=== PATIENT | female | born 1950 | race Caucasian/White ===

== ENCOUNTER → 2020-03-19 09:32 | Outpatient (BNVA) | payer MEDICARE, SELFPAY | PROVIDERS: PCP Internal Medicine; Visit Provider Internal Medicine | DX: I49.3 Ventricular premature depolarization (principal); R07.89 Other chest pain; M79.89 Other specified soft tissue disorders | CPT/HCPCS: 99212 ==

== ENCOUNTER → 2020-03-26 08:28 | Outpatient (BNVA) | payer MEDICARE, SELFPAY | PROVIDERS: PCP Internal Medicine; Referring Provider Internal Medicine; Visit Provider Nurse Practitioner Gerontology | DX: E11.42 Type 2 diabetes mellitus with diabetic polyneuropathy (principal); Z79.84 Long term (current) use of oral hypoglycemic drugs; I10 Essential (primary) hypertension; E78.5 Hyperlipidemia, unspecified | CPT/HCPCS: 82947; 99212 ==

== ENCOUNTER 2020-03-28 08:24 | Outpatient (REF) | payer MEDICARE, SELFPAY ==
[2020-03-28 09:41] LABS: MANUAL DIFF FLAG NO
[2020-03-28 09:44] LABS: Basophils Percent Auto 0.3 % (0-2); Eosinophils Absolute Auto 0.1 X10*3/uL (0.0-0.4); Eosinophils Percent Auto 0.8 % (0-4); Hematocrit 33.3 % (37-47); Hemoglobin 10.5 g/dl (12.0-16.0); Imm Gran Abs Auto 0.05 X10*3/uL (0.00-0.03); Imm Gran Pct Auto 0.5 % (0.0-0.4); Lymphocytes Absolute Auto 1.2 X10*3/uL (1.2-4.9); Lymphocytes Percent Auto 11.2 % (20-40); Mean Corpuscular HGB Conc 31.5 g/dl (31.0-35.0); Mean Corpuscular Hemoglobin 28.7 pg (27.0-33.0); Mean Platelet Volume 9.1 fL (9.4-12.3); Monocytes Percent Auto 9.2 % (2-11); Neutrophils Absolute Auto 8.1 X10*3/uL (2.0-8.3); Platelet Count 434 X10*3/uL (160-400); Red Blood Count 3.66 X10*6/uL (4.20-5.50); Red Cell Distribution Width 13.2 % (11.0-16.0); White Blood Count 10.4 X10*3/uL (4.8-10.8)
[2020-03-28 10:45] LABS: Cholesterol 227 mg/dL; HDL Cholesterol 48 mg/dL; LDL Cholesterol Calculated 145 mg/dl; Triglycerides 171 mg/dL
[2020-03-28 10:47] LABS: Anion Gap 14 (12-20); Blood Urea Nitrogen 16 mg/dL (9-16); Calcium 9.4 mg/dL (8.4-10.2); Carbon Dioxide 26 mmol/L (22-29); Chloride 105 mmol/L (96-108); Cholesterol 230 mg/dL; Estimated Glomerular Filt Rate > 60; Glucose Fasting 141 mg/dL (60-99); HDL Cholesterol 47 mg/dL; LDL Cholesterol Calculated 149 mg/dl; Potassium 4.5 mmol/l (3.3-5.1); Sodium 140 mmol/L (135-145); Triglycerides 171 mg/dL
[2020-03-28 14:38] LABS: Creatinine Urine < 5.00 mg/dL
[2020-03-29 10:17] LABS: LDL Cholesterol Direct 176 mg/dL (<100)
== END 2020-03-28 08:25 | disposition home or self-care (01) ==
LOC: HO.LAB 08:24
PROVIDERS: Absent Provider Nurse Practitioner Family; PCP Internal Medicine; Visit Provider Nurse Practitioner Gerontology
DX: E78.5 Hyperlipidemia, unspecified (principal); E11.42 Type 2 diabetes mellitus with diabetic polyneuropathy; Z00.00 Encounter for general adult medical examination without abnormal findings; J44.9 Chronic obstructive pulmonary disease, unspecified; J45.909 Unspecified asthma, uncomplicated; M79.89 Other specified soft tissue disorders
CPT/HCPCS: 36415; 80048; 80061; 82043; 83721; 85025; 99212

== ENCOUNTER → 2020-04-09 08:35 | Outpatient (BNVA) | payer MEDICARE, SELFPAY | PROVIDERS: PCP Internal Medicine; Visit Provider Nurse Practitioner Gerontology | DX: E11.42 Type 2 diabetes mellitus with diabetic polyneuropathy (principal); I10 Essential (primary) hypertension; E78.5 Hyperlipidemia, unspecified | CPT/HCPCS: 82947; Q3014 ==

== ENCOUNTER → 2020-06-04 09:19 | Outpatient (BNVA) | payer MEDICARE, SELFPAY | PROVIDERS: PCP Internal Medicine; Visit Provider Obstetrics & Gynecology ==

== ENCOUNTER → 2020-07-24 09:42 | Outpatient (BNVA) | payer MEDICARE, SELFPAY | PROVIDERS: PCP Internal Medicine; Visit Provider Internal Medicine | DX: J44.9 Chronic obstructive pulmonary disease, unspecified (principal); Z79.51 Long term (current) use of inhaled steroids | CPT/HCPCS: 99212 ==

== ENCOUNTER → 2020-09-05 08:26 | Outpatient (BNVA) | payer MEDICARE, SELFPAY | PROVIDERS: PCP Internal Medicine; Visit Provider Internal Medicine ==

== ENCOUNTER → 2020-09-05 11:30 | Outpatient (REF) | payer MEDICARE, SELFPAY | LOC: HO.CARD 11:30 | PROVIDERS: Visit Provider Internal Medicine | DX: Z13.89 Encounter for screening for other disorder (principal) ==

== ENCOUNTER → 2020-09-17 08:51 | Outpatient (BNVA) | payer MEDICARE, SELFPAY | PROVIDERS: PCP Internal Medicine; Referring Provider Internal Medicine; Visit Provider Internal Medicine | DX: I49.3 Ventricular premature depolarization (principal); M79.89 Other specified soft tissue disorders; R07.89 Other chest pain; I10 Essential (primary) hypertension; J44.9 Chronic obstructive pulmonary disease, unspecified | CPT/HCPCS: 93005; 99212 ==

== ENCOUNTER 2020-10-08 08:24 | Outpatient (REF) | payer MEDICARE, SELFPAY ==
[2020-10-08 11:08] LABS: MANUAL DIFF FLAG NO
[2020-10-08 11:35] LABS: B Type Natriuretic Peptide 46 pg/mL (<100)
[2020-10-08 11:44] LABS: Basophils Percent Auto 0.3 % (0-2); Eosinophils Absolute Auto 0.1 X10*3/uL (0.0-0.4); Hematocrit 35.6 % (37-47); Hemoglobin 11.5 g/dl (12.0-16.0); Imm Gran Abs Auto 0.06 X10*3/uL (0.00-0.03); Imm Gran Pct Auto 0.5 % (0.0-0.4); Lymphocytes Absolute Auto 1.4 X10*3/uL (1.2-4.9); Lymphocytes Percent Auto 12.1 % (20-40); Mean Corpuscular HGB Conc 32.3 g/dl (31.0-35.0); Mean Corpuscular Hemoglobin 28.6 pg (27.0-33.0); Mean Corpuscular Volume 88.6 fL (80-98); Monocytes Absolute Auto 0.9 X10*3/uL (0.1-1.2); Monocytes Percent Auto 7.8 % (2-11); Neutrophils Absolute Auto 8.8 X10*3/uL (2.0-8.3); Neutrophils Percent Auto 78.3 % (45-73); Platelet Count 391 X10*3/uL (160-400); Red Blood Count 4.02 X10*6/uL (4.20-5.50); Red Cell Distribution Width 13.7 % (11.0-16.0); White Blood Count 11.3 X10*3/uL (4.8-10.8)
[2020-10-08 11:49] LABS: Alanine Aminotransferase 9 U/L (0-31); Albumin Level 4.2 g/dL (3.5-5.0); Alkaline Phosphatase 111 U/L (39-117); Anion Gap 15 (12-20); Aspartate Amino Transferase 13 U/L (5-31); Bilirubin Total 0.3 mg/dL (0.0-1.0); Blood Urea Nitrogen 11 mg/dL (9-16); Carbon Dioxide 25 mmol/L (22-29); Chloride 104 mmol/L (96-108); Estimated Glomerular Filt Rate > 60; Glucose Random 163 mg/dL (60-115); Sodium 140 mmol/L (135-145); Total Protein 8.1 g/dL (6.5-8.0)
== END 2020-10-08 08:25 | disposition home or self-care (01) ==
LOC: HO.LAB 08:24
PROVIDERS: Absent Provider Internal Medicine Medical Oncology; PCP Internal Medicine; Referring Provider Internal Medicine; Visit Provider Nurse Practitioner Gerontology
DX: E11.42 Type 2 diabetes mellitus with diabetic polyneuropathy (principal); I10 Essential (primary) hypertension; E78.5 Hyperlipidemia, unspecified; E53.8 Deficiency of other specified B group vitamins; M79.89 Other specified soft tissue disorders
CPT/HCPCS: 36415; 80053; 82947; 83880; 85025; 99212

== ENCOUNTER 2020-10-09 08:31 | Outpatient (REF) | payer MEDICARE, SELFPAY ==
--- NOTE | ~2020-10-09 | MM_ITS ---
EXAMINATION: BONE DENSITOMETRY CLINICAL INDICATION: Other specified personal risk factors. COMPARISON: Previous BD dated 06/17/2017 and baseline BD dated 08/12/2010. TECHNIQUE: Using a [employer] DXA System (software version: 13.1) manufactured by [employer], dual-energy x-ray absorptiometry was performed of the lumbar spine and left hip. The images are of good technical quality. Summary results are attached. FINDINGS: AP SPINE L1-L4: Current: BMD 1.344 g/cm2, Z-score 1.9, T-score 1.4, normal, 8.3% increase from previous, 21.7% increase from baseline (<5% change is not significant). Prior: BMD 1.241 g/cm2. Baseline: BMD 1.104 g/cm2. LEFT FEMUR, NECK: Current: BMD 0.591 g/cm2, Z-score -2.3, T-score -3.2, osteoporosis. Prior: BMD 0.628 g/cm2. Baseline: BMD 0.715 g/cm2. LEFT FEMUR, TOTAL: Current: BMD 0.695 g/cm2, Z-score -1.9, T-score -2.5, osteoporosis, 11.8% decrease from previous, 20.0% decrease from baseline (<5% change is not significant). Prior: BMD 0.788 g/cm2. Baseline: BMD 0.869 g/cm2. IDENTIFIED RISK FACTORS: Osteoporosis, height loss. Early menopause, secondary osteoporosis, anticonvulsant. HISTORY OF FRACTURE: None listed. MEDICATIONS: Calcium supplements or multivitamin, vitamin D, bisphosphonates. MM/XR DEXA axial skeleton IMPRESSION: 1. DIAGNOSIS: Osteoporosis based on the lowest T-score value of -3.2 in the femoral neck applying World Health Organization criteria. 2. 10-YEAR FRACTURE RISK PREDICTION, FRAX: Major osteoporotic fracture (clinical spine, forearm, hip or shoulder) 18.6%. Hip fracture 6.4%. 3. Treatment Recommendations: NOF guidelines recommend consideration for treatment in postmenopausal women and men age 50 and older presenting with the following: -A hip or vertebral (clinical or morphometric) fracture. -T-score less than or equal to -2.5 at the femoral neck or spine after appropriate evaluation to exclude secondary causes. -Low bone mass at the hip or spine and a 10-year fracture probability by FRAX of greater than or equal to 3% for hip fracture or greater than or equal to 20% for major osteoporotic fracture based on the [place] adapted WHO algorithm. 4. Other Recommendations: All treatment decisions require clinical judgment and consideration of individual patient factors, including patient preferences, comorbidities, previous drug use, risk factors not captured in the FRAX model (e.g. frailty, falls, vitamin D deficiency, increased bone turnover, interval significant decline in bone density) and possible under or overestimation of fracture risk by FRAX. Additional medical evaluation for secondary cause of low bone mineral density may be appropriate. FUTURE SCAN RECOMMENDATION: People with diagnosed cases of osteoporosis or at high risk for fracture should have regular bone mineral density tests. For patients eligible for Medicare, routine testing is allowed once every 2 years. The testing frequency can be increased to one year for patients who have rapidly progressing disease, those who are receiving or discontinuing medical therapy to restore bone mass, or have additional risk factors.
--- NOTE | ~2020-10-09 | MM_ITS ---
EXAMINATION: MM SCREENING DIGITAL BREAST TOMOSYNTHESIS, BILATERAL CLINICAL INFORMATION: Screening. Asymptomatic. Remote bilateral reduction mammoplasty 2000. The lifetime risk of breast cancer based on the Tyrer-Cuzick Model is 5%. COMPARISON: Mammography: 01/02/2019, 06/01/2017, 05/27/2016 TECHNIQUE: Digital breast tomosynthesis is performed in both the craniocaudal and mediolateral oblique views along with computer-aided detection (CAD). Synthesized 2D images are generated from the tomosynthesis. Additional exaggerated right CC and right MLO views are provided. FINDINGS: There are scattered areas of fibroglandular density (ACR BI-RADS breast composition Category b). Breast tissue composition borders on predominantly fatty. Background stromal and fibroglandular densities are similar to prior studies. There is no developing density or interval mass or architectural abnormality. Again, there are scattered bilateral isolated and grouped round calcifications, most are dermal, along with vascular calcifications. There is a biopsy clip marker again noted 3 central 3:00 right breast. The axilla and skin contours are unremarkable. No significant changes. MM/MM tomosynthesis screening BI IMPRESSION: No mammographic evidence of malignancy. ASSESSMENT: BI-RADS 2: Benign RECOMMENDATION: Routine annual mammography screening. This patient's information was entered into a reminder system with a target due date for their next mammogram.
== END 2020-10-09 08:32 | disposition home or self-care (01) ==
LOC: HO.MAMMO 08:31
PROVIDERS: Visit Provider Internal Medicine
DX: Z12.31 Encounter for screening mammogram for malignant neoplasm of breast (principal); M81.0 Age-related osteoporosis without current pathological fracture; Z78.0 Asymptomatic menopausal state; Z91.89 Other specified personal risk factors, not elsewhere classified; Z79.899 Other long term (current) drug therapy
CPT/HCPCS: 77063; 77067; 77080

== ENCOUNTER → 2020-11-20 09:14 | Outpatient (BNVA) | payer MEDICARE, SELFPAY | PROVIDERS: PCP Internal Medicine; Referring Provider Internal Medicine; Visit Provider Internal Medicine | DX: I49.3 Ventricular premature depolarization (principal); M79.89 Other specified soft tissue disorders; R07.89 Other chest pain; I10 Essential (primary) hypertension; J44.9 Chronic obstructive pulmonary disease, unspecified | CPT/HCPCS: 99212 ==

== ENCOUNTER 2020-12-04 08:32 | Outpatient (REF) | payer MEDICARE, SELFPAY ==
[2020-12-04 09:42] LABS: Anion Gap 14 (12-20); Blood Urea Nitrogen 15 mg/dL (9-16); Calcium 10.1 mg/dL (8.4-10.2); Carbon Dioxide 24 mmol/L (22-29); Chloride 104 mmol/L (96-108); Estimated Glomerular Filt Rate 53; Glucose Random 179 mg/dL (60-115); Potassium 3.7 mmol/L (3.3-5.1); Sodium 138 mmol/L (135-145)
== END 2020-12-04 08:33 | disposition home or self-care (01) ==
LOC: HO.LAB 08:32
PROVIDERS: Visit Provider Internal Medicine
DX: J44.9 Chronic obstructive pulmonary disease, unspecified (principal); M79.89 Other specified soft tissue disorders; Z79.899 Other long term (current) drug therapy
CPT/HCPCS: 36415; 80048; 99212

== ENCOUNTER → 2021-02-13 08:59 | Outpatient (BNVA) | payer MEDICARE, SELFPAY | PROVIDERS: PCP Internal Medicine; Referring Provider Internal Medicine; Visit Provider Internal Medicine | DX: I49.3 Ventricular premature depolarization (principal); I10 Essential (primary) hypertension; R07.89 Other chest pain; M79.89 Other specified soft tissue disorders | CPT/HCPCS: 99212 ==

== ENCOUNTER → 2021-04-07 09:59 | Outpatient (BNVA) | payer MEDICARE, SELFPAY | PROVIDERS: PCP Internal Medicine; Visit Provider Internal Medicine | DX: J44.9 Chronic obstructive pulmonary disease, unspecified (principal); J45.909 Unspecified asthma, uncomplicated | CPT/HCPCS: 99212 ==

== ENCOUNTER → 2021-04-15 08:24 | Outpatient (BNVA) | payer MEDICARE, SELFPAY | PROVIDERS: PCP Internal Medicine; Visit Provider Registered Nurse Diabetes Educator ==

== ENCOUNTER → 2021-06-13 10:54 | Outpatient (BNVA) | payer MEDICARE, SELFPAY | PROVIDERS: PCP Internal Medicine; Visit Provider Nurse Practitioner Gerontology | DX: E11.42 Type 2 diabetes mellitus with diabetic polyneuropathy (principal); I10 Essential (primary) hypertension; E78.5 Hyperlipidemia, unspecified; Z79.899 Other long term (current) drug therapy | CPT/HCPCS: Q3014 ==

== ENCOUNTER 2021-07-08 10:18 | Inpatient (IN) | payer MEDICARE, SELFPAY ==
--- NOTE | ~2021-07-08 | XR_ITS ---
EXAMINATION: XR CHEST CLINICAL INFORMATION: Fall. Lower extremity edema. COMPARISON: Previous chest x-rays most recent June 2019 TECHNIQUE: 2 views of the chest were obtained. FINDINGS: The cardiac silhouette is enlarged but stable. Hilar and mediastinal contours are unremarkable. The lungs are clear. There is no pleural effusion or pneumothorax. There are degenerative changes of the thoracic spine. XR/XR chest 2V IMPRESSION: Stable enlargement of the cardiac silhouette. No evidence for acute disease in the chest.
--- NOTE | ~2021-07-08 | XR_ITS ---
EXAMINATION: XR ANKLE, LEFT CLINICAL INFORMATION: Fall. Pain. COMPARISON: None TECHNIQUE: AP, lateral, and mortise views of the left ankle. FINDINGS: Bone alignment is normal. No fracture or dislocation is seen. The ankle mortise is normal. There are calcaneal spurs. There is soft tissue calcification in the more proximal Achilles tendon. There is diffuse soft tissue swelling. There is amorphous soft tissue calcification in the medial lower leg. There is soft tissue arterial calcification. XR/XR ankle LT min 3V IMPRESSION: No fracture or dislocation.
--- NOTE | ~2021-07-08 | XR_ITS ---
EXAMINATION: XR HIP, LEFT CLINICAL INFORMATION: Fall. Left thigh pain. COMPARISON: None TECHNIQUE: Two views of the left hip and one view of the pelvis. FINDINGS: No pelvis fracture is seen. No hip fracture is seen. There is mild arthritis at both hip joints. Soft tissues are unremarkable. There are degenerative changes of the visualized lower lumbar spine. There is evidence of atherosclerotic disease. XR/XR hip LT w PEL1V IMPRESSION: No fracture or dislocation.
--- NOTE | ~2021-07-08 | FL_ITS ---
EXAMINATION: XR FLUOROSCOPY WITH IMAGES CLINICAL INFORMATION: Fracture COMPARISON: Previous x-ray 07/08/2021 TECHNIQUE: Fluoroscopy performed by Dr. Conner Mark. Fluoroscopy time: 1.8 minutes DAP: 0.5 mGycm2 Images: 10 FINDINGS: Fluoroscopy guidance was provided for ORIF of left distal femoral shaft fracture. Images demonstrate an intramedullary tim and multiple distal screws in the femur with improved alignment. FL/FL guidance in OR IMPRESSION: Fluoroscopy guidance for ORIF of left femoral fracture.
--- NOTE | ~2021-07-08 | XR_ITS ---
EXAMINATION: XR ELBOW, LEFT CLINICAL INFORMATION: Pain. Fall. COMPARISON: None TECHNIQUE: AP, lateral, and oblique views of the left elbow. FINDINGS: Bone alignment is normal. No fracture or dislocation is seen. There is a small osteophyte at the coronoid process. The joint spaces are otherwise normal. There is no joint effusion. There may be a small amount of air in the soft tissues adjacent to the medial olecranon. XR/XR elbow LT min 3V IMPRESSION: No fracture or dislocation or joint effusion. Question small amount of air in the soft tissues adjacent to the medial olecranon.
--- NOTE | ~2021-07-08 | XR_ITS ---
EXAMINATION: XR KNEE, LEFT CLINICAL INFORMATION: Fall. Pain and swelling. COMPARISON: None TECHNIQUE: Four views of the left knee. FINDINGS: There is a comminuted fracture of the distal shaft and supracondylar femur. There is posterior and medial displacement of the femoral condyles with respect to the more proximal shaft measuring approximately 1.3 cm. There is some impaction. There also may be some element of rotation at the fracture. Bones are osteopenic. There is arthritis at the femoral tibial joints. True lateral view cannot be obtained and difficult to assess for effusion. There is soft tissue swelling adjacent to the fracture. XR/XR knee LT 4V IMPRESSION: Comminuted impacted displaced left distal femoral shaft and supracondylar fracture.
[2021-07-08 10:35] VITALS: BP 150/90; BP 196/82; PULSE 90; RESP 17; TEMP 36.4; O2SAT 98; BMI 37.5
--- NOTE | 2021-07-08 11:02 | PC.NURSE ---
PT ASSISTED ONTO BEDPAN WITH 2 ASSIST. VOIDED LARGE AMOUNT YELLOW URINE.
--- NOTE | 2021-07-08 11:52 | ED.FALL ---
HPI - Fall General Chief Complaint: Extremity Injury, Lower Stated Complaint: [facility] FALL W/L ANKLE/LEG PAIN Time Seen by Provider: 07/08/21 10:53 Source: patient and EMS Mode of arrival: EMS Limitations: no limitations History of Present Illness HPI Narrative: 71-year-old female with a past medical history of diabetes type 2 with diabetic polyneuropathy, hypertension, hyperlipidemia, CHF, COPD, asthma, PVCs, lower extremity edema and osteopenia presenting to the ED via EMS after she had a mechanical fall where she reports she had just walked out of the bank and the sidewalk was uneven right outside of the bank and she tripped on the uneven sidewalk and landed injured her left elbow/left hip/thigh and knee/ankle and since then she has had been having pain and not been able to walk her normal self. She denies head injury loss of consciousness. She reports that she is on aspirin no other blood thinners. She denies any neck pain or injury. She denies any chest pain or shortness of breath. She denies any abdominal pain or back pain. She denies any other injuries complaints or concerns. She denies any symptoms prior to the fall she reports this was mechanical. MD complaint: fall Onset (ago): minute(s) (Prior to arrival) Fall from: standing Fall witnessed: no Place fall occurred: street Loss of consciousness: none Prolonged down time: no Symptoms prior to fall: none Context: tripped/slipped Location of injury - extremities: left: elbow, thigh, knee and ankle Severity: severe Severity scale (1-10): >10 Quality: aching Associated symptoms (after fall): unable to walk Related Data Home Medications Medication Instructions Recorded Confirmed aspirin 81 mg tablet,delayed 81 mg PO DAILY 03/19/20 07/08/21 release ipratropium 0.5 mg-albuterol 3 mg 3 ml INHALATION Q6H 03/28/20 07/08/21 (2.5 mg base)/3 mL nebulization soln losartan 100 mg tablet 50 mg PO DAILY tab 04/07/21 07/08/21 alendronate 70 mg tablet 70 mg PO SA 07/08/21 07/08/21 cyanocobalamin (vitamin B-12) 1 tab PO DAILY 07/08/21 07/08/21 1,000 mcg tablet glimepiride 2 mg tablet 2 mg PO BEDTIME 07/08/21 07/08/21 metoprolol tartrate 100 mg tablet 100 mg PO BEDTIME 07/08/21 07/08/21 metoprolol tartrate 100 mg tablet 200 mg PO DAILY 07/08/21 07/08/21 semaglutide (Ozempic) 0.25 mg SUBCUT PAGE 07/08/21 07/08/21 Previous Rx's Medication Instructions Recorded blood-glucose meter (FreeStyle #1 ea 10/08/20 Lite Meter) folic acid 1 mg tablet 1 mg PO DAILY #90 tab 11/15/20 torsemide 100 mg tablet 100 mg PO DAILY #90 tab 02/03/21 cholecalciferol (vitamin D3) 125 125 mcg PO DAILY #90 cap 02/12/21 mcg (5,000 unit) capsule lancets 28 gauge #100 ea 04/29/21 ipratropium 20 mcg-albuterol 100 1 puff PO QID #12 g 05/11/21 mcg/actuation mist for inhalation (Combivent Respimat) rosuvastatin 40 mg tablet 40 mg PO DAILY #90 tab 05/11/21 fluticasone 250 mcg-salmeterol 50 1 ea PO BID #60 ea 05/26/21 mcg/dose blistr powdr for inhalation (Wixela Inhub) glimepiride 1 mg tablet 1 mg PO QAM 90 Days #90 tab 06/02/21 blood-glucose meter (FreeStyle #1 ea 06/13/21 Lite Meter) Allergies Allergy/AdvReac Type Severity Reaction Status Date / Time cephalexin [From KEFLEX] Allergy Intermediate HIVES Verified 06/13/21 13:41 Penicillins [PENICILLINS] Allergy Intermediate HIVES Verified 06/13/21 13:41 metformin [METFORMIN] Allergy Mild HIVES Verified 06/13/21 13:41 enalaprilat [Vasotec] Allergy Unknown Unknown Verified 06/13/21 13:41 Review of Systems Review of Systems: Constitutional : No Weight loss, No Fever, No Chills, No Night Sweats, No Fatigue, No Malaise ENT/Mouth : No Hearing loss, No Ear Pain, No Nasal Congestion, No Sinus Pain, No Hoarseness, No sore throat, No Rhinorrhea, No Swallowing Difficulty Eyes: No Eye Pain, No Swelling, No Redness, No Foreign Body, No Discharge, No Vision Changes Cardiovascular : No Chest Pain, No SOB, No Dyspnea on Exertion, No Orthopnea, No Edema, No Palpitations Respiratory : No Cough, No Sputum, No Wheezing, No Smoke Exposure, No Dyspnea Gastrointestinal : No Nausea, No Vomiting, No Diarrhea, No Constipation, No abdominal Pain, No Hematochezia, No Melena Genitourinary : no irregular bleeding, No Dysuria, No Urinary Frequency, No Hematuria, No Urinary Incontinence, No Urgency, No Flank Pain, No Urinary Flow Changes, No Hesitancy Musculoskeletal : + joint pain to left hip/knee/thigh/ankle and left elbow after the fall, No Myalgias, No Joint Swelling Skin : No Skin Lesions, No rash Neuro : No Weakness, No Numbness, No Paresthesias, No Loss of Consciousness, No Dizziness, No Headache Psych : No Anxiety/Panic, No Depression, No SI/HI/AH/VH, No Social Issues, Heme/Lymph: No Bruising, No Bleeding,No Lymphadenopathy Endocrine : No Polyuria, No Polydipsia, No Temperature Intolerance Yes all other systems are reviewed and are negative [facility] Past Medical History Attestation statement: The following information was validated with the patient. Medical History Acid reflux Asthma Asthma CHF (congestive heart failure) COPD (chronic obstructive pulmonary disease) COPD (chronic obstructive pulmonary disease) Essential hypertension Hyperlipidemia LDL goal <70 Hypertension Leg swelling Osteopenia PVC (premature ventricular contraction) Type 2 diabetes mellitus with diabetic polyneuropathy Surgical History History of cardiac catheterization History of cholecystectomy History of tooth extraction Hx of bilateral breast reduction surgery Hx of local excision of skin lesion Family History Family History Father CVD (cardiovascular disease) Mother CVD (cardiovascular disease) Gastric cancer Diabetes Sister Lung disease Social History Social History Household Members: None Housing: Apartment Alcohol intake: never Patient Tobacco Use Status: Never used Tobacco Advance Directives: No Advance Directives Information Provided: No Current occupational status: disabled Sexual orientation: Straight/Heterosexual Gender identity: Female Physical Exam Vital Signs: Vital Signs: Last Vital Signs Temp 97.6 F 07/08/21 10:35 Pulse 89 07/08/21 12:53 Resp 17 07/08/21 12:53 BP 189/94 H 07/08/21 12:53 Pulse Ox 100 07/08/21 12:53 BMI result Body Mass Index 37.5 vital signs have been reviewed as normal and appeared to be correct. Blood pressure 196/82. Heart rate normal. Respiration rate normal. Temperature normal. Oxygen saturation normal. Appearance: Alert. Oriented X3. No acute distress. Head: Normal external exam. Normocephalic. Atraumatic. No Severino signs noted. No raccoon eyes noted Eyes: PERRLA. EOMI. Conjunctiva and sclera normal. Eyelids normal. ENT: EAC normal. TM's Normal. No septal hematoma noted. No hemotympanum noted. Pharynx normal. Uvula midline. Moist mucous membranes. No lesions/ulcerations or masses noted on the tongue. Normal voice. No trismus noted. No drooling noted. No muffled voice noted. Neck: Normal inspection. Neck supple. FROM. No adenopathy. Thyroid Normal. No tracheal deviation noted. No crepitus is noted. No meningeal signs. No neck mass noted. Nontender. No signs of trauma noted. CVS: Normal heart rate and rhythm. Heart sound normal. Pulses normal throughout. No murmurs/rales/gallops. Respiratory: No respiratory distress. Painless inspiration. Breath sounds normal. No wheezes/rales/rhonchi noted. Chest nontender. No crepitus is noted. No signs of trauma noted. No accessory muscle usage noted or decreased air movement noted. No signs of trauma. Abdomen: Soft and nontender. Bowel sounds normal in all 4 quadrants. No distention noted. No organomegaly noted. No visible injury noted. Back: No CVA tenderness. Full range of motion noted. Nontender. No signs of trauma. Patient neuro intact bilaterally and distally on all 4 extremities. Patient's reflexes intact bilaterally and distally on all 4 extremities. No rashes/lesion/induration/fluctuance or signs of infection noted. Skin: Skin warm and dry. Normal skin color. Normal skin turgor. No rashes/lesions/lacerations noted. Extremities: To the left upper leg right above the knee joint at the lateral aspect patient has moderate tenderness all patient and swelling questioning obvious deformity possible distal femur fracture. She does has limited range of motion due to the left knee due to pain. She has full range of motion of the left hip no obvious deformities noted to the left hip. No obvious ligamentous or tendon injury noted to the left hip. Unable to rule out tendon or ligament injury to the knee although no obvious laxity noted at this time. Patient has mild tenderness to the lateral aspect of the left ankle. No obvious deformities noted to the left ankle. No obvious ligamentous or tendon injury noted to the left ankle. She is noted to have +2 lower extremity pitting edema. No calf tenderness is noted. Achilles tendon is intact does not appear ruptured Otherwise all other Extremities exhibit normal range of motion and nontender. Neuro: Oriented X 3. No motor deficit. No sensory deficit. Reflexes normal. No focal neuro deficits noted. CN's II-XII intact bilaterally? Vascular: + radial pulses/+ 2 distal pedal pulses/+2 dorsalis pedis b/l. Normal cap refill. No cyanosis noted to upper extremity nails and lower extremity toes nails. Course Course Course Narrative: 11am - 71-year-old female with a past medical history of diabetes type 2 with diabetic polyneuropathy, HTN, HLD, CHF, COPD, asthma, PVCs, lower extremity edema and osteopenia her currently uses a walker daily presenting to the ED via EMS after she had a mechanical fall where she reports she had just walked out of the bank and the sidewalk was uneven right outside of the bank and she tripped on the uneven sidewalk and landed injured her left elbow/left hip/thigh and knee/ankle and since then she has had been having pain and not been able to walk her normal self. She denies head injury loss of consciousness. She reports that she is on aspirin no other blood thinners. Plan: Labs, EKG, x-ray of left hip/left knee and left ankle along with left elbow obtain a type and screen, update the patient's tetanus, I also offered something for pain although patient reports that she does not need anything for pain at this time will then re-evaluate. Reevaluation(s) Reevaluation #1: - x-ray of left femur revealed comminuted impacted displaced left distal femoral fracture and supracondylar fracture. Therefore consulted Orthopedics and they reported that we can place the patient on knee immobilizer and she should be admitted to medicine for medical clearance so they can take her to surgery I discussed this with the patient and she is agreeable. - x-ray of left elbow/hip and ankle negative for any acute processes. - chest x-ray revealed enlarged cardiac silhouette otherwise no other acute processes noted. - labs pending at this time. I discussed this with Dr. Anderson and they will be admitting at this time. Time: 12:36 Reevaluation #2: - labs reviewed and patient with an elevated white blood cell count 90995. - Magnesium at 1.5 - glucose 245. - otherwise all other labs are within normal limits. Patient is being admitted with Dr. Anderson and Orthopedics will consult for surgery. Patient understands and is agreeable to this plan. Time: 13:00 MDM - Fall Medical Records Attestation: I reviewed the patient's medical records. Lab Data Attestation: I reviewed the patient's lab results. Result diagrams: 07/08/21 12:16 07/08/21 12:16 Labs: Lab Results 07/08/21 07/08/21 07/08/21 Range/Units 12:16 12:16 12:16 WBC 17.0 H (4.8-10.8) X10*3/uL RBC 3.85 L (4.20-5.50) X10*6/uL Hgb 10.9 L (12.0-16.0) g/dl Hct 33.6 L (37.0-47.0) % MCV 87.3 (80.0-98.0) fL MCH 28.3 (27.0-33.0) pg MCHC 32.4 (31.0-35.0) g/dl RDW 14.1 (11.0-16.0) % Plt Count 358 (160-400) X10*3/uL MPV 8.4 L (9.4-12.3) fL Immature Gran % (Auto) 0.5 H (0.0-0.4) % Neut % (Auto) 89.6 H (45-73) % Lymph % (Auto) 4.1 L (20-40) % Hidalgo % (Auto) 5.4 (2-11) % Eos % (Auto) 0.2 (0-4) % Baso % (Auto) 0.2 (0-2) % Lymph # (Auto) 0.7 L (1.2-4.9) X10*3/uL Hidalgo # (Auto) 0.9 (0.1-1.2) X10*3/uL Eos # (Auto) 0.0 (0.0-0.4) X10*3/uL Baso # (Auto) 0.0 (0.0-0.2) X10*3/uL Abs Immat Gran (auto) 0.08 H (0.00-0.03) X10*3/uL Absolute Neuts (auto) 15.3 H (2.0-8.3) x10*3/uL Absolute Nucleated RBC 0.000 (0.0-0.012) X10*3/uL Nucleated RBC % (auto) 0.0 (0.0-0.2) /100WBC PT 12.3 (9.9-13.0) SEC INR 1.1 (0.9-1.1) Sodium (135-145) mmol/L Potassium (3.3-5.1) mmol/L Chloride (96-108) mmol/L Carbon Dioxide (22-29) mmol/L Anion Gap (12-20) BUN (9-16) mg/dL Creatinine (0.5-1.4) mg/dL Estim Creat Clear Calc Estimated GFR Random Glucose (60-115) mg/dL Estimat Average Glucose mg/dL Hemoglobin A1c % % Calcium (8.4-10.2) mg/dL Magnesium (1.6-2.6) mg/dL Total Bilirubin (0.0-1.0) mg/dL AST (5-31) U/L ALT (0-31) U/L Alkaline Phosphatase (39-117) U/L B-Natriuretic Peptide 34 (<100) pg/mL Total Protein (6.5-8.0) g/dL Albumin (3.5-5.0) g/dL TSH (0.32-4.0) uIU/mL COVID-19 ([facility]ARROD) (Negative) COVID-19 Clin Com Blood Type Antibody Screen 07/08/21 07/08/21 07/08/21 Range/Units 12:16 12:16 12:16 WBC (4.8-10.8) X10*3/uL RBC (4.20-5.50) X10*6/uL Hgb (12.0-16.0) g/dl Hct (37.0-47.0) % MCV (80.0-98.0) fL MCH (27.0-33.0) pg MCHC (31.0-35.0) g/dl RDW (11.0-16.0) % Plt Count (160-400) X10*3/uL MPV (9.4-12.3) fL Immature Gran % (Auto) (0.0-0.4) % Neut % (Auto) (45-73) % Lymph % (Auto) (20-40) % Hidalgo % (Auto) (2-11) % Eos % (Auto) (0-4) % Baso % (Auto) (0-2) % Lymph # (Auto) (1.2-4.9) X10*3/uL Hidalgo # (Auto) (0.1-1.2) X10*3/uL Eos # (Auto) (0.0-0.4) X10*3/uL Baso # (Auto) (0.0-0.2) X10*3/uL Abs Immat Gran (auto) (0.00-0.03) X10*3/uL Absolute Neuts (auto) (2.0-8.3) x10*3/uL Absolute Nucleated RBC (0.0-0.012) X10*3/uL Nucleated RBC % (auto) (0.0-0.2) /100WBC PT (9.9-13.0) SEC INR (0.9-1.1) Sodium 135 (135-145) mmol/L Potassium 4.1 (3.3-5.1) mmol/L Chloride 102 (96-108) mmol/L Carbon Dioxide 24 (22-29) mmol/L Anion Gap 13 (12-20) BUN 14 (9-16) mg/dL Creatinine 1.03 (0.5-1.4) mg/dL Estim Creat Clear Calc 62.4 Estimated GFR 53 Random Glucose 245 H (60-115) mg/dL Estimat Average Glucose 217 mg/dL Hemoglobin A1c % 9.2 % Calcium 10.0 (8.4-10.2) mg/dL Magnesium 1.5 L (1.6-2.6) mg/dL Total Bilirubin 0.4 (0.0-1.0) mg/dL AST 12 (5-31) U/L ALT 7 (0-31) U/L Alkaline Phosphatase 115 (39-117) U/L B-Natriuretic Peptide (<100) pg/mL Total Protein 8.0 (6.5-8.0) g/dL Albumin 3.9 (3.5-5.0) g/dL TSH 2.12 (0.32-4.0) uIU/mL COVID-19 ([facility]ARROD) (Negative) COVID-19 Clin Com Blood Type Antibody Screen 07/08/21 07/08/21 Range/Units 12:16 12:33 WBC (4.8-10.8) X10*3/uL RBC (4.20-5.50) X10*6/uL Hgb (12.0-16.0) g/dl Hct (37.0-47.0) % MCV (80.0-98.0) fL MCH (27.0-33.0) pg MCHC (31.0-35.0) g/dl RDW (11.0-16.0) % Plt Count (160-400) X10*3/uL MPV (9.4-12.3) fL Immature Gran % (Auto) (0.0-0.4) % Neut % (Auto) (45-73) % Lymph % (Auto) (20-40) % Hidalgo % (Auto) (2-11) % Eos % (Auto) (0-4) % Baso % (Auto) (0-2) % Lymph # (Auto) (1.2-4.9) X10*3/uL Hidalgo # (Auto) (0.1-1.2) X10*3/uL Eos # (Auto) (0.0-0.4) X10*3/uL Baso # (Auto) (0.0-0.2) X10*3/uL Abs Immat Gran (auto) (0.00-0.03) X10*3/uL Absolute Neuts (auto) (2.0-8.3) x10*3/uL Absolute Nucleated RBC (0.0-0.012) X10*3/uL Nucleated RBC % (auto) (0.0-0.2) /100WBC PT (9.9-13.0) SEC INR (0.9-1.1) Sodium (135-145) mmol/L Potassium (3.3-5.1) mmol/L Chloride (96-108) mmol/L Carbon Dioxide (22-29) mmol/L Anion Gap (12-20) BUN (9-16) mg/dL Creatinine (0.5-1.4) mg/dL Estim Creat Clear Calc Estimated GFR Random Glucose (60-115) mg/dL Estimat Average Glucose mg/dL Hemoglobin A1c % % Calcium (8.4-10.2) mg/dL Magnesium (1.6-2.6) mg/dL Total Bilirubin (0.0-1.0) mg/dL AST (5-31) U/L ALT (0-31) U/L Alkaline Phosphatase (39-117) U/L B-Natriuretic Peptide (<100) pg/mL Total Protein (6.5-8.0) g/dL Albumin (3.5-5.0) g/dL TSH (0.32-4.0) uIU/mL COVID-19 ([facility]ARROD) Negative (Negative) COVID-19 Clin Com See Note Blood Type O Positive Antibody Screen NEGATIVE Imaging Data Chest x-ray: Attestation: I personally reviewed and interpreted this imaging study as follows: Radiologist's impression: FINDINGS: The cardiac silhouette is enlarged but stable. Hilar and mediastinal contours are unremarkable. The lungs are clear. There is no pleural effusion or pneumothorax. There are degenerative changes of the thoracic spine. XR/XR chest 2V IMPRESSION: Stable enlargement of the cardiac silhouette. No evidence for acute disease in the chest. Left hip/ankle and elbow x-ray: Attestation: I personally reviewed and interpreted this imaging study as follows: Radiologist's impression: FINDINGS: No pelvis fracture is seen. No hip fracture is seen. There is mild arthritis at both hip joints. Soft tissues are unremarkable. There are degenerative changes of the visualized lower lumbar spine. There is evidence of atherosclerotic disease. XR/XR hip LT w PEL1V IMPRESSION: No fracture or dislocation. FINDINGS: Bone alignment is normal. No fracture or dislocation is seen. The ankle mortise is normal. There are calcaneal spurs. There is soft tissue calcification in the more proximal Achilles tendon. There is diffuse soft tissue swelling. There is amorphous soft tissue calcification in the medial lower leg. There is soft tissue arterial calcification. XR/XR ankle LT min 3V IMPRESSION: No fracture or dislocation. FINDINGS: Bone alignment is normal. No fracture or dislocation is seen. There is a small osteophyte at the coronoid process. The joint spaces are otherwise normal. There is no joint effusion. There may be a small amount of air in the soft tissues adjacent to the medial olecranon.? XR/XR elbow LT min 3V IMPRESSION: No fracture or dislocation or joint effusion. Question small amount of air in the soft tissues adjacent to the medial olecranon. Left knee/femur x-ray: Attestation: I personally reviewed and interpreted this imaging study as follows: Radiologist's impression: FINDINGS: There is a comminuted fracture of the distal shaft and supracondylar femur. There is posterior and medial displacement of the femoral condyles with respect to the more proximal shaft measuring approximately 1.3 cm. There is some impaction. There also may be some element of rotation at the fracture. Bones are osteopenic. There is arthritis at the femoral tibial joints. True lateral view cannot be obtained and difficult to assess for effusion. There is soft tissue swelling adjacent to the fracture. XR/XR knee LT 4V IMPRESSION: Comminuted impacted displaced left distal femoral shaft and supracondylar fracture. ECG Data Attestation: I personally reviewed and interpreted this ECG as follows: ECG interpretation date: 07/08/21 Critical Care Time Critical Care Time Critical Care Time: Yes Total Critical Care Time: 60 Attestation: I personally attest to this time spent taking care of the patient Discharge Plan Discharge Clinical Impression: Fall, Strain of left elbow, Abrasion of elbow, left, Closed left femoral fracture Patient Disposition: Admitted As Inpatient
--- NOTE | 2021-07-08 11:59 | ECG_ITS ---
Test Reason : MEDICAL CLEARANCE/LEG SWELING Blood Pressure : / mmHG Vent. Rate : 087 BPM Atrial Rate : 087 BPM P-R Int : 216 ms QRS Dur : 090 ms QT Int : 390 ms P-R-T Axes : 042 021 031 degrees QTc Int : 469 ms Sinus rhythm with 1st degree A-V block Otherwise normal ECG When compared with ECG of 14-JUN-2019 08:21, Premature ventricular complexes are no longer Present IN interval has increased T wave amplitude has decreased in Inferior leads Nonspecific T wave abnormality now evident in Anterior leads Nonspecific T wave abnormality no longer evident in Lateral leads QT has shortened Referred By: Azalia Olguin Electronically Signed By:Bebeto Hunter
[2021-07-08 12:22] LABS: MANUAL DIFF FLAG NO
[2021-07-08 12:24] LABS: Basophils Percent Auto 0.2 % (0-2); Eosinophils Percent Auto 0.2 % (0-4); Hematocrit 33.6 % (37.0-47.0); Hemoglobin 10.9 g/dl (12.0-16.0); Imm Gran Abs Auto 0.08 X10*3/uL (0.00-0.03); Imm Gran Pct Auto 0.5 % (0.0-0.4); Lymphocytes Absolute Auto 0.7 X10*3/uL (1.2-4.9); Lymphocytes Percent Auto 4.1 % (20-40); Mean Corpuscular HGB Conc 32.4 g/dl (31.0-35.0); Mean Corpuscular Hemoglobin 28.3 pg (27.0-33.0); Mean Corpuscular Volume 87.3 fL (80.0-98.0); Mean Platelet Volume 8.4 fL (9.4-12.3); Monocytes Absolute Auto 0.9 X10*3/uL (0.1-1.2); Monocytes Percent Auto 5.4 % (2-11); Neutrophils Absolute Auto 15.3 x10*3/uL (2.0-8.3); Neutrophils Percent Auto 89.6 % (45-73); Platelet Count 358 X10*3/uL (160-400); Red Blood Count 3.85 X10*6/uL (4.20-5.50); Red Cell Distribution Width 14.1 % (11.0-16.0)
[2021-07-08 12:29] LABS: INTERNATIONAL NORM RATIO 1.1 (0.9-1.1); Prothrombin Time 12.3 SEC (9.9-13.0)
--- NOTE | 2021-07-08 12:39 | P.HPHOSP_ITS ---
History of Present Illness Date of Service: 07/08/21 Chief Complaint: Fall and hip pain 71-year-old female with a past medical history of diabetes type 2 with diabetic polyneuropathy, hypertension, hyperlipidemia, CHF, COPD, asthma, PVCs, lower extremity edema among others who is presenting with with a mechanical fall from tripping on an uneven surface outside of a bank while using her walker. She felt onto her left elbow/left hip/thigh and knee/ankle and and was experiencing pain in the left hip with ambulation. She had no loss of consciousness and no head injury. Xrays ankle, knee and hip and pelvis showa Comminuted impacted displaced left distal femoral shaft and supracondylar fracture. ? Review of Systems Review of Systems: Gen: no fever Resp: no sob, no cough CV: no chest, no READ, no leg edema GI: No n/v, no abd pain Neuro: No confusion MSK: left hip pain Yes all other systems are reviewed and are negative [facility] Medical History Acid reflux Asthma Asthma CHF (congestive heart failure) COPD (chronic obstructive pulmonary disease) COPD (chronic obstructive pulmonary disease) Essential hypertension Hyperlipidemia LDL goal <70 Hypertension Leg swelling Osteopenia PVC (premature ventricular contraction) Type 2 diabetes mellitus with diabetic polyneuropathy Family History Father CVD (cardiovascular disease) Mother CVD (cardiovascular disease) Gastric cancer Diabetes Sister Lung disease Surgical History History of cardiac catheterization History of cholecystectomy History of tooth extraction Hx of bilateral breast reduction surgery Hx of local excision of skin lesion Social History Household Members: None Housing: Apartment Alcohol intake: never Patient Tobacco Use Status: Never used Tobacco Advance Directives: No Advance Directives Information Provided: No Current occupational status: disabled Sexual orientation: Straight/Heterosexual Gender identity: Female Meds Allergies Allergy/AdvReac Type Severity Reaction Status Date / Time cephalexin [From KEFLEX] Allergy Intermediate HIVES Verified 06/13/21 13:41 Penicillins [PENICILLINS] Allergy Intermediate HIVES Verified 06/13/21 13:41 metformin [METFORMIN] Allergy Mild HIVES Verified 06/13/21 13:41 enalaprilat [Vasotec] Allergy Unknown Unknown Verified 06/13/21 13:41 Active Medications: Current Medications Pharmacy Consult (Consult Rx Perform Med Rec) 1 each MISCELLANE ONCE PRN PRN Reason: Consult order Home Medications Medication Instructions Recorded Confirmed Last Taken Type aspirin 81 mg tablet,delayed 81 mg PO DAILY 03/19/20 07/08/21 07/08/21 History release ipratropium 0.5 mg-albuterol 3 mg 3 ml INHALATION Q6H 03/28/20 07/08/21 07/08/21 History (2.5 mg base)/3 mL nebulization soln losartan 100 mg tablet 50 mg PO DAILY tab 04/07/21 07/08/21 07/08/21 History alendronate 70 mg tablet 70 mg PO SA 07/08/21 07/08/21 07/05/21 History cyanocobalamin (vitamin B-12) 1 tab PO DAILY 07/08/21 07/08/21 07/08/21 History 1,000 mcg tablet glimepiride 2 mg tablet 2 mg PO BEDTIME 07/08/21 07/08/21 07/07/21 History metoprolol tartrate 100 mg tablet 100 mg PO BEDTIME 07/08/21 07/08/21 07/07/21 History metoprolol tartrate 100 mg tablet 200 mg PO DAILY 07/08/21 07/08/21 07/08/21 History semaglutide (Ozempic) 0.25 mg SUBCUT PAGE 07/08/21 07/08/21 07/06/21 History Physical Exam Vital Signs and Narrative: Vital Signs: Last Vital Signs Temp 97.6 F 07/08/21 10:35 Pulse 90 07/08/21 10:35 Resp 17 07/08/21 10:35 BP 196/82 H 07/08/21 10:35 Pulse Ox 98 07/08/21 10:35 BMI result Body Mass Index 37.5 Const: Other: Constitutional: Alert, in no distress, overweight. Mental Status: Oriented to person, place and time. Eyes: Pupils are equal, round and reactive to light. Ear, Nose and Throat: Oropharynx clear, mucous membranes moist. Ears and nose without eformities. Trachea midline. Respiratory: Clear to auscultation. No wheezing, rales or rhonchi. Cardiovascular: S1 S2 regular. No murmurs, rubs or gallops. Bilateral 1 +pitting edema Gastrointestinal: Abdomen soft, non-tender, non-distended. Normal bowel sounds.? Neurologic: Cranial nerves II-XII grossly intact. No focal neurological deficits. Moves all extremities spontaneously.? Skin: No rashes or lesions.? Musculoskeletal: pain with movment of left hip Psychiatric: Normal mood and affect? Results Labs CBC and Chem 7: 07/08/21 12:16 07/08/21 12:16 Labs: Laboratory Results - last 24 hr 07/08/21 07/08/21 12:16 12:16 MCV 87.3 MCH 28.3 MCHC 32.4 RDW 14.1 Plt Count 358 MPV 8.4 L Immature Gran % (Auto) 0.5 H Neut % (Auto) 89.6 H Lymph % (Auto) 4.1 L [place] % (Auto) 5.4 Eos % (Auto) 0.2 Baso % (Auto) 0.2 Lymph # (Auto) 0.7 L [place] # (Auto) 0.9 Eos # (Auto) 0.0 Baso # (Auto) 0.0 Abs Immat Gran (auto) 0.08 H Absolute Neuts (auto) 15.3 H Absolute Nucleated RBC 0.000 Nucleated RBC % (auto) 0.0 PT 12.3 INR 1.1 Imaging Radiologist's Impressions: Impressions Ankle X-Ray 07/08/21 11:57 IMPRESSION: No fracture or dislocation. Chest X-Ray 07/08/21 11:57 IMPRESSION: Stable enlargement of the cardiac silhouette. No evidence for acute disease in the chest. Elbow X-Ray 07/08/21 11:57 IMPRESSION: No fracture or dislocation or joint effusion. Question small amount of air in the soft tissues adjacent to the medial olecranon. Hip/Pelvis X-Ray 07/08/21 11:57 IMPRESSION: No fracture or dislocation. Knee X-Ray 07/08/21 11:57 IMPRESSION: Comminuted impacted displaced left distal femoral shaft and supracondylar fracture. Assessment and Plan (1) Fall: Status: Acute (2) Strain of left elbow: Status: Acute (3) Abrasion of elbow, left: Status: Acute (4) Type 2 diabetes mellitus with diabetic polyneuropathy: Qualifiers: Diabetes mellitus technician terminal and repeater insulin use: without technician terminal and repeater use Qualified Code(s): E11.42 - Type 2 diabetes mellitus with diabetic polyneuropathy Status: Acute (5) CHF (congestive heart failure): Status: Acute (6) Hyperlipidemia LDL goal <70: Status: Acute (7) Closed left femoral fracture: Status: Acute Plan 71/F with COPD, diabete, HTN, HLD, chronic leg edema here with mechanical fall resulting in left femoral shaft fracture 1/ Comminuted impacted displaced left distal femoral shaft and supracondylar fracture. -Pain control -Ortho consult for probable repair -Chronic heart failure is stable, no angina, COPD is control, and given urgent nature of surgical repair, no further cardiac testing indicated at this time. 2/Diabetes--On Ozempic and glimepride--Hold. Give insulin while here 3/HTN-BP currently high, probable related to pain. -Continue Metoprololol and Losartan and IV hydralazine as needed for further control 4/COPD--no exacerbation, continue inhalers 5/CHF- weather systolic or diastolic not clear, no echo on record. -Will get Echo -Continue Torsemide 6/Morbid obesity--health benefit or weight loss discussed and aware of her options 7/HLD--Stain 8/Leukocytosis--likely reactive 9/HypOmagnesemia--supplement given /DVT--Heparin and compression device ? Quality Stroke Does the patient have a stroke diagnosis?: No VTE Prior VTE?: No VTE Risk Level:: Medical - moderate - high VTE Device Contraindication: N/A - Device Ordered VTE Drug Contraindication: N/A - Med Ordered
[2021-07-08 12:44] LABS: Alanine Aminotransferase 7 U/L (0-31); Albumin Level 3.9 g/dL (3.5-5.0); Alkaline Phosphatase 115 U/L (39-117); Anion Gap 13 (12-20); Aspartate Amino Transferase 12 U/L (5-31); Bilirubin Total 0.4 mg/dL (0.0-1.0); Blood Urea Nitrogen 14 mg/dL (9-16); Carbon Dioxide 24 mmol/L (22-29); Chloride 102 mmol/L (96-108); Creatinine Clr Calc Pharmacy 62.4; Estimated Glomerular Filt Rate 53; Glucose Random 245 mg/dL (60-115); Magnesium 1.5 mg/dL (1.6-2.6); Potassium 4.1 mmol/L (3.3-5.1); Sodium 135 mmol/L (135-145)
[2021-07-08 12:47] LABS: B Type Natriuretic Peptide 34 pg/mL (<100)
[2021-07-08 12:53] VITALS: BP 189/94; PULSE 89; RESP 17; O2SAT 100
[2021-07-08] MEDS: Diphth,Pertus(ACell),Tet Adult 0.5 ML SYRINGE IM (12:54)
[2021-07-08 12:56] LABS: Estimated Average Glucose 217 mg/dL; Hemoglobin A1c % 9.2 %
[2021-07-08 13:04] LABS: TSH reflex Free T4 2.12 uIU/mL (0.32-4.0)
--- NOTE | 2021-07-08 13:08 | PHA.MEDREC ---
Pharmacy Consult ? Medication Reconciliation Pharmacy has completed the medication reconciliation. Patient reported medications that matched claim history. Glimepiride 1 mg and 2 mg are suppose to be taken together, but she takes one in the morning and one in the afternoon. Yaquelin Tse, PharmD
[2021-07-08 13:10] LABS: COVID-19 Test Negative (Negative)
--- NOTE | 2021-07-08 13:13 | PC.NURSE ---
care assumed for pt at this time. pt came from [facility] [place] with karli huang- admitting md at bedside now.
--- NOTE | 2021-07-08 13:18 | PC.NURSE ---
REPORT GIVEN TO JYOTI CARLISLE, PT MOVED TO MAIN ED.
--- NOTE | 2021-07-08 13:49 | P.HPOP_ITS ---
History of Present Illness History of Present Illness Date of Service: 07/08/21 <Debbie Cantu PA-C - Last Filed: 07/08/21 13:58> 07/09/21 <Conner Mark MD - Last Filed: 07/09/21 13:32> Chief complaint: Femur fracture <Debbie Cantu PA-C - Last Filed: 07/08/21 13:58> Narrative: Miracle Crockett is a 71 year old female who presents the emergency department after sustaining a mechanical fall today at side of the bank. She walks with a walker at baseline and states that there was a cracker something in the sidewalk causing her to trip and fall landing on her left knee and elbow. Patient states that she lives alone. She has a past medical history significant for diabetes type 2 (uncontrolled), diabetic polyneuropathy, hypertension, hyperlipidemia, CHF, COPD, asthma, PVCs, bilateral lower extremity edema. After presenting to the emergency department x-rays were obtained and the patient was found to have a comminuted impacted displaced left distal femur fracture. Orthopedics was then consulted for further evaluation and treatment. <Debbie Cantu PA-C - Last Filed: 07/08/21 13:58> Review of Systems Review of Systems: Yes all other systems are reviewed and are negative <Debbie Cantu PA-C - Last Filed: 07/08/21 13:58> [facility] Past Medical History Medical History: Medical History Acid reflux Asthma Asthma CHF (congestive heart failure) COPD (chronic obstructive pulmonary disease) COPD (chronic obstructive pulmonary disease) Essential hypertension Hyperlipidemia LDL goal <70 Hypertension Leg swelling Osteopenia PVC (premature ventricular contraction) Type 2 diabetes mellitus with diabetic polyneuropathy <Debbie Cantu PA-C - Last Filed: 07/08/21 13:58> Family History Family History: Family History Father CVD (cardiovascular disease) Mother CVD (cardiovascular disease) Gastric cancer Diabetes Sister Lung disease <Debbie Cantu PA-C - Last Filed: 07/08/21 13:58> Surgical History Surgical History: Surgical History History of cardiac catheterization History of cholecystectomy History of tooth extraction Hx of bilateral breast reduction surgery Hx of local excision of skin lesion <Debbie Cantu PA-C - Last Filed: 07/08/21 13:58> Social History Social History: Social History Household Members: None Housing: Apartment Do you presently have visiting nurse or other home services: No Alcohol intake: never Patient Tobacco Use Status: Never used Tobacco Current occupational status: disabled Sexual orientation: Straight/Heterosexual Gender identity: Female <Debbie Cantu PA-C - Last Filed: 07/08/21 13:58> Meds Allergies/Adverse reactions: Allergies Allergy/AdvReac Type Severity Reaction Status Date / Time cephalexin [From KEFLEX] Allergy Intermediate HIVES Verified 07/08/21 21:22 Penicillins [PENICILLINS] Allergy Intermediate HIVES Verified 07/08/21 21:22 acetaminophen Allergy Mild Hives Verified 07/09/21 10:12 [From Excedrin Extra Strength] aspirin Allergy Mild Hives Verified 07/09/21 10:12 [From Excedrin Extra Strength] caffeine Allergy Mild Hives Verified 07/09/21 10:12 [From Excedrin Extra Strength] metformin [METFORMIN] Allergy Mild HIVES Verified 07/08/21 21:22 enalaprilat [Vasotec] Allergy Unknown Unknown Verified 07/08/21 21:22 dulaglutide [From Trulicity] Allergy Hives Verified 07/08/21 21:22 <Debbie Cantu PA-C - Last Filed: 07/08/21 13:58> Active Medications: Current Medications Acetaminophen (Acetaminophen 325 Mg Tablet) 650 mg PO Q6H PRN PRN Reason: Pain, Mild (Pain Scale 1-3) Heparin Sodium (Porcine) (Heparin Sodium,Porcine 5,000 Unit/Ml Vial) 5,000 unit SUBCUT Q12H ELIZABETH Magnesium Sulfate (Magnesium Sulfate/H2o) 2 gm in 50 mls @ 25 mls/hr IV ONCE ON E Stop: 07/08/21 14:59 Insulin Human Lispro (Insulin Lispro 100 Unit/Ml 3 Ml Vial) 0 unit SUBCUT Q6H ELIZABETH; Protocol Melatonin (Melatonin 3 Mg Tablet) 3 mg PO BEDTIME PRN PRN Reason: Insomnia Morphine Sulfate (Morphine Sulfate 4 Mg/Ml Cartridge) 2 mg IVPUSH Q4H PRN; Protocol PRN Reason: Pain, Severe (Pain Scale 7-10) Ondansetron HCl (Ondansetron Hcl 4 Mg/2 Ml Vial) 4 mg IVPUSH Q8H PRN PRN Reason: Nausea and Vomiting Pharmacy Consult (Consult Rx Perform Med Rec) 1 each MISCELLANE ONCE PRN PRN Reason: Consult order Sodium Chloride (0.9 % Sodium Chloride Flush 3 Ml Syringe) 3 ml IVFLUSH QSHIFT ELIZABETH <Debbie Cantu PA-C - Last Filed: 07/08/21 13:58> Home medications: Home Medications Medication Instructions Recorded Confirmed Last Taken Type aspirin 81 mg tablet,delayed 81 mg PO DAILY 03/19/20 07/08/21 07/08/21 History release ipratropium 0.5 mg-albuterol 3 mg 3 ml INHALATION Q6H 03/28/20 07/08/21 07/08/21 History (2.5 mg base)/3 mL nebulization soln losartan 100 mg tablet 50 mg PO DAILY tab 04/07/21 07/08/21 07/08/21 History alendronate 70 mg tablet 70 mg PO SA 07/08/21 07/08/21 07/05/21 History cyanocobalamin (vitamin B-12) 1 tab PO DAILY 07/08/21 07/08/21 07/08/21 History 1,000 mcg tablet glimepiride 2 mg tablet 2 mg PO BEDTIME 07/08/21 07/08/21 07/07/21 History metoprolol tartrate 100 mg tablet 100 mg PO BEDTIME 07/08/21 07/08/21 07/07/21 History metoprolol tartrate 100 mg tablet 200 mg PO DAILY 07/08/21 07/08/21 07/08/21 History semaglutide (Ozempic) 0.25 mg SUBCUT PAGE 07/08/21 07/08/21 07/06/21 History <Debbie Cantu PA-C - Last Filed: 07/08/21 13:58> Physical Exam Vital Signs: Vital Signs: Last Vital Signs Temp 97.6 F 07/08/21 10:35 Pulse 89 07/08/21 12:53 Resp 17 07/08/21 12:53 BP 189/94 H 07/08/21 12:53 Pulse Ox 100 07/08/21 12:53 BMI result Body Mass Index 37.5 <Debbie Heri Pepe DARA - Last Filed: 07/08/21 13:58> Const: General: cooperative, healthy appearing and no acute distress <Debbie Heri Pepe ANDRIAC - Last Filed: 07/08/21 13:58> Resp: Effort & Inspection: normal respiratory effort and able to speak in complete sentences <SHAWNA CamarenaRama - Last Filed: 07/08/21 13:58> Cardio: Rate: regular rate <Debbie Cantu DARA - Last Filed: 07/08/21 13:58> Peripheral pulses: Peripheral pulses 2+ throughout <DebbieSHAWNA DanielsRama - Last Filed: 07/08/21 13:58> GI: Palpation (GI): Soft to palpation <Debbieluigi Cantu DARA - Last Filed: 07/08/21 13:58> Skin: Lesions: no lesions <Debbieluigi Cantu DARA - Last Filed: 07/08/21 13:58> Rashes: no rashes <Debbieluigi Cantu DARA - Last Filed: 07/08/21 13:58> Extrem: Other: Bilateral lower extremity edema. Multiple superficial abrasions in which the patient relates to an allergy to Ozembic and itching. No tenderness to palpation at the fracture site. Pain went movement of the left knee. Swelling of the left distal femur. Patient is able to move all digits without limitations. Patient is able to demonstrate dorsiflexion and plantar flexion without any difficulty. Sensation is diminished at baseline. Pedal and posterior tibial pulses are nonpalpable in which the patient reports is baseline. <SHAWNA CamarenaRama - Last Filed: 07/08/21 13:58> Results Labs Result Diagrams: : 07/08/21 12:16 07/08/21 12:16 <Debbie Cantu PA-C - Last Filed: 07/08/21 13:58> Labs: Abnormal lab results 07/08/21 07/08/21 Range/Units 12:16 12:16 WBC 17.0 H (4.8-10.8) X10*3/uL RBC 3.85 L (4.20-5.50) X10*6/uL Hgb 10.9 L (12.0-16.0) g/dl Hct 33.6 L (37.0-47.0) % MPV 8.4 L (9.4-12.3) fL Immature Gran % (Auto) 0.5 H (0.0-0.4) % Neut % (Auto) 89.6 H (45-73) % Lymph % (Auto) 4.1 L (20-40) % Lymph # (Auto) 0.7 L (1.2-4.9) X10*3/uL Abs Immat Gran (auto) 0.08 H (0.00-0.03) X10*3/uL Absolute Neuts (auto) 15.3 H (2.0-8.3) x10*3/uL Random Glucose 245 H (60-115) mg/dL Magnesium 1.5 L (1.6-2.6) mg/dL H & H 07/08/21 Range/Units 12:16 Hgb 10.9 L (12.0-16.0) g/dl Hct 33.6 L (37.0-47.0) % Coagulation 07/08/21 Range/Units 12:16 INR 1.1 (0.9-1.1) All other labs normal. <Debbie Cantu PA-C - Last Filed: 07/08/21 13:58> Assessment and Plan (1) Closed fracture of left distal femur: Status: Acute <Debbie Cantu PA-C - Last Filed: 07/08/21 13:58> Miracle Crockett is a 71 year old female who presents the emergency department after sustaining a mechanical fall today [place] side [place]. She walks with a walker at baseline and states that there was a cracker something in the sidewalk causing her to trip and fall landing on her left knee and elbow. Patient states that she lives alone. She has a past medical history significant for diabetes type 2 (uncontrolled), diabetic polyneuropathy, hypertension, hyperlipidemia, CHF, COPD, asthma, PVCs, bilateral lower extremity edema. After presenting to the emergency department x-rays were obtained and the patient was found to have a comminuted impacted displaced left distal femur fracture. Orthopedics was then consulted for further evaluation and treatment. I discussed the case with Dr. Mark and explained the extent of the injury to the patient and options available which include surgical intervention. I explained the procedure in detail along with the length of recovery and rehab course. I explained the risk, benefits and alternatives. Risk including, but not limited to infection, blood clots, bleeding, non union or malunion and nerve/tissue damage to surrounding areas. I answered all their questions and with their understanding they have consented to move forward with Operative Fixation of left distal femur. The patient will be T&S, med clearance obtained and NPO after midnight. <Debbie Cantu PA-C - Last Filed: 07/08/21 13:58> Quality Stroke Does the patient have a stroke diagnosis?: No <Debbie Cantu PA-C - Last Filed: 07/08/21 13:58> VTE Prior VTE?: No <Debbie Cantu PA-C - Last Filed: 07/08/21 13:58> VTE Risk Level:: Medical - moderate - high <Debbie Cantu PA-C - Last Filed: 07/08/21 13:58> VTE Device Contraindication: N/A - Device Ordered <Debbie Cantu PA-C - Last Filed: 07/08/21 13:58> VTE Drug Contraindication: N/A - Med Ordered <Debbie Cantu PA-C - Last Filed: 07/08/21 13:58> Procedures Date of Service Date of Service: 07/08/21 <Debbie Cantu PA-C - Last Filed: 07/08/21 13:58>
--- NOTE | 2021-07-08 13:58 | PC.NURSE ---
Knee immobilizer requested per hospitalist orderes. Pt stated she did not want to wear knee immobilizer at this time and stated they can put it on me later, maybe [place]. Pt signed paperwork for knee immobilizer. Knee immobilizer and pt's copy of paperwork left at bedside. Pt's RN aware.
--- NOTE | 2021-07-08 15:00 | CA_ITS ---
Transthoracic Echocardiogram Patient (Last, First, Middle): Miracle Crockett G Gender: Female Date of : 1950 Age: 71 Procedure Date: 07/08/2021 Procedure Type: Transthoracic Echocardiogram Location: ER Height: 167.64 cm Weight: 105.69 kg BSA: 2.13 m2 Heart Rate: bpm BP: 189 / 94 mmHg Senior Systems Engineer: VH/OT Referring MD: Avinash Anderson MD Symptoms: CHF Study Quality: Fair ECG Rhythm: Sinus Conclusions: - Normal left ventricular size and systolic function. There is mildly increased left ventricular wall thickness. The visually estimated ejection fraction is between 55-60%. - Normal right ventricular cavity size and systolic function. - There is mild dilatation of the ascending aorta measuring 3.90 cm. Findings Left Ventricle Normal left ventricular size and systolic function. There is mildly increased left ventricular wall thickness. The visually estimated ejection fraction is between 55-60%. There is no evidence of regional wall motion abnormalities. Abnormal diastolic function is noted. Spectral Doppler is indicative of an impaired relaxation filling pattern. E/E prime ratio is between 8 and 15 consistent with indeterminate filling pressures. Right Ventricle Normal right ventricular cavity size and systolic function. Atria The left atrium is normal in size. Aortic Valve Normal aortic valve structure and function. There is no aortic valve stenosis. There is no aortic valve regurgitation. Mitral Valve Normal mitral valve structure and function. There is no mitral valve regurgitation. There is no mitral valve stenosis. Pulmonic Valve Normal pulmonic valve structure and function. There is no pulmonic valve regurgitation. Tricuspid Valve Normal tricuspid valve structure and function. There is trace tricuspid valve regurgitation. Tricuspid regurgitation envelope is inadequate for calculation of right ventricular systolic pressure. Normal right atrial pressure. Great Vessels There is mild dilatation of the ascending aorta measuring 3.90 cm. The visualized portions of the pulmonary artery and branches are normal. Venous The inferior vena cava is normal in size and collapses greater than 50% with inspiration. Pericardium/Pleural There is no evidence of pericardial effusion. Prior Study Comparison No significant change compared to prior study dated: 11/14/2019. Measurements 2D Linear Measurements IVSd: 1.25 0.6-0.9/0.6-1.0 cm LVIDd: 4.97 3.9-5.3/4.2-5.9 cm LVIDd Index: 2.33 2.4-3.2/2.2-3.1 cm/m2 LVIDs: 3.47 2.0-3.6 cm LVPWd: 1.01 0.7-1.1 cm Ao Root: 3.50 2.1-3.5 cm LA Diam: 3.40 2.7-3.8/3.0-4.0 cm LAIDs Index: 1.60 1.5-2.3 cm/m2 LV Mass: 265.38 67-162/88-224 g LV Mass Index: 124.59 43-95/49-115 g/m2 LVOT Diam: 2.10 3.0+(-)1.3 cm Mitral Valve MV Pk E: 0.60 MV PK A: 0.91 MV Decel Time: 95.00 E/A: 0.70 E'Lateral: 5.87 E'Medial: 6.64 E/E' Med: 9.00 E/E' Lat: 10.20 PHT: 28.00 MVA PHT: 7.86 Decel [place]: 6.26 Aortic Valve AoV Pk Albert: 1.49 AoV Mn Albert: 0.98 AoV VTI: 0.25 AoV Pk Grad: 9.00 Aov Mn Grad: 5.00 HANNAH Cont.VTI: 2.45 LVOT LVOT Pk Albert: 0.84 LVOT Mn Albert: 0.51 LVOT VTI: 0.17 LVOT Pk Grad: 3.00 LVOT Mn Grad: 1.00 LVOT Diam: 2.10 LVOT Area: 3.46 Diastolic Function MV Pk E: 0.60 MV Pk A: 0.91 E/A: 0.70 E'Medial: 6.64 E/E' Med: 9.00 E' Laterial: 5.87 E/E' Lat: 10.20 Right Ventricle TAPSE (mm): 23.00 TVS' Albert: 15.00 Tricuspid Valve TR Pk Albert: 1.82 TR Pk Grad: 13.00 Great Vessels Aorta Ao Root-2D: 3.50 2.0-3.7 cm Ao Asc: 3.90 2.1-3.4 cm Pulmonary Valve PV Pk Albert: 0.99 Peak PV Grad: 4.00 Updated in Other Vendor System with Status of Final Bebeto Hunter MD electronically signed on 07/08/2021 7:38:41 PM with status of Final
--- NOTE | 2021-07-08 16:26 | PC.NURSE ---
assumed care of pt at 1615 - 1300 Magnesium not given by previous RN as well as 1330 insulin. Current POC at [address] Anderson notified of late admin for both administrations and requeted they be given at this time.
[2021-07-08 16:32] LABS: Glucose, Whole Blood 239 mg/dL (60-115)
[2021-07-08] MEDS: Insulin Lispro 100 UNIT/ML 3 ML VIAL SUBCUT ×2 (16:36→21:32)
[2021-07-08] MEDS: 0.9 % Sodium Chloride Flush 3 ML SYRINGE IVFLUSH (16:37)
[2021-07-08] MEDS: Magnesium Sulfate/H2O 2 GM/50 ML PIGGYBACK IV (16:37)
--- NOTE | 2021-07-08 17:08 | PC.NURSE ---
pt over to overflow bed 9. pt not in knee immobilizer and without santana. she reports she uses the bedpan fine and requests not having a santana at this time.
--- NOTE | 2021-07-08 18:40 | PC.NURSE ---
spoke with dr Anderson about the knee immobilizer and santana not being in place. per MD Anderson, hes ok with it as long as pt is using the bedpan well and without pain.
--- NOTE | 2021-07-08 18:42 | PC.NURSE ---
per dr Anderson, ok to give 1800 Heparin with surgery tomorrow but to hold AM dose.
[2021-07-08] MEDS: Heparin Sodium,Porcine 5,000 UNIT/ML VIAL 5000 UNIT SUBCUT (21:01)
[2021-07-08 21:05] VITALS: BP 148/70; PULSE 100; RESP 18
[2021-07-08 21:22] LABS: Glucose, Whole Blood 273 mg/dL (60-115)
[2021-07-08] MEDS: Morphine Sulfate 4 MG/ML CARTRIDGE 2 MG IVPUSH (22:40)
[2021-07-08 23:36] VITALS: BP 100/46; PULSE 91; RESP 17; TEMP 36.7; O2SAT 96
--- NOTE | 2021-07-08 23:50 | PC.NURSE ---
Leg immobilizer too small for pt. Nurse spooling supervisor Ama Ni aware, no bigger sizes available at this time. Oncoming nurse notified.
[2021-07-09] VITALS (15 sets, daily range): BP systolic 100–177; BP diastolic 59–97; PULSE 59–126; RESP 15–24; TEMP 36.2–37.1; O2SAT 90–98
[2021-07-09] MEDS: 0.9 % Sodium Chloride Flush 3 ML SYRINGE IVFLUSH ×4 (00:28→21:42)
[2021-07-09 04:05] LABS: Glucose, Whole Blood 193 mg/dL (60-115)
--- NOTE | 2021-07-09 08:13 | MHC.SHP ---
Pre-Procedural Eval Section A Date of Service: 07/09/21 The patient is an INPATIENT: Yes Changes since office visit: Yes Patient answered all questions; No Cold of Flu in the past 2 weeks, No New Medical Problems and No Changes in Medication The History & Physical has been completed within 30 days and I have reviewed it.: Yes Section B Chief Complaint: Femur fracture Allergies: Allergies Allergy/AdvReac Type Severity Reaction Status Date / Time cephalexin [From KEFLEX] Allergy Intermediate HIVES Verified 07/08/21 21:22 Penicillins [PENICILLINS] Allergy Intermediate HIVES Verified 07/08/21 21:22 metformin [METFORMIN] Allergy Mild HIVES Verified 07/08/21 21:22 enalaprilat [Vasotec] Allergy Unknown Unknown Verified 07/08/21 21:22 dulaglutide [From Trulicity] Allergy Hives Verified 07/08/21 21:22 Plan I have reviewed the history and physical and performed a pertinent physical examination on my patient. No changes have occurred unless specified.
[2021-07-09 08:18] LABS: Glucose, Whole Blood 192 mg/dL (60-115)
[2021-07-09 10:32] LABS: Glucose, Whole Blood 162 mg/dL (60-115)
--- NOTE | 2021-07-09 10:35 | P.CONAN_ITS ---
HPI - Anesthesia Eval Consult details Narrative: 71 F for left distal IM femur nailing . PMFSH Active Problems Active Problems: All Active Problems (Updated 07/08/21 @ 13:56 by Debbie Cantu PA-C) Closed fracture of left distal femur (Acute) Fall (Acute) Strain of left elbow (Acute) Abrasion of elbow, left (Acute) Closed left femoral fracture (Acute) Osteopenia (Acute) CHF (congestive heart failure) (Acute) Type 2 diabetes mellitus with diabetic polyneuropathy (Acute) Essential hypertension (Acute) Hyperlipidemia LDL goal <70 (Acute) Asthma (Acute) COPD (chronic obstructive pulmonary disease) (Acute) Chest tightness (Acute) Leg swelling (Acute) PVC (premature ventricular contraction) (Acute) Annual physical exam (Acute) Rash of both feet (Acute) Endometrial thickening on ultrasound (Acute) Leucocytosis (Acute) Past Medical History Medical History Acid reflux Asthma Asthma CHF (congestive heart failure) COPD (chronic obstructive pulmonary disease) COPD (chronic obstructive pulmonary disease) Essential hypertension Hyperlipidemia LDL goal <70 Hypertension Leg swelling Osteopenia PVC (premature ventricular contraction) Type 2 diabetes mellitus with diabetic polyneuropathy Family History Family History Father CVD (cardiovascular disease) Mother CVD (cardiovascular disease) Gastric cancer Diabetes Sister Lung disease Family history of problems with anesthesia: No Surgical History Surgical History History of cardiac catheterization History of cholecystectomy History of tooth extraction Hx of bilateral breast reduction surgery Hx of local excision of skin lesion History of Problems with Anesthesia: No Social History Social History Household Members: None Housing: Apartment Do you presently have visiting nurse or other home services: No Alcohol intake: never Patient Tobacco Use Status: Never used Tobacco service: No Current occupational status: disabled Sexual orientation: Straight/Heterosexual Gender identity: Female Meds Allergies Allergy/AdvReac Type Severity Reaction Status Date / Time cephalexin [From KEFLEX] Allergy Intermediate HIVES Verified 07/08/21 21:22 Penicillins [PENICILLINS] Allergy Intermediate HIVES Verified 07/08/21 21:22 acetaminophen Allergy Mild Hives Verified 07/09/21 10:12 [From Excedrin Extra Strength] aspirin Allergy Mild Hives Verified 07/09/21 10:12 [From Excedrin Extra Strength] caffeine Allergy Mild Hives Verified 07/09/21 10:12 [From Excedrin Extra Strength] metformin [METFORMIN] Allergy Mild HIVES Verified 07/08/21 21:22 enalaprilat [Vasotec] Allergy Unknown Unknown Verified 07/08/21 21:22 dulaglutide [From Trulicity] Allergy Hives Verified 07/08/21 21:22 Active Medications: Current Medications Acetaminophen (Acetaminophen 325 Mg Tablet) 650 mg PO Q6H PRN PRN Reason: Pain, Mild (Pain Scale 1-3) Heparin Sodium (Porcine) (Heparin Sodium,Porcine 5,000 Unit/Ml Vial) 5,000 unit SUBCUT Q12H [facility] Last Admin: 07/09/21 05:20 Dose: Not Given Documented by: Clindamycin Phosphate (Cleocin) 900 mg in 50 mls @ 50 mls/hr IV PREOP ONE Stop: 07/09/21 11:06 Insulin Human Lispro (Insulin Lispro 100 Unit/Ml 3 Ml Vial) 0 unit SUBCUT Q6H [facility]; Protocol Last Admin: 07/09/21 08:36 Dose: Not Given Documented by: Melatonin (Melatonin 3 Mg Tablet) 3 mg PO BEDTIME PRN PRN Reason: Insomnia Morphine Sulfate (Morphine Sulfate 4 Mg/Ml Cartridge) 2 mg IVPUSH Q4H PRN; Protocol PRN Reason: Pain, Severe (Pain Scale 7-10) Last Admin: 07/08/21 22:40 Dose: 2 mg Documented by: Ondansetron HCl (Ondansetron Hcl 4 Mg/2 Ml Vial) 4 mg IVPUSH Q8H PRN PRN Reason: Nausea and Vomiting Pharmacy Consult (Consult Rx Perform Med Rec) 1 each MISCELLANE ONCE PRN PRN Reason: Consult order Sodium Chloride (0.9 % Sodium Chloride Flush 3 Ml Syringe) 3 ml IVFLUSH QSHI Last Admin: 07/09/21 09:09 Dose: 3 ml Documented by: Home Medications Medication Instructions Recorded Confirmed Last Taken Type aspirin 81 mg tablet,delayed 81 mg PO DAILY 03/19/20 07/08/21 07/08/21 History release ipratropium 0.5 mg-albuterol 3 mg 3 ml INHALATION Q6H 03/28/20 07/08/21 07/08/21 History (2.5 mg base)/3 mL nebulization soln losartan 100 mg tablet 50 mg PO DAILY tab 04/07/21 07/08/21 07/08/21 History alendronate 70 mg tablet 70 mg PO SA 07/08/21 07/08/21 07/05/21 History cyanocobalamin (vitamin B-12) 1 tab PO DAILY 07/08/21 07/08/21 07/08/21 History 1,000 mcg tablet glimepiride 2 mg tablet 2 mg PO BEDTIME 07/08/21 07/08/21 07/07/21 History metoprolol tartrate 100 mg tablet 100 mg PO BEDTIME 07/08/21 07/08/21 07/07/21 History metoprolol tartrate 100 mg tablet 200 mg PO DAILY 07/08/21 07/08/21 07/08/21 History semaglutide (Ozempic) 0.25 mg SUBCUT PAGE 07/08/21 07/08/21 07/06/21 History Exam Exam Date and Time: July 09, 2021 1035 Height,Weight and Vital Signs: Height 5 ft 6 in Weight 105.687 kg Last Vital Signs Temp 98 F 07/09/21 10:07 Pulse 99 07/09/21 10:07 Resp 20 07/09/21 10:07 BP 115/97 H 07/09/21 10:07 Pulse Ox 95 07/09/21 10:07 Pertinent Lab Results Pertinent Lab Results: Laboratory Tests 07/08/21 07/08/21 07/08/21 12:16 12:16 12:16 WBC 17.0 H RBC 3.85 L Hgb 10.9 L Hct 33.6 L MCV 87.3 MCH 28.3 MCHC 32.4 RDW 14.1 Plt Count 358 MPV 8.4 L Immature Gran % (Auto) 0.5 H Neut % (Auto) 89.6 H Lymph % (Auto) 4.1 L [place] % (Auto) 5.4 Eos % (Auto) 0.2 Baso % (Auto) 0.2 Lymph # (Auto) 0.7 L [place] # (Auto) 0.9 Eos # (Auto) 0.0 Baso # (Auto) 0.0 Abs Immat Gran (auto) 0.08 H Absolute Neuts (auto) 15.3 H Absolute Nucleated RBC 0.000 Nucleated RBC % (auto) 0.0 PT 12.3 INR 1.1 Sodium Potassium Chloride Carbon Dioxide Anion Gap BUN Creatinine Estim Creat Clear Calc Estimated GFR POC Glucose Random Glucose Estimat Average Glucose Hemoglobin A1c % Calcium Magnesium Total Bilirubin AST ALT Alkaline Phosphatase B-Natriuretic Peptide 34 Total Protein Albumin TSH COVID-19 (JARROD) COVID-19 [employer] Com Blood Type Antibody Screen 07/08/21 07/08/21 07/08/21 12:16 12:16 12:16 WBC RBC Hgb Hct MCV MCH MCHC RDW Plt Count MPV Immature Gran % (Auto) Neut % (Auto) Lymph % (Auto) [place] % (Auto) Eos % (Auto) Baso % (Auto) Lymph # (Auto) [place] # (Auto) Eos # (Auto) Baso # (Auto) Abs Immat Gran (auto) Absolute Neuts (auto) Absolute Nucleated RBC Nucleated RBC % (auto) PT INR Sodium 135 Potassium 4.1 Chloride 102 Carbon Dioxide 24 Anion Gap 13 BUN 14 Creatinine 1.03 Estim Creat Clear Calc 62.4 Estimated GFR 53 POC Glucose Random Glucose 245 H Estimat Average Glucose 217 Hemoglobin A1c % 9.2 Calcium 10.0 Magnesium 1.5 L Total Bilirubin 0.4 AST 12 ALT 7 Alkaline Phosphatase 115 B-Natriuretic Peptide Total Protein 8.0 Albumin 3.9 TSH 2.12 COVID-19 (JARROD) COVID-19 [facility] Com Blood Type Antibody Screen 07/08/21 07/08/21 07/08/21 12:16 12:33 16:29 WBC RBC Hgb Hct MCV MCH MCHC RDW Plt Count MPV Immature Gran % (Auto) Neut % (Auto) Lymph % (Auto) [place] % (Auto) Eos % (Auto) Baso % (Auto) Lymph # (Auto) [place] # (Auto) Eos # (Auto) Baso # (Auto) Abs Immat Gran (auto) Absolute Neuts (auto) Absolute Nucleated RBC Nucleated RBC % (auto) PT INR Sodium Potassium Chloride Carbon Dioxide Anion Gap BUN Creatinine Estim Creat Clear Calc Estimated GFR POC Glucose 239 H Random Glucose Estimat Average Glucose Hemoglobin A1c % Calcium Magnesium Total Bilirubin AST ALT Alkaline Phosphatase B-Natriuretic Peptide Total Protein Albumin TSH COVID-19 (JARROD) Negative COVID-19 Clin Com See Note Blood Type O Positive Antibody Screen NEGATIVE 07/08/21 07/09/21 07/09/21 21:19 01:09 08:14 WBC RBC Hgb Hct MCV MCH MCHC RDW Plt Count MPV Immature Gran % (Auto) Neut % (Auto) Lymph % (Auto) [place] % (Auto) Eos % (Auto) Baso % (Auto) Lymph # (Auto) [place] # (Auto) Eos # (Auto) Baso # (Auto) Abs Immat Gran (auto) Absolute Neuts (auto) Absolute Nucleated RBC Nucleated RBC % (auto) PT INR Sodium Potassium Chloride Carbon Dioxide Anion Gap BUN Creatinine Estim Creat Clear Calc Estimated GFR POC Glucose 273 H 193 H 192 H Random Glucose Estimat Average Glucose Hemoglobin A1c % Calcium Magnesium Total Bilirubin AST ALT Alkaline Phosphatase B-Natriuretic Peptide Total Protein Albumin TSH COVID-19 (JARROD) COVID-19 [facility] Blood Type Antibody Screen 07/09/21 10:18 WBC RBC Hgb Hct MCV MCH MCHC RDW Plt Count MPV Immature Gran % (Auto) Neut % (Auto) Lymph % (Auto) [place] % (Auto) Eos % (Auto) Baso % (Auto) Lymph # (Auto) [place] # (Auto) Eos # (Auto) Baso # (Auto) Abs Immat Gran (auto) Absolute Neuts (auto) Absolute Nucleated RBC Nucleated RBC % (auto) PT INR Sodium Potassium Chloride Carbon Dioxide Anion Gap BUN Creatinine Estim Creat Clear Calc Estimated GFR POC Glucose 162 H Random Glucose Estimat Average Glucose Hemoglobin A1c % Calcium Magnesium Total Bilirubin AST ALT Alkaline Phosphatase B-Natriuretic Peptide Total Protein Albumin TSH COVID-19 (JARROD) COVID-19 [facility] Com Blood Type Antibody Screen Airway Mallampati Class: II TM Dist: >3cm Neck ROM: Full Loose/Missing/Broken Teeth: Yes Heart: rrr Lungs: distant breath sounds bilaterally Assessment and Plan Assessment Anesthesia Assessment: Anesthesia Plan Discussed Final Anesthetic Review Family History of Problems with Anesthesia: No History of Problems with Anesthesia: No NPO: Yes ASA Class: III Final Preanesthetic Review: Meds/Allgs Chart Reviewed, Consent Obtained/Reviewed and Anes Risks/Benef Reviewed Patient Risk: High Procedure Risk: Intermediate Anesthetic Plan Anesthetic Plan: GA Disposition: Inp. Admit - Standard Bed
--- NOTE | 2021-07-09 10:38 | P.PNIM_ITS ---
Subjective Subjective Date of Service: 07/09/21 Interval History: f/u on femure fracture, for repair today, pain with movment Review of Systems hip pain with movment, no fever, no sob Physical Exam Vital Signs: Vital Signs: Last Vital Signs Temp 98 F 07/09/21 10:07 Pulse 99 07/09/21 10:07 Resp 20 07/09/21 10:07 BP 115/97 H 07/09/21 10:07 Pulse Ox 95 07/09/21 10:07 BMI result Body Mass Index 37.5 Const: Other: General: AO X 3, no acute distress Resp: CTA bilateral CVS: S1,S2,RRR. 1+ pitting edema levar GI: +BS, NT, no distention Skin: No rash Neuro: motor grossly intact Psych: appropriate affect Objective Data Active Medications Acetaminophen (Acetaminophen 325 Mg Tablet) 650 mg PO Q6H PRN PRN Reason: Pain, Mild (Pain Scale 1-3) Heparin Sodium (Porcine) (Heparin Sodium,Porcine 5,000 Unit/Ml Vial) 5,000 unit SUBCUT Q12H [facility] Last Admin: 07/09/21 05:20 Dose: Not Given Documented by: PENELOPE Non-Admin Reason: for OR today Clindamycin Phosphate (Cleocin) 900 mg in 50 mls @ 50 mls/hr IV PREOP ONE Stop: 07/09/21 11:06 Insulin Human Lispro (Insulin Lispro 100 Unit/Ml 3 Ml Vial) 0 unit SUBCUT Q6H [facility]; Protocol Last Admin: 07/09/21 08:36 Dose: Not Given Documented by: COTEMA Non-Admin Reason: NPO Melatonin (Melatonin 3 Mg Tablet) 3 mg PO BEDTIME PRN PRN Reason: Insomnia Morphine Sulfate (Morphine Sulfate 4 Mg/Ml Cartridge) 2 mg IVPUSH Q4H PRN; Protocol PRN Reason: Pain, Severe (Pain Scale 7-10) Last Admin: 07/08/21 22:40 Dose: 2 mg Documented by: JUANITA Ondansetron HCl (Ondansetron Hcl 4 Mg/2 Ml Vial) 4 mg IVPUSH Q8H PRN PRN Reason: Nausea and Vomiting Pharmacy Consult (Consult Rx Perform Med Rec) 1 each MISCELLANE ONCE PRN PRN Reason: Consult order Sodium Chloride (0.9 % Sodium Chloride Flush 3 Ml Syringe) 3 ml IVFLUSH QSHIFT [facility] Last Admin: 07/09/21 09:09 Dose: 3 ml Documented by: SHANITA Labs CBC & Chem 7: 07/08/21 12:16 07/08/21 12:16 Labs: Laboratory Results - last 24 hr 07/08/21 07/08/21 07/08/21 12:16 12:16 12:16 MCV 87.3 MCH 28.3 MCHC 32.4 RDW 14.1 Plt Count 358 MPV 8.4 L Immature Gran % (Auto) 0.5 H Neut % (Auto) 89.6 H Lymph % (Auto) 4.1 L [place] % (Auto) 5.4 Eos % (Auto) 0.2 Baso % (Auto) 0.2 Lymph # (Auto) 0.7 L [place] # (Auto) 0.9 Eos # (Auto) 0.0 Baso # (Auto) 0.0 Abs Immat Gran (auto) 0.08 H Absolute Neuts (auto) 15.3 H Absolute Nucleated RBC 0.000 Nucleated RBC % (auto) 0.0 PT 12.3 INR 1.1 Anion Gap Estim Creat Clear Calc Estimated GFR POC Glucose Random Glucose Estimat Average Glucose Hemoglobin A1c % Calcium Magnesium Total Bilirubin AST ALT Alkaline Phosphatase B-Natriuretic Peptide 34 Total Protein Albumin TSH COVID-19 (JARROD) [employer] Blood Type Antibody Screen 07/08/21 07/08/21 07/08/21 12:16 12:16 12:16 MCV MCH MCHC RDW Plt Count MPV Immature Gran % (Auto) Neut % (Auto) Lymph % (Auto) [place] % (Auto) Eos % (Auto) Baso % (Auto) Lymph # (Auto) [place] # (Auto) Eos # (Auto) Baso # (Auto) Abs Immat Gran (auto) Absolute Neuts (auto) Absolute Nucleated RBC Nucleated RBC % (auto) PT INR Anion Gap 13 Estim Creat Clear Calc 62.4 Estimated GFR 53 POC Glucose Random Glucose 245 H Estimat Average Glucose 217 Hemoglobin A1c % 9.2 Calcium 10.0 Magnesium 1.5 L Total Bilirubin 0.4 AST 12 ALT 7 Alkaline Phosphatase 115 B-Natriuretic Peptide Total Protein 8.0 Albumin 3.9 TSH 2.12 COVID-19 (JARROD) COVIDArkmicro Blood Type Antibody Screen 07/08/21 07/08/21 07/08/21 12:16 12:33 16:29 MCV MCH MCHC RDW Plt Count MPV Immature Gran % (Auto) Neut % (Auto) Lymph % (Auto) [place] % (Auto) Eos % (Auto) Baso % (Auto) Lymph # (Auto) [place] # (Auto) Eos # (Auto) Baso # (Auto) Abs Immat Gran (auto) Absolute Neuts (auto) Absolute Nucleated RBC Nucleated RBC % (auto) PT INR Anion Gap Estim Creat Clear Calc Estimated GFR POC Glucose 239 H Random Glucose Estimat Average Glucose Hemoglobin A1c % Calcium Magnesium Total Bilirubin AST ALT Alkaline Phosphatase B-Natriuretic Peptide Total Protein Albumin TSH COVID-19 (JARROD) Negative COVID-19 [employer] Com See Note Blood Type O Positive Antibody Screen NEGATIVE 07/08/21 07/09/21 07/09/21 21:19 01:09 08:14 MCV MCH MCHC RDW Plt Count MPV Immature Gran % (Auto) Neut % (Auto) Lymph % (Auto) [place] % (Auto) Eos % (Auto) Baso % (Auto) Lymph # (Auto) [place] # (Auto) Eos # (Auto) Baso # (Auto) Abs Immat Gran (auto) Absolute Neuts (auto) Absolute Nucleated RBC Nucleated RBC % (auto) PT INR Anion Gap Estim Creat Clear Calc Estimated GFR POC Glucose 273 H 193 H 192 H Random Glucose Estimat Average Glucose Hemoglobin A1c % Calcium Magnesium Total Bilirubin AST ALT Alkaline Phosphatase B-Natriuretic Peptide Total Protein Albumin TSH COVID-19 (JARROD) COVID-19 [employer] Blood Type Antibody Screen 07/09/21 10:18 MCV MCH MCHC RDW Plt Count MPV Immature Gran % (Auto) Neut % (Auto) Lymph % (Auto) [place] % (Auto) Eos % (Auto) Baso % (Auto) Lymph # (Auto) [place] # (Auto) Eos # (Auto) Baso # (Auto) Abs Immat Gran (auto) Absolute Neuts (auto) Absolute Nucleated RBC Nucleated RBC % (auto) PT INR Anion Gap Estim Creat Clear Calc Estimated GFR POC Glucose 162 H Random Glucose Estimat Average Glucose Hemoglobin A1c % Calcium Magnesium Total Bilirubin AST ALT Alkaline Phosphatase B-Natriuretic Peptide Total Protein Albumin TSH COVID-19 (JARROD) COVID-19 [employer] Blood Type Antibody Screen Assessment and Plan (1) Closed fracture of left distal femur: Status: Acute (2) Fall: Status: Acute Plan 71/F with COPD, diabete, HTN, HLD, chronic leg edema here with mechanical fall resulting in left femoral shaft fracture 1/ Comminuted impacted displaced left distal femoral shaft and supracondylar fracture. -Pain control -Ortho to repair fracture today -Chronic heart failure is stable, no angina, COPD is control, and given urgent nature of surgical repair, no further cardiac testing indicated at this time. 2/Diabetes--On Ozempic and glimepride--Hold. Give insulin while here 3/HTN-BP controlled -Continue Metoprololol and Losartan 4/COPD--no exacerbation, continue inhalers 5/CHF likely chronic diastolic- Echo 07/08: ?Normal left ventricular size and systolic function. There is ? mildly increased left ventricular wall thickness.? The visually? estimated ejection fraction is between 55-60%. ? - Normal right ventricular cavity size and systolic function.? -Continue Torsemide 6/Morbid obesity--health benefit or weight loss discussed and aware of her options 7/HLD--Stain 8/Leukocytosis--likely reactive 9/HypOmagnesemia--supplement given /DVT--Heparin and compression device Quality Stroke Does the patient have a stroke diagnosis?: No VTE Prior VTE?: No VTE Risk Level:: Medical - moderate - high VTE Device Contraindication: N/A - Device Ordered VTE Drug Contraindication: N/A - Med Ordered
[2021-07-09] MEDS: Clindamycin Phosphate/D5W 900 MG/50 ML PIGGYBACK 50 MG IV (11:55)
--- NOTE | 2021-07-09 13:30 | P.BOP_ITS ---
Brief Operative Note Date of Service: 07/09/21 Pre-op diagnosis: left distal femur fracture Post-op diagnosis: same Procedure: IM retrograde tim fixation left feur Implants: [place] [id number] mm with 5 iunterlocking screws Surgeon: Conner Mark MD Anesthesia: GETA and local Was an Compliance Spec used for this Procedure?: Yes Compliance Spec: Debbie Cantu Estimated blood loss (mL): 200 IV fluids (mL): 700 Pathology: none sent Condition: stable Disposition: PACU
--- NOTE | 2021-07-09 13:35 | W.PM.OPN ---
Operative Note Operative Note Date of Service: 07/09/21 Narrative: Pre-op diagnosis: left distal femur fracture Post-op diagnosis: same Procedure: IM retrograde tim fixation left feur Implants: [place] [id number] mm with 5 iunterlocking screws Surgeon: Conner Mark MD Anesthesia: GETA and local Was an Supervisor Type Photography used for this Procedure?: Yes Supervisor Type Photography: Debbie Cantu Estimated blood loss (mL): 200 IV fluids (mL): 700 Pathology: none sent Condition: stable Disposition: PACU Procedure in detail: Patient was brought to the operating room and prepped and draped in standard sterile fashion. Time-out was called to identify proper site procedure proper surgeon and IV antibiotics per weight were administered. She was positioned on the radiolucent flat-top and biplanar fluoroscopy confirmed initial fracture reduction. I then made an incision from the distal pole of the patella to the tubercle. I then split the patellar tendin in line wiht the incision and positioned my guidewire in the notch using Blumensaat's line and biplanar fluoroscopy confimed appropriate start site. I then overreamed with a 15 mm reamer and then placed my ball-tipped guidewire wot the level of the lesser troachnater. I measured a 260 mm nail. I reamed to a 15 and placed my nail without difficulty. Once I was happy with the position of the nail I turned my attention to the distal aspect of the nail. Using the guid I placed 4 screws through the distal fragment. Using perfect viejas technique I placed 1 static distal interlocking screw in standard AO technique in the prioximal static hole proximally.. I then removed all all extraneous instrumentation. Final biplanar radiographs were taken. I was satisfied with the position of the hardware and the fracture reduction. I copiously irrigated and closed with absorbable sutures china and injected 30 mL of into the area of the incisions. Traction was let down patient was placed in sterile dressing awakened from anesthesia brought to recovery room stable condition there were no known complications.
[2021-07-09 13:46] LABS: Glucose, Whole Blood 207 mg/dL (60-115)
[2021-07-09] MEDS: fentaNYL citrate/PF 100 MCG/2 ML VIAL 25 MCG IVPUSH ×2 (14:00→14:05)
--- NOTE | 2021-07-09 14:47 | MHC.CM.PN ---
PATIENT OFF UNIT. CASE MANAGEMENT TO RETURN FOR ASSESSMENT
--- NOTE | 2021-07-09 15:49 | MHC.CM.PN ---
PATIENT LIVES ALONE. SHE HAS A WALKER IN THE HOME. NO MULTIFOCAL BUTTON GR[employer] OR [facility] SERVICES. HCP ON FILE AND VERIFIED. SHE REPORTS BEING COVID-19 VACCINATED AND A BOOSTER (ALL MODERNA) SHE DOES NOT HAVE HER SHOT RECORD WITH HER AND UNABLE TO RECALL THE VACCINE DATES. FIRST 2 WERE THROUGH THE [facility] ON [facility] CL[facility] AND THE BOOSTER WAS AT [facility] ON [address]. PATIENT ASKS FOR A REFERRAL TO [facility] FOR SHORT TERM REHAB. REFERRAL NOW PLACED. IMM 07/09 ZANDER
[2021-07-09 15:53] LABS: Glucose, Whole Blood 242 mg/dL (60-115)
[2021-07-09] MEDS: Heparin Sodium,Porcine 5,000 UNIT/ML VIAL 5000 UNIT SUBCUT (17:48)
[2021-07-09 21:34] LABS: Glucose, Whole Blood 279 mg/dL (60-115)
[2021-07-09] MEDS: Insulin Lispro 100 UNIT/ML 3 ML VIAL SUBCUT (21:41)
[2021-07-10] VITALS (10 sets, daily range): BP systolic 95–126; BP diastolic 51–78; PULSE 74–100; RESP 15–20; TEMP 36.2–37.3; O2SAT 93–98
[2021-07-10] MEDS: Clindamycin Phosphate/D5W 900 MG/50 ML PIGGYBACK 50 MG IV
[2021-07-10] MEDS: Heparin Sodium,Porcine 5,000 UNIT/ML VIAL 5000 UNIT SUBCUT (05:40)
[2021-07-10 07:43] LABS: Glucose, Whole Blood 231 mg/dL (60-115)
[2021-07-10] MEDS: Insulin Lispro 100 UNIT/ML 3 ML VIAL SUBCUT ×3 (08:47→21:03)
[2021-07-10] MEDS: 0.9 % Sodium Chloride Flush 3 ML SYRINGE IVFLUSH ×2 (08:48→17:51)
--- NOTE | 2021-07-10 08:49 | PM.PNORT ---
Subjective Subjective Date of Service: 07/10/21 Interval history: POD 1 s/p left distal femur retrograde nail No overnight events. She is resting in bed with some discomfort but tolerating well. Denies shortness of breath, chest pain or palpitations. Physical Exam Vital Signs: Vital Signs: Last Vital Signs Temp 97.2 F 07/10/21 07:21 Pulse 100 07/10/21 07:21 Resp 20 07/10/21 07:21 BP 114/59 L 07/10/21 07:21 Pulse Ox 93 07/10/21 07:21 BMI result Body Mass Index 37.5 Const: General: cooperative, healthy appearing and no acute distress Resp: Effort & Inspection: normal respiratory effort and able to speak in complete sentences Cardio: Rate: regular rate Peripheral pulses: Peripheral pulses 2+ throughout GI: Palpation (GI): Soft to palpation Skin: General skin exam: no rashes or lesions noted Extrem: Other: Bandage clean dry and intact. No erythema or joint effusion. Calf supple nontender. Neurovascularly intact. Procedures Date of Service Date of Service: 07/10/21 Progress Note: A&P Assessment and plan (1) Closed fracture of left distal femur: Status: Acute Assessment and Plan: Continue pain mgmnt Begin lovenox for dvt ppx begin PT /OT for distal femur-WBAT Dispo planning-Pending PT eval, pain mgmnt Fall Risk Details Current Medications: Current Medications Acetaminophen (Acetaminophen 325 Mg Tablet) 650 mg PO Q6H PRN PRN Reason: Pain, Mild (Pain Scale 1-3) Heparin Sodium (Porcine) (Heparin Sodium,Porcine 5,000 Unit/Ml Vial) 5,000 unit SUBCUT Q12H [facility] Last Admin: 07/10/21 05:40 Dose: 5,000 unit Documented by: Insulin Human Lispro (Insulin Lispro 100 Unit/Ml 3 Ml Vial) 0 unit SUBCUT Q6H [facility]; Protocol Last Admin: 07/10/21 08:47 Dose: 4 unit Documented by: Melatonin (Melatonin 3 Mg Tablet) 3 mg PO BEDTIME PRN PRN Reason: Insomnia Morphine Sulfate (Morphine Sulfate 4 Mg/Ml Cartridge) 2 mg IVPUSH Q4H PRN; Protocol PRN Reason: Pain, Severe (Pain Scale 7-10) Last Admin: 07/08/21 22:40 Dose: 2 mg Documented by: Ondansetron HCl (Ondansetron Hcl 4 Mg/2 Ml Vial) 4 mg IVPUSH Q8H PRN PRN Reason: Nausea and Vomiting Pharmacy Consult (Consult Rx Perform Med Rec) 1 each MISCELLANE ONCE PRN PRN Reason: Consult order Sodium Chloride (0.9 % Sodium Chloride Flush 3 Ml Syringe) 3 ml IVFLUSH QSHIFT [facility] Last Admin: 07/10/21 08:48 Dose: 3 ml Documented by: Time Spent With Patient Time: Total time spent is greater than 50% in coordination of care (as documented) at patient's floor/unit and/or counseling patient: Time with patient: less than 15 minutes Quality Stroke Does the patient have a stroke diagnosis?: No VTE Prior VTE?: No VTE Risk Level:: Medical - moderate - high VTE Device Contraindication: N/A - Device Ordered VTE Drug Contraindication: N/A - Med Ordered
[2021-07-10 09:09] LABS: Hematocrit 24.9 % (37.0-47.0); Hemoglobin 8.1 g/dl (12.0-16.0)
--- NOTE | 2021-07-10 09:32 | HO.PM.IMPN ---
Subjective Subjective Date of Service: 07/10/21 Interval History: f/u on femur fracture, operative repair yester, pain is controlled. H/H significantly lower Review of Systems hip pain with movment, no fever, no sob Physical Exam Vital Signs: Vital Signs: Last Vital Signs Temp 97.2 F 07/10/21 07:21 Pulse 100 07/10/21 07:21 Resp 20 07/10/21 07:21 BP 114/59 L 07/10/21 07:21 Pulse Ox 93 07/10/21 07:21 BMI result Body Mass Index 37.5 Const: Other: General: AO X 3, no acute distress Resp: CTA bilateral CVS: S1,S2,RRR. 1+ pitting edema levar GI: +BS, NT, no distention Skin: No rash, dresing intac Neuro: motor grossly intact Psych: appropriate affect Objective Data Active Medications Acetaminophen (Acetaminophen 325 Mg Tablet) 650 mg PO Q6H PRN PRN Reason: Pain, Mild (Pain Scale 1-3) Enoxaparin Sodium (Enoxaparin Sodium 40 Mg/0.4 Ml Syringe) 40 mg SUBCUT Q24H [facility] Insulin Human Lispro (Insulin Lispro 100 Unit/Ml 3 Ml Vial) 0 unit SUBCUT Q6H [facility]; Protocol Last Admin: 07/10/21 08:47 Dose: 4 unit Documented by: CODIE Melatonin (Melatonin 3 Mg Tablet) 3 mg PO BEDTIME PRN PRN Reason: Insomnia Morphine Sulfate (Morphine Sulfate 4 Mg/Ml Cartridge) 2 mg IVPUSH Q4H PRN; Protocol PRN Reason: Pain, Severe (Pain Scale 7-10) Last Admin: 07/08/21 22:40 Dose: 2 mg Documented by: JUANITA Ondansetron HCl (Ondansetron Hcl 4 Mg/2 Ml Vial) 4 mg IVPUSH Q8H PRN PRN Reason: Nausea and Vomiting Pharmacy Consult (Consult Rx Perform Med Rec) 1 each MISCELLANE ONCE PRN PRN Reason: Consult order Sodium Chloride (0.9 % Sodium Chloride Flush 3 Ml Syringe) [facility] Last Admin: 07/10/21 08:48 Dose: 3 ml Documented by: CODIE Labs CBC & Chem 7: 07/10/21 08:42 07/08/21 12:16 Labs: Laboratory Results - last 24 hr 07/08/21 07/09/21 07/09/21 12:16 10:18 13:43 Hct 33.6 L POC Glucose 162 H 207 H 07/09/21 07/09/21 07/10/21 15:45 21:30 07:35 Hct POC Glucose 242 H 279 H 231 H 07/10/21 08:42 Hct 24.9 L D POC Glucose Assessment and Plan (1) Closed fracture of left distal femur: Status: Acute (2) Type 2 diabetes mellitus with diabetic polyneuropathy: Status: Acute (3) Essential hypertension: Status: Acute (4) Hyperlipidemia LDL goal <70: Status: Acute Plan 71/F with COPD, diabete, HTN, HLD, chronic leg edema here with mechanical fall resulting in left femoral shaft fracture 1/ Comminuted impacted displaced left distal femoral shaft and supracondylar fracture. -operative repair on 07/09 -Pain control 2/Diabetes--On Ozempic and glimepride--Hold. Give insulin while here 3/HTN-BP controlled -Continue Metoprololol and Losartan 4/COPD--no exacerbation, continue inhalers 5/CHF likely chronic diastolic- Echo 07/08: ?Normal left ventricular size and systolic function. There is ? mildly increased left ventricular wall thickness.? The visually? estimated ejection fraction is between 55-60%. ? - Normal right ventricular cavity size and systolic function.? -Continue Torsemide 6/Morbid obesity--health benefit or weight loss discussed and aware of her options 7/HLD--Stain 8/Leukocytosis--likely reactive 9/HypOmagnesemia--supplement given 10/acute blood loss anemia related to fracture--transfuse /DVT--Heparin and compression device Reason for continue hospitalization: post operative mangement for pain, transfusion for blood loss and awaiting rehab placement Quality Stroke Does the patient have a stroke diagnosis?: No VTE Prior VTE?: No VTE Risk Level:: Medical - moderate - high VTE Device Contraindication: N/A - Device Ordered VTE Drug Contraindication: N/A - Med Ordered
--- NOTE | 2021-07-10 11:05 | PC.NURSE ---
Skin wound assessment completed today. Patient has a surgical incision to left leg from and femur fracture repair. Bandage and anastasiya wrap intact. Small skin tear on elbow has healed with scab. Buttocks are good-no openings seen.
[2021-07-10 11:14] LABS: Glucose, Whole Blood 285 mg/dL (60-115)
--- NOTE | 2021-07-10 12:25 | HO.POSTANES ---
Post Anesthesia Evaluation Post Anesthesia Evaluation Vital Signs: Vital Signs Temp Pulse Resp BP Pulse Ox 07/10/21 11:19 97.2 F 74 15 115/67 97 07/10/21 09:43 100 114/59 L 93 07/10/21 07:21 97.2 F 100 20 114/59 L 93 07/10/21 03:59 97.4 F 99 17 95/51 L 97 Anesthesia: General Mental Status: Awake Pain Control: Satisfactory Nausea/Vomiting: None Hydration: Adequate Anesthesia-Related Issues: No Anes. Related Issues
--- NOTE | 2021-07-10 12:48 | MHC.CM.PN ---
[facility] IS UNABLE TO OFFER. PATIENT ACCEPTS [facility] AND FACILITY HAS STARTED THE AUTH PROCESS. PLAN IS DC WEDNESDAY
[2021-07-10] MEDS: Enoxaparin Sodium 40 MG/0.4 ML SYRINGE SUBCUT (12:49)
[2021-07-10 14:21] LABS: Glucose, Whole Blood 328 mg/dL (60-115)
[2021-07-10 16:50] LABS: Glucose, Whole Blood 238 mg/dL (60-115)
[2021-07-10 20:14] LABS: Glucose, Whole Blood 206 mg/dL (60-115)
[2021-07-11] VITALS (7 sets, daily range): BP systolic 108–148; BP diastolic 61–71; PULSE 70–103; RESP 14–18; TEMP 36.2–36.8; O2SAT 92–98
[2021-07-11] MEDS: 0.9 % Sodium Chloride Flush 3 ML SYRINGE IVFLUSH ×2 (01:17→07:58)
[2021-07-11 07:14] LABS: Glucose, Whole Blood 184 mg/dL (60-115)
[2021-07-11] MEDS: Insulin Lispro 100 UNIT/ML 3 ML VIAL SUBCUT ×2 (07:57→11:54)
--- NOTE | 2021-07-11 08:46 | HO.PM.IMPN ---
Subjective Subjective Date of Service: 07/11/21 Interval History: f/u on femur fracture, operative repair yester, pain is controlled. She feels better Review of Systems hip pain with movment, no fever, no sob Physical Exam Vital Signs: Vital Signs: Last Vital Signs Temp 97.2 F 07/11/21 07:30 Pulse 98 07/11/21 07:30 Resp 14 07/11/21 07:30 BP 125/71 07/11/21 07:30 Pulse Ox 98 07/11/21 07:30 BMI result Body Mass Index 37.5 Const: Other: General: AO X 3, no acute distress Resp: CTA bilateral CVS: S1,S2,RRR. 1+ pitting edema levar GI: +BS, NT, no distention Skin: No rash, dresing intac Neuro: motor grossly intact Psych: appropriate affect Objective Data Active Medications Acetaminophen (Acetaminophen 325 Mg Tablet) 650 mg PO Q6H PRN PRN Reason: Pain, Mild (Pain Scale 1-3) Enoxaparin Sodium (Enoxaparin Sodium 40 Mg/0.4 Ml Syringe) 40 mg SUBCUT Q24H [facility] Last Admin: 07/10/21 12:49 Dose: 40 mg Documented by: CLAUDIO Insulin Human Lispro (Insulin Lispro 100 Unit/Ml 3 Ml Vial) [facility]; Protocol Last Admin: 07/11/21 07:57 Dose: 2 unit Documented by: SHANITA Melatonin (Melatonin 3 Mg Tablet) 3 mg PO BEDTIME PRN PRN Reason: Insomnia Morphine Sulfate (Morphine Sulfate 4 Mg/Ml Cartridge) 2 mg IVPUSH Q4H PRN; Protocol PRN Reason: Pain, Severe (Pain Scale 7-10) Last Admin: 07/08/21 22:40 Dose: 2 mg Documented by: JUANITA Ondansetron HCl (Ondansetron Hcl 4 Mg/2 Ml Vial) 4 mg IVPUSH Q8H PRN PRN Reason: Nausea and Vomiting Pharmacy Consult (Consult Rx Perform Med Rec) 1 each MISCELLANE ONCE PRN PRN Reason: Consult order Sodium Chloride (0.9 % Sodium Chloride Flush 3 Ml Syringe) [facility] Last Admin: 07/11/21 07:58 Dose: 3 ml Documented by: SHANITA Labs CBC & Chem 7: 07/10/21 08:42 07/08/21 12:16 Labs: Laboratory Results - last 24 hr 07/08/21 07/10/21 07/10/21 12:16 11:07 14:16 POC Glucose 285 H 328 H Blood Type O Positive Antibody Screen NEGATIVE Crossmatch See Detail 07/10/21 07/10/21 07/11/21 16:08 20:03 07:09 POC Glucose 238 H 206 H 184 H Blood Type Antibody Screen Crossmatch Assessment and Plan (1) Closed fracture of left distal femur: Status: Acute (2) Type 2 diabetes mellitus with diabetic polyneuropathy: Status: Acute (3) Essential hypertension: Status: Acute (4) Hyperlipidemia LDL goal <70: Status: Acute Plan 71/F with COPD, diabete, HTN, HLD, chronic leg edema here with mechanical fall resulting in left femoral shaft fracture 1/ Comminuted impacted displaced left distal femoral shaft and supracondylar fracture. -operative repair on 07/09 -Pain control -Lovenox for DVT proph 2/Diabetes--On Ozempic and glimepride--Hold. Give insulin while here 3/HTN-BP controlled -Continue Metoprololol and Losartan 4/COPD--no exacerbation, continue inhalers 5/CHF likely chronic diastolic- Echo 07/08: ?Normal left ventricular size and systolic function. There is ? mildly increased left ventricular wall thickness.? The visually? estimated ejection fraction is between 55-60%. ? - Normal right ventricular cavity size and systolic function.? -Continue Torsemide 6/Morbid obesity--health benefit or weight loss discussed and aware of her options 7/HLD--Stain 8/Leukocytosis--likely reactive 9/HypOmagnesemia--supplement given 10/acute blood loss anemia related to fracture--transfused 1 RBC on 07/10, recheck to day /DVT-Lovneox Reason for continue hospitalization: post operative mangement for pain, transfusion for blood loss and awaiting rehab placement Quality Stroke Does the patient have a stroke diagnosis?: No VTE Prior VTE?: No VTE Risk Level:: Medical - moderate - high VTE Device Contraindication: N/A - Device Ordered VTE Drug Contraindication: N/A - Med Ordered
--- NOTE | 2021-07-11 08:51 | P.DS_ITS ---
DS: Providers Provider Date of Service: 07/11/21 Date of admission: 07/08/21 12:59 Primary care physician: Glen Guadalupe MD Consults: 07/08/21 12:58 Consult to Orthopedics Routine Consulting Provider: Conner Mark Reason for consultation: femur fracture Has provider been notified: No DS: Diagnosis Discharge Diagnosis (1) Closed fracture of left distal femur: Status: Acute (2) Type 2 diabetes mellitus with diabetic polyneuropathy: Status: Acute (3) Essential hypertension: Status: Acute (4) Hyperlipidemia LDL goal <70: Status: Acute DS: Summary Hospital Course Hospital Course: Chief Complaint: Fall? and hip pain 71-year-old female with a past medical history of diabetes type 2 with diabetic polyneuropathy, hypertension, hyperlipidemia, CHF, COPD, asthma, PVCs, lower extremity edema among others who is presenting with? with a mechanical fall from tripping? on an uneven surface outside of a bank while using her walker.? She felt onto? her left elbow/left hip/thigh and knee/ankle and and was experiencing pain in the left hip with ambulation. She had no loss of consciousness and no head injury.? Xrays ankle, knee and hip and pelvis showa?Comminuted impacted displaced left distal femoral shaft and supracondylar fracture. 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 PT and OT have been working with [facility]. She is to continue all other chronic medication for diabetes, HTN, COPD, chronic diastolic heart failure and instructed to loose weight Time Spent with Patient Time attestation: Total time spent providing and/or coordinating discharge services: Discharge coordination time: Greater than 30 minutes Quality: Stroke Does the patient have a stroke diagnosis?: No Physical Exam Vital Signs: Vital Signs: Last Vital Signs Temp 97.2 F 07/11/21 07:30 Pulse 98 07/11/21 07:30 Resp 14 07/11/21 07:30 BP 125/71 07/11/21 07:30 Pulse Ox 98 07/11/21 07:30 BMI result Body Mass Index 37.5 Const: Other: General: AO X 3, no acute distress Resp: CTA bilateral CVS: S1,S2,RRR GI: +BS, NT, no distention Skin: No rash, dressing in place Neuro: motor grossly intact Psych: appropriate affect DS: Data Data Completed and Pending Labs on day of discharge: Laboratory Results - last 24 hr 07/08/21 07/10/21 07/10/21 12:16 08:42 11:07 Hgb 8.1 L D Hct 24.9 L D POC Glucose 285 H Blood Type O Positive Antibody Screen NEGATIVE Crossmatch See Detail 07/10/21 07/10/21 07/10/21 14:16 16:08 20:03 Hgb Hct POC Glucose 328 H 238 H 206 H Blood Type Antibody Screen Crossmatch 07/11/21 07:09 Hgb Hct POC Glucose 184 H Blood Type Antibody Screen Crossmatch Discharge Plan Discharge Anticipated Discharge Date/Time: 07/11/21 14:23 Patient Disposition: Xfer SNF Discharge Diagnosis: Femur fracture Referrals: [facility] [Other] - 1 Day (DISCHARGE PLAN , TO SHORT TERM REHAB , AT [facility] TO BE TRANSPORTED [facility]IA [facility] ) Debbie Cantu PA-C [Physician Director Of Kids] - 1 Week (07/28/2021 at 3:30pm. ) Glen Guadalupe MD [Primary Care Provider] - 1 Week Discharge Medications: New enoxaparin 40 mg/0.4 mL Syringe 40 mg subcut Q24H 42 Days Qty: 16.8 0RF oxycodone-acetaminophen [Percocet] 5-325 mg tablet 1 tab PO Q4-6H PRN (Reason: pain (scale score 4-6)) 7 Days Qty: 42 0RF Continued torsemide 100 mg tablet 100 mg PO DAILY Qty: 90 1RF cholecalciferol (vitamin D3) 125 mcg (5,000 unit) capsule 125 mcg PO DAILY Qty: 90 1RF (DME) lancets 28 gauge misc See Rx Instructions ea topical .MEDSUPPLY Qty: 100 11RF Rx Instructions: As directed 2x per day. Combivent Respimat 20-100 mcg/actuation mist 1 puff PO QID Qty: 12 1RF rosuvastatin 40 mg tablet 40 mg PO DAILY Qty: 90 1RF fluticasone propion-salmeterol [Wixela Inhub] 250-50 mcg/dose blister with device 1 ea PO BID Qty: 60 1RF glimepiride 1 mg tablet 1 mg PO QAM 90 Days Qty: 90 1RF Rx Instructions: administer with breakfast (take with 2 mg glimepiride) folic acid 1 mg tablet 1 mg PO DAILY Qty: 90 6RF metoprolol tartrate 100 mg tablet 200 mg PO DAILY 0RF cyanocobalamin (vitamin B-12) 1,000 mcg tablet 1 tab PO DAILY 0RF metoprolol tartrate 100 mg tablet 100 mg PO BEDTIME 0RF alendronate 70 mg tablet 70 mg PO SA 0RF glimepiride 2 mg tablet 2 mg PO BEDTIME 0RF Ozempic 0.25 mg or 0.5 mg(2 mg/1.5 mL) pen injector 0.25 mg subcut PAGE 0RF Rx Instructions: 0.25mg for 4 weeks then increase to 0.5mg each week and maintain dose ipratropium-albuterol 0.5 mg-3 mg(2.5 mg base)/3 mL solution for nebulization 3 ml inhalation Q6H 0RF (DME) blood-glucose meter [FreeStyle Lite Meter] Kit See Rx Instructions .ROUTE .MEDSUPPLY Qty: 1 0RF Rx Instructions: to test blood glucose 2 times a day aspirin 81 mg tablet,delayed release (DR/EC) 81 mg PO DAILY 0RF losartan 100 mg tablet 50 mg PO DAILY 0RF (DME) blood-glucose meter [FreeStyle Lite Meter] Kit See Rx Instructions .ROUTE .MEDSUPPLY Qty: 1 0RF Rx Instructions: As directed 3xday Discharge Orders: Discharge Order (Routine); Ordered 07/11/21 Ordered By: Avinash Anderson Diet: advance to usual diet Activity on Discharge: As tolerated Stand Alone Forms: Patient Portal Discharge page Activity Restrictions/Additional Instructions: Gait training, strengthening, ADLs Continue Lovenox for dvt ppx x6 weeks Keep dressing clean, dry and intact-no showering or tub baths Follow up with Orthopedics in 2 weeks Care Plan Goals: Full recovery from femur fracture Health Concerns: Femur fracture Plan of Treatment: Gait training, strengthening, ADLs Continue Lovenox for dvt ppx x6 weeks Keep dressing clean, dry and intact-no showering or tub baths Follow up with Orthopedics in 2 weeks Continue other home medications Assessment: See above Discharge Date/Time: 07/11/21 16:43
[2021-07-11 09:27] LABS: Hemoglobin 8.3 g/dl (12.0-16.0); Mean Corpuscular HGB Conc 31.9 g/dl (31.0-35.0); Mean Corpuscular Hemoglobin 28.4 pg (27.0-33.0); Platelet Count 211 X10*3/uL (160-400); Red Blood Count 2.92 X10*6/uL (4.20-5.50); Red Cell Distribution Width 14.7 % (11.0-16.0); White Blood Count 13.4 X10*3/uL (4.8-10.8)
--- NOTE | 2021-07-11 09:44 | PC.NURSE ---
Patient santana removed at 10am. Patient tolerated well. Patient is due to void by 1600.
[2021-07-11 11:20] LABS: Glucose, Whole Blood 203 mg/dL (60-115)
[2021-07-11] MEDS: Enoxaparin Sodium 40 MG/0.4 ML SYRINGE SUBCUT (11:54)
[2021-07-11] MEDS: Morphine Sulfate 4 MG/ML CARTRIDGE 2 MG IVPUSH (11:57)
--- NOTE | 2021-07-11 11:59 | MHC.CM.PN ---
Addendum entered by Ama Parisi 07/11/21 16:05: RECIVED INSURANCE AUTH AND CONFIRMED TRANSPORT TIME AGAIN WITH [facility] AND BEDSIDE NUTRSE Original Note: NURSE CRANBERRY BOG SUPERVISOR NOTE FOR DISCHARGE TODAY PATIENT GOING TO SHORT TERM REHAB AT [facility] TODAY PENDING INS AUTH TRANSPORTED BY [facility] [employer] IMM UPDATED
--- NOTE | 2021-07-11 12:14 | PM.PNORT ---
Subjective Subjective Date of Service: 07/11/21 Interval history: POD2 s/p left distal femur retrograde tim with Dr. Mark. Patient is resting comfortably in bed. No overnight events. Patient states pain is well managed. No additional complaints. Physical Exam Vital Signs: Vital Signs: Last Vital Signs Temp 98.2 F 07/11/21 11:35 Pulse 70 07/11/21 11:35 Resp 18 07/11/21 11:57 BP 148/68 H 07/11/21 11:35 Pulse Ox 98 07/11/21 11:38 BMI result Body Mass Index 37.5 Const: General: cooperative, healthy appearing and no acute distress Resp: Effort & Inspection: normal respiratory effort and able to speak in complete sentences Cardio: Rate: regular rate Peripheral pulses: Peripheral pulses 2+ throughout GI: Palpation (GI): Soft to palpation Skin: Lesions: no lesions Rashes: no rashes Extrem: Other: Left distal femur incision sites dressings removed. Incision sites are well approximated and healing with no signs of erythema or drainage. Van Meter intact. New dressings applied. NVI. Procedures Date of Service Date of Service: 07/11/21 Progress Note: A&P Assessment and plan (1) Closed fracture of left distal femur: Status: Acute Assessment and Plan: Continue pain mgmnt New dressings applied at bedside Continue Lovenox for dvt ppx Continue PT for left distal femur retrograde tim - WBAT Dispo planning-pain management and case management to obtain placement at rehab -patient is ready for discharge from orthopedic perspective. Fall Risk Details Current Medications: Current Medications Acetaminophen (Acetaminophen 325 Mg Tablet) 650 mg PO Q6H PRN PRN Reason: Pain, Mild (Pain Scale 1-3) Enoxaparin Sodium (Enoxaparin Sodium 40 Mg/0.4 Ml Syringe) 40 mg SUBCUT Q24H [facility] Last Admin: 07/11/21 11:54 Dose: 40 mg Documented by: Insulin Human Lispro (Insulin Lispro 100 Unit/Ml 3 Ml Vial) 0 unit SUBCUT QIDACHS [facility]; Protocol Last Admin: 07/11/21 11:54 Dose: 4 unit Documented by: Melatonin (Melatonin 3 Mg Tablet) 3 mg PO BEDTIME PRN PRN Reason: Insomnia Morphine Sulfate (Morphine Sulfate 4 Mg/Ml Cartridge) 2 mg IVPUSH Q4H PRN; Protocol PRN Reason: Pain, Severe (Pain Scale 7-10) Last Admin: 07/11/21 11:57 Dose: 2 mg Documented by: Ondansetron HCl (Ondansetron Hcl 4 Mg/2 Ml Vial) 4 mg IVPUSH Q8H PRN PRN Reason: Nausea and Vomiting Pharmacy Consult (Consult Rx Perform Med Rec) 1 each MISCELLANE ONCE PRN PRN Reason: Consult order Sodium Chloride (0.9 % Sodium Chloride Flush 3 Ml Syringe) [facility] Last Admin: 07/11/21 07:58 Dose: 3 ml Documented by: Time Spent With Patient Time: Total time spent is greater than 50% in coordination of care (as documented) at patient's floor/unit and/or counseling patient: Time with patient: less than 15 minutes Quality Stroke Does the patient have a stroke diagnosis?: No VTE Prior VTE?: No VTE Risk Level:: Medical - moderate - high VTE Device Contraindication: N/A - Device Ordered VTE Drug Contraindication: N/A - Med Ordered
--- NOTE | 2021-07-11 13:04 | PC.NURSE ---
patient voided twice on bedside commode. Will continue to monitor urine output.
[2021-07-11 13:25] LABS: COVID-19 Test Negative (Negative); IDNOW Serial# 16C4AD1C
== END 2021-07-11 16:43 | disposition skilled nursing facility (03) | DRG 481 ==
LOC: HO.ED 12:52 → HO.EDOVER 13:16 → HO.S3 19:29
PROVIDERS: Orthopaedic Surgery; Physician Assistant; Physician Assistant Medical; Admitting Provider Internal Medicine; Emergency Provider Emergency Medicine; PCP Internal Medicine; Visit Provider Internal Medicine
PROC: 0QSC04Z Reposition Left Lower Femur with Internal Fixation Device, Open Approach (ICD-10-PCS; principal; 2021-07-09 11:40)
DX: S72.452A Displaced supracondylar fracture without intracondylar extension of lower end of left femur, initial encounter for closed fracture (principal); I50.32 Chronic diastolic (congestive) heart failure; W01.0XXA Fall on same level from slipping, tripping and stumbling without subsequent striking against object, initial encounter; Y93.01 Activity, walking, marching and hiking; Y92.480 Sidewalk as the place of occurrence of the external cause; E11.42 Type 2 diabetes mellitus with diabetic polyneuropathy; E78.5 Hyperlipidemia, unspecified; K21.9 Gastro-esophageal reflux disease without esophagitis; I11.0 Hypertensive heart disease with heart failure; J44.9 Chronic obstructive pulmonary disease, unspecified; E66.01 Morbid (severe) obesity due to excess calories; Z68.37 Body mass index [BMI] 37.0-37.9, adult; E83.42 Hypomagnesemia; D72.829 Elevated white blood cell count, unspecified; I44.0 Atrioventricular block, first degree; Z20.822 Contact with and (suspected) exposure to COVID-19; Z88.0 Allergy status to penicillin; Z88.6 Allergy status to analgesic agent; Z79.51 Long term (current) use of inhaled steroids; Z79.82 Long term (current) use of aspirin; Z79.899 Other long term (current) drug therapy
CPT/HCPCS: 36415; 71046; 73080; 73502; 73564; 73610; 80053; 82947; 83036; 83735; 83880; 84443; 85014; 85018; 85025; 85027; 85610; 86850; 86900; 86901; 86923; 87635; 90471; 90715; 93005; 93306; 96365; 96366; 97110; 97162; 97530; 99285; 99291; C1713; C1769; J1100; J1650; J2270; J2405; J3010; J3475; P9016

== ENCOUNTER 2021-07-16 07:47 | Outpatient (REF) | payer MEDICARE, SELFPAY ==
[2021-07-16 07:53] LABS: MANUAL DIFF FLAG NO
[2021-07-16 08:05] LABS: Basophils Percent Auto 0.2 % (0-2); Eosinophils Absolute Auto 0.2 X10*3/uL (0.0-0.4); Eosinophils Percent Auto 1.5 % (0-4); Hematocrit 26.5 % (37.0-47.0); Hemoglobin 8.6 g/dl (12.0-16.0); Imm Gran Abs Auto 0.08 X10*3/uL (0.00-0.03); Imm Gran Pct Auto 0.7 % (0.0-0.4); Lymphocytes Absolute Auto 1.3 X10*3/uL (1.2-4.9); Lymphocytes Percent Auto 11.5 % (20-40); Mean Corpuscular HGB Conc 32.5 g/dl (31.0-35.0); Mean Corpuscular Hemoglobin 28.9 pg (27.0-33.0); Mean Corpuscular Volume 88.9 fL (80.0-98.0); Mean Platelet Volume 9.1 fL (9.4-12.3); Monocytes Absolute Auto 1.3 X10*3/uL (0.1-1.2); Monocytes Percent Auto 10.9 % (2-11); Neutrophils Absolute Auto 8.6 x10*3/uL (2.0-8.3); Neutrophils Percent Auto 75.2 % (45-73); Platelet Count 393 X10*3/uL (160-400); Red Blood Count 2.98 X10*6/uL (4.20-5.50); White Blood Count 11.5 X10*3/uL (4.8-10.8)
[2021-07-16 08:16] LABS: Alanine Aminotransferase 12 U/L (0-31); Albumin Level 3.2 g/dL (3.5-5.0); Alkaline Phosphatase 99 U/L (39-117); Anion Gap 15 (12-20); Aspartate Amino Transferase 13 U/L (5-31); Bilirubin Total 0.7 mg/dL (0.0-1.0); Blood Urea Nitrogen 24 mg/dL (9-16); Calcium 8.7 mg/dL (8.4-10.2); Carbon Dioxide 29 mmol/L (22-29); Chloride 97 mmol/L (96-108); Estimated Glomerular Filt Rate 39; Glucose Random 127 mg/dL (60-115); Potassium 3.3 mmol/L (3.3-5.1); Sodium 138 mmol/L (135-145); Total Protein 6.7 g/dL (6.5-8.0)
[2021-07-16 08:43] LABS: Vitamin B12 1067 pg/mL (200-900)
== END 2021-07-16 07:48 | disposition home or self-care (01) ==
LOC: HO.MMNH1L 07:47
PROVIDERS: Visit Provider Family Medicine
DX: S72.92XD Unspecified fracture of left femur, subsequent encounter for closed fracture with routine healing (principal); E11.40 Type 2 diabetes mellitus with diabetic neuropathy, unspecified
CPT/HCPCS: 36415; 80053; 82607; 85025

== ENCOUNTER 2021-07-18 23:12 | Inpatient (IN) | payer MEDICARE, SELFPAY ==
--- NOTE | ~2021-07-18 | XR_ITS ---
EXAMINATION: XR CHEST CLINICAL INFORMATION: Shortness of breath. COMPARISON: Chest radiograph dated from 07/08/2021. TECHNIQUE: AP view of the chest was obtained. FINDINGS: Stable cardiomegaly. EKG wires overlie the chest. Similar increased interstitial markings. No new focal airspace opacities, pleural effusions or pneumothorax. No acute osseous abnormalities. XR/XR chest 1V IMPRESSION: No acute cardiopulmonary findings.
--- NOTE | ~2021-07-18 | CT_ITS ---
EXAMINATION: CT ANGIOGRAM OF THE CHEST WITH AND WITHOUT CONTRAST (CT PULMONARY ANGIOGRAM FOR PE) CLINICAL INFORMATION: Reason for Exam sob, elevated dimer, s/o ortho surgery COMPARISON: 08/19/2017 TECHNIQUE: Prior to contrast administration, noncontrast localization images were obtained. Subsequently, multidetector volumetric imaging was performed from the thoracic inlet to below the diaphragms following the administration of 65 mL Omnipaque 350 intravenous contrast. No contrast reaction reported Sagittal, coronal, and MIP oblique sagittal reformatted images were obtained on the CT workstation, uploaded to PACS, and reviewed. This CT examination was performed using dose optimization techniques as appropriate, variously including the following: *Automated exposure control *Adjustment of mA and/or kV according to patient size (this includes techniques or standardized protocols for targeted exams where dose is matched to indication/reason for exam; i.e. extremities or head) *Use of iterative reconstruction technique Total exam dose-length product 423 mGy-cm FINDINGS: QUALITY OF STUDY/CONTRAST BOLUS: Satisfactory. PULMONARY ARTERIES: Multiple segmental to subsegmental pulmonary emboli are identified in the right upper, middle, and lower lobes. Less extensive emboli are seen in the left upper lobe. THORACIC AORTA: No aneurysm or dissection. LUNG: Mild curvilinear opacities towards the bilateral lung bases favor atelectasis. Mosaic attenuation is noted, favored to reflect heterogeneous air trapping in the setting of an expiratory scan. PLEURA: No pleural effusion or pneumothorax. MEDIASTINUM: Thyroid gland is grossly unremarkable. There are subcentimeter mediastinal lymph nodes within the range of normal variation. There is cardiomegaly without significant pericardial effusion. Coronary artery calcifications are present. CHEST WALL/AXILLA: No axillary or internal mammary lymphadenopathy. OSSEOUS STRUCTURES: Degenerative changes are noted in the spine. UPPER ABDOMEN: Patient is status post cholecystectomy. There is partial fatty atrophy of the pancreas. No reflux of contrast into the hepatic veins to suggest elevated right heart pressures. CT/CT angio chest PE protocol IMPRESSION: 1. Multiple bilateral segmental to subsegmental pulmonary emboli, right lung greater than left. 2. Cardiomegaly. 3. Coronary artery calcifications. Correlation with cardiac risk factors is recommended. VTE: positive This critical result was discussed with Dr. Angelina Corrales on 07/19/2021 3:00 AM, and it was ascertained that the content and urgency of the report was understood at the time of direct communication.
[2021-07-18 23:21] VITALS: BP 127/49; BP 136/70; PULSE 65; PULSE 66; RESP 16; TEMP 36.9; O2SAT 100; O2SAT 98; BMI 38.4
--- NOTE | 2021-07-18 23:44 | ECG_ITS ---
Test Reason : CHEST PAIN Blood Pressure : / mmHG Vent. Rate : 062 BPM Atrial Rate : 062 BPM P-R Int : 180 ms QRS Dur : 094 ms QT Int : 506 ms P-R-T Axes : 029 015 029 degrees QTc Int : 513 ms Normal sinus rhythm ST & T wave abnormality, consider anterior ischemia Prolonged QT Abnormal ECG When compared with ECG of 08-JUL-2021 12:27, IN interval has decreased T wave inversion now evident in Anterior leads Referred By: Angelina Corrales Electronically Signed By:IRENE CHATMAN MD
--- NOTE | 2021-07-18 23:46 | ED.CHESTPAIN ---
HPI - Chest Pain General Chief Complaint: Chest Pain Stated Complaint: sob with cp Time Seen by Provider: 07/18/21 23:36 Source: patient and EMS Mode of arrival: EMS Limitations: no limitations History of Present Illness HPI narrative: patient comes to the emergency room patient comes to the emergency room complaining of intermittent chest pain and shortness of breath for 2 days. Patient is coming from [facility]. Patient had a left femoral fracture on 07/08/2021, discharged from this facility 7 days ago. Patient denies any fever or chills. At this time, patient states she has no pain, only ongoing chest pressure and mild shortness of breath. patient states that she gets more short of breath when she is asked to participate in physical therapy activities. patient denies calf pain, patient is currently on Lovenox Related Data Home Medications Medication Instructions Recorded Confirmed aspirin 81 mg tablet,delayed 81 mg PO DAILY 03/19/20 07/08/21 release ipratropium 0.5 mg-albuterol 3 mg 3 ml INHALATION Q6H 03/28/20 07/08/21 (2.5 mg base)/3 mL nebulization soln losartan 100 mg tablet 50 mg PO DAILY tab 04/07/21 07/08/21 alendronate 70 mg tablet 70 mg PO SA 07/08/21 07/08/21 cyanocobalamin (vitamin B-12) 1 tab PO DAILY 07/08/21 07/08/21 1,000 mcg tablet glimepiride 2 mg tablet 2 mg PO BEDTIME 07/08/21 07/08/21 metoprolol tartrate 100 mg tablet 100 mg PO BEDTIME 07/08/21 07/08/21 metoprolol tartrate 100 mg tablet 200 mg PO DAILY 07/08/21 07/08/21 semaglutide (Ozempic) 0.25 mg SUBCUT PAGE 07/08/21 07/08/21 Previous Rx's Medication Instructions Recorded blood-glucose meter (FreeStyle #1 ea 10/08/20 Lite Meter) folic acid 1 mg tablet 1 mg PO DAILY #90 tab 11/15/20 torsemide 100 mg tablet 100 mg PO DAILY #90 tab 02/03/21 cholecalciferol (vitamin D3) 125 125 mcg PO DAILY #90 cap 02/12/21 mcg (5,000 unit) capsule lancets 28 gauge #100 ea 04/29/21 ipratropium 20 mcg-albuterol 100 1 puff PO QID #12 g 05/11/21 mcg/actuation mist for inhalation (Combivent Respimat) rosuvastatin 40 mg tablet 40 mg PO DAILY #90 tab 05/11/21 fluticasone 250 mcg-salmeterol 50 1 ea PO BID #60 ea 05/26/21 mcg/dose blistr powdr for inhalation (Wixela Inhub) glimepiride 1 mg tablet 1 mg PO QAM 90 Days #90 tab 06/02/21 blood-glucose meter (FreeStyle #1 ea 06/13/21 Lite Meter) enoxaparin 40 mg/0.4 mL 40 mg (0.4 mL) SUBCUT Q24H 42 Days 07/11/21 subcutaneous syringe #16.8 ml oxycodone-acetaminophen 5 mg-325 1 tab PO Q4-6H PRN 7 Days #42 tab 07/11/21 mg tablet (Percocet) Allergies Allergy/AdvReac Type Severity Reaction Status Date / Time cephalexin [From KEFLEX] Allergy Intermediate HIVES Verified 07/08/21 21:22 Penicillins [PENICILLINS] Allergy Intermediate HIVES Verified 07/08/21 21:22 acetaminophen Allergy Mild Hives Verified 07/09/21 10:12 [From Excedrin Extra Strength] aspirin Allergy Mild Hives Verified 07/09/21 10:12 [From Excedrin Extra Strength] caffeine Allergy Mild Hives Verified 07/09/21 10:12 [From Excedrin Extra Strength] metformin [METFORMIN] Allergy Mild HIVES Verified 07/08/21 21:22 enalaprilat [Vasotec] Allergy Unknown Unknown Verified 07/08/21 21:22 dulaglutide [From Trulicity] Allergy Hives Verified 07/08/21 21:22 Review of Systems Review of Systems: Constitutional : No Weight loss, No Fever, No Chills, No Night Sweats, No Fatigue, No Malaise ENT/Mouth : No Hearing loss, No Ear Pain, No Nasal Congestion, No Sinus Pain, No Hoarseness, No sore throat, No Rhinorrhea, No Swallowing Difficulty Eyes: No Eye Pain, No Swelling, No Redness, No Foreign Body, No Discharge, No Vision Changes Cardiovascular : complaining of intermittent chest pain for 2 days, at this time mild chest pressure, mild shortness of breath, chronic orthopnea Respiratory : No Cough, No Sputum, No Wheezing, No Smoke Exposure, complaining of shortness of breath Gastrointestinal : No Nausea, No Vomiting, No Diarrhea, No Constipation, No abdominal Pain, No Hematochezia, No Melena Genitourinary : no irregular bleeding, No Dysuria, No Urinary Frequency, No Hematuria, No Urinary Incontinence, No Urgency, No Flank Pain, No Urinary Flow Changes, No Hesitancy Musculoskeletal : recuperating from left femoral fracture,No Myalgias, No Joint Swelling Skin : No Skin Lesions, No rash Neuro : No Weakness, No Numbness, No Paresthesias, No Loss of Consciousness, No Dizziness, No Headache Psych : No Anxiety/Panic, No Depression, No SI/HI/AH/VH, No Social Issues, Heme/Lymph: No Bruising, No Bleeding,No Lymphadenopathy Endocrine : No Polyuria, No Polydipsia, No Temperature Intolerance PMFSH Past Medical History Medical History Acid reflux Asthma Asthma CHF (congestive heart failure) COPD (chronic obstructive pulmonary disease) COPD (chronic obstructive pulmonary disease) Essential hypertension Hyperlipidemia LDL goal <70 Hypertension Leg swelling Osteopenia PVC (premature ventricular contraction) Type 2 diabetes mellitus with diabetic polyneuropathy Surgical History History of cardiac catheterization History of cholecystectomy History of tooth extraction Hx of bilateral breast reduction surgery Hx of local excision of skin lesion Family History Family History Father CVD (cardiovascular disease) Mother CVD (cardiovascular disease) Gastric cancer Diabetes Sister Lung disease Social History Social History Household Members: None Housing: Apartment Do you presently have visiting nurse or other home services: No Alcohol intake: never Patient Tobacco Use Status: Never used Tobacco Advance Directives: No Advance Directives Information Provided: Yes service: No Current occupational status: disabled Sexual orientation: Straight/Heterosexual Gender identity: Female Physical Exam Vital Signs: Vital Signs: Last Vital Signs Temp 99.8 F 07/19/21 00:00 Pulse 64 07/19/21 00:00 Resp 20 07/19/21 00:00 BP 104/48 L 07/19/21 00:00 Pulse Ox 97 07/19/21 00:00 BMI result Body Mass Index 38.4 Const: Other: Appearance: Alert. Oriented X3. No acute distress. Eyes: Pupils equal, round and reactive to light. ENT: Pharynx normal. Neck: Normal inspection. Neck supple. No lymph nodes noted. No crepitus CVS: Normal heart rate and rhythm. Pulses normal. Normal S1 and S2 Respiratory: No respiratory distress. Breath sounds normal. No Wheezing. No rales Abdomen: Soft and nontender. No rigidity. No distention. Skin: Skin warm and dry. Normal skin color. Normal skin turgor. Extremities: mild +1 pitting edema bilaterally, left thigh and hip new clean, no signs of infection, no significant localized pain Neuro: Oriented X 3. No motor deficit. No sensory deficit. Moving all extermities. No slurred speech. CN 2 through 12 grossly intact Course Course Course Narrative: patient is stable, oxygen is 100% on room air. All the labs and imaging pending hemoglobin 6.9 , no active bleeding, patient consented to blood transfusion. Occult blood is negative. Patient has been immobilized at the longterm after her femur fracture. Patient is on Lovenox. Patient does have EKG changes, and due to her symptoms, we went ahead and checked a D-dimer which is elevated. CT scan was done which shows bilateral pulmonary embolisms. patient will be treated with heparin. guiac test negative I discussed the pt with Dr Antonio, pt is on lovenox, still got PEs. We decided not to bolus, only start heparin drip MDM - Chest Pain Lab Data Result diagrams: 07/19/21 00:48 07/19/21 00:17 Labs: Lab Results 07/19/21 07/19/21 07/19/21 Range/Units 00:16 00:17 00:17 WBC (4.8-10.8) X10*3/uL RBC (4.20-5.50) X10*6/uL Hgb (12.0-16.0) g/dl Hct (37.0-47.0) % MCV (80.0-98.0) fL MCH (27.0-33.0) pg MCHC (31.0-35.0) g/dl RDW (11.0-16.0) % Plt Count (160-400) X10*3/uL MPV (9.4-12.3) fL Immature Gran % (Auto) (0.0-0.4) % Neut % (Auto) (45-73) % Lymph % (Auto) (20-40) % [place] % (Auto) (2-11) % Eos % (Auto) (0-4) % Baso % (Auto) (0-2) % Lymph # (Auto) (1.2-4.9) X10*3/uL [place] # (Auto) (0.1-1.2) X10*3/uL Eos # (Auto) (0.0-0.4) X10*3/uL Baso # (Auto) (0.0-0.2) X10*3/uL Abs Immat Gran (auto) (0.00-0.03) X10*3/uL Absolute Neuts (auto) (2.0-8.3) x10*3/uL Absolute Nucleated RBC (0.0-0.012) X10*3/uL Nucleated RBC % (auto) (0.0-0.2) /100WBC D-Dimer High Sensitivty 2483 NG/ML Sodium 136 (135-145) mmol/L Potassium 3.4 (3.3-5.1) mmol/L Chloride 96 (96-108) mmol/L Carbon Dioxide 26 (22-29) mmol/L Anion Gap 17 (12-20) BUN 32 H (9-16) mg/dL Creatinine 1.25 (0.5-1.4) mg/dL Estim Creat Clear Calc 50.2 Estimated GFR 42 Random Glucose 163 H (60-115) mg/dL Lactic Acid (0.5-2.0) mmol/L Calcium 9.6 D (8.4-10.2) mg/dL Total Bilirubin 1.0 (0.0-1.0) mg/dL Direct Bilirubin 0.3 (0.0-0.5) mg/dL AST 20 D (5-31) U/L ALT 11 (0-31) U/L Alkaline Phosphatase 117 (39-117) U/L Troponin I High Sens 18.4 H (<3.5-17.0) ng/L B-Natriuretic Peptide (<100) pg/mL Total Protein 8.0 (6.5-8.0) g/dL Albumin 3.6 (3.5-5.0) g/dL Stool Occult Blood (NEGATIVE) COVID-19 (JARROD) (Negative) COVID-19 Clin Com Crossmatch 07/19/21 07/19/21 07/19/21 Range/Units 00:17 00:17 00:19 WBC (4.8-10.8) X10*3/uL RBC (4.20-5.50) X10*6/uL Hgb (12.0-16.0) g/dl Hct (37.0-47.0) % MCV (80.0-98.0) fL MCH (27.0-33.0) pg MCHC (31.0-35.0) g/dl RDW (11.0-16.0) % Plt Count (160-400) X10*3/uL MPV (9.4-12.3) fL Immature Gran % (Auto) (0.0-0.4) % Neut % (Auto) (45-73) % Lymph % (Auto) (20-40) % [place] % (Auto) (2-11) % Eos % (Auto) (0-4) % Baso % (Auto) (0-2) % Lymph # (Auto) (1.2-4.9) X10*3/uL [place] # (Auto) (0.1-1.2) X10*3/uL Eos # (Auto) (0.0-0.4) X10*3/uL Baso # (Auto) (0.0-0.2) X10*3/uL Abs Immat Gran (auto) (0.00-0.03) X10*3/uL Absolute Neuts (auto) (2.0-8.3) x10*3/uL Absolute Nucleated RBC (0.0-0.012) X10*3/uL Nucleated RBC % (auto) (0.0-0.2) /100WBC D-Dimer High Sensitivty NG/ML Sodium (135-145) mmol/L Potassium (3.3-5.1) mmol/L Chloride (96-108) mmol/L Carbon Dioxide (22-29) mmol/L Anion Gap (12-20) BUN (9-16) mg/dL Creatinine (0.5-1.4) mg/dL Estim Creat Clear Calc Estimated GFR Random Glucose (60-115) mg/dL Lactic Acid 1.6 (0.5-2.0) mmol/L Calcium (8.4-10.2) mg/dL Total Bilirubin (0.0-1.0) mg/dL Direct Bilirubin (0.0-0.5) mg/dL AST (5-31) U/L ALT (0-31) U/L Alkaline Phosphatase (39-117) U/L Troponin I High Sens (<3.5-17.0) ng/L B-Natriuretic Peptide 89 (<100) pg/mL Total Protein (6.5-8.0) g/dL Albumin (3.5-5.0) g/dL Stool Occult Blood (NEGATIVE) COVID-19 (JARROD) Negative (Negative) COVID-19 Clin Com See Note Crossmatch 07/19/21 07/19/21 07/19/21 Range/Units 00:48 01:19 02:43 WBC 9.9 (4.8-10.8) X10*3/uL RBC 2.38 L D (4.20-5.50) X10*6/uL Hgb 6.9 L* (12.0-16.0) g/dl Hct 21.6 L (37.0-47.0) % MCV 90.8 (80.0-98.0) fL MCH 29.0 (27.0-33.0) pg MCHC 31.9 (31.0-35.0) g/dl RDW 15.1 (11.0-16.0) % Plt Count 368 (160-400) X10*3/uL MPV 8.8 L (9.4-12.3) fL Immature Gran % (Auto) 1.3 H (0.0-0.4) % Neut % (Auto) 78.6 H (45-73) % Lymph % (Auto) 11.0 L (20-40) % [place] % (Auto) 7.6 (2-11) % Eos % (Auto) 1.3 (0-4) % Baso % (Auto) 0.2 (0-2) % Lymph # (Auto) 1.1 L (1.2-4.9) X10*3/uL [place] # (Auto) 0.8 (0.1-1.2) X10*3/uL Eos # (Auto) 0.1 (0.0-0.4) X10*3/uL Baso # (Auto) 0.0 (0.0-0.2) X10*3/uL Abs Immat Gran (auto) 0.13 H (0.00-0.03) X10*3/uL Absolute Neuts (auto) 7.8 (2.0-8.3) x10*3/uL Absolute Nucleated RBC 0.000 (0.0-0.012) X10*3/uL Nucleated RBC % (auto) 0.0 (0.0-0.2) /100WBC D-Dimer High Sensitivty NG/ML Sodium (135-145) mmol/L Potassium (3.3-5.1) mmol/L Chloride (96-108) mmol/L Carbon Dioxide (22-29) mmol/L Anion Gap (12-20) BUN (9-16) mg/dL Creatinine (0.5-1.4) mg/dL Estim Creat Clear Calc Estimated GFR Random Glucose (60-115) mg/dL Lactic Acid (0.5-2.0) mmol/L Calcium (8.4-10.2) mg/dL Total Bilirubin (0.0-1.0) mg/dL Direct Bilirubin (0.0-0.5) mg/dL AST (5-31) U/L ALT (0-31) U/L Alkaline Phosphatase (39-117) U/L Troponin I High Sens (<3.5-17.0) ng/L B-Natriuretic Peptide (<100) pg/mL Total Protein (6.5-8.0) g/dL Albumin (3.5-5.0) g/dL Stool Occult Blood NEGATIVE (NEGATIVE) COVID-19 (JARROD) (Negative) COVID-19 Clin Com Crossmatch See Detail Imaging Data CTA chest: Radiologist's impression: FINDINGS: QUALITY OF STUDY/CONTRAST BOLUS: Satisfactory. PULMONARY ARTERIES: Multiple segmental to subsegmental pulmonary emboli are identified in the right upper, middle, and lower lobes. Less extensive emboli are seen in the left upper lobe. THORACIC AORTA: No aneurysm or dissection. LUNG: Mild curvilinear opacities towards the bilateral lung bases favor atelectasis. Mosaic attenuation is noted, favored to reflect heterogeneous air trapping in the setting of an expiratory scan. PLEURA: No pleural effusion or pneumothorax. MEDIASTINUM: Thyroid gland is grossly unremarkable. There are subcentimeter mediastinal lymph nodes within the range of normal variation. There is cardiomegaly without significant pericardial effusion. Coronary artery calcifications are present. CHEST WALL/AXILLA: No axillary or internal mammary lymphadenopathy. OSSEOUS STRUCTURES: Degenerative changes are noted in the spine.? UPPER ABDOMEN: Patient is status post cholecystectomy. There is partial fatty atrophy of the pancreas. No reflux of contrast into the hepatic veins to suggest elevated right heart pressures. CT/CT angio chest PE protocol IMPRESSION: 1.? Multiple bilateral segmental to subsegmental pulmonary emboli, right lung greater than left. 2.? Cardiomegaly. 3.? Coronary artery calcifications. Correlation with cardiac risk factors is recommended. ? VTE: positive Critical Care Time Critical Care Time Critical Care Time: Yes Total Critical Care Time: 50 Attestation: I have personally provided critical care time. Time includes review of lab data, radiology results, discussion with consultants, and monitoring for potential decompensation. Intervention performed as documented. Discharge Plan Discharge Clinical Impression: Pulmonary emboli, Anemia Patient Disposition: Home, Self-Care Prescriptions: No Action torsemide 100 mg tablet 100 mg PO DAILY Qty: 90 1RF cholecalciferol (vitamin D3) 125 mcg (5,000 unit) capsule 125 mcg PO DAILY Qty: 90 1RF (DME) lancets 28 gauge misc See Rx Instructions ea topical .MEDSUPPLY Qty: 100 11RF Rx Instructions: As directed 2x per day. Combivent Respimat 20-100 mcg/actuation mist 1 puff PO QID Qty: 12 1RF rosuvastatin 40 mg tablet 40 mg PO DAILY Qty: 90 1RF fluticasone propion-salmeterol [Wixela Inhub] 250-50 mcg/dose blister with device 1 ea PO BID Qty: 60 1RF glimepiride 1 mg tablet 1 mg PO QAM 90 Days Qty: 90 1RF Rx Instructions: administer with breakfast (take with 2 mg glimepiride) folic acid 1 mg tablet 1 mg PO DAILY Qty: 90 6RF metoprolol tartrate 100 mg tablet 200 mg PO DAILY 0RF cyanocobalamin (vitamin B-12) 1,000 mcg tablet 1 tab PO DAILY 0RF metoprolol tartrate 100 mg tablet 100 mg PO BEDTIME 0RF alendronate 70 mg tablet 70 mg PO SA 0RF glimepiride 2 mg tablet 2 mg PO BEDTIME 0RF Ozempic 0.25 mg or 0.5 mg(2 mg/1.5 mL) pen injector 0.25 mg subcut PAGE 0RF Rx Instructions: 0.25mg for 4 weeks then increase to 0.5mg each week and maintain dose enoxaparin 40 mg/0.4 mL Syringe 40 mg subcut Q24H 42 Days Qty: 16.8 0RF oxycodone-acetaminophen [Percocet] 5-325 mg tablet 1 tab PO Q4-6H PRN (Reason: pain (scale score 4-6)) 7 Days Qty: 42 0RF ipratropium-albuterol 0.5 mg-3 mg(2.5 mg base)/3 mL solution for nebulization 3 ml inhalation Q6H 0RF (DME) blood-glucose meter [FreeStyle Lite Meter] Kit See Rx Instructions .ROUTE .MEDSUPPLY Qty: 1 0RF Rx Instructions: to test blood glucose 2 times a day aspirin 81 mg tablet,delayed release (DR/EC) 81 mg PO DAILY 0RF losartan 100 mg tablet 50 mg PO DAILY 0RF (DME) blood-glucose meter [FreeStyle Lite Meter] Kit See Rx Instructions .ROUTE .MEDSUPPLY Qty: 1 0RF Rx Instructions: As directed 3xday
[2021-07-19] VITALS (10 sets, daily range): BP systolic 104–130; BP diastolic 45–61; PULSE 64–74; RESP 13–20; TEMP 36.6–37.7; O2SAT 94–99; BMI 34.1
[2021-07-19 00:43] LABS: Lactic Acid 1.6 mmol/L (0.5-2.0)
[2021-07-19 00:50] LABS: B Type Natriuretic Peptide 89 pg/mL (<100)
[2021-07-19 00:51] LABS: Troponin-I High Sensitivity 18.4 ng/L (<3.5-17.0)
[2021-07-19 00:51] LABS: D Dimer High Sensitivity 2483 NG/ML
[2021-07-19 00:52] LABS: Alanine Aminotransferase 11 U/L (0-31); Albumin Level 3.6 g/dL (3.5-5.0); Alkaline Phosphatase 117 U/L (39-117); Anion Gap 17 (12-20); Aspartate Amino Transferase 20 U/L (5-31); Bilirubin Direct 0.3 mg/dL (0.0-0.5); Blood Urea Nitrogen 32 mg/dL (9-16); Calcium 9.6 mg/dL (8.4-10.2); Carbon Dioxide 26 mmol/L (22-29); Chloride 96 mmol/L (96-108); Creatinine Clr Calc Pharmacy 50.2; Estimated Glomerular Filt Rate 42; Glucose Random 163 mg/dL (60-115); Potassium 3.4 mmol/L (3.3-5.1); Sodium 136 mmol/L (135-145)
[2021-07-19 01:08] LABS: COVID-19 Test Negative (Negative); IDNOW Serial# 16C4AD1C
[2021-07-19 01:08] LABS: MANUAL DIFF FLAG NO
[2021-07-19 01:10] LABS: Basophils Percent Auto 0.2 % (0-2); Eosinophils Absolute Auto 0.1 X10*3/uL (0.0-0.4); Eosinophils Percent Auto 1.3 % (0-4); Hematocrit 21.6 % (37.0-47.0); Imm Gran Abs Auto 0.13 X10*3/uL (0.00-0.03); Imm Gran Pct Auto 1.3 % (0.0-0.4); Lymphocytes Absolute Auto 1.1 X10*3/uL (1.2-4.9); Mean Corpuscular HGB Conc 31.9 g/dl (31.0-35.0); Mean Corpuscular Volume 90.8 fL (80.0-98.0); Mean Platelet Volume 8.8 fL (9.4-12.3); Monocytes Absolute Auto 0.8 X10*3/uL (0.1-1.2); Monocytes Percent Auto 7.6 % (2-11); Neutrophils Absolute Auto 7.8 x10*3/uL (2.0-8.3); Neutrophils Percent Auto 78.6 % (45-73); Platelet Count 368 X10*3/uL (160-400); Red Blood Count 2.38 X10*6/uL (4.20-5.50); Red Cell Distribution Width 15.1 % (11.0-16.0); White Blood Count 9.9 X10*3/uL (4.8-10.8)
[2021-07-19 01:12] LABS: Hemoglobin 6.9 g/dl (12.0-16.0)
[2021-07-19 01:23] LABS: OBS Int Ctl Valid YES; OBS1 NEGATIVE (NEGATIVE)
[2021-07-19] MEDS: iohexoL 350 MG/ML 100 ML INFUS..BTL 65 ML IV (02:23)
[2021-07-19] MEDS: Heparin Sodium,Porcine/1/2NS 25,000 UNIT/250 ML IV.SOLN 13.02 UNIT IVCONT (06:39)
--- NOTE | 2021-07-19 06:40 | PC.NURSE ---
Heparin drip not hung by primary RN. This RN @ bedside for labs. Pt weighing 93 kg with bed scale, verified with 2 RNs. Pharmacy contacted regarding weight. Heparin drip infusing per JUL. PTTHD order placed for 1230.
[2021-07-19 06:46] LABS: INTERNATIONAL NORM RATIO 1.2 (0.9-1.1)
[2021-07-19 06:49] LABS: Partial Thromboplastin Time 36.1 SEC (24.1-38.0)
[2021-07-19 07:01] LABS: Troponin-I High Sensitivity 16.4 ng/L (<3.5-17.0)
--- NOTE | 2021-07-19 07:03 | P.HPHOSP_ITS ---
History of Present Illness Date of Service: 07/19/21 Chief Complaint: chest pain this is a 71-year-old female with past medical history of asthma, CHF, COPD, HTN, HLD, PVC, type 2 diabetes, and recently closed fracture of distal left femur status post surgical intervention on 07/09 sent to [facility] for rehab, pres ents to the hospital with complaints of shortness of breath cm pain intermittently for the past 2 days. Patient reports that she was feeling short of breath on laying flat, she reports that she thought that was secondary to PT and feeling tired, she is also complaining of intermittent left-sided chest pain radiating to her left arm, lasting all night, keeping her up, she denies having any palpitations, no headache, no abdominal pain nausea or vomiting, no diarrhea constipation, no urinary symptoms. She reports no swelling in her legs more than usual. She does have tenderness in the calf region of the right leg. of note on previous admission patient developed anemia post surgical interv ention and was treated with 1 unit of PRBC with stabilization of her H&H. patient was placed on lovenox on discharge post surgery and sent to [facility] patient also denies any melena, no hematochezia, no hemoptysis or hematemesis. on arrival to the ED patient hemodynamically stable with no significant abnormal vitals Labs are found to be significant for hemoglobin of 6.9 which dropped from 8.6 on 07/16, PT of 14, INR of 1.2, troponin of 16.4, BNP of 89, labs otherwise unremarkable CT angiogram showed bilateral segmental to subsegmental pulmonary emboli. Patient started on heparin and will be admitted for further management Review of Systems Review of Systems: Yes all other systems are reviewed and are negative [facility] Medical History Acid reflux Asthma Asthma CHF (congestive heart failure) COPD (chronic obstructive pulmonary disease) COPD (chronic obstructive pulmonary disease) Essential hypertension Hyperlipidemia LDL goal <70 Hypertension Leg swelling Osteopenia PVC (premature ventricular contraction) Type 2 diabetes mellitus with diabetic polyneuropathy Family History Father CVD (cardiovascular disease) Mother CVD (cardiovascular disease) Gastric cancer Diabetes Sister Lung disease Surgical History History of cardiac catheterization History of cholecystectomy History of tooth extraction Hx of bilateral breast reduction surgery Hx of local excision of skin lesion Social History Household Members: None Housing: Apartment Do you presently have visiting nurse or other home services: No Alcohol intake: never Patient Tobacco Use Status: Never used Tobacco Advance Directives: No Advance Directives Information Provided: Yes service: No Current occupational status: disabled Sexual orientation: Straight/Heterosexual Gender identity: Female Meds Allergies Allergy/AdvReac Type Severity Reaction Status Date / Time cephalexin [From KEFLEX] Allergy Intermediate HIVES Verified 07/08/21 21:22 Penicillins [PENICILLINS] Allergy Intermediate HIVES Verified 07/08/21 21:22 acetaminophen Allergy Mild Hives Verified 07/09/21 10:12 [From Excedrin Extra Strength] aspirin Allergy Mild Hives Verified 07/09/21 10:12 [From Excedrin Extra Strength] caffeine Allergy Mild Hives Verified 07/09/21 10:12 [From Excedrin Extra Strength] metformin [METFORMIN] Allergy Mild HIVES Verified 07/08/21 21:22 enalaprilat [Vasotec] Allergy Unknown Unknown Verified 07/08/21 21: dulaglutide [From Trulicity] Allergy Hives Verified 07/08/21 21:22 Active Medications: Current Medications Acetaminophen (Acetaminophen 325 Mg Tablet) 650 mg PO Q6H PRN PRN Reason: Pain, Mild (Pain Scale 1-3) Heparin Sodium (Porcine) (Heparin Sodium,Porcine 5,000 Unit/Ml Vial) 3,700 unit 40 unit/kg (3700 unit) IVPUSH PROTOCOL BOLUS PRN; Protocol PRN Reason: 40 unit/kg - Heparin Protocol Heparin Sodium (Porcine) (Heparin Sodium,Porcine 5,000 Unit/Ml Vial) 7,400 unit 80 unit/kg (7400 unit) IVPUSH PROTOCOL BOLUS PRN; Protocol PRN Reason: 80 unit/kg - Heparin Protocol Heparin Sodium/Sodium Chloride () 25,000 unit in 250 mls @ 0 mls/hr IVCONT .Q0M ELIZABETH; Protocol Last Admin: 07/19/21 06:39 Dose: 14 units/kg/hr, 13.02 mls/hr Documented by: Ondansetron HCl (Ondansetron Hcl 4 Mg/2 Ml Vial) 4 mg IVPUSH Q8H PRN PRN Reason: Nausea and Vomiting Sodium Chloride (0.9 % Sodium Chloride Flush 3 Ml Syringe) 3 ml IVFLUSH [facility] Home Medications Medication Instructions Recorded Confirmed Last Taken Type aspirin 81 mg tablet,delayed 81 mg PO DAILY 03/19/20 07/08/21 07/08/21 History release ipratropium 0.5 mg-albuterol 3 mg 3 ml INHALATION Q6H 03/28/20 07/08/21 07/08/21 History (2.5 mg base)/3 mL nebulization soln losartan 100 mg tablet 50 mg PO DAILY tab 04/07/21 07/08/21 07/08/21 History alendronate 70 mg tablet 70 mg PO SA 07/08/21 07/08/21 07/05/21 History cyanocobalamin (vitamin B-12) 1 tab PO DAILY 07/08/21 07/08/21 07/08/21 History 1,000 mcg tablet glimepiride 2 mg tablet 2 mg PO BEDTIME 07/08/21 07/08/21 07/07/21 History metoprolol tartrate 100 mg tablet 100 mg PO BEDTIME 07/08/21 07/08/21 07/07/21 History metoprolol tartrate 100 mg tablet 200 mg PO DAILY 07/08/21 07/08/21 07/08/21 History fluticasone 250 mcg-salmeterol 50 1 puff PO BID 07/19/21 07/19/21 Unknown History mcg/dose blistr powdr for inhalation (Wixela Inhub) semaglutide (Ozempic) mg SUBCUT 07/19/21 Unknown History Physical Exam Vital Signs and Narrative: Vital Signs: Last Vital Signs Temp 98.1 F 07/19/21 06:31 Pulse 69 07/19/21 06:31 Resp 16 07/19/21 06:31 BP 130/61 07/19/21 06:31 Pulse Ox 97 07/19/21 00:00 BMI result Body Mass Index 34.1 Const: General: cooperative and no acute distress Orientation/conscious ness: patient oriented x3 Eyes: General: appearance normal, both eyes and all related structures Pupils: Equal, round and reactive pupils present Resp: Effort & Inspection: normal respiratory effort Auscultation: clear to auscultation bilaterally Cardio: Rate: regular rate Rhythm: regular rhythm GI: Palpation (GI): Soft to palpation Auscultation: normal bowel sounds Skin: General skin exam: no rashes or lesions noted Neuro: General: patient oriented x3 Cranial nerves: Yes Equal, round and reactive pupils present Cognition (Neuro): normal cognition Extrem: Other: has dressing on left leg, appears clean has tenderness on the right calf General: Yes normal to inspection and Yes no pedal edema Results Labs CBC and Chem 7: 07/19/21 00:48 07/19/21 00:17 Labs: Laboratory Results - last 24 hr 07/19/21 07/19/21 07/19/21 00:17 00:17 00:17 MCV MCH MCHC RDW Plt Count MPV Immature Gran % (Auto) Neut % (Auto) Lymph % (Auto) [place] % (Auto) Eos % (Auto) Baso % (Auto) Lymph # (Auto) [place] # (Auto) Eos # (Auto) Baso # (Auto) Abs Immat Gran (auto) Absolute Neuts (auto) Absolute Nucleated RBC Nucleated RBC % (auto) PT INR APTT D-Dimer High Sensitivty 2483 Anion Gap 17 Estim Creat Clear Calc 50.2 Estimated GFR 42 Random Glucose 163 H Lactic Acid 1.6 Calcium 9.6 D Total Bilirubin 1.0 Direct Bilirubin 0.3 AST 20 D ALT 11 Alkaline Phosphatase 117 B-Natriuretic Peptide Total Protein 8.0 Albumin 3.6 Stool Occult Blood COVID-19 (JARROD) COVID-19 Clin Com Blood Type Antibody Screen Crossmatch 07/19/21 07/19/21 07/19/21 00:17 00:19 00:48 MCV 90.8 MCH 29.0 MCHC 31.9 RDW 15.1 Plt Count 368 MPV 8.8 L Immature Gran % (Auto) 1.3 H Neut % (Auto) 78.6 H Lymph % (Auto) 11.0 L [place] % (Auto) 7.6 Eos % (Auto) 1.3 Baso % (Auto) 0.2 Lymph # (Auto) 1.1 L [place] # (Auto) 0.8 Eos # (Auto) 0.1 Baso # (Auto) 0.0 Abs Immat Gran (auto) 0.13 H Absolute Neuts (auto) 7.8 Absolute Nucleated RBC 0.000 Nucleated RBC % (auto) 0.0 PT INR APTT D-Dimer High Sensitivty Anion Gap Estim Creat Clear Calc Estimated GFR Random Glucose Lactic Acid Calcium Total Bilirubin Direct Bilirubin AST ALT Alkaline Phosphatase B-Natriuretic Peptide 89 Total Protein Albumin Stool Occult Blood COVID-19 (JARROD) Negative COVID-19 Clin Com See Note Blood Type Antibody Screen Crossmatch 07/19/21 07/19/21 07/19/21 01:19 02:43 06:36 MCV MCH MCHC RDW Plt Count MPV Immature Gran % (Auto) Neut % (Auto) Lymph % (Auto) [place] % (Auto) Eos % (Auto) Baso % (Auto) Lymph # (Auto) [place] # (Auto) Eos # (Auto) Baso # (Auto) Abs Immat Gran (auto) Absolute Neuts (auto) Absolute Nucleated RBC Nucleated RBC % (auto) PT 14.0 H INR 1.2 H APTT 36.1 D-Dimer High Sensitivty Anion Gap Estim Creat Clear Calc Estimated GFR Random Glucose Lactic Acid Calcium Total Bilirubin Direct Bilirubin AST ALT Alkaline Phosphatase B-Natriuretic Peptide Total Protein Albumin Stool Occult Blood NEGATIVE COVID-19 (JARROD) COVID-19 Clin Com Blood Type O Positive Antibody Screen NEGATIVE Crossmatch See Detail Imaging Radiologist's Impressions: Impressions Chest X-Ray 07/19/21 00:42 IMPRESSION: No acute cardiopulmonary findings. Chest CTA 07/19/21 02:15 IMPRESSION: 1. Multiple bilateral segmental to subsegmental pulmonary emboli, right lung greater than left. 2. Cardiomegaly. 3. Coronary artery calcifications. Correlation with cardiac risk factors is recommended. VTE: positive This critical result was discussed with Dr. Angelina Corrales on 07/19/2021 3:00 AM, and it was ascertained that the content and urgency of the report was understood at the time of direct communication. Assessment and Plan (1) Pulmonary emboli: Status: Acute (2) Normocytic anemia: Status: Acute (3) Closed fracture of left distal femur: Status: Acute Plan 71-year-old female with a recent distal femur fracture status post surgical intervention discharge on 07/11, on Lovenox, presents to the hospital with complaints of shortness of breath and chest pain found to have P # pulmonary emboli - in the setting of recent surgical intervention - patient failed preventative Lovenox - hemodynamically stable, no tachycardia or tachypnea, normal BNP, troponin negative - will be placed on heparin ggt - will transition to p.o. once ready to discharge # normocytic anemia - it was thought to be secondary to surgical intervention and broken femur - stool occult negative - hemodynamically stable - receiving 1 unit of PRBC - follow CBC # close fracture of left distal femur - status post retrograde tim Dr. Mark - will consult # diabetes - hold oral antihyperglycemics - will start with low-dose sliding scale insulin - diabetic diet # hypertension - stable - continue home medications DVT prophylaxis: Heparin GGT Quality Stroke Does the patient have a stroke diagnosis?: No VTE Prior VTE?: No VTE Risk Level:: Medical - moderate - high VTE Device Contraindication: Treatment Not Indicated VTE Drug Contraindication: N/A - Med Ordered
[2021-07-19 07:18] LABS: Hematocrit 30.8 % (37.0-47.0); Mean Corpuscular HGB Conc 32.5 g/dl (31.0-35.0); Mean Corpuscular Hemoglobin 28.9 pg (27.0-33.0); Mean Platelet Volume 8.3 fL (9.4-12.3); Platelet Count 468 X10*3/uL (160-400); Red Blood Count 3.46 X10*6/uL (4.20-5.50); Red Cell Distribution Width 14.8 % (11.0-16.0); White Blood Count 12.8 X10*3/uL (4.8-10.8)
[2021-07-19 07:57] LABS: Glucose, Whole Blood 147 mg/dL (60-115)
[2021-07-19] MEDS: 0.9 % Sodium Chloride Flush 3 ML SYRINGE IVFLUSH ×2 (08:01→17:33)
--- NOTE | 2021-07-19 08:46 | PHA.MEDREC ---
Pharmacy Consult ? Medication Reconciliation Pharmacy has completed the medication reconciliation. Patient comes from [facility], I was able to get a facility list and compared it to the external pharmacy fill history.
[2021-07-19 12:32] LABS: PTT Heparin Drip 65.2 SEC (53-77.9)
--- NOTE | 2021-07-19 12:38 | PC.NURSE ---
aPTT 65.2, no bolus and kept at same rate.
[2021-07-19 13:01] LABS: Glucose, Whole Blood 104 mg/dL (60-115)
[2021-07-19 17:30] LABS: Glucose, Whole Blood 123 mg/dL (60-115)
[2021-07-19 18:28] LABS: PTT Heparin Drip 50.2 SEC (53-77.9)
[2021-07-19] MEDS: Heparin Sodium,Porcine 5,000 UNIT/ML VIAL 3700 UNIT IVPUSH (18:43)
[2021-07-19 19:21] LABS: Glucose, Whole Blood 134 mg/dL (60-115)
[2021-07-19 20:54] LABS: Glucose, Whole Blood 179 mg/dL (60-115)
[2021-07-19] MEDS: Metoprolol Tartrate 100 MG TABLET PO (21:31)
[2021-07-19] MEDS: Insulin Lispro 100 UNIT/ML 3 ML VIAL SUBCUT (21:31)
[2021-07-20] VITALS (9 sets, daily range): BP systolic 101–118; BP diastolic 48–75; PULSE 59–82; RESP 14–20; TEMP 36.3–36.8; O2SAT 95–99
[2021-07-20] MEDS: Heparin Sodium,Porcine/1/2NS 25,000 UNIT/250 ML IV.SOLN 14.88 UNIT IVCONT (01:02)
[2021-07-20 01:51] LABS: PTT Heparin Drip 113.4 SEC (53-77.9)
[2021-07-20 04:10] LABS: PTT Heparin Drip 64.6 SEC (53-77.9)
[2021-07-20 06:14] LABS: MANUAL DIFF FLAG NO
[2021-07-20 06:16] LABS: Basophils Percent Auto 0.4 % (0-2); Eosinophils Absolute Auto 0.2 X10*3/uL (0.0-0.4); Eosinophils Percent Auto 1.8 % (0-4); Hematocrit 31.3 % (37.0-47.0); Imm Gran Abs Auto 0.06 X10*3/uL (0.00-0.03); Imm Gran Pct Auto 0.5 % (0.0-0.4); Lymphocytes Absolute Auto 1.1 X10*3/uL (1.2-4.9); Lymphocytes Percent Auto 9.8 % (20-40); Mean Corpuscular HGB Conc 31.9 g/dl (31.0-35.0); Mean Corpuscular Hemoglobin 28.8 pg (27.0-33.0); Mean Corpuscular Volume 90.2 fL (80.0-98.0); Mean Platelet Volume 8.5 fL (9.4-12.3); Monocytes Absolute Auto 0.9 X10*3/uL (0.1-1.2); Monocytes Percent Auto 8.1 % (2-11); Neutrophils Absolute Auto 8.7 x10*3/uL (2.0-8.3); Neutrophils Percent Auto 79.4 % (45-73); Platelet Count 453 X10*3/uL (160-400); Red Blood Count 3.47 X10*6/uL (4.20-5.50); Red Cell Distribution Width 14.9 % (11.0-16.0)
[2021-07-20 06:23] LABS: INTERNATIONAL NORM RATIO 1.2 (0.9-1.1); Prothrombin Time 13.8 SEC (9.9-13.0)
[2021-07-20 06:31] LABS: Anion Gap 13 (12-20); Blood Urea Nitrogen 26 mg/dL (9-16); Carbon Dioxide 26 mmol/L (22-29); Chloride 100 mmol/L (96-108); Creatinine Clr Calc Pharmacy 57.8; Estimated Glomerular Filt Rate 54; Glucose Random 153 mg/dL (60-115); Potassium 3.1 mmol/L (3.3-5.1); Sodium 136 mmol/L (135-145)
[2021-07-20 07:15] LABS: Glucose, Whole Blood 129 mg/dL (60-115)
[2021-07-20] MEDS: Folic Acid 1 MG TABLET PO (08:14)
[2021-07-20] MEDS: Apixaban 5 MG TABLET 10 MG PO ×2 (08:14→21:09)
[2021-07-20] MEDS: Torsemide 20 MG TABLET 100 MG PO (08:14)
[2021-07-20] MEDS: 0.9 % Sodium Chloride Flush 3 ML SYRINGE IVFLUSH ×3 (08:18→21:10)
--- NOTE | 2021-07-20 09:34 | HO.PM.IMPN ---
Subjective Subjective Date of Service: 07/20/21 Interval History: the patient was seen and evaluated this morning Laying in bed, feels comfortable with significantly decreased chest pain Denies any fever, chills or shortness of breath no reported bleeding overnight No reported other overnight events. Systemic review: No fever, chills or weakness No chest pain, palpitation No shortness of breath or coughing No abdominal pain, nausea or vomiting No urinary symptoms No any rash or wounds Physical Exam Vital Signs: Vital Signs: Last Vital Signs Temp 97.8 F 07/19/21 19:12 Pulse 62 07/20/21 07:06 Resp 17 07/20/21 07:06 BP 102/54 L 07/20/21 07:06 Pulse Ox 97 07/20/21 07:06 BMI result Body Mass Index 34.1 Const: Other: Appearance: Alert. Oriented X3. No acute distress. Eyes: Pupils equal, round and reactive to light. ENT: Pharynx normal. Neck: Normal inspection. Neck supple. CVS: Normal heart rate and rhythm. Pulses normal. Normal S1 and S2 Respiratory: No respiratory distress. Breath sounds normal. No Wheezing. No rales Abdomen: Soft and nontender. No rigidity. No distention. Skin: Skin warm and dry. Normal skin color. Normal skin turgor. Extremities: trace pitting edema bilaterally, left thigh and hip new clean, no signs of infection, no significant localized pain Neuro: Oriented X 3. No motor deficit. No sensory deficit. Moving all extermities. No slurred speech. CN 2 through 12 grossly intact Objective Data Active Medications Acetaminophen (Acetaminophen 325 Mg Tablet) 650 mg PO Q6H PRN PRN Reason: Pain, Mild (Pain Scale 1-3) Albuterol/Ipratropium (Albuterol/Iprat 2.5/0.5mg 3 Ml Ampul.Neb) 3 ml INHALE RQ6H WHILE AWAKE [facility] Last Admin: 07/20/21 07:08 Dose: Not Given Documented by: CARIN Non-Admin Reason: See Note Apixaban (Apixaban 5 Mg Tablet) 10 mg PO BID [facility] Stop: 07/26/21 21:01 Last Admin: 07/20/21 08:14 Dose: 10 mg Documented by: MADISON Dextrose (Dextrose 50 % 25 Gm/50 Ml Vial) 25 gm IVPUSH Q15M PRN; Protocol PRN Reason: per Hypoglycemia Standing Ord. Folic Acid (Folic Acid 1 Mg Tablet) 1 mg PO DAILY [facility] Last Admin: 07/20/21 08:14 Dose: 1 mg Documented by: MADISON Glucose (Glucose Gel 15 Gm Gel..Gram.) 15 gm PO Q15M PRN; Protocol PRN Reason: per Hypoglycemia Standing Ord. Insulin Human Lispro (Insulin Lispro 100 Unit/Ml 3 Ml Vial) 0 unit SUBCUT QIDACHS [facility]; Protocol Last Admin: 07/20/21 07:13 Dose: Not Given Documented by: Metoprolol Tartrate (Metoprolol Tartrate 100 Mg Tablet) 100 mg PO BEDTIME [facility]; Protocol Last Admin: 07/19/21 21:31 Dose: 100 mg Documented by: MOHAMUD Ondansetron HCl (Ondansetron Hcl 4 Mg/2 Ml Vial) 4 mg IVPUSH Q8H PRN PRN Reason: Nausea and Vomiting Pharmacy Consult (Consult Rx Perform Med Rec) 1 each MISCELLANE ONCE PRN PRN Reason: Consult order Sodium Chloride (0.9 % Sodium Chloride Flush 3 Ml Syringe) 3 ml IVFLUSH QSHIFT [facility] Last Admin: 07/20/21 08:18 Dose: 3 ml Documented by: MADISON Torsemide (Torsemide 20 Mg Tablet) 100 mg PO DAILY [facility]; Protocol Last Admin: 07/20/21 08:14 Dose: 100 mg Documented by: MADISON Labs CBC & Chem 7: 07/20/21 06:05 07/20/21 06:05 Labs: Laboratory Results - last 24 hr 07/19/21 07/19/21 07/19/21 12:16 12:57 17:27 MCV MCH MCHC RDW Plt Count MPV Immature Gran % (Auto) Neut % (Auto) Lymph % (Auto) [place] % (Auto) Eos % (Auto) Baso % (Auto) Lymph # (Auto) [place] # (Auto) Eos # (Auto) Baso # (Auto) Abs Immat Gran (auto) Absolute Neuts (auto) Absolute Nucleated RBC Nucleated RBC % (auto) PT INR aPTT Heparin Protocol 65.2 Anion Gap Estim Creat Clear Calc Estimated GFR POC Glucose 104 123 H Random Glucose Calcium 07/19/21 07/19/21 07/19/21 18:11 19:16 20:51 MCV MCH MCHC RDW Plt Count MPV Immature Gran % (Auto) Neut % (Auto) Lymph % (Auto) [place] % (Auto) Eos % (Auto) Baso % (Auto) Lymph # (Auto) [place] # (Auto) Eos # (Auto) Baso # (Auto) Abs Immat Gran (auto) Absolute Neuts (auto) Absolute Nucleated RBC Nucleated RBC % (auto) PT INR aPTT Heparin Protocol 50.2 L D Anion Gap Estim Creat Clear Calc Estimated GFR POC Glucose 134 H 179 H Random Glucose Calcium 07/20/21 07/20/21 07/20/21 01:05 03:54 06:05 MCV 90.2 MCH 28.8 MCHC 31.9 RDW 14.9 Plt Count 453 H MPV 8.5 L Immature Gran % (Auto) 0.5 H Neut % (Auto) 79.4 H Lymph % (Auto) 9.8 L [place] % (Auto) 8.1 Eos % (Auto) 1.8 Baso % (Auto) 0.4 Lymph # (Auto) 1.1 L [place] # (Auto) 0.9 Eos # (Auto) 0.2 Baso # (Auto) 0.0 Abs Immat Gran (auto) 0.06 H Absolute Neuts (auto) 8.7 H Absolute Nucleated RBC 0.000 Nucleated RBC % (auto) 0.0 PT INR aPTT Heparin Protocol 113.4 H* D 64.6 D Anion Gap Estim Creat Clear Calc Estimated GFR POC Glucose Random Glucose Calcium 07/20/21 07/20/21 07/20/21 06:05 06:05 07:10 MCV MCH MCHC RDW Plt Count MPV Immature Gran % (Auto) Neut % (Auto) Lymph % (Auto) [place] % (Auto) Eos % (Auto) Baso % (Auto) Lymph # (Auto) [place] # (Auto) Eos # (Auto) Baso # (Auto) Abs Immat Gran (auto) Absolute Neuts (auto) Absolute Nucleated RBC Nucleated RBC % (auto) PT 13.8 H INR 1.2 H aPTT Heparin Protocol Anion Gap 13 Estim Creat Clear Calc 57.8 Estimated GFR 54 POC Glucose 129 H Random Glucose 153 H Calcium 9.0 D Microbiology Microbiology Results: Microbiology 07/19/21 01:00 Blood Culture - Preliminary Blood - Venous No growth after 24 hours. 07/19/21 00:18 Blood Culture - Preliminary Blood - Venous No growth after 24 hours. Assessment and Plan (1) Pulmonary emboli: Status: Acute (2) Acute on chronic anemia: Status: Acute Plan 71-year-old female with a recent distal femur fracture status post surgical intervention discharge on 07/11, on Lovenox, presents to the hospital with complaints of shortness of breath and chest pain found to have P # pulmonary emboli in the setting of recent surgical intervention failed preventative Lovenox no reported bleeding discontinue heparin ggt Transition to Eliquis 10 mg b.i.d. # normocytic anemia no clear source of bleeding, could be secondary to surgical intervention and broken femur stool occult negative hemoglobin stable at 10 after 1 unit of PRBC # close fracture of left distal femur status post retrograde tim Dr. Mark Pending physical therapy evaluation # diabetes hold oral antihyperglycemics low-dose sliding scale insulin diabetic diet # hypertension continue home medications DVT prophylaxis Eliquis Need for hospital stay, the patient will need to be monitored for hemoglobin dropped after starting Eliquis and will need physical therapy for placement to SNF which will be done tomorrow. Quality Stroke Does the patient have a stroke diagnosis?: No VTE Prior VTE?: No VTE Risk Level:: Medical - moderate - high VTE Device Contraindication: Treatment Not Indicated VTE Drug Contraindication: N/A - Med Ordered
[2021-07-20] MEDS: polyethylene glycoL 3350 17 GM POWD.PACK PO (09:45)
[2021-07-20] MEDS: Potassium Chloride Packet 20 MEQ PACKET 40 MEQ PO (09:45)
[2021-07-20 10:29] LABS: PTT Heparin Drip 61.9 SEC (53-77.9)
--- NOTE | 2021-07-20 10:58 | MHC.CM.PN ---
PT REPORTS SHE LIVES ALONE AND IS INDEPENDENT AT BASELINE PT USUALLY HAS NO SERVICES AND USES A WALKER TO AMBULATE PT HAS A HCP ON FILE AND HER PCP IS MAULIK LYNCH PT DISCHARGED TO [facility] ON 07/11/21 AND REPORTS A PLAN TO RETURN AT [place] WHICH IS EXPECTED TO BE TOMORROW IMM DELIVERED, COPY SENT TO MEDICAL RECORDS CURRENT DC PLAN IS RETURN TO [facility] TO COMPLETE STR PENDING PT ADDISON MCKEON VS CHAIR VAN TRANSPORT
[2021-07-20 12:01] LABS: Glucose, Whole Blood 129 mg/dL (60-115)
[2021-07-20 15:51] LABS: Glucose, Whole Blood 266 mg/dL (60-115)
[2021-07-20] MEDS: Insulin Lispro 100 UNIT/ML 3 ML VIAL SUBCUT ×2 (15:55→21:09)
--- NOTE | 2021-07-20 17:30 | PC.NURSE ---
patient resting comfortably at this time, denies any needs. alert and oriented. remains on urogynaecologist, normal sinus on monitor. patient purwick in place and draining
--- NOTE | 2021-07-20 19:58 | PC.NURSE ---
patient skin cleansed and linens changed at this time. patient in no obvious distress. patient denies any needs
--- NOTE | 2021-07-20 20:03 | PC.NURSE ---
report given to Amelie CARLISLE on [facility]
[2021-07-20 21:07] LABS: Glucose, Whole Blood 157 mg/dL (60-115)
[2021-07-20] MEDS: Metoprolol Tartrate 100 MG TABLET PO (21:09)
[2021-07-20] MEDS: Acetaminophen 325 MG TABLET 650 MG PO (23:16)
[2021-07-21 03:12] VITALS: BP 100/57; PULSE 65; RESP 18; TEMP 36.4; O2SAT 97
[2021-07-21 07:13] LABS: Glucose, Whole Blood 160 mg/dL (60-115)
--- NOTE | 2021-07-21 07:29 | P.CDIC_ITS ---
CDI Concurrent Query Documentation Clarification: PHYSICIAN'S DOCUMENTATION REQUEST Date of Query: 07/21/21 0729 Patient Name: Miracle Crockett Admit Date: 07/19/21 Dear Doctor, A review of the medical record indicates additional documentation may be needed. Please review below and update the documentation accordingly. Clinical Indicators: A diagnosis of [ ] was included in the signed [path report, CT, MRI, Echo, etc.]. Additional clinical indicators in the record include: Risk Factors/Clinical Indicators/Treatments CT chest 07/18 - multiple bilateral segmental to subsegmental pulmonary emboli right lung greater than left. Heparin Please indicate in your progress notes if you are in agreement that the above diagnosis is valid for this patient: Specifics to diagnosis documented. * Pulmonary embolism * Multiple bilateral segmental/subsegmental pulmonary embolism * Unable to determine Use of terms such as suspected, likely, concern for, or probable (associated with a specific diagnosis that is being evaluated, monitored, or treated as if it exists) are acceptable and can be coded in the inpatient setting, when documented at the time of discharge. Thank you, Wendy Rai [facility], CDIS Extension: [phone] Please use your independent medical judgment in providing your response. THIS QUERY IS PART OF THE PERMANENT MEDICAL RECORD Provider Response: Other Other Diagnosis: * Multiple bilateral segmental/subsegmental pulmonary embolism
[2021-07-21] MEDS: Albuterol/Iprat 2.5/0.5MG 3 ML AMPUL.NEB INHALE (07:35)
[2021-07-21 07:38] VITALS: PULSE 88; RESP 18; O2SAT 94
[2021-07-21 08:00] VITALS: BP 104/55; PULSE 71; RESP 19; TEMP 36.1; O2SAT 97
[2021-07-21] MEDS: Folic Acid 1 MG TABLET PO (08:22)
[2021-07-21] MEDS: Insulin Lispro 100 UNIT/ML 3 ML VIAL SUBCUT ×2 (08:22→12:43)
[2021-07-21] MEDS: Torsemide 20 MG TABLET 100 MG PO (08:22)
[2021-07-21] MEDS: Apixaban 5 MG TABLET 10 MG PO (08:22)
[2021-07-21] MEDS: 0.9 % Sodium Chloride Flush 3 ML SYRINGE IVFLUSH (08:23)
[2021-07-21] MEDS: Potassium Chloride Packet 20 MEQ PACKET 40 MEQ PO (10:12)
--- NOTE | 2021-07-21 10:20 | PM.DS ---
DS: Providers Provider Date of Service: 07/21/21 Date of admission: 07/19/21 06:16 Primary care physician: Unknown Physician DS: Diagnosis Discharge Diagnosis (1) Pulmonary emboli: Status: Acute (2) Acute on chronic anemia: Status: Acute (3) Closed fracture of left distal femur: Status: Acute (4) Hypertension: Status: Acute DS: Summary Hospital Course Hospital Course: Admission note HPI ?this is a 71-year-old female with past medical history of asthma, CHF, COPD, HTN, HLD, PVC, type 2 diabetes, and recently closed fracture of distal left femur status post surgical intervention on 07/09 sent [facility] for rehab, presents to the hospital with? complaints of shortness of breath cm pain intermittently for the past 2 days.? Patient reports that she was feeling short of breath on laying flat, she reports that she thought that was secondary to PT and feeling tired, she is also complaining of intermittent left-sided chest pain radiating to her left arm, lasting all night, keeping her up, she denies having any palpitations, no headache, no abdominal pain nausea or vomiting, no diarrhea constipation, no urinary symptoms.? She reports no swelling in her legs more than usual.? She does have tenderness in the calf region of the right leg. ? of note on previous admission patient developed anemia post surgical intervention and was treated with 1 unit of PRBC with stabilization of her H&H.? patient was placed on lovenox on discharge post surgery and sent to [facility] ?patient also denies any melena, no hematochezia, no hemoptysis or hematemesis. ?on arrival to the ED patient hemodynamically stable with no significant abnormal vitals ? Labs are found to be significant for hemoglobin of 6.9 which dropped from 8.6 on 07/16, PT of 14, INR of 1.2,? troponin of 16.4, BNP of 89, labs otherwise unremarkable CT angiogram showed? bilateral? segmental to subsegmental pulmonary emboli. ? Patient started on heparin and will be admitted for further management Hospital course #? pulmonary emboli, CTA showed bilateral segmental and subsegmental in the right than the left. in setting of recent surgical intervention and fails Lovenox therapy. Started on IV heparin as her blood level was monitored and noted to be stable around 10 after 24 hours of heparin. She was changed to p.o. Eliquis 10 mg twice daily with no reported bleeding. To continue treatment with Eliquis for total of 6 months. #? Acute on chronic anemia noticed to have a drop in hemoglobin to 6.9 From baseline of 8.6 at time of presentation. Received a unit of blood transfusion and her blood level remained stable around 10 with?no clear source of bleeding. stool occult negative. To recheck CBC in 1 week. To start omeprazole daily. #? close fracture of left distal femur status post? retrograde tim Dr. Mark. To be discharged to SNF to finish her physical therapy. # Hypertension Noted to have low blood pressure at time of presentation. Could be secondary to pulmonary embolism. Losartan and metoprolol to 100 mg were held but metoprolol 100 mg at bedtime and torsemide were resumed. BP in 100s/50-60s. Continue Eliquis 10 mg twice daily for 5 more days then start Eliquis 5 mg b.i.d. Hold metoprolol to 100 mg daily and losartan 100 mg daily as blood pressure running so it and to re-evaluate the need of them by SNF MD after monitoring her blood pressure for the next 5-7 days. Time Spent with Patient Time attestation: Total time spent providing and/or coordinating discharge services: Discharge coordination time: Greater than 30 minutes Quality: Stroke Does the patient have a stroke diagnosis?: No Physical Exam Vital Signs: Vital Signs: Last Vital Signs Temp 97.0 F 07/21/21 08:00 Pulse 71 07/21/21 08:00 Resp 19 07/21/21 08:00 BP 104/55 L 07/21/21 08:00 Pulse Ox 97 07/21/21 08:00 BMI result Body Mass Index 34.1 Const: Other: Constitutional : Alert, oriented, not in distress Neck : Normal inspection, Supple Cardiovascular : RRR, S1 S2, no lower extremity edema Respiratory : Good bilateral air entry, no crackles, wheezes or rhonchi Gastrointestinal: soft, lax, Normal bowel sounds, Non tender Skin : Warm, Dry Neurological : Alert & oriented x3, No focal deficit DS: Data Data Completed and Pending Completed studies during hospitalization [Text1]: Procedures Reposition Left Lower Femur with Internal Fixation Device, Open Approach (07/08/21) Transfusion of Nonautologous Red Blood Cells into Peripheral Vein, Percutaneous Approach (07/08/21) Labs on day of discharge: Laboratory Results - last 24 hr 07/20/21 07/20/21 07/20/21 09:50 11:56 15:48 aPTT Heparin Protocol 61.9 POC Glucose 129 H 266 H 07/20/21 07/21/21 21:03 07:06 aPTT Heparin Protocol POC Glucose 157 H 160 H Preliminary micro results at discharge 07/19/21 01:00 Blood Culture - Preliminary Blood - Venous No growth after 48 hours. 07/19/21 00:18 Blood Culture - Preliminary Blood - Venous No growth after 48 hours. Discharge Plan Discharge Patient Disposition: Xfer SNF Discharge Diagnosis: Acute on chronic anemia Pulmonary embolism Referrals: [facility] & [facility] [Outside] - 1 Week Physician,Unknown J [Physician] - 1 Week Discharge Medications: New Eliquis 5 mg Tablet 10 mg PO BID 5 Days Qty: 20 0RF omeprazole 20 mg capsule,delayed release(DR/EC) 20 mg PO DAILY Qty: 30 0RF apixaban 5 mg tablet 5 mg PO BID Qty: 60 0RF Rx Instructions: to start after finishing 10 mg b.i.d. does. Continued torsemide 100 mg tablet 100 mg PO DAILY Qty: 90 1RF cholecalciferol (vitamin D3) 125 mcg (5,000 unit) capsule 125 mcg PO DAILY Qty: 90 1RF (DME) lancets 28 gauge misc See Rx Instructions ea topical .MEDSUPPLY Qty: 100 11RF Rx Instructions: As directed 2x per day. Combivent Respimat 20-100 mcg/actuation mist 1 puff PO QID Qty: 12 1RF glimepiride 1 mg tablet 1 mg PO QAM 90 Days Qty: 90 1RF Rx Instructions: administer with breakfast (take with 2 mg glimepiride) folic acid 1 mg tablet 1 mg PO DAILY Qty: 90 6RF cyanocobalamin (vitamin B-12) 1,000 mcg tablet 1 tab PO DAILY 0RF metoprolol tartrate 100 mg tablet 100 mg PO BEDTIME 0RF alendronate 70 mg tablet 70 mg PO SA 0RF glimepiride 2 mg tablet 2 mg PO BEDTIME 0RF enoxaparin 40 mg/0.4 mL Syringe 40 mg subcut Q24H 42 Days Qty: 16.8 0RF fluticasone propion-salmeterol [Wixela Inhub] 250-50 mcg/dose blister with device 1 puff PO BID 0RF Ozempic 0.25 mg or 0.5 mg(2 mg/1.5 mL) pen injector 0.5 mg subcut SA 0RF oxycodone-acetaminophen [Percocet] 5-325 mg Tablet 1 tab PO Q4H PRN (Reason: Pain) 0RF insulin lispro 100 unit/mL Solution 1 sliding scale dose SUBCUT USEASDIRECTD 0RF Rx Instructions: 200-250: 2 UNITS 251-300: 4 UNITS 301-350: 6 UNITS 351-400: 8 UNITS >400 CALL rosuvastatin 40 mg tablet 40 mg PO BEDTIME 0RF (DME) blood-glucose meter [FreeStyle Lite Meter] Kit See Rx Instructions .ROUTE .MEDSUPPLY Qty: 1 0RF Rx Instructions: to test blood glucose 2 times a day aspirin 81 mg tablet,delayed release (DR/EC) 81 mg PO DAILY 0RF (DME) blood-glucose meter [FreeStyle Lite Meter] Kit See Rx Instructions .ROUTE .MEDSUPPLY Qty: 1 0RF Rx Instructions: As directed 3xday Held metoprolol tartrate 100 mg tablet 200 mg PO DAILY 0RF Hold Instructions: Monitor blood pressure for the next 3 days before restarting it by SNF . losartan 100 mg tablet 50 mg PO DAILY 0RF Hold Instructions: Monitor blood pressure for the next 3 days before restarting it by SNF . Discharge Orders: Discharge Order (Routine); Ordered 07/21/21 Ordered By: Ingrid Bishop Diet: advance to usual diet Activity on Discharge: As tolerated Stand Alone Forms: Patient Portal Discharge page Other Ambulatory Orders: Complete Blood Count no Diff (Routine) Timeframe: 1 Week Facility: [facility] - Location: Laboratory Ordered By: Ingrid Bishop Care Plan Goals: Read below Health Concerns: Read below Plan of Treatment: Read below Assessment: You were admitted to the hospital for evaluation no difficulty breathing and chest tightness. Images were consistent with lung clots treated with IV blood thinners then changed to oral blood thinner call Stefan. You were noticed as well to have a drop in your blood level. No source of bleeding identified. You received a unit of blood with fair response. Your blood level remained stable after starting the blood thinners with no reported bleeding. Continue Eliquis 10 mg twice daily for the next 5 days then start Eliquis 5 mg daily twice a day Hold metoprolol to 100 mg daily, losartan 100 mg daily for the next few days as your blood pressure on the lower end. Monitor your blood pressure at the facility and restart the medications as needed. Discharge Date/Time: 07/21/21 14:50
[2021-07-21 10:51] LABS: COVID-19 Test Negative (Negative)
[2021-07-21 11:11] LABS: Glucose, Whole Blood 230 mg/dL (60-115)
[2021-07-21 11:34] VITALS: BP 105/55; PULSE 75; RESP 18; TEMP 36.6; O2SAT 97
--- NOTE | 2021-07-21 12:36 | MHC.CM.PN ---
Patient has been medically cleared for dc to SNF/STR today. Patient will return to [facility] today at 2PM, via [facility]. Patient and Sister/Evelin at [phone] are aware of and in agreement with the dc plan. IMM addressed with Patient and original given to Patient and a copy placed on the chart.
--- NOTE | 2021-07-21 12:39 | MHC.CM.PN ---
Last IMM addressed yesterday.
== END 2021-07-21 14:50 | disposition skilled nursing facility (03) | DRG 176 ==
LOC: HO.ED 07-19 03:14 → HO.EDOVER 07-19 06:19 → HO.IMC 07-20 18:40
PROVIDERS: Admitting Provider Internal Medicine; Emergency Provider Emergency Medicine; PCP Internal Medicine; Visit Provider Student in an Organized Health Care Education/Training Program
DX: I26.94 Multiple subsegmental thrombotic pulmonary emboli without acute cor pulmonale (principal); E78.5 Hyperlipidemia, unspecified; E11.9 Type 2 diabetes mellitus without complications; I50.9 Heart failure, unspecified; D64.9 Anemia, unspecified; I11.0 Hypertensive heart disease with heart failure; Z20.822 Contact with and (suspected) exposure to COVID-19; Z88.0 Allergy status to penicillin; Z79.4 Long term (current) use of insulin; Z79.01 Long term (current) use of anticoagulants; Z79.82 Long term (current) use of aspirin; Z79.899 Other long term (current) drug therapy
CPT/HCPCS: 36415; 36430; 71045; 71275; 80048; 80076; 82272; 82947; 83605; 83880; 84484; 85025; 85027; 85379; 85610; 85730; 86850; 86900; 86901; 86923; 87040; 87635; 93005; 94640; 96365; 96366; 96375; 97162; 99285; 99291; P9016; Q9967

== ENCOUNTER 2021-07-21 00:33 | Outpatient (REF) | payer MEDICARE, SELFPAY | END 2021-07-21 00:34 | disposition home or self-care (01) | LOC: HO.MMNH1L 00:33 | PROVIDERS: Visit Provider Family Medicine | DX: Z13.89 Encounter for screening for other disorder (principal) ==

== ENCOUNTER 2021-07-22 06:10 | Outpatient (REF) | payer MEDICARE, SELFPAY ==
[2021-07-22 06:15] LABS: MANUAL DIFF FLAG NO
[2021-07-22 06:28] LABS: Basophils Percent Auto 0.4 % (0-2); Eosinophils Absolute Auto 0.2 X10*3/uL (0.0-0.4); Eosinophils Percent Auto 1.9 % (0-4); Hematocrit 30.3 % (37.0-47.0); Hemoglobin 9.7 g/dl (12.0-16.0); Imm Gran Abs Auto 0.08 X10*3/uL (0.00-0.03); Imm Gran Pct Auto 0.8 % (0.0-0.4); Lymphocytes Absolute Auto 1.5 X10*3/uL (1.2-4.9); Lymphocytes Percent Auto 14.3 % (20-40); Mean Corpuscular Volume 90.4 fL (80.0-98.0); Mean Platelet Volume 8.8 fL (9.4-12.3); Monocytes Absolute Auto 1.1 X10*3/uL (0.1-1.2); Monocytes Percent Auto 9.9 % (2-11); Neutrophils Absolute Auto 7.7 x10*3/uL (2.0-8.3); Neutrophils Percent Auto 72.7 % (45-73); Platelet Count 495 X10*3/uL (160-400); Red Blood Count 3.35 X10*6/uL (4.20-5.50); Red Cell Distribution Width 15.2 % (11.0-16.0); White Blood Count 10.6 X10*3/uL (4.8-10.8)
[2021-07-22 06:54] LABS: Alanine Aminotransferase 8 U/L (0-31); Albumin Level 3.4 g/dL (3.5-5.0); Alkaline Phosphatase 116 U/L (39-117); Anion Gap 15 (12-20); Aspartate Amino Transferase 10 U/L (5-31); Bilirubin Total 0.7 mg/dL (0.0-1.0); Blood Urea Nitrogen 29 mg/dL (9-16); Calcium 9.5 mg/dL (8.4-10.2); Carbon Dioxide 28 mmol/L (22-29); Chloride 97 mmol/L (96-108); Estimated Glomerular Filt Rate 41; Glucose Random 145 mg/dL (60-115); Potassium 3.5 mmol/L (3.3-5.1); Sodium 136 mmol/L (135-145); Total Protein 7.3 g/dL (6.5-8.0)
== END 2021-07-22 06:11 | disposition home or self-care (01) ==
LOC: HO.MMNH1L 06:10
PROVIDERS: Visit Provider Family Medicine
DX: S72.92XD Unspecified fracture of left femur, subsequent encounter for closed fracture with routine healing (principal); E11.40 Type 2 diabetes mellitus with diabetic neuropathy, unspecified; I50.30 Unspecified diastolic (congestive) heart failure
CPT/HCPCS: 36415; 80053; 85025

== ENCOUNTER 2021-07-28 00:17 | Outpatient (REF) | payer MEDICARE, SELFPAY ==
[2021-07-28 07:26] LABS: Hematocrit 31.7 % (37.0-47.0); Hemoglobin 9.8 g/dl (12.0-16.0); Mean Corpuscular HGB Conc 30.9 g/dl (31.0-35.0); Mean Corpuscular Hemoglobin 28.9 pg (27.0-33.0); Mean Corpuscular Volume 93.5 fL (80.0-98.0); Mean Platelet Volume 8.8 fL (9.4-12.3); Platelet Count 527 X10*3/uL (160-400); Red Blood Count 3.39 X10*6/uL (4.20-5.50); Red Cell Distribution Width 15.8 % (11.0-16.0); White Blood Count 10.7 X10*3/uL (4.8-10.8)
[2021-07-28 07:44] LABS: Anion Gap 16 (12-20); Blood Urea Nitrogen 27 mg/dL (9-16); Calcium 9.4 mg/dL (8.4-10.2); Carbon Dioxide 29 mmol/L (22-29); Chloride 96 mmol/L (96-108); Estimated Glomerular Filt Rate 34; Glucose Random 125 mg/dL (60-115); Potassium 3.3 mmol/L (3.3-5.1); Sodium 138 mmol/L (135-145)
== END 2021-07-28 00:18 | disposition home or self-care (01) ==
LOC: HO.MMNH1L 00:17
PROVIDERS: Visit Provider Family Medicine
DX: E11.40 Type 2 diabetes mellitus with diabetic neuropathy, unspecified (principal); S72.92XD Unspecified fracture of left femur, subsequent encounter for closed fracture with routine healing
CPT/HCPCS: 36415; 80048; 85027

== ENCOUNTER 2021-07-28 07:50 | Outpatient (REF) | payer MEDICARE, SELFPAY | END 2021-07-28 07:51 | disposition home or self-care (01) | LOC: HO.HOSX 07:50 | PROVIDERS: Visit Provider Physician Assistant | DX: Z13.89 Encounter for screening for other disorder (principal) ==

== ENCOUNTER → 2021-08-01 10:32 | Outpatient (BNVA) | payer MEDICARE, SELFPAY | PROVIDERS: PCP Internal Medicine; Visit Provider Physician Assistant | DX: S72.92XD Unspecified fracture of left femur, subsequent encounter for closed fracture with routine healing (principal) | CPT/HCPCS: 99212 ==

== ENCOUNTER 2021-08-04 00:27 | Outpatient (REF) | payer MEDICARE, SELFPAY ==
[2021-08-04 07:04] LABS: Hematocrit 29.9 % (37.0-47.0); Hemoglobin 9.4 g/dl (12.0-16.0); Mean Corpuscular HGB Conc 31.4 g/dl (31.0-35.0); Mean Corpuscular Hemoglobin 29.2 pg (27.0-33.0); Mean Corpuscular Volume 92.9 fL (80.0-98.0); Mean Platelet Volume 9.3 fL (9.4-12.3); Platelet Count 380 X10*3/uL (160-400); Red Blood Count 3.22 X10*6/uL (4.20-5.50); Red Cell Distribution Width 15.6 % (11.0-16.0); White Blood Count 13.4 X10*3/uL (4.8-10.8)
[2021-08-04 07:33] LABS: Blood Urea Nitrogen 30 mg/dL (9-16); Calcium 9.5 mg/dL (8.4-10.2); Estimated Glomerular Filt Rate 38; Glucose Random 66 mg/dL (60-115)
[2021-08-04 07:58] LABS: Anion Gap 17 (12-20); Carbon Dioxide 26 mmol/L (22-29); Chloride 98 mmol/L (96-108); Potassium 2.7 mmol/L (3.3-5.1); Sodium 138 mmol/L (135-145)
== END 2021-08-04 00:28 | disposition home or self-care (01) ==
LOC: HO.MMNH1L 00:27
PROVIDERS: Visit Provider Family Medicine
DX: S72.92XD Unspecified fracture of left femur, subsequent encounter for closed fracture with routine healing (principal); E11.40 Type 2 diabetes mellitus with diabetic neuropathy, unspecified
CPT/HCPCS: 36415; 80048; 85027

== ENCOUNTER 2021-09-01 07:28 | Outpatient (REF) | payer MEDICARE, SELFPAY | END 2021-09-01 07:29 | disposition home or self-care (01) | LOC: HO.HOSX 07:28 | PROVIDERS: Visit Provider Physician Assistant | DX: Z13.89 Encounter for screening for other disorder (principal) ==

== ENCOUNTER → 2022-05-25 09:13 | Outpatient (BNVA) | payer MEDICARE, SELFPAY | PROVIDERS: PCP Internal Medicine; Visit Provider Internal Medicine | DX: I49.3 Ventricular premature depolarization (principal); I10 Essential (primary) hypertension; M79.89 Other specified soft tissue disorders | CPT/HCPCS: 93005; 99212 ==

== ENCOUNTER 2022-07-08 11:11 | Emergency (ER) | payer MEDICARE, SELFPAY ==
[2022-07-08 11:19] VITALS: BP 180/100; PULSE 104; O2SAT 99
[2022-07-08 12:44] VITALS: BP 171/97; PULSE 98; RESP 18; TEMP 36.8; O2SAT 98; BMI 29.1
--- NOTE | 2022-07-08 12:45 | ED_ITS ---
HPI - General Adult General Chief complaint: Urogenital-Female Stated complaint: Vaginal bleeding per EMS Time Seen by Provider: 07/08/22 23:43 Related Data Home Medications Medication Instructions Recorded Confirmed aspirin 81 mg tablet,delayed 81 mg PO DAILY 03/19/20 05/25/22 release Previous Rx's Medication Instructions Recorded lancets 28 gauge #100 ea 04/29/21 blood-glucose meter (FreeStyle #1 ea 06/13/21 Lite Meter kit) alcohol swabs (Alcohol Pads) 1 pad topical BID #100 ea 08/18/21 blood sugar diagnostic (FreeStyle #100 ea 09/17/21 Lite Strips) folic acid 1 mg tablet 1 mg PO DAILY #90 tabs 12/29/21 alendronate 70 mg tablet 70 mg PO QWEEK #14 tabs 04/06/22 cholecalciferol (vitamin D3) 125 125 mcg PO DAILY #90 caps 04/06/22 mcg (5,000 unit) capsule fluticasone 250 mcg-salmeterol 50 1 inh PO BID #60 ea 04/06/22 mcg/dose blistr powdr for inhalation (Wixela Inhub) metoprolol tartrate 100 mg tablet 100 mg PO BEDTIME #90 tabs 04/06/22 cyanocobalamin (vitamin B-12) 1 tab PO DAILY #90 tabs 04/14/22 1,000 mcg tablet levofloxacin 500 mg tablet 500 mg PO DAILY 5 days #5 tabs 07/08/22 ipratropium 20 mcg-albuterol 100 1 puff PO QID #12 grams 07/10/22 mcg/actuation mist for inhalation (Combivent Respimat) losartan 50 mg tablet 50 mg PO DAILY #30 tabs 07/12/22 semaglutide 0.25 mg or 0.5 mg (2 0.5 mg (0.4 mL) subcut QWEEK #1.5 07/23/22 mg/1.5 mL) subcutaneous pen mL injector ([employer]) Allergies Allergy/AdvReac Type Severity Reaction Status Date / Time cephalexin [From KEFLEX] Allergy Intermediate HIVES Verified 07/08/22 12:44 Penicillins [PENICILLINS] Allergy Intermediate HIVES Verified 07/08/22 12:44 acetaminophen Allergy Mild Hives Verified 07/08/22 12:44 [From Excedrin Extra Strength] aspirin Allergy Mild Hives Verified 07/08/22 12:44 [From Excedrin Extra Strength] caffeine Allergy Mild Hives Verified 07/08/22 12:44 [From Excedrin Extra Strength] metformin [METFORMIN] Allergy Mild HIVES Verified 07/08/22 12:44 enalaprilat [Vasotec] Allergy Unknown Unknown Verified 07/08/22 12:44 dulaglutide [From Trulicity] Allergy Hives Verified 07/08/22 12:44 [facility] Past Medical History Medical History Acid reflux Anemia Asthma Asthma CHF (congestive heart failure) Closed fracture of left distal femur COPD (chronic obstructive pulmonary disease) COPD (chronic obstructive pulmonary disease) Essential hypertension Femur fracture, left Hyperlipidemia LDL goal <70 Hypertension Leg swelling Normocytic anemia Osteopenia PVC (premature ventricular contraction) Type 2 diabetes mellitus with diabetic polyneuropathy Surgical History History of cardiac catheterization History of cholecystectomy History of surgery on lower extremity History of tooth extraction Hx of bilateral breast reduction surgery Hx of local excision of skin lesion Family History Family History Father CVD (cardiovascular disease) Mother CVD (cardiovascular disease) Gastric cancer Diabetes Sister Lung disease Social History Social History Household Members: None Housing: Apartment Do you presently have visiting nurse or other home services: No Alcohol intake: never Patient Tobacco Use Status: Never used Tobacco Smoked in Last 30 Days: No e-Cigarette/Vaping Use: Never Used Second Hand Smoke Exposure: No Use of substances other than those prescribed or required for medical reasons: No Advance Directives: No service: No Current occupational status: disabled Sexual orientation: Straight/Heterosexual Gender identity: Female Cognitive needs: Yes (walker) Hearing needs: No Vision needs: Yes (glasses) Physical Exam ED Vital Signs: BMI result Body Mass Index 29.1 Course Course Course Narrative: LUPIS- 72-year-old female presents for evaluation of blood in her urine and burning with urination that started earlier this morning. She reports her symptoms started about 1 hour after receiving and Ozempic shot. Patient reports that her primary doctor wants her to have blood work done that she was supposed to have done tomorrow regardless. Specifically she mentions a hemoglobin A1c was supposed to be drawn. These labs will be added on as the patient reports difficulty in getting to lab draws. We will get a UA to evaluate for chief complaint Medications Administered Discontinued Medications Generic Name Dose Route Start Last Admin Trade Name Maricarmen PRN Reason Stop Dose Admin Levofloxacin 500 mg 07/08/22 23:45 07/09/22 00:21 Levofloxacin 500 Mg Tablet PO 07/08/22 23:46 500 mg ONCE ONE Administration Medical Decision Making Lab Data 07/08/22 13:27 07/08/22 14:25 Labs: Lab Results 07/08/22 07/08/22 07/08/22 Range/Units 13:27 13:27 14:25 WBC 15.2 H (4.8-10.8) X10*3/uL RBC 4.25 D (4.20-5.50) X10*6/uL Hgb 12.3 D (12.0-16.0) g/dl Hct 36.8 L D (37.0-47.0) % MCV 86.6 (80.0-98.0) fL MCH 28.9 (27.0-33.0) pg MCHC 33.4 (31.0-35.0) g/dl RDW 13.8 (11.0-16.0) % Plt Count 396 (160-400) X10*3/uL MPV 8.4 L (9.4-12.3) fL Immature Gran % (Auto) 0.4 (0.0-0.4) % Neut % (Auto) 87.2 H (45-73) % Lymph % (Auto) 6.6 L (20-40) % [place] % (Auto) 5.3 (2-11) % Eos % (Auto) 0.2 (0-4) % Baso % (Auto) 0.3 (0-2) % Lymph # (Auto) 1.0 L (1.2-4.9) X10*3/uL [place] # (Auto) 0.8 (0.1-1.2) X10*3/uL Eos # (Auto) 0.0 (0.0-0.4) X10*3/uL Baso # (Auto) 0.1 (0.0-0.2) X10*3/uL Abs Immat Gran (auto) 0.06 H (0.00-0.03) X10*3/uL Absolute Neuts (auto) 13.3 H (2.0-8.3) x10*3/uL Absolute Nucleated RBC 0.000 (0.0-0.012) X10*3/uL Nucleated RBC % (auto) 0.0 (0.0-0.2) /100WBC Sodium 140 (135-145) mmol/L Potassium 4.1 D (3.3-5.1) mmol/L Chloride 107 (96-108) mmol/L Carbon Dioxide 21 L (22-29) mmol/L Anion Gap 16 (12-20) BUN 13 (9-16) mg/dL Creatinine 1.01 (0.5-1.4) mg/dL Estim Creat Clear Calc 53.1 Estimated GFR 54 Random Glucose 104 (60-115) mg/dL Calcium 10.7 H D (8.4-10.2) mg/dL Total Bilirubin 0.6 (0.0-1.0) mg/dL AST 12 (5-31) U/L ALT 7 (0-31) U/L Alkaline Phosphatase 98 (39-117) U/L Total Protein 8.7 H (6.5-8.0) g/dL Albumin 4.3 (3.5-5.0) g/dL Urine Color RED Urine Appearance Hazy Urine pH 8.0 (5.0-9.0) Ur Specific Anthony 1.010 (1.005-1.025) Urine Protein See Note (Neg-Trace) mg/dL Urine Glucose (UA) Negative (Negative) mg/dL Urine Ketones Negative (Negative) mg/dL Urine Blood Large (3+) H (Negative) Urine Nitrite See Note (Negative) Ur Leukocyte Esterase Moderate (2+) H (Negative) Urine RBC >20 H (0-2) /HPF Urine WBC 6-10 H (0-5) /HPF Ur Squamous Epith Cells 0-2 (0-2) /HPF Urine Bacteria Trace (None Seen) Hyaline Casts 0-2 (0-2) /LPF Discharge Plan Discharge Clinical Impression: Acute hemorrhagic cystitis Patient Disposition: Home, Self-Care Instructions: Urinary Tract Infection in Women (ED) Additional Instructions: Drink plenty of fluids Antibiotic as prescribed Follow-up with urologist in 1 week if bleeding continues Prescriptions: New levofloxacin 500 mg tablet 500 mg PO DAILY 5 Days Qty: 5 0RF No Action (DME) lancets 28 gauge misc See Rx Instructions topical .MEDSUPPLY Qty: 100 11RF Rx Instructions: As directed 2x per day. alcohol swabs [Alcohol Pads] Pads, Medicated 1 pad topical BID Qty: 100 0RF (DME) FreeStyle Lite Strips Strip See Rx Instructions .ROUTE .MEDSUPPLY Qty: 100 11RF Rx Instructions: As directed three times a day fluticasone propion-salmeterol [Wixela Inhub] 250-50 mcg/dose blister with device 1 inh PO BID Qty: 60 1RF cholecalciferol (vitamin D3) 125 mcg (5,000 unit) capsule 125 mcg PO DAILY Qty: 90 1RF metoprolol tartrate 100 mg tablet 100 mg PO BEDTIME Qty: 90 1RF alendronate 70 mg tablet 70 mg PO QWEEK Qty: 14 1RF Combivent Respimat 20-100 mcg/actuation mist 1 puff PO QID Qty: 12 1RF losartan 50 mg tablet 50 mg PO DAILY Qty: 30 0RF Ozempic 0.25 mg or 0.5 mg(2 mg/1.5 mL) pen injector 0.5 mg subcut QWEEK Qty: 1.5 0RF folic acid 1 mg tablet 1 mg PO DAILY Qty: 90 6RF cyanocobalamin (vitamin B-12) 1,000 mcg tablet 1 tab PO DAILY Qty: 90 4RF aspirin 81 mg tablet,delayed release (DR/EC) 81 mg PO DAILY (DME) blood-glucose meter [FreeStyle Lite Meter] Kit See Rx Instructions .ROUTE .MEDSUPPLY Qty: 1 0RF Rx Instructions: As directed 3xday Interventions: ED Discharge Assessment Last Done: 07/09/22 00:28 Discharge Date/Time: 07/09/22 00:28
[2022-07-08 13:32] LABS: MANUAL DIFF FLAG NO
[2022-07-08 13:36] LABS: Basophils Absolute Auto 0.1 X10*3/uL (0.0-0.2); Basophils Percent Auto 0.3 % (0-2); Eosinophils Percent Auto 0.2 % (0-4); Hematocrit 36.8 % (37.0-47.0); Hemoglobin 12.3 g/dl (12.0-16.0); Imm Gran Abs Auto 0.06 X10*3/uL (0.00-0.03); Imm Gran Pct Auto 0.4 % (0.0-0.4); Lymphocytes Percent Auto 6.6 % (20-40); Mean Corpuscular HGB Conc 33.4 g/dl (31.0-35.0); Mean Corpuscular Hemoglobin 28.9 pg (27.0-33.0); Mean Corpuscular Volume 86.6 fL (80.0-98.0); Mean Platelet Volume 8.4 fL (9.4-12.3); Monocytes Absolute Auto 0.8 X10*3/uL (0.1-1.2); Monocytes Percent Auto 5.3 % (2-11); Neutrophils Absolute Auto 13.3 x10*3/uL (2.0-8.3); Neutrophils Percent Auto 87.2 % (45-73); Platelet Count 396 X10*3/uL (160-400); Red Blood Count 4.25 X10*6/uL (4.20-5.50); Red Cell Distribution Width 13.8 % (11.0-16.0); White Blood Count 15.2 X10*3/uL (4.8-10.8)
[2022-07-08 13:41] LABS: Appearance Urine Hazy; Color Urine RED; Glucose Urine UA Negative (Negative); Leukocyte Esterase Urine Moderate (2+) (Negative); UMIC TRIGGER UACC YES; Urine Blood Large (3+) (Negative); Urine Ketones Negative (Negative)
[2022-07-08 13:46] LABS: RBC Urine >20 /HPF (0-2); UACC Culture Trigger YES
[2022-07-08 13:47] LABS: Bacteria Urine Trace (None Seen); Hyaline Casts Urine 0-2 /LPF (0-2); Squamous Epithelial Cell Urine 0-2 /HPF (0-2)
[2022-07-08 14:19] VITALS: BP 123/93; PULSE 84; RESP 18; TEMP 36.3; O2SAT 100
[2022-07-08 14:48] LABS: Alanine Aminotransferase 7 U/L (0-31); Albumin Level 4.3 g/dL (3.5-5.0); Alkaline Phosphatase 98 U/L (39-117); Anion Gap 16 (12-20); Aspartate Amino Transferase 12 U/L (5-31); Bilirubin Total 0.6 mg/dL (0.0-1.0); Blood Urea Nitrogen 13 mg/dL (9-16); Calcium 10.7 mg/dL (8.4-10.2); Carbon Dioxide 21 mmol/L (22-29); Chloride 107 mmol/L (96-108); Creatinine Clr Calc Pharmacy 53.1; Estimated Glomerular Filt Rate 54; Glucose Random 104 mg/dL (60-115); Potassium 4.1 mmol/L (3.3-5.1); Sodium 140 mmol/L (135-145); Total Protein 8.7 g/dL (6.5-8.0)
--- NOTE | 2022-07-09 00:03 | ED.FEMALEGU ---
HPI - Female Genitourinary General Chief complaint: Urogenital-Female Stated complaint: Vaginal bleeding per EMS Time Seen by Provider: 07/08/22 23:43 Source: patient Mode of arrival: ambulatory Limitations: no limitations History of Present Illness HPI Narrative: Patient with History of diabetes hypertension noticed dysuria with frequency with blood-tinged urine since morning no blood clots no vaginal bleed no flank pain no abdominal pain, no fever no nausea no vomiting patient never had similar complaints in the past patient not on any anticoagulation does take baby aspirin daily. Prior to my evaluation labs were done showed WBC count of 15.2, UA showing LES positive with leukocytes positive and RBCs Related Data Home Medications Medication Instructions Recorded Confirmed aspirin 81 mg tablet,delayed 81 mg PO DAILY 03/19/20 05/25/22 release Previous Rx's Medication Instructions Recorded lancets 28 gauge #100 ea 04/29/21 blood-glucose meter (FreeStyle #1 ea 06/13/21 Lite Meter kit) alcohol swabs (Alcohol Pads) 1 pad topical BID #100 ea 08/18/21 blood sugar diagnostic (FreeStyle #100 ea 09/17/21 Lite Strips) folic acid 1 mg tablet 1 mg PO DAILY #90 tabs 12/29/21 ipratropium 20 mcg-albuterol 100 1 puff PO QID #12 grams 12/30/21 mcg/actuation mist for inhalation (Combivent Respimat) alendronate 70 mg tablet 70 mg PO QWEEK #14 tabs 04/06/22 cholecalciferol (vitamin D3) 125 125 mcg PO DAILY #90 caps 04/06/22 mcg (5,000 unit) capsule fluticasone 250 mcg-salmeterol 50 1 inh PO BID #60 ea 04/06/22 mcg/dose blistr powdr for inhalation (Wixela Inhub) metoprolol tartrate 100 mg tablet 100 mg PO BEDTIME #90 tabs 04/06/22 cyanocobalamin (vitamin B-12) 1 tab PO DAILY #90 tabs 04/14/22 1,000 mcg tablet losartan 50 mg tablet 50 mg PO DAILY #30 tabs 05/23/22 semaglutide 0.25 mg or 0.5 mg (2 0.5 mg (0.4 mL) subcut QWEEK #1.5 06/05/22 mg/1.5 mL) subcutaneous pen mL injector ([employer]) levofloxacin 500 mg tablet 500 mg PO DAILY 5 days #5 tabs 07/08/22 Allergies Allergy/AdvReac Type Severity Reaction Status Date / Time cephalexin [From KEFLEX] Allergy Intermediate HIVES Verified 07/08/22 12:44 Penicillins [PENICILLINS] Allergy Intermediate HIVES Verified 07/08/22 12:44 acetaminophen Allergy Mild Hives Verified 07/08/22 12:44 [From Excedrin Extra Strength] aspirin Allergy Mild Hives Verified 07/08/22 12:44 [From Excedrin Extra Strength] caffeine Allergy Mild Hives Verified 07/08/22 12:44 [From Excedrin Extra Strength] metformin [METFORMIN] Allergy Mild HIVES Verified 07/08/22 12:44 enalaprilat [Vasotec] Allergy Unknown Unknown Verified 07/08/22 12:44 dulaglutide [From Trulicity] Allergy Hives Verified 07/08/22 12:44 Review of Systems Review of Systems: Yes all other systems are reviewed and are negative PMFSH Past Medical History Medical History Acid reflux Anemia Asthma Asthma CHF (congestive heart failure) Closed fracture of left distal femur COPD (chronic obstructive pulmonary disease) COPD (chronic obstructive pulmonary disease) Essential hypertension Femur fracture, left Hyperlipidemia LDL goal <70 Hypertension Leg swelling Normocytic anemia Osteopenia PVC (premature ventricular contraction) Type 2 diabetes mellitus with diabetic polyneuropathy Surgical History History of cardiac catheterization History of cholecystectomy History of surgery on lower extremity History of tooth extraction Hx of bilateral breast reduction surgery Hx of local excision of skin lesion Family History Family History Father CVD (cardiovascular disease) Mother CVD (cardiovascular disease) Gastric cancer Diabetes Sister Lung disease Social History Social History Household Members: None Housing: Apartment Do you presently have visiting nurse or other home services: No Alcohol intake: never Patient Tobacco Use Status: Never used Tobacco e-Cigarette/Vaping Use: Never Used Second Hand Smoke Exposure: No Advance Directives: No service: No Current occupational status: disabled Sexual orientation: Straight/Heterosexual Gender identity: Female Cognitive needs: Yes (walker) Hearing needs: No Vision needs: Yes (glasses) Physical Exam Vital Signs: Vital Signs: Last Vital Signs Temp 97.3 F 07/08/22 14:19 Pulse 84 07/08/22 14:19 Resp 18 07/08/22 14:19 BP 123/93 H 07/08/22 14:19 Pulse Ox 100 07/08/22 14:19 O2 Del Method 07/08/22 14:19 BMI result Body Mass Index 29.1 Appearance: Alert. Oriented X3. No acute distress. Eyes: No pallor or icterus ENT: Pharynx normal. Oral Mucosa moist Neck: Normal inspection. Neck supple. CVS: Normal heart rate and rhythm. Pulses normal. Respiratory: No respiratory distress. Equal air entry bilateral, no wheezing/rales/rhonchi Abdomen: Soft and nontender. Bowel sounds are present, no mass palpable, no CVA tenderness Skin: Skin warm and dry. Normal skin color. Normal skin turgor. Extremities: No lower extremity edema. No calf tenderness Neuro: Oriented X 3. No motor deficit. Medical Decision Making Medical Decision Making [facility] Narrative: Patient with hematuria with leuko esterase positive and WBCs likely hemorrhagic cystitis will give a trial of Levaquin advised to follow with urologist bleeding continues for cystoscopy Differential Diagnosis Kidney stone/hemorrhagic cystitis/bladder tumor Lab Data [facility] Lab Attestation statement: I reviewed the patient's lab results. 07/08/22 13:27 07/08/22 14:25 Labs: Lab Results 07/08/22 07/08/22 07/08/22 Range/Units 13:27 13:27 14:25 WBC 15.2 H (4.8-10.8) X10*3/uL RBC 4.25 D (4.20-5.50) X10*6/uL Hgb 12.3 D (12.0-16.0) g/dl Hct 36.8 L D (37.0-47.0) % MCV 86.6 (80.0-98.0) fL MCH 28.9 (27.0-33.0) pg MCHC 33.4 (31.0-35.0) g/dl RDW 13.8 (11.0-16.0) % Plt Count 396 (160-400) X10*3/uL MPV 8.4 L (9.4-12.3) fL Immature Gran % (Auto) 0.4 (0.0-0.4) % Neut % (Auto) 87.2 H (45-73) % Lymph % (Auto) 6.6 L (20-40) % [place] % (Auto) 5.3 (2-11) % Eos % (Auto) 0.2 (0-4) % Baso % (Auto) 0.3 (0-2) % Lymph # (Auto) 1.0 L (1.2-4.9) X10*3/uL [place] # (Auto) 0.8 (0.1-1.2) X10*3/uL Eos # (Auto) 0.0 (0.0-0.4) X10*3/uL Baso # (Auto) 0.1 (0.0-0.2) X10*3/uL Abs Immat Gran (auto) 0.06 H (0.00-0.03) X10*3/uL Absolute Neuts (auto) 13.3 H (2.0-8.3) x10*3/uL Absolute Nucleated RBC 0.000 (0.0-0.012) X10*3/uL Nucleated RBC % (auto) 0.0 (0.0-0.2) /100WBC Sodium 140 (135-145) mmol/L Potassium 4.1 D (3.3-5.1) mmol/L Chloride 107 (96-108) mmol/L Carbon Dioxide 21 L (22-29) mmol/L Anion Gap 16 (12-20) BUN 13 (9-16) mg/dL Creatinine 1.01 (0.5-1.4) mg/dL Estim Creat Clear Calc 53.1 Estimated GFR 54 Random Glucose 104 (60-115) mg/dL Calcium 10.7 H D (8.4-10.2) mg/dL Total Bilirubin 0.6 (0.0-1.0) mg/dL AST 12 (5-31) U/L ALT 7 (0-31) U/L Alkaline Phosphatase 98 (39-117) U/L Total Protein 8.7 H (6.5-8.0) g/dL Albumin 4.3 (3.5-5.0) g/dL Urine Color RED Urine Appearance Hazy Urine pH 8.0 (5.0-9.0) Ur Specific [place] 1.010 (1.005-1.025) Urine Protein See Note (Neg-Trace) mg/dL Urine Glucose (UA) Negative (Negative) mg/dL Urine Ketones Negative (Negative) mg/dL Urine Blood Large (3+) H (Negative) Urine Nitrite See Note (Negative) Ur Leukocyte Esterase Moderate (2+) H (Negative) Urine RBC >20 H (0-2) /HPF Urine WBC 6-10 H (0-5) /HPF Ur Squamous Epith Cells 0-2 (0-2) /HPF Urine Bacteria Trace (None Seen) Hyaline Casts 0-2 (0-2) /LPF Discharge Plan Discharge Clinical Impression: Acute hemorrhagic cystitis Patient Disposition: Home, Self-Care Instructions: Urinary Tract Infection in Women (ED) Additional Instructions: Drink plenty of fluids Antibiotic as prescribed Follow-up with urologist in 1 week if bleeding continues Prescriptions: New levofloxacin 500 mg tablet 500 mg PO DAILY 5 Days Qty: 5 0RF No Action (DME) lancets 28 gauge misc See Rx Instructions topical .MEDSUPPLY Qty: 100 11RF Rx Instructions: As directed 2x per day. alcohol swabs [Alcohol Pads] Pads, Medicated 1 pad topical BID Qty: 100 0RF (DME) FreeStyle Lite Strips Strip See Rx Instructions .ROUTE .MEDSUPPLY Qty: 100 11RF Rx Instructions: As directed three times a day Combivent Respimat 20-100 mcg/actuation mist 1 puff PO QID Qty: 12 1RF fluticasone propion-salmeterol [[employer] Inhub] 250-50 mcg/dose blister with device 1 inh PO BID Qty: 60 1RF cholecalciferol (vitamin D3) 125 mcg (5,000 unit) capsule 125 mcg PO DAILY Qty: 90 1RF metoprolol tartrate 100 mg tablet 100 mg PO BEDTIME Qty: 90 1RF alendronate 70 mg tablet 70 mg PO QWEEK Qty: 14 1RF losartan 50 mg tablet 50 mg PO DAILY Qty: 30 0RF Ozempic 0.25 mg or 0.5 mg(2 mg/1.5 mL) pen injector 0.5 mg subcut QWEEK Qty: 1.5 0RF folic acid 1 mg tablet 1 mg PO DAILY Qty: 90 6RF cyanocobalamin (vitamin B-12) 1,000 mcg tablet 1 tab PO DAILY Qty: 90 4RF aspirin 81 mg tablet,delayed release (DR/EC) 81 mg PO DAILY (DME) blood-glucose meter [FreeStyle Lite Meter] Kit See Rx Instructions .ROUTE .MEDSUPPLY Qty: 1 0RF Rx Instructions: As directed 3xday
--- NOTE | 2022-07-09 00:08 | PC.NURSE ---
pt c/o vaginal bleeding that began about 2-3 days ago, denies dysuria, denies dizziness, denies n/v/d no apparent distress, pt is a&o at baseline pt uses wheelchair/walker
[2022-07-09 00:19] VITALS: BP 132/90; PULSE 87; RESP 17; TEMP 36.4; O2SAT 98
[2022-07-09] MEDS: levoFLOXacin 500 MG TABLET PO (00:21)
--- NOTE | 2022-07-09 00:29 | PC.NURSE ---
pt a&o, no apparent distress, pt's brother picked her up for discharge, pt ambulates safely/independently w/ wheelchair/walker (baseline)
--- NOTE | 2022-07-09 00:38 | PC.NURSE ---
discharge instructions given/explained, no apparent distress, ambulates safely/independently with wheelchair/walker (baseline), pt's brother came to pick her up, pt medicated on discharge, pt denies any pain
== END 2022-07-09 00:28 | disposition home or self-care (01) ==
PROVIDERS: Physician Assistant; Emergency Provider Internal Medicine; PCP Internal Medicine
DX: N30.01 Acute cystitis with hematuria (principal); E11.42 Type 2 diabetes mellitus with diabetic polyneuropathy; I11.0 Hypertensive heart disease with heart failure; I50.9 Heart failure, unspecified; E78.5 Hyperlipidemia, unspecified; Z79.82 Long term (current) use of aspirin; Z79.899 Other long term (current) drug therapy
CPT/HCPCS: 36415; 80053; 81001; 85025; 87086; 99283; 99284

== ENCOUNTER 2023-01-14 09:37 | Outpatient (REF) | payer MEDICARE, SELFPAY ==
--- NOTE | ~2023-01-14 | MM_ITS ---
EXAMINATION: MM SCREENING DIGITAL BREAST TOMOSYNTHESIS, BILATERAL CLINICAL INFORMATION: Screening. Asymptomatic. The patient has a history of bilateral breast reduction. COMPARISON: Mammography: This study is compared with prior exams dating back to 2017. TECHNIQUE: Digital breast tomosynthesis is performed in both the craniocaudal and mediolateral oblique views along with computer-aided detection (CAD). Synthesized 2D images are generated from the tomosynthesis. FINDINGS: There are scattered areas of fibroglandular density (ACR BI-RADS breast composition Category b). There are post reduction changes in each breast. There are no significant masses, abnormal calcifications, or other abnormalities. MM/MM tomosynthesis screening BI IMPRESSION: No mammographic evidence of malignancy. ASSESSMENT: BI-RADS BI-RADS 2 - Benign Findings RECOMMENDATION: Routine annual mammography screening. 1 year F/U This examination should not preclude the clinical evaluation of a suspicious palpable abnormality. This patient's information was entered into a reminder system with a target due date for their next mammogram.
== END 2023-01-14 09:38 | disposition home or self-care (01) ==
LOC: HO.MAMMO 09:37
PROVIDERS: Visit Provider Internal Medicine
DX: Z12.31 Encounter for screening mammogram for malignant neoplasm of breast (principal)
CPT/HCPCS: 77063; 77067

== ENCOUNTER → 2023-01-14 10:00 | Outpatient (BNV) | payer MEDICARE, SELFPAY | PROVIDERS: Visit Provider Radiology Diagnostic Radiology | DX: Z12.31 Encounter for screening mammogram for malignant neoplasm of breast (principal) | CPT/HCPCS: 77063; 77067 ==

== ENCOUNTER 2023-02-02 02:53 | Emergency (ER) | payer MEDICARE, SELFPAY ==
[2023-02-02 03:22] VITALS: BP 165/79; PULSE 85; RESP 18; TEMP 36.7; O2SAT 100; BMI 30.7
--- NOTE | 2023-02-02 03:24 | ED.SKABFB ---
HPI - Skin/Abscess/Foreign Bdy General Chief complaint: Eye Problems Stated complaint: R Eye swelling Time Seen by Provider: 02/02/23 03:16 Source: patient and old records reviewed Mode of arrival: EMS Limitations: no limitations History of Present Illness HPI narrative: 72 yo female with hx of DM, asthma, COPD, does not wear contact lens here with c/o R eye swelling/redness and drainage, no known trauma no vision loss no fevers, this has not happened before MD complaint: rash Onset (ago): hour(s) (before bed) Tetanus up to date: yes Location: face Severity: moderate Quality: aching Pain Consistency: constant Relieving factors: none Exacerbating factors: palpation Context: none Associated symptoms: other (yellow drainage from eyes) Treatments prior to arrival: none Related Data Home Medications Medication Instructions Recorded Confirmed aspirin 81 mg tablet,delayed 81 mg PO DAILY 03/19/20 05/25/22 release Previous Rx's Medication Instructions Recorded blood-glucose meter (FreeStyle #1 ea 06/13/21 Lite Meter kit) alcohol swabs (Alcohol Pads) 1 pad topical BID #100 ea 08/18/21 folic acid 1 mg tablet 1 mg PO DAILY #90 tabs 12/29/21 cyanocobalamin (vitamin B-12) 1 tab PO DAILY #90 tabs 04/14/22 1,000 mcg tablet levofloxacin 500 mg tablet 500 mg PO DAILY 5 days #5 tabs 07/08/22 alendronate 70 mg tablet 70 mg PO QWEEK #14 tabs 09/02/22 blood sugar diagnostic (FreeStyle #100 ea 10/03/22 Lite Strips) cholecalciferol (vitamin D3) 125 125 mcg PO DAILY #90 caps 10/03/22 mcg (5,000 unit) capsule metoprolol tartrate 100 mg tablet 100 mg PO BEDTIME #90 tabs 10/03/22 lancets 28 gauge (FreeStyle #100 ea 10/15/22 Lancets) losartan 50 mg tablet 50 mg PO DAILY #30 tabs 11/13/22 fluticasone 250 mcg-salmeterol 50 1 inh PO BID #60 ea 01/04/23 mcg/dose blistr powdr for inhalation ([employer] Inhub) ipratropium 20 mcg-albuterol 100 1 puff PO QID #12 grams 01/04/23 mcg/actuation mist for inhalation (Combivent Respimat) semaglutide 0.25 mg or 0.5 mg (2 0.5 mg (0.4 mL) subcut QWEEK #1.5 01/29/23 mg/1.5 mL) subcutaneous pen mL injector erythromycin 5 mg/gram (0.5 %) eye 0.5 inch ophthalmic (eye) BID 7 02/02/23 ointment days #3.5 grams levofloxacin 500 mg tablet 500 mg PO DAILY #6 tabs 02/02/23 Allergies Allergy/AdvReac Type Severity Reaction Status Date / Time cephalexin [From KEFLEX] Allergy Intermediate HIVES Verified 07/08/22 12:44 Penicillins [PENICILLINS] Allergy Intermediate HIVES Verified 07/08/22 12:44 acetaminophen Allergy Mild Hives Verified 07/08/22 12:44 [From Excedrin Extra Strength] aspirin Allergy Mild Hives Verified 07/08/22 12:44 [From Excedrin Extra Strength] caffeine Allergy Mild Hives Verified 07/08/22 12:44 [From Excedrin Extra Strength] metformin [METFORMIN] Allergy Mild HIVES Verified 07/08/22 12:44 enalaprilat [Vasotec] Allergy Unknown Unknown Verified 07/08/22 12:44 dulaglutide [From Trulicity] Allergy Hives Verified 07/08/22 12:44 Review of Systems Review of Systems: Constitutional : No Fever, No Chills ENT/Mouth : No sore throat, No Rhinorrhea Eyes: pos Eye Pain, No Swelling, pos Redness, pos drainage Cardiovascular : No Chest Pain, No SOB Respiratory : No Cough, No Sputum Gastrointestinal : No Nausea, No Vomiting, No Diarrhea, No abdominal Pain Genitourinary : No Dysuria, No Hematuria Musculoskeletal : No joint pain, No Myalgias, No Joint Swelling Skin : No Skin Lesions, positive skin rash Neuro : No Weakness, No Numbness, No Headache Psych : No Anxiety, No Depression Heme/Lymph: No Bruising, No Bleeding,No Lymphadenopathy Endocrine : No Polyuria, No Polydipsia All other systems reviewed and are negative [facility] Past Medical History Attestation statement: The following information was validated with the patient. Source: old records reviewed Medical History Acid reflux Anemia Asthma Asthma CHF (congestive heart failure) Closed fracture of left distal femur COPD (chronic obstructive pulmonary disease) COPD (chronic obstructive pulmonary disease) Essential hypertension Femur fracture, left Hyperlipidemia LDL goal <70 Hypertension Leg swelling Normocytic anemia Osteopenia PVC (premature ventricular contraction) Type 2 diabetes mellitus with diabetic polyneuropathy Surgical History History of surgery on lower extremity History of cardiac catheterization Hx of local excision of skin lesion History of tooth extraction Hx of bilateral breast reduction surgery History of cholecystectomy Family History Family History Father CVD (cardiovascular disease) Mother CVD (cardiovascular disease) Gastric cancer Diabetes Sister Lung disease Social History Social History Household Members: None Housing: Apartment Do you presently have visiting nurse or other home services: No Alcohol intake: never Patient Tobacco Use Status: Never used Tobacco e-Cigarette/Vaping Use: Never Used Second Hand Smoke Exposure: No service: No Current occupational status: disabled Sexual orientation: Straight/Heterosexual Gender identity: Female Cognitive needs: Yes (walker) Hearing needs: No Vision needs: Yes (glasses) Physical Exam Vital Signs: Vital Signs: Last Vital Signs Temp 98.0 F 02/02/23 03:25 Pulse 85 02/02/23 03:25 Resp 18 02/02/23 03:22 BP 165/79 H 02/02/23 03:25 Pulse Ox 100 02/02/23 03:25 O2 Del Method Room Air 02/02/23 03:25 BMI result Body Mass Index 30.7 Appearance: Alert. Oriented X3. No acute distress. Eyes: Pupils equal, round and reactive to light. ENT: Pharynx normal. R eye conjunctival injection with erythema and purulent drainage, mild surrounding periorbital edema no proptosis no pain with EOM but notes it feels mildly sore - R eye without glasses 20/50 and L eye 20/40 Neck: Normal inspection. Neck supple. CVS: Normal heart rate and rhythm. Pulses normal. Respiratory: No respiratory distress. Breath sounds normal. Abdomen: Soft and nontender. Skin: Skin warm and dry. Normal skin color. Normal skin turgor. Extremities: 1+ bilateral lower extremity edema. No calf ttp Neuro: Oriented X 3. No motor deficit. No sensory deficit. Medical Decision Making Medical Decision Making [facility]DM Narrative: 72 yo female with hx of DM, asthma, COPD, does not wear contact lens here with R eye conjunctivitis no vision loss and preseptal cellulitis without clinical signs of deeper space infection or orbital cellulitis given allergies will start on ointment and levofloxacin with precautions to return. no signs of vesicular rash or shingles no vision loss. Differential Diagnosis Differential Diagnoses: The differential diagnosis associated with the presentation includes preseptal cellulitis, orbital cellulitis Admission/Observation Consideration of admission/observation: Escalation of care including admission/observation considered not toxic, no systemic symptoms stable for DC External Record Review External record reviewed: Inpatient record Tests considered The following testing was considered but not selected: CT but given lack of pain doubt orbital cellulitis Prescription Management I considered prescription management with: Antibiotic and Other Discharge Plan Discharge Clinical Impression: Preseptal cellulitis of right eye, Conjunctivitis Patient Disposition: Home, Self-Care Instructions: Periorbital Cellulitis in Adults (ED), Conjunctivitis (ED) Additional Instructions: no lens wear. return for worsening pain, facial swelling, loss of vision, severe headaches, eye bulging or any other concerns. antibiotic is every 24 hours. you were given a first dose in the ED. no contact lens wear. wound check in 2 days with your doctor. Take a probiotic while you are on antibiotics and for at least one week after the antibiotics are finished - this can help protect your GI system from diarrhea and other issues. You can get probiotics by drinking kefir, eating yogurt or culturelle or another pill form of probiotic. Do not take it at the same time as you take the antibiotic.?More than 6 to 8 loose stools a day is not normal seek care if this happens monitor for any tendon pain or injuries while on levofloxacin Prescriptions: New levofloxacin 500 mg tablet 500 mg PO DAILY Qty: 6 0RF erythromycin 5 mg/gram (0.5 %) ointment 0.5 inch ophthalmic (eye) BID 7 Days Qty: 3.5 0RF No Action alcohol swabs [Alcohol Pads] Pads, Medicated 1 pad topical BID Qty: 100 0RF alendronate 70 mg tablet 70 mg PO QWEEK Qty: 14 1RF (DME) FreeStyle Lite Strips Strip See Rx Instructions .ROUTE .MEDSUPPLY Qty: 100 11RF Rx Instructions: As directed three times a day cholecalciferol (vitamin D3) 125 mcg (5,000 unit) capsule 125 mcg PO DAILY Qty: 90 1RF metoprolol tartrate 100 mg tablet 100 mg PO BEDTIME Qty: 90 1RF (DME) lancets [FreeStyle Lancets] 28 gauge misc See Rx Instructions .ROUTE .COMPLEX Qty: 100 11RF Dose Instruction: USE TO TEST TWICE A DAY DIRECTED Rx Instructions: USE TO TEST TWICE A DAY DIRECTED losartan 50 mg tablet 50 mg PO DAILY Qty: 30 3RF Combivent Respimat 20-100 mcg/actuation mist 1 puff PO QID Qty: 12 0RF fluticasone propion-salmeterol [[employer]] 250-50 mcg/dose blister with device 1 inh PO BID Qty: 60 0RF semaglutide 0.25 mg or 0.5 mg(2 mg/1.5 mL) pen injector 0.5 mg subcut QWEEK Qty: 1.5 0RF folic acid 1 mg tablet 1 mg PO DAILY Qty: 90 6RF cyanocobalamin (vitamin B-12) 1,000 mcg tablet 1 tab PO DAILY Qty: 90 4RF levofloxacin 500 mg tablet 500 mg PO DAILY 5 Days Qty: 5 0RF aspirin 81 mg tablet,delayed release (DR/EC) 81 mg PO DAILY (DME) blood-glucose meter [FreeStyle Lite Meter] Kit See Rx Instructions .ROUTE .MEDSUPPLY Qty: 1 0RF Rx Instructions: As directed 3xday
[2023-02-02 03:25] VITALS: BP 165/79; PULSE 85; TEMP 36.7; O2SAT 100
[2023-02-02] MEDS: Erythromycin Base 0.5% Oph Oin 1 GM TUBE 1 CM EYE-RIGHT (04:19)
[2023-02-02] MEDS: levoFLOXacin 500 MG TABLET PO (04:19)
--- NOTE | 2023-02-02 04:27 | MHC.EDTECH ---
Call out to [facility] at [phone] to book transport for pt back home, estimated eta given was 0500
== END 2023-02-02 05:19 | disposition home or self-care (01) ==
PROVIDERS: Emergency Provider Emergency Medicine; PCP Internal Medicine
DX: L03.213 Periorbital cellulitis (principal); H10.9 Unspecified conjunctivitis
CPT/HCPCS: 99283; 99284

== ENCOUNTER 2023-07-12 09:49 | Outpatient (AMB) | payer MEDICARE, SELFPAY ==
--- NOTE | 2023-07-12 10:52 | A.OFFVIS_ITS ---
Intake Intake Visit Reasons: DM-unable to lvm Allergies cephalexin [From KEFLEX] Allergy (Intermediate, Verified 07/08/22 12:44) HIVES Penicillins [PENICILLINS] Allergy (Intermediate, Verified 07/08/22 12:44) HIVES acetaminophen [From Excedrin Extra Strength] Allergy (Mild, Verified 07/08/22 12:44) Hives aspirin [From Excedrin Extra Strength] Allergy (Mild, Verified 07/08/22 12:44) Hives caffeine [From Excedrin Extra Strength] Allergy (Mild, Verified 07/08/22 12:44) Hives metformin [METFORMIN] Allergy (Mild, Verified 07/08/22 12:44) HIVES enalaprilat [Vasotec] Allergy (Unknown, Verified 07/08/22 12:44) Unknown dulaglutide [From Trulicity] Allergy (Verified 07/08/22 12:44) Hives HPI Comprehensive Diabetes Asmnt Most Recent Diabetes Results: Hemoglobin A1c 7.2 % 06/29/18 Microalb/Creat Ratio TNP 03/28/20 Cholesterol 230 mg/dL 03/28/20 HDL Cholesterol 47 mg/dL 03/28/20 Triglycerides 171 mg/dL 03/28/20 Creatinine 1.01 mg/dL (0.5-1.4) 07/08/22 Blood Urea Nitrogen 13 mg/dL (9-16) 07/08/22 Sodium 140 mmol/L (135-145) 07/08/22 Potassium 4.1 mmol/L (3.3-5.1) 07/08/22 Chloride 107 mmol/L (96-108) 07/08/22 Carbon Dioxide 21 mmol/L (22-29) L 07/08/22 Calcium 10.7 mg/dL (8.4-10.2) H 07/08/22 AST 12 U/L (5-31) 07/08/22 ALT 7 U/L (0-31) 07/08/22 Total Protein 8.7 g/dL (6.5-8.0) H 07/08/22 Albumin 4.3 g/dL (3.5-5.0) 07/08/22 [facility] Medical History Acid reflux Anemia Asthma Asthma CHF (congestive heart failure) Closed fracture of left distal femur COPD (chronic obstructive pulmonary disease) COPD (chronic obstructive pulmonary disease) Essential hypertension Femur fracture, left Hyperlipidemia LDL goal <70 Hypertension Leg swelling Normocytic anemia Osteopenia PVC (premature ventricular contraction) Type 2 diabetes mellitus with diabetic polyneuropathy Surgical History History of surgery on lower extremity History of cardiac catheterization Hx of local excision of skin lesion History of tooth extraction Hx of bilateral breast reduction surgery History of cholecystectomy Family History Father CVD (cardiovascular disease) Mother CVD (cardiovascular disease) Gastric cancer Diabetes Sister Lung disease Social History Household Members: None Housing: Apartment Do you presently have visiting nurse or other home services: No Alcohol intake: never Comment: burning Patient Tobacco Use Status: Never used Tobacco e-Cigarette/Vaping Use: Never Used Second Hand Smoke Exposure: No service: No Current occupational status: disabled Sexual orientation: Straight/Heterosexual Gender identity: Female Cognitive needs: Yes (walker) Hearing needs: No Vision needs: Yes (glasses) Assessment & Plan Assessment & Plan (1) Type 2 diabetes mellitus with diabetic polyneuropathy: Code(s): E11.42 - Type 2 diabetes mellitus with diabetic polyneuropathy Qualifiers: Diabetes mellitus [facility] insulin use: without [facility] use Qualified Code(s): E11.42 - Type 2 diabetes mellitus with diabetic polyneuropathy Plan: Learning objectives: The patient was provided with verbal and written education on the following topics as outlined below. The patient met all learning objectives and was able to verbalize understanding and provide teach back of education topics discussed . The patient was provided with the opportunity to ask questions and all questions were answered. Patient Assessment Assess patient education level/literacy/barriers Patient questions/concerns, patient reports she does not like her PCP she is looking for an alternative, she is well overdue for A1c. Set up date and time in patient's glucose meter, Pt is on Ozempic 0.5 mg weekly. Patient has not seen Dr. Sanchez yet, has upcoming appointment with Dr. Sanchez in September 2023. Rec ommended patient come in 2 weeks prior to that visits we can put on sample glucose sensor. Reviewed patient's meter, appears patient might be having some episodes of hypoglycemia. Reviewed with patient how to treat hypoglycemia with rule of 15s Requested from Dr. Sanchez to place A1c order Brief overview of Diabetes Management Monitoring blood sugar Following a meal plan Regular exercise Maintaining a healthy weight Taking medication as needed Members of the care team (PCP, RN, MA, RD, CDE, gas cutter) Blood glucose monitoring When/how often to test Target blood sugar ranges Patient's glucose appear to be within target patient testing once a day fasting Introduction to Nutrition Importance of healthy diet in managing DM Diet is personalized to individual preference Review patient?s regular diet/food preferences Who prepares meals/does food shopping/ Dining out?/ Barriers? How diet effects glucose Eating 3 balanced meals a day with small, healthy snacks between meals Review food groups Carbohydrates: What is a carbohydrate/Which food/food groups are considered carbohydrates Effect of carbohydrates on blood glucose Portion sizes Reading food labels Basic carb counting (if applicable per nursing assessment) Plate method Meal planning Recommendations: Follow plate method, consistent carbs and read nutritional labels. Smart Goal: Patient will treat any episode of hypoglycemia with rule of 15s Educational Materials: The patient was provided with the following written educational materials: Planning Healthy Meals Handout Patient Response to instructions: Comprehension of Instructions: Fair Readiness to make changes: Contemplation How confident they feel about making changes: Poor Patient Instructions: Include regular daily activity. ADA recommends 30 minutes of exercise 5 days a week. Weight loss talk to PCP or [employer] before starting new plan. Test blood sugar as directed; Fasting and 2hpp largest meal. Watch trends in results. Utilize results and to assess how food, physical activity and medications affect blood sugar results. Bring glucometer or CGM to next visit. Be knowledgeable about diabetes medication, its action, side effects, efficacy, toxicity, prescribed dosage, appropriate timing and frequency of administration, effect of missed and delayed doses and instructions for storage, travel and safety. Problem solving techniques to monitor hypo/hyperglycemia episodes and treatments. Reduce risk reduction behaviors, smoking cessation, regular eye, foot and dental examinations. Coding Level of Care Code Est Pt Level 1 (34034) Diagnoses Type 2 diabetes mellitus with diabetic polyneuropathy, without long-term current use of insulin E11.42 Diabetes mellitus long term acute care registered nurse insulin use: without long term acute care registered nurse use
== END 2023-07-12 10:56 | disposition home or self-care (01) ==
PROVIDERS: PCP Internal Medicine; Visit Provider Registered Nurse Diabetes Educator
DX: E11.42 Type 2 diabetes mellitus with diabetic polyneuropathy (principal)

== ENCOUNTER → 2023-07-12 09:49 | Outpatient (BNVA) | payer MEDICARE, SELFPAY | PROVIDERS: PCP Internal Medicine; Visit Provider Registered Nurse Diabetes Educator | DX: E11.42 Type 2 diabetes mellitus with diabetic polyneuropathy (principal) | CPT/HCPCS: 99211 ==

== ENCOUNTER 2023-07-12 11:16 | Outpatient (REF) | payer MEDICARE, SELFPAY ==
[2023-07-12 14:04] LABS: Estimated Average Glucose 111 mg/dL; Hemoglobin A1c % 5.5 % (<6.0)
== END 2023-07-12 11:17 | disposition home or self-care (01) ==
LOC: HO.10HDL 11:16
PROVIDERS: Visit Provider Internal Medicine Endocrinology, Diabetes & Metabolism
DX: E11.42 Type 2 diabetes mellitus with diabetic polyneuropathy (principal)
CPT/HCPCS: 36415; 83036

== ENCOUNTER 2023-07-14 06:37 | Outpatient (REF) | payer MEDICARE, SELFPAY ==
--- NOTE | ~2023-07-14 | XR_ITS ---
EXAMINATION: XR FEMUR, LEFT CLINICAL INFORMATION: Pain in leg, unspecified COMPARISON: Left knee 07/08/2021, left hip 07/08/2021 TECHNIQUE: AP and lateral views of the left femur were obtained. FINDINGS: The bones are intact. No acute fracture. There is an intramedullary tim extending from the proximal shaft of the femur to the level of the femoral condyles with 4 interlocking screws in the region of the distal tim. The most inferior screw extends into the soft tissues. There is healing of previously noted left femoral shaft and supracondylar fracture. There is marked narrowing of the medial joint compartment with [id number] appearance and marked narrowing of the patellofemoral joint compartment. There is minimal narrowing of the joint space in the left hip. XR/XR femur LT 2V IMPRESSION: Intramedullary tim extending from the proximal shaft of the femur to the level of the femoral condyles with 4 interlocking screws in the region of the distal tim. The most inferior screw extends into the soft tissues. Marked osteoarthritis of the left knee. Mild osteoarthritis of the left hip.
== END 2023-07-14 06:38 | disposition home or self-care (01) ==
LOC: HO.HOSX 06:37
PROVIDERS: Visit Provider Physician Assistant
DX: S72.445 Nondisplaced fracture of lower epiphysis (separation) of left femur (principal); M17.12 Unilateral primary osteoarthritis, left knee; X58.XXXD Exposure to other specified factors, subsequent encounter; Z98.890 Other specified postprocedural states; Z79.899 Other long term (current) drug therapy
CPT/HCPCS: 73552; 99212

== ENCOUNTER 2023-07-14 11:54 | Outpatient (AMB) | payer MEDICARE, SELFPAY ==
[2023-07-14 12:15] VITALS: BMI 30.7
--- NOTE | 2023-07-14 12:15 | MHC.OFFVIS ---
Intake Vital Signs 07/14/23 12:15 Height 5 ft 6 in Weight 190 lb BMI 30.7 Intake Visit Reasons: O/V s/p lt distal femur retrograde nail 07/2021 Intake Note: Miracle mora 73 year old female presents today for a follow s/p left distal femur retrograde nail on 07/09/21. Patient reports that she has been having discomfort for a while. She recently was cleaning when she felt a pop/crack on her left leg for a couple of weeks ago. States unable to bear full weight on her left leg. States feels like a rubber band that wont stretch out. She describes her pain as a burning sensation in the lateral aspect of leg and not able to fully bend at her knee. Finds some relief with a heating pad. Allergies cephalexin [From KEFLEX] Allergy (Intermediate, Verified 07/14/23 12:27) HIVES Penicillins [PENICILLINS] Allergy (Intermediate, Verified 07/14/23 12:27) HIVES acetaminophen [From Excedrin Extra Strength] Allergy (Mild, Verified 07/14/23 12:27) Hives aspirin [From Excedrin Extra Strength] Allergy (Mild, Verified 07/14/23 12:27) Hives caffeine [From Excedrin Extra Strength] Allergy (Mild, Verified 07/14/23 12:27) Hives metformin [METFORMIN] Allergy (Mild, Verified 07/14/23 12:27) HIVES enalaprilat [Vasotec] Allergy (Unknown, Verified 07/14/23 12:27) Unknown dulaglutide [From Trulicity] Allergy (Verified 07/14/23 12:27) Hives Medication List - Last Reconciled 07/17/23 by Cesar Flores PA-C alcohol swabs (Alcohol Pads) 1 pad topical BID alendronate 70 mg PO QWEEK aspirin 81 mg PO DAILY blood sugar diagnostic (FreeStyle Lite Strips) As directed three times a day blood-glucose meter (FreeStyle Lite Meter kit) As directed 3xday cholecalciferol (vitamin D3) 125 mcg PO DAILY cyanocobalamin (vitamin B-12) 1 tab PO DAILY erythromycin 0.5 inches ophthalmic (eye) BID 7 days fluticasone propion-salmeterol 250-50 mcg/dose (Wixela Inhub) 1 inh PO BID folic acid 1 mg PO DAILY ipratropium-albuterol 20-100 mcg/actuation (Combivent Respimat) 1 puff PO QID lancets (FreeStyle Lancets) USE TO TEST TWICE A DAY DIRECTED levofloxacin 500 mg PO DAILY 5 days levofloxacin 500 mg PO DAILY losartan 50 mg PO DAILY metoprolol tartrate 100 mg PO BEDTIME semaglutide 0.5 mg (0.374 mL) subcut QWEEK HPI O/V s/p lt distal femur retrograde nail 07/2021 HPI Details 73-year-old female who returns to the office today for a follow-up of left distal femur retrograde nail, 07/09/21. She reports she was recently cleaning when she felt a crack on her left leg, about 2 weeks ago. She currently states she has discomfort as well as a burning pain at the lateral aspect of her leg which makes her unable to fully weight bear on her left leg. She experiences as her knee will give out. She also c/o increased burning sensation and numbness at night. She describes her leg as a rubber band that would stretch out. She has been working on home physical therapy as instructed. She finds mild relief with heating pad. [facility] Medical History Acid reflux Anemia Asthma Asthma CHF (congestive heart failure) Closed fracture of left distal femur COPD (chronic obstructive pulmonary disease) COPD (chronic obstructive pulmonary disease) Essential hypertension Femur fracture, left Hyperlipidemia LDL goal <70 Hypertension Leg swelling Normocytic anemia Osteopenia PVC (premature ventricular contraction) Type 2 diabetes mellitus with diabetic polyneuropathy Surgical History History of surgery on lower extremity History of cardiac catheterization Hx of local excision of skin lesion History of tooth extraction Hx of bilateral breast reduction surgery History of cholecystectomy Family History Father CVD (cardiovascular disease) Mother CVD (cardiovascular disease) Gastric cancer Diabetes Sister Lung disease Social History Household Members: None Housing: Apartment Do you presently have visiting nurse or other home services: No Alcohol intake: never Comment: burning Patient Tobacco Use Status: Never used Tobacco e-Cigarette/Vaping Use: Never Used Second Hand Smoke Exposure: No service: No Current occupational status: disabled Sexual orientation: Straight/Heterosexual Gender identity: Female Cognitive needs: Yes (walker) Hearing needs: No Vision needs: Yes (glasses) Review of Systems Const All systems reviewed & are unremarkable except as noted in HPI and below Physical Exam Vital Signs: BMI result Body Mass Index 30.7 Const General: cooperative and no acute distress Orientation/consciousness: patient oriented x3 Resp Effort & Inspection: normal respiratory effort and able to speak in complete sentences Cardio Peripheral pulses: Peripheral pulses 2+ throughout Neuro General: patient oriented x3 Extrem Other: Left knee: Incision well healed. There is no sign of infection, no redness, swelling or significant tenderness to palpation. She has full ROM of her knee. She can plantar and dorsi flex her foot with weakness however this is consistent on the contralateral side. NVI. Results Reviewed Results Reviewed: Xrays were obtained in the office today and personally reviewed by me of the left femur show intact IMN without signs of loosening, no acute fracture. She does have significant OA in the left knee. Assessment & Plan Assessment & Plan (1) Closed left femoral fracture: Code(s): S72.92XA - Unspecified fracture of left femur, initial encounter for closed fracture Qualifiers: Encounter type: subsequent encounter Femur location: distal epiphysis Fracture alignment: nondisplaced Fracture healing: with routine healing Qualified Code(s): S72.445D - Nondisplaced fracture of lower epiphysis (separation) of left femur, subsequent encounter for closed fracture with routine healing (2) Osteoarthritis of left knee: Code(s): M17.12 - Unilateral primary osteoarthritis, left knee Qualifiers: Osteoarthritis type: primary Qualified Code(s): M17.12 - Unilateral primary osteoarthritis, left knee Plan I reassured the patient that the hardware is intact and there are no new fractures. She has severe OA so we briefly discussed the benefits of a steroid injection which she would like to hold off at this time. She is a diabetic which has been managed by our endocrinology providers. I also encouraged physical therapy on her low back and knee and recommend an appointment with Dr. Sánchez, our peer support specialist to further evaluate the lower back pain and neurological symptoms. She is content with this plan. Orders: Orders XR femur LT 2V 07/14/23 M79.606 - Pain in leg, unspecified PT Evaluation and Treatment 07/14/23 M17.12 - Unilateral primary osteoarthritis, left knee, M54.50 - Low back pain, unspecified, S72.92XA - Unspecified fracture of left femur, initial encounter for closed fracture Patient Instructions: Scribed for Cesar Flores PA-C, by Alvin Boone medical lab scientist, on 07/14/2023 at 12:30 PM EST. I, Cesar Flores PA-C, have personally reviewed and agree with the information entered by the scribe. Coding Level of Care Code Est Pt Level 3 (72861) Diagnoses Closed nondisplaced fracture of distal epiphysis of left femur with routine healing, subsequent encounter S72.445D Encounter type: subsequent encounter Femur location: distal epiphysis Fracture alignment: nondisplaced Fracture healing: with routine healing Primary osteoarthritis of left knee M17.12 Osteoarthritis type: primary
== END 2023-07-14 13:04 | disposition home or self-care (01) ==
PROVIDERS: PCP Internal Medicine; Visit Provider Physician Assistant
DX: S72.445 Nondisplaced fracture of lower epiphysis (separation) of left femur (principal); M17.12 Unilateral primary osteoarthritis, left knee
CPT/HCPCS: 99213

== ENCOUNTER 2023-08-12 09:41 | Outpatient (REF) | payer OTHER, SELFPAY | END 2023-08-12 09:42 | disposition home or self-care (01) | LOC: HO.HOSX 09:41 | PROVIDERS: Visit Provider Physical Medicine & Rehabilitation | DX: Z13.89 Encounter for screening for other disorder (principal) ==

== ENCOUNTER 2023-08-23 09:39 | Outpatient (AMB) | payer MEDICARE, SELFPAY ==
--- NOTE | 2023-08-23 10:21 | MHC.PC.OV ---
Vital Signs 08/23/23 10:23 08/23/23 10:36 Height 5 ft 0.43 in Weight 173 lb 4 oz BMI 33.4 BP 170/72 H 160/60 H Blood Pressure Location Lt brachial Rt brachial Position Sitting Sitting Pulse 60 Pulse Source Pulse Oximeter Pulse Oximetry (%) 97 Oxygen Delivery Method Room Air Intake Visit Reasons: Transfer of care from Dr. Guadalupe. Ledger Poster Required: No Accompanied by: Self / Same As Patient Allergies cephalexin [From KEFLEX] Allergy (Intermediate, Verified 08/23/23 10:48) HIVES Penicillins [PENICILLINS] Allergy (Intermediate, Verified 08/23/23 10:48) HIVES acetaminophen [From Excedrin Extra Strength] Allergy (Mild, Verified 08/23/23 10:48) Hives aspirin [From Excedrin Extra Strength] Allergy (Mild, Verified 08/23/23 10:48) Hives caffeine [From Excedrin Extra Strength] Allergy (Mild, Verified 08/23/23 10:48) Hives metformin [METFORMIN] Allergy (Mild, Verified 08/23/23 10:48) HIVES enalaprilat [Vasotec] Allergy (Unknown, Verified 08/23/23 10:48) Unknown dulaglutide [From Trulicity] Allergy (Verified 08/23/23 10:48) Hives Medication List - Last Reconciled 08/23/23 by Luis Waite PA-C alcohol swabs (Alcohol Pads) 1 pad topical BID alendronate 70 mg PO QWEEK aspirin 81 mg PO DAILY blood sugar diagnostic (FreeStyle Lite Strips) As directed three times a day blood-glucose meter (FreeStyle Lite Meter kit) As directed 3xday cholecalciferol (vitamin D3) 125 mcg PO DAILY cyanocobalamin (vitamin B-12) 1 tab PO DAILY fluticasone propion-salmeterol 250-50 mcg/dose (Wixela Inhub) 1 inh PO BID folic acid 1 mg PO DAILY ipratropium-albuterol 20-100 mcg/actuation (Combivent Respimat) 1 puff PO QID lancets (FreeStyle Lancets) USE TO TEST TWICE A DAY DIRECTED losartan 50 mg PO DAILY metoprolol tartrate 100 mg PO BEDTIME semaglutide (Ozempic) 0.5 mg (0.736 mL) subcut QWEEK Tobacco use date assessed: 08/23/23 Fall risk assessment: No Falls in past year Last assessed Fall Risk: 08/23/23 Dental Screening Dental Screen Date: 08/23/23 Did you have a dental visit in the last 12 months?: No Did you have a dental problem in the last 6 months where you did not have access to dental care?: No Was dental information given to patient?: No (No teeth) HPI Transfer of care from Dr. Guadalupe. HPI Details Patient is a 73-year-old female here today for transfer care visit. Patient has a past medical history significant for type 2 diabetes hypertension, asthma/COPD, obesity, leukocytosis, history of left hip fracture with hardware placement.. .. Left hip fracture: Suffered a fall in 2021 which resulted in need for surgical placement of hardware left hip. She did spend an extensive amount of time in rehab. Apparently did blood clots in her legs status post hip repair. .. Hypertension: Blood pressures have been elevated as of late. Reports 160s to 170 systolic. She denies any dizziness, headaches or vision issues. She does report having an occasional chest discomfort. She was on losartan 50 mg though apparently has been taken off of this medication during a hospital stay or rehab stay. PLAN: Will plan to restart losartan 50 mg and monitor blood pressure at home. Does have home VNA coming to give her her Ozempic injection. .. COPD: Continues on maintenance inhaler with decent affect, .. Type 2 diabetes: Continues to manage her type 2 diabetes with Ozempic. Does report having hypoglycemic events at night. She is considering getting a continuous glucose monitor. She has lost a significant amount of weight over the last few years and may not need diabetic medication. Most recent A1c of 5.5 She will discuss this with her program support assistant [facility] Medical History Acid reflux Anemia Asthma Asthma CHF (congestive heart failure) Closed fracture of left distal femur COPD (chronic obstructive pulmonary disease) COPD (chronic obstructive pulmonary disease) Essential hypertension Femur fracture, left Hyperlipidemia LDL goal <70 Hypertension Leg swelling Normocytic anemia Osteopenia PVC (premature ventricular contraction) Type 2 diabetes mellitus with diabetic polyneuropathy Surgical History History of surgery on lower extremity History of cardiac catheterization Hx of local excision of skin lesion History of tooth extraction Hx of bilateral breast reduction surgery History of cholecystectomy Family History Father CVD (cardiovascular disease) Mother CVD (cardiovascular disease) Gastric cancer Diabetes Sister Lung disease Social History Household Members: None Housing: Apartment Do you presently have visiting nurse or other home services: No Alcohol intake: never Comment: burning Patient Tobacco Use Status: Never used Tobacco e-Cigarette/Vaping Use: Never Used Second Hand Smoke Exposure: No service: No Current occupational status: disabled Sexual orientation: Straight/Heterosexual Gender identity: Female Cognitive needs: Yes (walker) Hearing needs: No Vision needs: Yes (glasses) Questionnaire PHQ-9 Over the last 2 weeks, how often have you been bothered by any of the following problems? 1. Little interest or pleasure in doing things: not at all 2. Feeling down, depressed, or hopeless: not at all 3. Trouble falling or staying asleep, or sleeping too much: not at all 4. Feeling tired or having little energy: not at all 5. Poor appetite or overeating: not at all 6. Feeling bad about yourself - or that you are a failure or have let yourself or your family down: not at all 7. Trouble concentrating on things, such as reading the newspaper or watching television: not at all 8. Moving or speaking so slowly that other people could have noticed. Or the opposite - being so fidgety or restless that you have been moving around a lot more than usual: not at all 9. Thoughts that you would be better off or of hurting yourself in some way: not at all Total score: 0 Depression Screening Interpretation: Negative Depression Screening Done: Yes 87406 - PHQ-9 Billing: Yes Source: Developed by Drs. Chu Vaughn, Trista Vital, Reyes Johnson and colleagues, with an educational paolo from [employer]. Thrive Questionnaire Date Thrive assessed: 08/23/23 I am a: Patient What is your living situation today?: I have a place to live, but I am worried about losing it in the future Within the past 12 months, did the food you bought not last and you didn't have the money to get more?: Never true Within the past 12 months, did you worry whether your food would run out before you got money to buy more?: Never true Do you have trouble paying for medicines?: No Do you have trouble getting transportation to medical appointments?: No Do you have trouble paying your heating and electricity bill?: No Do you have trouble taking care of your child, family member or friend?: No Do you have trouble with day-to-day activities such as bathing, preparing meals, shopping, managing finances, etc.?: No Are you currently unemployed and looking for a job?: No Are you interested in more education?: No Please select the resources that you would like help with: None Currently or been in a relationship where the following occur: no concerns reported THRIVE Score: 1 AUDIT C Alcohol Use Questionnaire (AUDIT-C) 1. How often do you have a drink containing alcohol?: Never 3. How often do you have six or more drinks on one occasion?: Never Total Score: 0 GUSTABO-7 AMB Questionnaire GUSTABO-7 Date GUSTABO - 7 assessed: 08/23/23 Feeling nervous, anxious, or on edge: 0 = Not at all Not being able to stop or control worryin = Not at all Worrying too much about different things: 0 = Not at all Trouble relaxin = Not at all Being so restless that it is hard to sit still: 0 = Not at all Becoming easily annoyed or irritable: 0 = Not at all Feeling afraid as if something awful might happen: 0 = Not at all Total GUSTABO-7 score (0-4 normal; 5-9 mild; 10-14 moderate; 15-21 severe): 0 Source: Developed by Drs. Chu Vaughn, Trista Vital, Reyes Johnson and colleagues, with an educational paolo from [employer]. GUSTABO-7 Assessment Billing GUSTABO-7 Assessment Tool: GUSTABO-7 Assessment 66109 Review of Systems Const Denies headache(s) Eyes Denies loss of vision ENT Denies vertigo, Denies dizziness, Denies headache(s) and Denies sore throat Card Denies chest pain, Denies leg edema and Denies lightheadedness Resp Denies cough, Denies hemoptysis and Denies wheezing GI Denies abdominal pain, Denies melena, Denies constipation, Denies diarrhea and Denies vomiting Denies urinary frequency, Denies dysuria and Denies urinary urgency Musc Denies arthralgias, Denies joint swelling, Denies numbness and Denies tingling Neuro Denies Abnormal speech present, Denies behavioral changes, Denies vertigo, Denies dizziness, Denies headache(s), Denies loss of vision, Denies memory loss, Denies numbness and Denies tingling Psych Denies anxiety, Denies behavioral changes, Denies depression, Denies memory loss and Denies panic attacks Chung/Lymph Denies easy bleeding and Denies easy bruising Aller/Immun Denies wheezing Physical exam (Primary Care) Vital Signs: Last Vital Signs Pulse 60 08/23/23 10:23 BP 160/60 H 08/23/23 10:36 Pulse Ox 97 08/23/23 10:23 Oxygen Delivery Method Room Air 08/23/23 10:23 BMI result Body Mass Index 33.4 BMI Assessment/Plan discussion: High BMI High, discussed plan: lifestyle, dietary and physical activity Tobacco/Smoking Status: Tobacco use Status Tobacco use date assessed 08/23/23 08/23/23 10:33 Patient Tobacco Use Status Never used Tobacco 08/23/23 10:21 e-Cigarette/Vaping Use Never Used 08/23/23 10:21 PHQ-9: PHQ-9 Score PHQ-9: Total score 0 08/23/23 10:43 Depression Screening Interpretation: Negative Thrive Assessment: Date of Thrive Assessment Date Thrive assessed 08/23/23 08/23/23 10:33 Currently or been in a relationship where the following occur: no concerns reported Const General: healthy appearing, no acute distress, alert and awake Nutritional Appearance: well nourished Orientation/consciousness: oriented to person, oriented to place and oriented to time HENMT Ears: TM's normal bilaterally General nose exam: Normal nasal mucous membranes and turbinates present Eyes Conjunctivae: conjunctivae normal Sclerae: sclerae normal Pupils: Equal, round and reactive pupils present Neck Neck: Yes no lymphadenopathy and Yes no JVD Thyroid: Thyroid normal Carotids: no bruits Resp Effort & Inspection: normal respiratory effort and not tachypneic Auscultation: no crackles, no rales, no rhonchi and no wheezes Cardio Rate: regular rate Rhythm: regular rhythm Heart sounds: no murmurs and normal S1 and S2 GI Palpation (GI): Soft to palpation, nontender, no hepatomegaly and no splenomegaly Auscultation: normal bowel sounds Back/Spine/Pelvis Other: AMBULATES WITH A WALKER FOR ASSISTANCE. Skin General skin exam: no rashes or lesions noted and dry skin Neuro General: oriented to person, oriented to place and oriented to time Cranial nerves: Yes Equal, round and reactive pupils present Speech: No Abnormal speech present Gait exam (Neuro): Normal gait present Motor exam (neuro): no tremor noted Extrem Right upper extremity: full ROM Left upper extremity: full ROM Right lower extremity: full ROM; no edema Left lower extremity: full ROM; no edema Psych Mental Status: mental status grossly normal Speech and movement: Normal speech and movement present Affect: normal affect Attitude: cooperative Thought process: Normal thought process present Assessment and Plan Assessment & Plan (1) Type 2 diabetes mellitus with diabetic polyneuropathy: Code(s): E11.42 - Type 2 diabetes mellitus with diabetic polyneuropathy Qualifiers: Diabetes mellitus detention insulin use: without corporate quality manager use Qualified Code(s): E11.42 - Type 2 diabetes mellitus with diabetic polyneuropathy Plan: Patient's type 2 diabetes seems to be controlled. Does concern me she reports hypoglycemic events at night. Has lost a significant amount of weight since her recent hospitalizations and rehab stays. Wondering if she still needs GLP 1. Will ask her program support assistant at upcoming appointment. (2) Hypertension: Code(s): I10 - Essential (primary) hypertension Qualifiers: Hypertension type: primary hypertension Qualified Code(s): I10 - Essential (primary) hypertension Plan: Patient's blood pressure elevated today in office. Will restart losartan 50 mg for better blood pressure control. Does have visiting nurses checking her blood pressure at home. Goal blood pressures to be below 140/90 (3) COPD (chronic obstructive pulmonary disease): Comment: She is being treated for asthma/COPD, moderately severe. It remains well controlled with her current medical regimen including: Wixela 250-50 1 inhalation b.i.d.. Ipratropium/albuterol by updraft Q 6 hours while awake. Combivent Respimat 1 inhalation Q 4-6 hours p.r.n. as rescue inhaler. Code(s): J44.9 - Chronic obstructive pulmonary disease, unspecified Qualifiers: COPD type: unspecified COPD Qualified Code(s): J44.9 - Chronic obstructive pulmonary disease, unspecified Plan: Patient reports her breathing is fairly stable at rest. She does get some short of breath on exertion. (4) Hypoglycemia: Code(s): E16.2 - Hypoglycemia, unspecified Plan: As above will discuss a continues glucose monitor and perhaps discontinuing Ozempic. (5) Rash of both feet: Code(s): R21 - Rash and other nonspecific skin eruption Plan: Will supply patient with steroid cream. Advised to moisturize well after bathing. Orders: Orders Microalbumin, Random (w Creat) Today E11.42 - Type 2 diabetes mellitus with diabetic polyneuropathy Complete Blood Count no Diff Today E11.42 - Type 2 diabetes mellitus with diabetic polyneuropathy Comprehensive [place]. Panel Fast Today E11.42 - Type 2 diabetes mellitus with diabetic polyneuropathy Medications: New triamcinolone acetonide 0.1% 1 appl topical DAILY 30 days 80 grams 3RF R21 - Rash and other nonspecific skin eruption compr.stocking,knee,long,large As directed 2 ea 0RF M79.89 - Other specified soft tissue disorders Refilled losartan 50 mg PO DAILY 30 tabs 3RF I10 - Essential (primary) hypertension Patient Instructions: Goals: Control blood pressure, refrain from hypoglycemic events Barriers: Prescribed new medication for blood pressure control, transportation to medical appointments Coding Level of Care Code Est Pt Level 4 (84424) Diagnoses Type 2 diabetes mellitus with diabetic polyneuropathy, without long-term current use of insulin E11.42 Diabetes mellitus corporate quality manager insulin use: without detention use Primary hypertension I10 Hypertension type: primary hypertension Chronic obstructive pulmonary disease, unspecified COPD type J44.9 COPD type: unspecified COPD Hypoglycemia E16.2 Rash of both feet R21 Additional Codes GUSTABO-7 Assessment Billing - GUSTABO-7 Assessment Tool: GUSTABO-7 Assessment 23214 ([id number])
[2023-08-23 10:23] VITALS: BP 170/72; PULSE 60; O2SAT 97; BMI 33.4
[2023-08-23 10:36] VITALS: BP 160/60
== END 2023-08-23 11:13 | disposition home or self-care (01) ==
PROVIDERS: PCP Physician Assistant; Visit Provider Physician Assistant
DX: E11.42 Type 2 diabetes mellitus with diabetic polyneuropathy (principal); J44.9 Chronic obstructive pulmonary disease, unspecified; I10 Essential (primary) hypertension; R21 Rash and other nonspecific skin eruption
CPT/HCPCS: 99214

== ENCOUNTER 2023-08-25 11:19 | Outpatient (REF) | payer OTHER, SELFPAY ==
[2023-08-25 13:36] LABS: Hemoglobin 11.9 g/dl (12.0-16.0); Mean Corpuscular HGB Conc 33.1 g/dl (31.0-35.0); Mean Corpuscular Hemoglobin 29.2 pg (27.0-33.0); Mean Corpuscular Volume 88.5 fL (80.0-98.0); Mean Platelet Volume 9.1 fL (9.4-12.3); Platelet Count 402 X10*3/uL (160-400); Red Blood Count 4.07 X10*6/uL (4.20-5.50); Red Cell Distribution Width 13.9 % (11.0-16.0); White Blood Count 9.2 X10*3/uL (4.8-10.8)
[2023-08-25 14:11] LABS: Alanine Aminotransferase 7 U/L (0-31); Albumin Level 4.1 g/dL (3.5-5.0); Alkaline Phosphatase 78 U/L (39-117); Anion Gap 13 (12-20); Aspartate Amino Transferase 13 U/L (5-31); Bilirubin Total 0.5 mg/dL (0.0-1.0); Blood Urea Nitrogen 17 mg/dL (9-16); Calcium 10.6 mg/dL (8.4-10.2); Carbon Dioxide 23 mmol/L (22-29); Chloride 108 mmol/L (96-108); Estimated Glomerular Filt Rate 57; Glucose Fasting 96 mg/dL (60-99); Potassium 3.8 mmol/L (3.3-5.1); Sodium 140 mmol/L (135-145); Total Protein 8.3 g/dL (6.5-8.0)
[2023-08-25 14:30] LABS: Microalbum/Creatinine Ratio Ur 130.4 ug/mg cr (<30)
== END 2023-08-25 11:20 | disposition home or self-care (01) ==
LOC: HO.10HDL 11:19
PROVIDERS: Visit Provider Physician Assistant
DX: E11.42 Type 2 diabetes mellitus with diabetic polyneuropathy (principal)
CPT/HCPCS: 36415; 80053; 82043; 82570; 85027; 99211

== ENCOUNTER 2023-08-25 12:29 | Outpatient (AMB) | payer OTHER, SELFPAY ==
--- NOTE | 2023-08-25 12:59 | A.OFFVIS_ITS ---
Intake Intake Visit Reasons: Sensor sample Lead Supply Worker Required: No Accompanied by: Self / Same As Patient Allergies cephalexin [From KEFLEX] Allergy (Intermediate, Verified 08/23/23 10:48) HIVES Penicillins [PENICILLINS] Allergy (Intermediate, Verified 08/23/23 10:48) HIVES acetaminophen [From Excedrin Extra Strength] Allergy (Mild, Verified 08/23/23 10:48) Hives aspirin [From Excedrin Extra Strength] Allergy (Mild, Verified 08/23/23 10:48) Hives caffeine [From Excedrin Extra Strength] Allergy (Mild, Verified 08/23/23 10:48) Hives metformin [METFORMIN] Allergy (Mild, Verified 08/23/23 10:48) HIVES enalaprilat [Vasotec] Allergy (Unknown, Verified 08/23/23 10:48) Unknown dulaglutide [From Trulicity] Allergy (Verified 08/23/23 10:48) Hives HPI Comprehensive Diabetes Asmnt Most Recent Diabetes Results: No Data to Display [facility] Medical History Acid reflux Anemia Asthma Asthma CHF (congestive heart failure) Closed fracture of left distal femur COPD (chronic obstructive pulmonary disease) COPD (chronic obstructive pulmonary disease) Essential hypertension Femur fracture, left Hyperlipidemia LDL goal <70 Hypertension Leg swelling Normocytic anemia Osteopenia PVC (premature ventricular contraction) Type 2 diabetes mellitus with diabetic polyneuropathy Surgical History History of surgery on lower extremity History of cardiac catheterization Hx of local excision of skin lesion History of tooth extraction Hx of bilateral breast reduction surgery History of cholecystectomy Family History Father CVD (cardiovascular disease) Mother CVD (cardiovascular disease) Gastric cancer Diabetes Sister Lung disease Social History Household Members: None Housing: Apartment Do you presently have visiting nurse or other home services: No Alcohol intake: never Comment: burning Patient Tobacco Use Status: Never used Tobacco e-Cigarette/Vaping Use: Never Used Second Hand Smoke Exposure: No service: No Current occupational status: disabled Sexual orientation: Straight/Heterosexual Gender identity: Female Cognitive needs: Yes (walker) Hearing needs: No Vision needs: Yes (glasses) Assessment & Plan Assessment & Plan (1) Type 2 diabetes mellitus with diabetic polyneuropathy: Code(s): E11.42 - Type 2 diabetes mellitus with diabetic polyneuropathy Qualifiers: Diabetes mellitus fdc insulin use: without exterminator helper termite use Qualified Code(s): E11.42 - Type 2 diabetes mellitus with diabetic polyneuropathy Plan: Patient at visit to set up an insert Dexcom G7 sample Patient's A1c from July 2023 5.5%, concern about patient having hypoglycemic events, patient reports fasting blood sugar this morning 75 mg/dL Instructed patient sensors water proof you can shower, or swim do not submerge sensor in water for over 30 minutes Is sensor falls off cannot put back in you need to replace sensor, customer service number given to patient for sensor replacement Sensor placed on the back of right arm Patient left visit with sensor in warmup Patient has appointment with Dr. Sanchez on 09/08/2023, if patient is experiencing hypoglycemic events we will order CGM for safety reasons after that visit Reviewed how to interpret trend arrows Reminded patient that to check finger sticks if symptoms do not match sensor reading. Discussed lag time between finger stick and sensor data.? Instructed patient she should always keep blood glucometer for backup testing if needed Reviewed delay of CGM from fingersticks Reminded pt that if symptoms do not match sensor still needs to check fingersticks. Patient Instructions: Patient instruction: CGM provides information on blood glucose control throughout the day, including hyperglycemia and hypoglycemia. ? Continue to monitor blood glucose as instructed. Follow nutrition guidelines provided. Report any discomfort promptly to health care provider. ?Stay well-hydrated. You can bathe ,shower, swim and exercise while wearing the glucose sensor. Do not submerge glucose sensor in water for more than 30 minutes. Coding Level of Care Code Est Pt Level 1 (84038) Diagnoses Type 2 diabetes mellitus with diabetic polyneuropathy, without long-term current use of insulin E11.42 Diabetes mellitus exterminator helper termite insulin use: without exterminator helper termite use
== END 2023-08-25 13:41 | disposition home or self-care (01) ==
PROVIDERS: PCP Physician Assistant; Visit Provider Registered Nurse Diabetes Educator
DX: E11.42 Type 2 diabetes mellitus with diabetic polyneuropathy (principal)

== ENCOUNTER 2023-09-08 08:57 | Outpatient (AMB) | payer MEDICARE, SELFPAY ==
--- NOTE | 2023-09-08 09:00 | A.OFFVIS_ITS ---
Vital Signs 09/08/23 09:04 Height 5 ft 0.43 in Weight 173 lb BMI 33.3 BP 144/86 H Blood Pressure Location Rt brachial Position Sitting Pulse 92 Pulse Source Pulse Oximeter Intake Visit Reasons: DM Intake Note: Patient presents today to follow up on D2MT. Last Diabetic Eye exam: January 2023, [facility] Last Podiatry Visit: Does not see a Smoke Inspector Random Glucose: 116 mg/dl HgA1c: 5.5% 07/12/23 Redrying Machine Operator Required: No Accompanied by: Self / Same As Patient Allergies cephalexin [From KEFLEX] Allergy (Intermediate, Verified 09/08/23 09:06) HIVES Penicillins [PENICILLINS] Allergy (Intermediate, Verified 09/08/23 09:06) HIVES acetaminophen [From Excedrin Extra Strength] Allergy (Mild, Verified 09/08/23 09:06) Hives aspirin [From Excedrin Extra Strength] Allergy (Mild, Verified 09/08/23 09:06) Hives caffeine [From Excedrin Extra Strength] Allergy (Mild, Verified 09/08/23 09:06) Hives metformin [METFORMIN] Allergy (Mild, Verified 09/08/23 09:06) HIVES enalaprilat [Vasotec] Allergy (Unknown, Verified 09/08/23 09:06) Unknown dulaglutide [From Trulicity] Allergy (Verified 09/08/23 09:06) Hives Medication List - Last Reconciled 09/08/23 by Chu Sanchez MD alcohol swabs (Alcohol Pads) 1 pad topical BID alendronate 70 mg PO QWEEK blood pressure test kit-large As directed blood sugar diagnostic (FreeStyle Lite Strips) As directed three times a day blood-glucose meter (FreeStyle Lite Meter kit) As directed 3xday cholecalciferol (vitamin D3) 125 mcg PO DAILY compr.stocking,knee,long,large As directed cyanocobalamin (vitamin B-12) 1 tab PO DAILY fluticasone propion-salmeterol 250-50 mcg/dose (Wixela Inhub) 1 inh PO BID folic acid 1 mg PO DAILY ipratropium-albuterol 20-100 mcg/actuation (Combivent Respimat) 1 puff PO QID lancets (FreeStyle Lancets) USE TO TEST TWICE A DAY DIRECTED losartan 50 mg PO DAILY metoprolol tartrate 100 mg PO BEDTIME semaglutide (Ozempic) 0.5 mg (0.736 mL) subcut QWEEK triamcinolone acetonide 0.1% 1 appl topical DAILY 30 days HPI Comments Details: Patient is a 73 yo female with DM type 2 diagnosed around 2005 who presents for continued management of diabetes. The patient last saw Olga Lidia Ann NP on 06/13/2021 Past medical history: HTN, HLD, ashma, venous insufficiency. Micro and macrovascular complications: PVD Diabetes medications:Ozempic 0.5 mg Qwkly , glimepiride 2 mg pill in plus a 1 mg pill pm not taking .. Intolerant of Jardiance and Trulicity. Prior allergic reaction to metformin, glipizide was ineffective and patient reports she believes she may have had hives with this, but is unsure. Continuous glucose monitoring from 08/23/2023 to09/05/2023 CGM is active 71%. Average blood glucose of 124. . Glucose variability 20%. Patient had 99% of blood glucose in target range of 70-180. Blood glucose high from 181-250, <1%. Blood glucose very high over 250, She has no hypoglycemia. Blood glucose fasting am - checks daily most recent 78, 141, 181. Patient tests at night 100, 105 Symptoms reported: denies numbness, tingling, burning at night Hypoglycemia: denies, denies Hyperglycemia: nocturia (1x/night) , denies polydypsia, denies daytime urinary frequency Diet: 5am breakfast - muffin 11am candybar if feels needed 1pm lunch - ham sandwich, Dinner - september skip. Activity - walks to stores throughout the day. Eye exam: last exam 6 mos ago Laboratory Tests 10/22/20 03/25/21 10:15 09:30 Creatinine 1.09 Estimated GFR 50 Hgb A1c (Clinic) 8.6 H 09/17/20 11:55 Creatinine 0.91 Estimated GFR > 60 PFSH Medical History Acid reflux Anemia Asthma Asthma CHF (congestive heart failure) Closed fracture of left distal femur COPD (chronic obstructive pulmonary disease) COPD (chronic obstructive pulmonary disease) Essential hypertension Femur fracture, left Hyperlipidemia LDL goal <70 Hypertension Leg swelling Normocytic anemia Osteopenia PVC (premature ventricular contraction) Type 2 diabetes mellitus with diabetic polyneuropathy Surgical History History of surgery on lower extremity History of cardiac catheterization Hx of local excision of skin lesion History of tooth extraction Hx of bilateral breast reduction surgery History of cholecystectomy Family History Father CVD (cardiovascular disease) Mother CVD (cardiovascular disease) Gastric cancer Diabetes Sister Lung disease Social History Household Members: None Housing: Apartment Do you presently have visiting nurse or other home services: No Alcohol intake: never Comment: burning Patient Tobacco Use Status: Never used Tobacco e-Cigarette/Vaping Use: Never Used Second Hand Smoke Exposure: No service: No Current occupational status: disabled Sexual orientation: Straight/Heterosexual Gender identity: Female Cognitive needs: Yes (walker) Hearing needs: No Vision needs: Yes (glasses) Physical Exam Vital Signs: BMI result Body Mass Index 33.3 Absence of Cushingoid features. Absence of acromegalic features. Neck exam reveals nl size thyroid about 15 gms. No thyroid nodules palpable. No carotid bruits present. Lungs CTA. Heart S1 S2, Reg R/R. No M/R/ G. Skin exam reveals absence of vitiligo or acanthosis nigricans. Abdominal exam reveals Soft NT/ND with NA BS. No organomegaly present. Neck Other: . Extrem Other: Visual exam of foot performed. 3 + edema around ankles No ulcerations or open lesions. No onchomycosis, no callouses.Pulses 2 + distally Sensation intact to monofilament exam. Vibratory sensation sensed is decreased with 128 Hz tuning fork Assessment & Plan Assessment & Plan (1) Type 2 diabetes mellitus with diabetic polyneuropathy: Code(s): E11.42 - Type 2 diabetes mellitus with diabetic polyneuropathy Category: Medical Qualifiers: Diabetes mellitus exterminator helper insulin use: without correction use Qualified Code(s): E11.42 - Type 2 diabetes mellitus with diabetic polyneuropathy Plan: This is a 73-year-old white female with a history of type 2 diabetes being treated with Ozempic with excellent improved glycemic control and known microvascular and macrophages complications namely neuropathy and PVD. Plan is to continue the current management. Patient returned to the care of her primary care provider returned back to endocrinology show HbA1c deteriorate Coding Level of Care Code Est Pt Level 4 (80950) Diagnoses Type 2 diabetes mellitus with diabetic polyneuropathy, without long-term current use of insulin E11.42 Diabetes mellitus correction insulin use: without exterminator helper use
[2023-09-08 09:04] VITALS: BP 144/86; PULSE 92; BMI 33.3
[2023-09-08 09:16] LABS: Glucose, Whole Blood 116 mg/dL (60-115)
== END 2023-09-08 09:27 | disposition home or self-care (01) ==
PROVIDERS: PCP Physician Assistant; Visit Provider Internal Medicine Endocrinology, Diabetes & Metabolism
DX: E11.42 Type 2 diabetes mellitus with diabetic polyneuropathy (principal)
CPT/HCPCS: 99214

== ENCOUNTER → 2023-09-08 08:57 | Outpatient (BNVA) | payer MEDICARE, SELFPAY | PROVIDERS: PCP Physician Assistant; Visit Provider Internal Medicine Endocrinology, Diabetes & Metabolism | DX: E11.42 Type 2 diabetes mellitus with diabetic polyneuropathy (principal) | CPT/HCPCS: 82947; 99212 ==

== ENCOUNTER 2023-09-30 11:07 | Outpatient (AMB) | payer OTHER, SELFPAY ==
[2023-09-30 11:19] VITALS: BMI 33.3
--- NOTE | 2023-09-30 11:19 | MHC.OFFVIS ---
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 Pt was also referred for lymphedema pumps, but states her insurance did not cover at the time. Accompanied by: Self / Same As Patient Allergies cephalexin [From KEFLEX] Allergy (Intermediate, Verified 09/30/23 11:23) HIVES Penicillins [PENICILLINS] Allergy (Intermediate, Verified 09/30/23 11:23) HIVES acetaminophen [From Excedrin Extra Strength] Allergy (Mild, Verified 09/30/23 11:23) Hives aspirin [From Excedrin Extra Strength] Allergy (Mild, Verified 09/30/23 11:23) Hives caffeine [From Excedrin Extra Strength] Allergy (Mild, Verified 09/30/23 11:23) Hives metformin [METFORMIN] Allergy (Mild, Verified 09/30/23 11:23) HIVES enalaprilat [Vasotec] Allergy (Unknown, Verified 09/30/23 11:23) Unknown dulaglutide [From Trulicity] Allergy (Verified 09/30/23 11:23) Hives HPI 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 She would actually seen us back in 2019 at that time she was worked up for venous insufficiency which had been actually negative and she was being worked up for lymphatic pumps. At that time her insurance denied it. Since that time her swelling has continued to worsen. She actually had left knee surgery and had broken her left leg and now that is her worst leg. She reports that it continues to be a source of discomfort for her. She now presents to us for follow-up evaluation [facility] Medical History Femur fracture, left Normocytic anemia Anemia Closed fracture of left distal femur Asthma COPD (chronic obstructive pulmonary disease) CHF (congestive heart failure) COPD (chronic obstructive pulmonary disease) Acid reflux Osteopenia Essential hypertension Leg swelling PVC (premature ventricular contraction) Hypertension Asthma Hyperlipidemia LDL goal <70 Type 2 diabetes mellitus with diabetic polyneuropathy Surgical History History of surgery on lower extremity History of cardiac catheterization Hx of local excision of skin lesion History of tooth extraction Hx of bilateral breast reduction surgery History of cholecystectomy Family History Father CVD (cardiovascular disease) Mother CVD (cardiovascular disease) Gastric cancer Diabetes Sister Lung disease Social History Household Members: None Housing: Apartment Do you presently have visiting nurse or other home services: No Alcohol intake: never Comment: burning Patient Tobacco Use Status: Never used Tobacco e-Cigarette/Vaping Use: Never Used Second Hand Smoke Exposure: No service: No Current occupational status: disabled Sexual orientation: Straight/Heterosexual Gender identity: Female Cognitive needs: Yes (walker) Hearing needs: No Vision needs: Yes (glasses) Review of Systems Const Reports as per HPI ENT Reports no additional complaints Card Denies chest pain, Denies chest pain at rest and Denies chest pain with activity Resp Denies chest congestion and Denies cough GI Reports no additional complaints Musc Details: pain over varicosities, aching of lower extremities, swelling, cramping, heaviness and tiredness, itching Denies abnormal gait Skin/Breast Reports pruritus and Denies wounds Neuro Reports no additional complaints and Denies abnormal gait Psych Denies no additional complaints Physical Exam Vital Signs: BMI result Body Mass Index 33.3 Const General: cooperative, healthy appearing and comfortable Orientation/consciousness: oriented to person, oriented to place and oriented to time Neck Carotids: no bruits Chest Chest palpation & inspection: normal inspection of the chest and normal palpation of entire chest wall Resp Effort & Inspection: normal respiratory effort and able to speak in complete sentences Cardio Rate: regular rate Heart sounds: S1 normal heart sound present and S2 normal heart sound present Peripheral pulses: Peripheral pulses 2+ throughout GI Inspection: Yes normal to inspection Skin Other: +2 edema, General skin exam: dry skin Neuro General: oriented to person, oriented to place and oriented to time Extrem Right lower extremity: full ROM, normal capillary refill and edema Left lower extremity: full ROM, normal capillary refill and edema Psych Mental Status: mental status grossly normal Assessment & Plan Assessment & Plan (1) Varicose veins of left lower extremity with inflammation: Code(s): I83.12 - Varicose veins of left lower extremity with inflammation Category: Medical Plan: In short patient has lower extremity swelling. It has been 5 years since her previous workup so we will repeat her venous insufficiency testing. We did discuss routine conservative measures including compression elevation and exercise. She will follow up with us after venous insufficiency testing. (2) Lymphedema: Code(s): I89.0 - Lymphedema, not elsewhere classified Category: Medical Plan: We will work her up for venous insufficiency. Should that prove to be negative she may require lymphedema treatment. This was discussed with her. Thank you for allowing us to assist in her care. If there are any questions or concerns please do not hesitate to contact us. Orders: Orders US venous duplex LE BI 1 Week I83.12 - Varicose veins of left lower extremity with inflammation Coding Level of Care Code Est Pt Level 3 (94849) Diagnoses Varicose veins of left lower extremity with inflammation I83.12 Lymphedema I89.0
== END 2023-09-30 11:37 | disposition home or self-care (01) ==
PROVIDERS: PCP Physician Assistant; Visit Provider Surgery Vascular Surgery
DX: I83.12 Varicose veins of left lower extremity with inflammation (principal); I89.0 Lymphedema, not elsewhere classified
CPT/HCPCS: 99213

== ENCOUNTER → 2023-09-30 11:07 | Outpatient (BNVA) | payer OTHER, SELFPAY | PROVIDERS: PCP Physician Assistant; Visit Provider Surgery Vascular Surgery | DX: I83.12 Varicose veins of left lower extremity with inflammation (principal); I89.0 Lymphedema, not elsewhere classified | CPT/HCPCS: 99212 ==

== ENCOUNTER 2023-11-29 10:43 | Outpatient (AMB) | payer OTHER, SELFPAY ==
[2023-11-29 10:54] VITALS: BP 134/68; PULSE 84; O2SAT 100; BMI 33.2
--- NOTE | 2023-11-29 10:54 | MHC.PC.OV ---
Vital Signs 11/29/23 10:54 Height 5 ft 0.4 in Weight 172 lb 2 oz BMI 33.2 BP 134/68 Blood Pressure Location Rt brachial Position Sitting Pulse 84 Pulse Source Pulse Oximeter Pulse Oximetry (%) 100 Oxygen Delivery Method Room Air Intake Visit Reasons: f/u DMII- weight check. Health And Safety Manager Required: No Accompanied by: Self / Same As Patient Allergies cephalexin [From KEFLEX] Allergy (Intermediate, Verified 11/29/23 11:09) HIVES Penicillins [PENICILLINS] Allergy (Intermediate, Verified 11/29/23 11:09) HIVES acetaminophen [From Excedrin Extra Strength] Allergy (Mild, Verified 11/29/23 11:09) Hives aspirin [From Excedrin Extra Strength] Allergy (Mild, Verified 11/29/23 11:09) Hives caffeine [From Excedrin Extra Strength] Allergy (Mild, Verified 11/29/23 11:09) Hives metformin [METFORMIN] Allergy (Mild, Verified 11/29/23 11:09) HIVES enalaprilat [Vasotec] Allergy (Unknown, Verified 11/29/23 11:09) Unknown dulaglutide [From Trulicity] Allergy (Verified 11/29/23 11:09) Hives Medication List - Last Reconciled 11/29/23 by Luis Waite PA-C alcohol swabs (Alcohol Pads) 1 pad topical BID alendronate 70 mg PO QWEEK blood pressure test kit-large As directed blood sugar diagnostic (FreeStyle Lite Strips) As directed three times a day blood-glucose meter (FreeStyle Lite Meter kit) As directed 3xday cholecalciferol (vitamin D3) 125 mcg PO DAILY compr.stocking,knee,long,large As directed cyanocobalamin (vitamin B-12) 1 tab PO DAILY fluticasone propion-salmeterol 250-50 mcg/dose (Wixela Inhub) 1 inh PO BID folic acid 1 mg PO DAILY ipratropium-albuterol 20-100 mcg/actuation (Combivent Respimat) 1 puff PO QID lancets (FreeStyle Lancets) USE TO TEST TWICE A DAY DIRECTED losartan 50 mg PO DAILY metoprolol tartrate 100 mg PO BEDTIME semaglutide (Ozempic) 0.5 mg (0.736 mL) subcut QWEEK triamcinolone acetonide 0.1% 1 appl topical DAILY 30 days Tobacco use date assessed: 08/23/23 Fall risk assessment: No Falls in past year Last assessed Fall Risk: 11/29/23 Dental Screening Dental Screen Date: 08/23/23 HPI f/u DMII- weight check. HPI Details Patient is a 73-year-old female here today for a follow-up visit. Patient has a past medical history significant for type 2 diabetes hypertension, asthma/COPD, obesity, leukocytosis, history of left hip fracture with hardware placement.. .. .. Hypertension: Blood pressures acceptable today in office. She was restarted on losartan and blood pressures have been better. She denies any dizziness, headaches or vision issues. She does report having an occasional chest discomfort. .. Lymphedema: Has a history morbid obesity. She does have slight lymphedema in her lower extremities. She has followed up with vascular surgeon and is due for ultrasounds of her lower extremities. .. COPD: Continues on maintenance inhaler with decent affect, .. Type 2 diabetes: Continues to manage her type 2 diabetes with Ozempic. She denies having any further hypoglycemic events.. She has lost a significant amount of weight over the last few years and may not need diabetic medication. Today's A1c at 5.7 from 5.5. She is now seeing a museum educator. [facility] Medical History Femur fracture, left Normocytic anemia Anemia Closed fracture of left distal femur Asthma COPD (chronic obstructive pulmonary disease) CHF (congestive heart failure) COPD (chronic obstructive pulmonary disease) Acid reflux Osteopenia Essential hypertension Leg swelling PVC (premature ventricular contraction) Hypertension Asthma Hyperlipidemia LDL goal <70 Type 2 diabetes mellitus with diabetic polyneuropathy Surgical History History of surgery on lower extremity History of cardiac catheterization Hx of local excision of skin lesion History of tooth extraction Hx of bilateral breast reduction surgery History of cholecystectomy Family History Father CVD (cardiovascular disease) Mother CVD (cardiovascular disease) Gastric cancer Diabetes Sister Lung disease Social History Household Members: None Housing: Apartment Do you presently have visiting nurse or other home services: No Alcohol intake: never Comment: burning Patient Tobacco Use Status: Never used Tobacco e-Cigarette/Vaping Use: Never Used Second Hand Smoke Exposure: No service: No Current occupational status: disabled Sexual orientation: Straight/Heterosexual Gender identity: Female Cognitive needs: Yes (walker) Hearing needs: No Vision needs: Yes (glasses) Questionnaire Thrive Questionnaire Date Thrive assessed: 08/23/23 GUSTABO-7 AMB Questionnaire GUSTABO-7 Date GUSTABO - 7 assessed: 08/23/23 Source: Developed by Drs. Chu Vaughn, Trista Vital, Reyes Johnson and colleagues, with an educational paolo from [employer]. Review of Systems Const Denies headache(s) Eyes Denies loss of vision ENT Denies vertigo, Denies dizziness, Denies headache(s) and Denies sore throat Card Denies chest pain, Denies leg edema and Denies lightheadedness Resp Denies cough, Denies hemoptysis and Denies wheezing GI Denies abdominal pain, Denies melena, Denies constipation, Denies diarrhea and Denies vomiting Denies urinary frequency, Denies dysuria and Denies urinary urgency Musc Denies arthralgias, Denies joint swelling, Denies numbness and Denies tingling Neuro Denies Abnormal speech present, Denies behavioral changes, Denies vertigo, Denies dizziness, Denies headache(s), Denies loss of vision, Denies memory loss, Denies numbness and Denies tingling Psych Denies anxiety, Denies behavioral changes, Denies depression, Denies memory loss and Denies panic attacks Chung/Lymph Denies easy bleeding and Denies easy bruising Aller/Immun Denies wheezing Physical exam (Primary Care) Vital Signs: Last Vital Signs Pulse 84 11/29/23 10:54 BP 134/68 11/29/23 10:54 Pulse Ox 100 11/29/23 10:54 Oxygen Delivery Method Room Air 11/29/23 10:54 BMI result Body Mass Index 33.2 Tobacco/Smoking Status: Tobacco use Status Tobacco use date assessed 08/23/23 11/29/23 10:55 Patient Tobacco Use Status Never used Tobacco 11/29/23 10:55 e-Cigarette/Vaping Use Never Used 11/29/23 10:55 Thrive Assessment: Date of Thrive Assessment Date Thrive assessed 08/23/23 11/29/23 10:55 Const General: healthy appearing, no acute distress, alert and awake Nutritional Appearance: well nourished Orientation/consciousness: oriented to person, oriented to place and oriented to time HENMT Ears: TM's normal bilaterally General nose exam: Normal nasal mucous membranes and turbinates present Eyes Conjunctivae: conjunctivae normal Sclerae: sclerae normal Pupils: Equal, round and reactive pupils present Neck Neck: Yes no lymphadenopathy and Yes no JVD Thyroid: Thyroid normal Carotids: no bruits Resp Effort & Inspection: normal respiratory effort and not tachypneic Auscultation: no crackles, no rales, no rhonchi and no wheezes Cardio Rate: regular rate Rhythm: regular rhythm Heart sounds: no murmurs and normal S1 and S2 GI Palpation (GI): Soft to palpation, nontender, no hepatomegaly and no splenomegaly Auscultation: normal bowel sounds Skin General skin exam: no rashes or lesions noted and dry skin Neuro General: oriented to person, oriented to place and oriented to time Cranial nerves: Yes Equal, round and reactive pupils present Speech: No Abnormal speech present Gait exam (Neuro): Normal gait present Motor exam (neuro): no tremor noted Extrem Right upper extremity: full ROM Left upper extremity: full ROM Right lower extremity: full ROM; no edema Left lower extremity: full ROM; no edema Psych Mental Status: mental status grossly normal Speech and movement: Normal speech and movement present Affect: normal affect Attitude: cooperative Thought process: Normal thought process present Results AMB Hemoglobin A1c AMB Hemoglobin A1c 5.7 % Last Edit by JOSY Saul on 11/29/23 11:26 Results Reviewed Results Reviewed: Laboratory Last Values Hgb A1c (Clinic) 5.7 % (4.0-6.0) 11/29/23 11:25 Assessment and Plan Assessment & Plan (1) Type 2 diabetes mellitus with diabetic polyneuropathy: Code(s): E11.42 - Type 2 diabetes mellitus with diabetic polyneuropathy Qualifiers: Diabetes mellitus long-term insulin use: without joint terminal attack controller use Qualified Code(s): E11.42 - Type 2 diabetes mellitus with diabetic polyneuropathy Plan: Patient's type 2 diabetes seems to be controlled today's A1c of 5.7. She continues to follow-up with the museum educator. Will continue her current dose antihyperglycemic medication. Goal A1c is to remain below 7.0 without any hypoglycemia. (2) Hypertension: Code(s): I10 - Essential (primary) hypertension Qualifiers: Hypertension type: primary hypertension Qualified Code(s): I10 - Essential (primary) hypertension Plan: Blood pressure acceptable today in office. Will continue her current dose of losartan with goal blood pressures to remain below 140/90. Goal blood pressures to be below 140/90 (3) COPD (chronic obstructive pulmonary disease): Comment: She is being treated for asthma/COPD, moderately severe. It remains well controlled with her current medical regimen including: Wixela 250-50 1 inhalation b.i.d.. Ipratropium/albuterol by updraft Q 6 hours while awake. Combivent Respimat 1 inhalation Q 4-6 hours p.r.n. as rescue inhaler. Code(s): J44.9 - Chronic obstructive pulmonary disease, unspecified Qualifiers: COPD type: unspecified COPD Qualified Code(s): J44.9 - Chronic obstructive pulmonary disease, unspecified Plan: Patient reports her breathing is fairly stable at rest. She does get some short of breath on exertion. (4) Post-menopausal: Code(s): Z78.0 - Asymptomatic menopausal state Plan: Does have a history of osteoporosis with a T-score of - 3.2 in 2020 has been on Fosamax since. Will re-evaluate her bone density (5) Lymphedema: Code(s): I89.0 - Lymphedema, not elsewhere classified Plan: May benefit from occupational therapy to do lymphedema massage Orders: Orders XR DEXA axial skeleton Today Z78.0 - Asymptomatic menopausal state Vitamin B12 and Folate Today D72.829 - Elevated white blood cell count, unspecified, E53.8 - Deficiency of other specified B group vitamins AMB Hemoglobin A1c Today E11.42 - Type 2 diabetes mellitus with diabetic polyneuropathy Complete Blood Count no Diff Today J44.9 - Chronic obstructive pulmonary disease, unspecified Comprehensive Met. Panel Today I10 - Essential (primary) hypertension OT Evaluation and Treatment Today I89.0 - Lymphedema, not elsewhere classified Patient Instructions: Goal: Blood pressure to be below 140/90, A1c to be below 7.0 Barriers: Adherence to physical activity and healthy eating habits Coding Level of Care Code Est Pt Level 4 (89904) Diagnoses Type 2 diabetes mellitus with diabetic polyneuropathy, without long-term current use of insulin E11.42 Diabetes mellitus long-term insulin use: without joint terminal attack controller use Primary hypertension I10 Hypertension type: primary hypertension Chronic obstructive pulmonary disease, unspecified COPD type J44.9 COPD type: unspecified COPD Post-menopausal Z78.0 Lymphedema I89.0
== END 2023-11-29 11:36 | disposition home or self-care (01) ==
PROVIDERS: PCP Physician Assistant; Visit Provider Physician Assistant
DX: E11.42 Type 2 diabetes mellitus with diabetic polyneuropathy (principal); I10 Essential (primary) hypertension; J44.9 Chronic obstructive pulmonary disease, unspecified; Z78.0 Asymptomatic menopausal state; I89.0 Lymphedema, not elsewhere classified
CPT/HCPCS: 83036; 99214

== ENCOUNTER 2023-11-29 12:23 | Outpatient (AMB) | payer OTHER, SELFPAY ==
--- NOTE | 2023-11-29 12:39 | A.OFFVIS_ITS ---
Intake Intake Visit Reasons: DM1/CONFIRMED Poultry Tender Required: No Accompanied by: Self / Same As Patient Allergies cephalexin [From KEFLEX] Allergy (Intermediate, Verified 11/29/23 11:09) HIVES Penicillins [PENICILLINS] Allergy (Intermediate, Verified 11/29/23 11:09) HIVES acetaminophen [From Excedrin Extra Strength] Allergy (Mild, Verified 11/29/23 11:09) Hives aspirin [From Excedrin Extra Strength] Allergy (Mild, Verified 11/29/23 11:09) Hives caffeine [From Excedrin Extra Strength] Allergy (Mild, Verified 11/29/23 11:09) Hives metformin [METFORMIN] Allergy (Mild, Verified 11/29/23 11:09) HIVES enalaprilat [Vasotec] Allergy (Unknown, Verified 11/29/23 11:09) Unknown dulaglutide [From Trulicity] Allergy (Verified 11/29/23 11:09) Hives HPI Comprehensive Diabetes Asmnt Most Recent Diabetes Results: Microalb/Creat Ratio 130.4 ug/mg cr (<30) H 08/25/23 Creatinine 0.96 mg/dL (0.5-1.4) 08/25/23 Blood Urea Nitrogen 17 mg/dL (9-16) H 08/25/23 Sodium 140 mmol/L (135-145) 08/25/23 Potassium 3.8 mmol/L (3.3-5.1) 08/25/23 Chloride 108 mmol/L (96-108) 08/25/23 Carbon Dioxide 23 mmol/L (22-29) 08/25/23 Calcium 10.6 mg/dL (8.4-10.2) H 08/25/23 AST 13 U/L (5-31) 08/25/23 ALT 7 U/L (0-31) 08/25/23 Total Protein 8.3 g/dL (6.5-8.0) H 08/25/23 Albumin 4.1 g/dL (3.5-5.0) 08/25/23 [facility] Medical History Femur fracture, left Normocytic anemia Anemia Closed fracture of left distal femur Asthma COPD (chronic obstructive pulmonary disease) CHF (congestive heart failure) COPD (chronic obstructive pulmonary disease) Acid reflux Osteopenia Essential hypertension Leg swelling PVC (premature ventricular contraction) Hypertension Asthma Hyperlipidemia LDL goal <70 Type 2 diabetes mellitus with diabetic polyneuropathy Surgical History History of surgery on lower extremity History of cardiac catheterization Hx of local excision of skin lesion History of tooth extraction Hx of bilateral breast reduction surgery History of cholecystectomy Family History Father CVD (cardiovascular disease) Mother CVD (cardiovascular disease) Gastric cancer Diabetes Sister Lung disease Social History Household Members: None Housing: Apartment Do you presently have visiting nurse or other home services: No Alcohol intake: never Comment: burning Patient Tobacco Use Status: Never used Tobacco e-Cigarette/Vaping Use: Never Used Second Hand Smoke Exposure: No service: No Current occupational status: disabled Sexual orientation: Straight/Heterosexual Gender identity: Female Cognitive needs: Yes (walker) Hearing needs: No Vision needs: Yes (glasses) Assessment & Plan Assessment & Plan (1) Type 2 diabetes mellitus with diabetic polyneuropathy: Code(s): E11.42 - Type 2 diabetes mellitus with diabetic polyneuropathy Qualifiers: Diabetes mellitus terminal makeup operator insulin use: without fpc use Qualifie d Code(s): E11.42 - Type 2 diabetes mellitus with diabetic polyneuropathy Plan: Learning objectives: The patient was provided with verbal and written education on the following topics as outlined below. The patient met all learning objectives and was able to verbalize understanding and provide teach back of education topics discussed . The patient was provided with the opportunity to ask questions and all questions were answered. Patient Assessment Patient questions/concerns, did not see lipid panel in patient's recent labs, recommended to patient she discuss with provider in next visit if she is due. Patient's A1c on 11/29/2023 5.7%, patient seems to have excellent glycemic co ntrol. Reports she uses glucometer to test glucose, but did not bring to today's visit Medications (If applicable) * Name of medication * Dosing/administration instructions * Mechanism of action * Potential side effects * Potential adverse reaction and appropriate treatment * Review onset, peak, duration Assess for concerns re: insurance coverage, cost, barriers to compliance Insulin/Injectables (If applicable) * Storage/care of insulin * Injection sites * Site rotation * Onset, peak, duration * Drawing up insulin * Injecting insulin/other injectables * Sharps disposal Continuous blood glucose monitoring (if applicable) Hypoglycemia and Hyperglycemia * Signs and symptoms * Causes * Treatment * Preventing hypoglycemia * When to seek medical attention Medical alert bracelet Lifestyle * Work * Travel * Stress management * Problem solving Know your goals * A1C * Blood sugar targets * Blood pressure * Cholesterol/LDL Urine microalbumin New Goal:?Make appt with DM PCP Educational Materials: The patient was provided with the following written educational materials: ADCES 7 Healthy Behaviors Reducing Risks handout Patient Response to instructions: Comprehension of Instructions: fair Readiness to make changes: action How confident they feel about making changes: fair Portions of this note were created using voice recognition software, please excuse any words or phrases that may have been misinterpreted. Patient Instructions: Include regular daily activity. ADA recommends 30 minutes of exercise 5 days a week. Weight loss talk to PCP or Sheet Heater Helper before starting new plan. Test blood sugar as directed; Fasting and 2hpp largest meal. Watch trends in results. Utilize results and to assess how food, physical activity and medications affect blood sugar results. Bring glucometer or CGM to next visit. Be knowledgeable about diabetes medication, its action, side effects, efficacy, toxicity, prescribed dosage, appropriate timing and frequency of administration, effect of missed and delayed doses and instructions for storage, travel and safety. Problem solving techniques to monitor hypo/hyperglycemia episodes and treatments. Reduce risk reduction behaviors, smoking cessation, regular eye, foot and dental examinations. Coding Level of Care Code Est Pt Level 1 (14846) Diagnoses Type 2 diabetes mellitus with diabetic polyneuropathy, without long-term current use of insulin E11.42 Diabetes mellitus fpc insulin use: without terminal makeup operator use Results AMB Hemoglobin A1c AMB Hemoglobin A1c 5.7 % Last Edit by JOSY Saul on 11/29/23 11:26
== END 2023-11-29 12:57 | disposition home or self-care (01) ==
PROVIDERS: PCP Physician Assistant; Visit Provider Registered Nurse Diabetes Educator
DX: E11.42 Type 2 diabetes mellitus with diabetic polyneuropathy (principal)

== ENCOUNTER → 2023-11-29 12:23 | Outpatient (BNVA) | payer OTHER, SELFPAY | PROVIDERS: PCP Physician Assistant; Visit Provider Registered Nurse Diabetes Educator | DX: E11.42 Type 2 diabetes mellitus with diabetic polyneuropathy (principal); Z71.89 Other specified counseling | CPT/HCPCS: 99211 ==

== ENCOUNTER 2023-12-20 11:36 | Outpatient (REF) | payer OTHER, SELFPAY ==
--- NOTE | ~2023-12-20 | US_ITS ---
EXAMINATION: US LOWER EXTREMITY VENOUS (REFLUX EXAM), BILATERAL CLINICAL INFORMATION: Varicose veins of the left lower extremity COMPARISON: Lower extremity reflux exam 04/13/2019 TECHNIQUE: Color flow triplex imaging and compression Doppler was performed to evaluate both the deep and the superficial systems bilaterally. To evaluate the superficial system, the examination was performed in the upright position. Color-flow Doppler ultrasound and compression ultrasound were utilized. In addition, maneuvers were utilized to demonstrate reflux. FINDINGS: 1. DEEP VENOUS ULTRASOUND OF THE RIGHT LOWER EXTREMITY: Common Femoral Vein: Compressible, normal respiratory variation and augmented flow. Femoral Vein: Compressible, normal color flow and augmentation. Popliteal Vein: Compressible, normal augmentation. Deep Reflux: There is no evidence of reflux in the deep system in either the common femoral vein or the popliteal vein. There is no evidence of a Godoy's cyst. 2. SUPERFICIAL ULTRASOUND WITH DOPPLER OF RIGHT LOWER EXTREMITY: GREAT SAPHENOUS VEIN: Saphenofemoral Junction: 0.86 cm; Reflux: 0 ms Proximal Thigh: 0.78 cm; Reflux: 0 ms Mid Thigh: 0.46 cm; Reflux: 0 ms Above Knee: 0.47 cm; Reflux: 0 ms At Knee: 0.46 cm; Reflux: 0 ms Below Knee: 0.48 cm; Reflux: 0 ms Mid Calf: 0.38 cm; Reflux: 1832 ms Ankle: 0.28 cm; Reflux: 0 ms DUPLICATED MEDIAL GREAT SAPHENOUS VEIN: Diameter: 0.39 Reflux: 0 ms DUPLICATED LATERAL GREAT SAPHENOUS VEIN: Diameter: 0.37 cm Reflux: 0 ms SMALL SAPHENOUS VEIN: Proximal: 0.22 cm; Reflux: 0 ms Distal: 0.27 cm; Reflux: 0 ms VEIN OF GIACOMINI: None Imaged. PERFORATORS: Location: Proximal calf Size: 0.22 cm Reflux: 0 ms Location: Proximal calf Size: 0.2 cm Reflux: 0 ms VARICOSITIES: Location: Proximal calf Size: 0.33 cm Reflux: 0 ms 3. DEEP VENOUS ULTRASOUND OF THE LEFT LOWER EXTREMITY: Common Femoral Vein: Compressible, normal respiratory variation and augmented flow. Femoral Vein: Compressible, normal color flow and augmentation. Popliteal Vein: Compressible, normal augmentation. Deep Reflux: There is no evidence of reflux in the deep system in either the common femoral vein or the popliteal vein. There is no evidence of a Godoy's cyst. 4. SUPERFICIAL ULTRASOUND WITH DOPPLER OF LEFT LOWER EXTREMITY: GREAT SAPHENOUS VEIN: Saphenofemoral Junction: 1.1 cm; Reflux: 0 ms Proximal Thigh: 0.95 cm; Reflux: 0 ms Mid Thigh: 0.55 cm; Reflux: 0 ms Above Knee: 0.46 cm; Reflux: 0 ms At Knee: 0.45 cm; Reflux: 0 ms Below Knee: 0.56 cm; Reflux: 0 ms Mid Calf: 0.32 cm; Reflux: 0 ms Ankle: 0.25 cm; Reflux: 0 ms DUPLICATED MEDIAL GREAT SAPHENOUS VEIN: Diameter: None Imaged Reflux: NA DUPLICATED LATERAL GREAT SAPHENOUS VEIN: Diameter: None Imaged Reflux: NA SMALL SAPHENOUS VEIN: Proximal: 0.23 cm; Reflux: 0 ms Distal: 0.24 cm; Reflux: 0 ms VEIN OF GIACOMINI: None Imaged. PERFORATORS: Location: Distal thigh Size: 0.22 cm Reflux: 0 ms VARICOSITIES: Location: Proximal thigh Size: 0.31 cm Reflux: 0 ms Location: Mid thigh Size: 0.31 cm Reflux: 0 ms Location: Proximal calf Size: 0.31 cm Reflux: 0 ms US/US venous duplex LE BI IMPRESSION: 1. Right: Moderate reflux in the great saphenous vein in the mid calf. 2. Left: No significant venous reflux.
== END 2023-12-20 11:37 | disposition home or self-care (01) ==
LOC: HO.US 11:36
PROVIDERS: PCP Physician Assistant; Visit Provider Surgery Vascular Surgery
DX: I83.12 Varicose veins of left lower extremity with inflammation (principal)
CPT/HCPCS: 93970

== ENCOUNTER 2024-01-20 09:44 | Outpatient (REF) | payer OTHER, SELFPAY ==
--- NOTE | ~2024-01-20 | MM_ITS ---
EXAMINATION: BONE DENSITOMETRY CLINICAL INDICATION: Menopause. COMPARISON: Previous BD dated 10/09/2020 and baseline BD dated 08/12/2010. TECHNIQUE: Using a VR1 DXA System (software version: 13.1) manufactured by [employer], dual-energy x-ray absorptiometry was performed of the lumbar spine and right hip. The images are of good technical quality. Summary results are attached. FINDINGS: RIGHT FEMUR, NECK: Current: BMD 0.674 g/cm2, Z-score -1.1, T-score -2.6, osteoporosis. Baseline 08/12/2010: BMD 0.721 g/cm2. RIGHT FEMUR, TOTAL: Current: BMD 0.738 g/cm2, Z-score -0.8, T-score -2.1, osteopenia, 18.7% decrease from baseline (<5% change is not significant). Baseline 08/12/2010: BMD 0.908 g/cm2. AP SPINE L1-L2 (excluding L3 and L4): The data of L1-L4 has been changed to exclude the L3 and L4 vertebral bodies, because degenerative sclerosis at these levels may cause overestimation of lumbar spine density. Current: BMD 1.227 g/cm2, Z-score 1.8, T-score 0.5, normal, 6.5% decrease from previous, 25.5% increase from baseline (<5% change is not significant). Prior: BMD 1.312 g/cm2. Baseline: BMD 0.978 g/cm2. IDENTIFIED RISK FACTORS: Early menopause, height loss, history of fracture (adult), secondary osteoporosis. HISTORY OF FRACTURE: Femur. MEDICATIONS: Vitamin D, bisphosphonates. MM/XR DEXA axial skeleton IMPRESSION: 1. DIAGNOSIS: Severe osteoporosis based on the lowest T-score value of -2.6 in the femoral neck and history of fracture of femur applying World Health Organization criteria. 2. 10-YEAR FRACTURE RISK PREDICTION, FRAX: According to the guidelines, FRAX calculation should only be performed on patients in the osteopenia bone density category. Therefore, FRAX was not performed on this patient. 3. Treatment Recommendations: NOF guidelines recommend consideration for treatment in postmenopausal women and men age 50 and older presenting with the following: -A hip or vertebral (clinical or morphometric) fracture. -T-score less than or equal to -2.5 at the femoral neck or spine after appropriate evaluation to exclude secondary causes. -Low bone mass at the hip or spine and a 10-year fracture probability by FRAX of greater than or equal to 3% for hip fracture or greater than or equal to 20% for major osteoporotic fracture based on the [place] adapted WHO algorithm. 4. Other Recommendations: All treatment decisions require clinical judgment and consideration of individual patient factors, including patient preferences, comorbidities, previous drug use, risk factors not captured in the FRAX model (e.g. frailty, falls, vitamin D deficiency, increased bone turnover, interval significant decline in bone density) and possible under or overestimation of fracture risk by FRAX. Additional medical evaluation for secondary cause of low bone mineral density may be appropriate. FUTURE SCAN RECOMMENDATION: People with diagnosed cases of osteoporosis or at high risk for fracture should have regular bone mineral density tests. For patients eligible for Medicare, routine testing is allowed once every 2 years. The testing frequency can be increased to one year for patients who have rapidly progressing disease, those who are receiving or discontinuing medical therapy to restore bone mass, or have additional risk factors. Electronically signed by: Prosper Briceno MD 01/25/2024 11:15 AM EDT
--- NOTE | ~2024-01-20 | MM_ITS ---
EXAMINATION: MM SCREENING DIGITAL BREAST TOMOSYNTHESIS, BILATERAL CLINICAL INFORMATION: Screening. Asymptomatic. COMPARISON: Mammography: Comparison is made with available priors TECHNIQUE: Digital breast mammography with tomosynthesis is performed in both the craniocaudal and mediolateral oblique views along with computer-aided detection (CAD). FINDINGS: There are scattered areas of fibroglandular density (ACR BI-RADS breast composition Category b). Bilateral reduction mammoplasty. There are no significant masses, abnormal calcifications, or other abnormalities. MM/MM tomosynthesis screening BI IMPRESSION: No mammographic evidence of malignancy. ASSESSMENT: BI-RADS BI-RADS 2 - Benign Findings RECOMMENDATION: Routine annual mammography screening. 1 year F/U This examination should not preclude the clinical evaluation of a suspicious palpable abnormality. This patient's information was entered into a reminder system with a target due date for their next mammogram. Electronically signed by: Andreina Marquis DO 02/02/2024 07:47 PM EDT
== END 2024-01-20 09:45 | disposition home or self-care (01) ==
LOC: HO.MAMMO 09:44
PROVIDERS: PCP Physician Assistant; Visit Provider Physician Assistant
DX: Z12.31 Encounter for screening mammogram for malignant neoplasm of breast (principal); Z13.820 Encounter for screening for osteoporosis; Z78.0 Asymptomatic menopausal state; I89.0 Lymphedema, not elsewhere classified; I83.12 Varicose veins of left lower extremity with inflammation
CPT/HCPCS: 77063; 77067; 77080; 99212

== ENCOUNTER → 2024-01-20 09:45 | Outpatient (BNV) | payer OTHER, SELFPAY | PROVIDERS: PCP Physician Assistant; Visit Provider Internal Medicine | DX: Z12.31 Encounter for screening mammogram for malignant neoplasm of breast (principal) | CPT/HCPCS: 77063; 77067 ==

== ENCOUNTER 2024-01-20 10:43 | Outpatient (AMB) | payer OTHER, SELFPAY ==
--- NOTE | 2024-01-20 10:46 | A.OFFVIS_ITS ---
Vital Signs 01/20/24 10:47 Height 5 ft 0.4 in Weight 172 lb BMI 33.1 Intake Visit Reasons: Follow Up 12/19 US Intake Note: Follow up US 12/20/23 for LE swelling, Left LE is worse than the right due to injury. Accompanied by: Self / Same As Patient Allergies cephalexin [From KEFLEX] Allergy (Intermediate, Verified 01/20/24 10:53) HIVES Penicillins [PENICILLINS] Allergy (Intermediate, Verified 01/20/24 10:53) HIVES acetaminophen [From Excedrin Extra Strength] Allergy (Mild, Verified 01/20/24 10:53) Hives aspirin [From Excedrin Extra Strength] Allergy (Mild, Verified 01/20/24 10:53) Hives caffeine [From Excedrin Extra Strength] Allergy (Mild, Verified 01/20/24 10:53) Hives metformin [METFORMIN] Allergy (Mild, Verified 01/20/24 10:53) HIVES enalaprilat [Vasotec] Allergy (Unknown, Verified 01/20/24 10:53) Unknown dulaglutide [From Trulicity] Allergy (Verified 01/20/24 10:53) Hives HPI HPI Follow Up 12/19 US: Details: Very pleasant 73-year-old female presents for follow-up regarding swollen lower extremities. She reports it is left more so than right. This became more prominent after 07/09/2021 she had IM retrograde tim fixation of a left femur fracture. She now presents for follow-up evaluation of her lower extremities with venous insufficiency testing. [facility] Medical History Femur fracture, left Normocytic anemia Anemia Closed fracture of left distal femur Asthma COPD (chronic obstructive pulmonary disease) CHF (congestive heart failure) COPD (chronic obstructive pulmonary disease) Acid reflux Osteopenia Essential hypertension Leg swelling PVC (premature ventricular contraction) Hypertension Asthma Hyperlipidemia LDL goal <70 Type 2 diabetes mellitus with diabetic polyneuropathy Surgical History History of surgery on lower extremity History of cardiac catheterization Hx of local excision of skin lesion History of tooth extraction Hx of bilateral breast reduction surgery History of cholecystectomy Family History Father CVD (cardiovascular disease) Mother CVD (cardiovascular disease) Gastric cancer Diabetes Sister Lung disease Social History Household Members: None Housing: Apartment Do you presently have visiting nurse or other home services: No Alcohol intake: never Comment: burning Patient Tobacco Use Status: Never used Tobacco e-Cigarette/Vaping Use: Never Used Second Hand Smoke Exposure: No service: No Current occupational status: disabled Sexual orientation: Straight/Heterosexual Gender identity: Female Cognitive needs: Yes (walker) Hearing needs: No Vision needs: Yes (glasses) Review of Systems Const Reports as per HPI ENT Reports no additional complaints Card Denies chest pain, Denies chest pain at rest and Denies chest pain with activity Resp Denies chest congestion and Denies cough GI Reports no additional complaints Musc Details: pain over varicosities, aching of lower extremities, swelling, cramping, heaviness and tiredness, itching Denies abnormal gait Skin/Breast Reports pruritus and Denies wounds Neuro Reports no additional complaints and Denies abnormal gait Psych Denies no additional complaints Physical Exam Vital Signs: BMI result Body Mass Index 33.1 Const General: cooperative, healthy appearing and comfortable Orientation/consciousness: oriented to person, oriented to place and oriented to time Neck Carotids: no bruits Chest Chest palpation & inspection: normal inspection of the chest and normal palpation of entire chest wall Resp Effort & Inspection: normal respiratory effort and able to speak in complete sentences Cardio Rate: regular rate Heart sounds: S1 normal heart sound present and S2 normal heart sound present Peripheral pulses: Peripheral pulses 2+ throughout GI Inspection: Yes normal to inspection Skin Other: +2 edema, bilateral lower extremities left greater than right CEAP Classification C4 - skin color changes Ep - Etiology Primary As - superficial veins P - reflux Right in cm: Thigh 56.5 Knee 45.5 Calf 40 Ankle 31.25 Left in cm: Thigh 55 Knee 46.25 Calf 42.25 Ankle 32.5 General skin exam: dry skin Neuro General: oriented to person, oriented to place and oriented to time Extrem Right lower extremity: full ROM, normal capillary refill and edema Left lower extremity: full ROM, normal capillary refill and edema Psych Mental Status: mental status grossly normal Results Reviewed Results Reviewed: Brief summary of venous insufficiency testing is as follows: right great saphenous vein: Focally positive only in calf right small saphenous vein: negative right accessory vein: none present left great saphenous vein: negative left small saphenous vein: negative left accessory vein: none present Please note there is no evidence of any venous aneurysms or significant tortuosity Assessment & Plan Assessment & Plan (1) Lymphedema: Code(s): I89.0 - Lymphedema, not elsewhere classified Category: Medical Plan: In short the patient has late on sent lymphedema. The patient has been on conservative treatment for at least 3 months with minimal relief. Patient has tried 30 mm of mercury compression garments, elevation, exercise healthy diet and doing manual says self MLD to the best of their ability for over 4 weeks but with no significant relief. She has been compliant with the program but has provided minimal relief. In addition on physical we are noticing hyperpigmentation, lymphorrhea, and hyperplasia. It appears that she has stage 2 lymphedema. Patient has completed multiple forms of conservative therapy yet significant symptoms remain. Patient requires the use of a pneumatic compression device which we will assist in trying to have the patient obtain them. A pneumatic compression device will help reduce swelling and other lymphedema comorbidities. Thank you for allowing us to assist in this patient's care. (2) Varicose veins of left lower extremity with inflammation: Code(s): I83.12 - Varicose veins of left lower extremity with inflammation Category: Medical Plan: Patient is negative for any significant venous insufficiency. There may be an element of lymphedema in particular after her fracture of the left leg. We will plan for lymphedema pumps as above. Coding Level of Care Code Est Pt Level 4 (93103) Diagnoses Lymphedema I89.0 Varicose veins of left lower extremity with inflammation I83.12
[2024-01-20 10:47] VITALS: BMI 33.1
== END 2024-01-20 11:10 | disposition home or self-care (01) ==
PROVIDERS: PCP Physician Assistant; Visit Provider Surgery Vascular Surgery
DX: I89.0 Lymphedema, not elsewhere classified (principal); I83.12 Varicose veins of left lower extremity with inflammation
CPT/HCPCS: 99214

== ENCOUNTER 2024-03-01 10:20 | Outpatient (REF) | payer OTHER, SELFPAY ==
[2024-03-01 11:17] LABS: Hematocrit 35.9 % (37.0-47.0); Hemoglobin 12.3 g/dl (12.0-16.0); Mean Corpuscular HGB Conc 34.3 g/dl (31.0-35.0); Mean Corpuscular Hemoglobin 30.1 pg (27.0-33.0); Mean Platelet Volume 8.3 fL (9.4-12.3); Platelet Count 312 X10*3/uL (160-400); Red Blood Count 4.08 X10*6/uL (4.20-5.50); Red Cell Distribution Width 13.4 % (11.0-16.0)
[2024-03-01 12:22] LABS: Alanine Aminotransferase 10 U/L (0-31); Albumin Level 4.2 g/dL (3.5-5.0); Alkaline Phosphatase 77 U/L (39-117); Anion Gap 12 (12-20); Aspartate Amino Transferase 22 U/L (5-31); Bilirubin Total 0.3 mg/dL (0.0-1.0); Blood Urea Nitrogen 17 mg/dL (9-16); Calcium 10.9 mg/dL (8.4-10.2); Carbon Dioxide 25 mmol/L (22-29); Chloride 109 mmol/L (96-108); Cholesterol 188 mg/dL (<200); Estimated Glomerular Filt Rate 52; Glucose Random 93 mg/dL (60-115); HDL Cholesterol 46 mg/dL (>40); LDL Cholesterol Calculated 105 mg/dL (<100); Potassium 4.3 mmol/L (3.3-5.1); Sodium 142 mmol/L (135-145); Total Protein 8.1 g/dL (6.5-8.0); Triglycerides 186 mg/dL (<150)
[2024-03-01 12:51] LABS: Folate 7.9 ng/mL (> or = 4.0); Vitamin B12 696 pg/mL (200-900)
== END 2024-03-01 10:21 | disposition home or self-care (01) ==
LOC: HO.LAB 10:20
PROVIDERS: PCP Physician Assistant; Visit Provider Physician Assistant
DX: I89.0 Lymphedema, not elsewhere classified (principal); J44.9 Chronic obstructive pulmonary disease, unspecified; I10 Essential (primary) hypertension; E11.42 Type 2 diabetes mellitus with diabetic polyneuropathy; E53.8 Deficiency of other specified B group vitamins; D72.829 Elevated white blood cell count, unspecified
CPT/HCPCS: 36415; 80053; 80061; 82607; 82746; 85027; 99212

== ENCOUNTER 2024-03-01 12:38 | Outpatient (AMB) | payer OTHER, SELFPAY ==
--- NOTE | 2024-03-01 12:47 | A.OFFVIS_ITS ---
Vital Signs 03/01/24 12:48 Height 5 ft 0.4 in Weight 172 lb BMI 33.1 Intake Visit Reasons: Lymphedema Clinic Intake Note: Lymphedema clinic for LE swelling, Left LE swelling worse than the Right LE. Pt states Legs are very itchy and has hyperpigmentation. States she elevates daily. Accompanied by: Self / Same As Patient Allergies cephalexin [From KEFLEX] Allergy (Intermediate, Verified 03/01/24 12:51) HIVES Penicillins [PENICILLINS] Allergy (Intermediate, Verified 03/01/24 12:51) HIVES acetaminophen [From Excedrin Extra Strength] Allergy (Mild, Verified 03/01/24 12:51) Hives aspirin [From Excedrin Extra Strength] Allergy (Mild, Verified 03/01/24 12:51) Hives caffeine [From Excedrin Extra Strength] Allergy (Mild, Verified 03/01/24 12:51) Hives metformin [METFORMIN] Allergy (Mild, Verified 03/01/24 12:51) HIVES enalaprilat [Vasotec] Allergy (Unknown, Verified 03/01/24 12:51) Unknown dulaglutide [From Trulicity] Allergy (Verified 03/01/24 12:51) Hives HPI HPI Lymphedema Clinic: Details: Miracle is a pleasant 73-year-old female patient presenting today for the lymphedema clinic. She states she started with an injury approximately 2 years ago in her left lower leg with a fracture and since then has had increased swelling, dry skin, and pain. She states she does have swelling in the right lower extremity but it is worse in the left. She states she was fitted for lymphedema pumps before; however, her insurance changed and she was unable to get the pumps. She has done all the conservative treatments for the last 3+ months with minimal relief. She states she has lost over 60 lb over the last 2 years. [facility] Medical History Femur fracture, left Normocytic anemia Anemia Closed fracture of left distal femur Asthma COPD (chronic obstructive pulmonary disease) CHF (congestive heart failure) COPD (chronic obstructive pulmonary disease) Acid reflux Osteopenia Essential hypertension Leg swelling PVC (premature ventricular contraction) Hypertension Asthma Hyperlipidemia LDL goal <70 Type 2 diabetes mellitus with diabetic polyneuropathy Surgical History History of surgery on lower extremity History of cardiac catheterization Hx of local excision of skin lesion History of tooth extraction Hx of bilateral breast reduction surgery History of cholecystectomy Family History Father CVD (cardiovascular disease) Mother CVD (cardiovascular disease) Gastric cancer Diabetes Sister Lung disease Social History Household Members: None Housing: Apartment Do you presently have visiting nurse or other home services: No Alcohol intake: never Comment: burning Patient Tobacco Use Status: Never used Tobacco e-Cigarette/Vaping Use: Never Used Second Hand Smoke Exposure: No service: No Current occupational status: disabled Sexual orientation: Straight/Heterosexual Gender identity: Female Cognitive needs: Yes (walker) Hearing needs: No Vision needs: Yes (glasses) Review of Systems Const Reports as per HPI and Denies weakness ENT Reports Normal hearing present and Denies dizziness Card Reports as per HPI, Denies chest pain, Denies chest pain at rest, Denies chest pain with activity, Denies dyspnea and Denies dyspnea on exertion Resp Reports as per HPI, Denies cough, Denies dyspnea and Denies dyspnea on exertion GI Reports as per HPI, Denies abdominal pain, Denies nausea and Denies vomiting Musc Denies numbness Skin/Breast Reports as per HPI, Denies erythema and Denies wounds Neuro Reports Normal hearing present, Denies dizziness, Denies numbness, Denies Sensory deficit (Neuro) and Denies weakness Psych Reports no additional complaints Endo Reports no additional complaints Physical Exam Vital Signs: BMI result Body Mass Index 33.1 Const General: healthy appearing and no acute distress Orientation/consciousness: patient oriented x3 HEENT Head: Yes normal to inspection Ears: hearing grossly normal bilaterally Mouth: Normal oral and palatal mucosa present Resp Effort & Inspection: normal respiratory effort and able to speak in complete sentences Auscultation: clear to auscultation bilaterally Cardio Jugular venous distension: no JVD Rate: regular rate Rhythm: regular rhythm Heart sounds: S1 normal heart sound present and S2 normal heart sound present Bruits: no abdominal aortic bruits, no carotid bruits, no femoral bruits and no renal bruits Peripheral pulses: Peripheral pulses 2+ throughout GI Inspection: Yes normal to inspection Palpation (GI): No Abdominal aortic bruit present Skin General skin exam: no rashes or lesions noted Wounds: no wounds Hair: normal Neuro General: patient oriented x3 Cranial nerves: Yes Normal hearing present Cognition (Neuro): normal cognition Gait exam (Neuro): Normal gait present Motor exam (neuro): 5/5 motor strength present throughout Sensory Exam: No Sensory deficit (Neuro) Extrem Other: Left more than right 2+ pitting edema. There is also hyperpigmentation, lymphor chiquis, and dry flaky skin noted. Right in cm: Thigh 49.75 Knee 46.75 Calf 41.25 Ankle 30.75 Left in cm: Thigh 53.75 Knee 48 Calf 43 Ankle 31.25 Hip/waist General: Yes normal to inspection, Yes full ROM, Yes capillary refill normal and Yes normal gait Assessment & Plan Assessment & Plan (1) Acquired lymphedema of lower extremity: Code(s): I89.0 - Lymphedema, not elsewhere classified Category: Medical Plan: Miracle is presenting today to be fitted for lymphedema pumps. She has had more than 3 months, starting on 09/30/23, of conservative treatments with elevation, compression stockings daily use with 20-30mmHg, and physical activity with minimal relief. She continues to have persistent symptoms despite conservative treatments. She is presenting with hyperpigmentation, lymphorrhea, hyperkeratosis, and 2+ pitting edema. She states the left leg is worse than right and extension into her abdominal area. She also complains of pain. and itchiness. It appears that she has stage II lymphedema. Claudio from [employer] will be fitting her for a pneumatic compression device, which will get mailed to her house. The patient has lymphedema that extends to her upper thigh and abdominal region. The basic pneumatic compression device is not adequate for the patient; it has been trialed but is not clinically appropriate due to the extensive lymphedema noted. The advanced compression device will be the best in this case. Thank you allowing us to care for the patient. Coding Level of Care Code Established Pt Est Pt Level 4 (85098) Patient Type Established Diagnoses Acquired lymphedema of lower extremity I89.0 Time Spent (min) 45 Comment physical exam, pneumatic compression device fitting, measurements
[2024-03-01 12:48] VITALS: BMI 33.1
== END 2024-03-01 13:37 | disposition home or self-care (01) ==
PROVIDERS: PCP Physician Assistant; Visit Provider Physician Assistant Surgical
DX: I89.0 Lymphedema, not elsewhere classified (principal)
CPT/HCPCS: 99214

== ENCOUNTER 2024-04-03 10:11 | Outpatient (AMB) | payer OTHER, SELFPAY ==
[2024-04-03 11:19] VITALS: BP 148/82; PULSE 84; O2SAT 100; BMI 34.5
--- NOTE | 2024-04-03 11:19 | A.OFFPC_ITS ---
Vital Signs 04/03/24 11:19 04/03/24 11:38 Height 5 ft 0.4 in Weight 179 lb BMI 34.5 BP 148/82 H 130/85 Blood Pressure Location Rt brachial Position Sitting Pulse 84 Pulse Source Pulse Oximeter Pulse Oximetry (%) 100 Oxygen Delivery Method Room Air Intake Visit Reasons: f/u DMII Doctor Of Podiatry Required: No Accompanied by: Self / Same As Patient Allergies cephalexin [From KEFLEX] Allergy (Intermediate, Verified 04/03/24 11:29) HIVES Penicillins [PENICILLINS] Allergy (Intermediate, Verified 04/03/24 11:29) HIVES acetaminophen [From Excedrin Extra Strength] Allergy (Mild, Verified 04/03/24 11:29) Hives aspirin [From Excedrin Extra Strength] Allergy (Mild, Verified 04/03/24 11:29) Hives caffeine [From Excedrin Extra Strength] Allergy (Mild, Verified 04/03/24 11:29) Hives metformin [METFORMIN] Allergy (Mild, Verified 04/03/24 11:29) HIVES enalaprilat [Vasotec] Allergy (Unknown, Verified 04/03/24 11:29) Unknown dulaglutide [From Trulicity] Allergy (Verified 04/03/24 11:29) Hives Medication List - Last Reconciled 04/03/24 by Luis Waite PA-C alcohol swabs (Alcohol Pads) 1 pad topical BID alendronate 70 mg PO QWEEK blood pressure test kit-large As directed blood sugar diagnostic (FreeStyle Lite Strips) As directed three times a day blood-glucose meter (FreeStyle Lite Meter kit) As directed 3xday cholecalciferol (vitamin D3) 125 mcg PO DAILY compr.stocking,knee,long,large As directed cyanocobalamin (vitamin B-12) 1 tab PO DAILY fluticasone propion-salmeterol 250-50 mcg/dose (Wixela Inhub) 1 inh PO BID folic acid 1 mg PO DAILY ipratropium-albuterol 20-100 mcg/actuation (Combivent Respimat) 1 puff PO QID lancets (FreeStyle Lancets) USE TO TEST TWICE A DAY DIRECTED losartan 50 mg PO DAILY metoprolol tartrate 100 mg PO BEDTIME semaglutide (Ozempic) 0.5 mg (0.736 mL) subcut QWEEK 4 weeks simvastatin 10 mg PO DAILY 90 days triamcinolone acetonide 0.1% 1 appl topical DAILY 30 days Tobacco use date assessed: 08/23/23 Fall risk assessment: No Falls in past year Last assessed Fall Risk: 04/03/24 Dental Screening Dental Screen Date: 08/23/23 HPI f/u DMII HPI Details Patient is a 74-year-old female here today for a follow-up visit. Patient has a past medical history significant for type 2 diabetes hypertension, asthma/COPD, obesity, leukocytosis, history of left hip fracture with hardware placement.. .. .. Hypertension: Blood pressures slightly elevated today in office. She was restarted on losartan and blood pressures have been better. She denies any dizziness, headaches or vision issues. She does report having an occasional chest discomfort. .. Lymphedema: Has a history morbid obesity. She does have slight lymphedema in her lower extremities. She now has home therapy unit to do lymphedema compression treatment. She has followed up with vascular surgeon and is due for ultrasounds of her lower extremities. . Hyperlipidemia: Most recent lipid panel showing improved total cholesterol and LDL. She has been started on simvastatin 10 mg for better control of her cholesterol. .. COPD: Continues on maintenance inhaler with decent affect, .. Type 2 diabetes: Continues to manage her type 2 diabetes with Ozempic. She denies having any further hypoglycemic events.. She has lost a significant amount of weight over the last few years and may not need diabetic medication. Today's A1c of 5.6. Laboratory Tests 07/12/23 08/25/23 09/08/23 11:20 11:23 09:12 RBC 4.07 L Hgb 11.9 L Glucose (Clinic) 116 H Random Glucose Hemoglobin A1c % 5.5 Triglycerides LDL Cholesterol, C alc Vitamin B12 Urine Microalbumin 95.0 03/01/24 10:49 RBC 4.08 L Hgb 12.3 Glucose (Clinic) Random Glucose 93 Hemoglobin A1c % Triglycerides 186 H LDL Cholesterol, C alc 105 H Vitamin B12 696 Urine Microalbumin Laboratory Tests 11/29/23 04/03/24 11:25 11:27 Hgb A1c (Clinic) 5.7 5.6 [facility] Medical History Femur fracture, left Normocytic anemia Anemia Closed fracture of left distal femur Asthma COPD (chronic obstructive pulmonary disease) CHF (congestive heart failure) COPD (chronic obstructive pulmonary disease) Acid reflux Osteopenia Essential hypertension Leg swelling PVC (premature ventricular contraction) Hypertension Asthma Hyperlipidemia LDL goal <70 Type 2 diabetes mellitus with diabetic polyneuropathy Surgical History History of surgery on lower extremity History of cardiac catheterization Hx of local excision of skin lesion History of tooth extraction Hx of bilateral breast reduction surgery History of cholecystectomy Family History Father CVD (cardiovascular disease) Mother CVD (cardiovascular disease) Gastric cancer Diabetes Sister Lung disease Social History Household Members: None Housing: Apartment Do you presently have visiting nurse or other home services: No Alcohol intake: never Comment: burning Patient Tobacco Use Status: Never used Tobacco e-Cigarette/Vaping Use: Never Used Second Hand Smoke Exposure: No service: No Current occupational status: disabled Sexual orientation: Straight/Heterosexual Gender identity: Female Cognitive needs: Yes (walker) Hearing needs: No Vision needs: Yes (glasses) Questionnaire Thrive Questionnaire Date Thrive assessed: 08/23/23 AUDIT C Alcohol Use Questionnaire (AUDIT-C) 3. How often do you have six or more drinks on one occasion?: Never Total Score: 0 GUSTABO-7 AMB Questionnaire GUSTABO-7 Date GUSTABO - 7 assessed: 08/23/23 Source: Developed by Drs. Chu Vaughn, Trista Vital, Reyes Johnson and colleagues, with an educational paolo from [employer]. Review of Systems Const Denies headache(s) Eyes Denies loss of vision ENT Denies vertigo, Denies dizziness, Denies headache(s) and Denies sore throat Card Denies chest pain, Denies leg edema and Denies lightheadedness Resp Denies cough, Denies hemoptysis and Denies wheezing GI Denies abdominal pain, Denies melena, Denies constipation, Denies diarrhea and Denies vomiting Denies urinary frequency, Denies dysuria and Denies urinary urgency Musc Denies arthralgias, Denies joint swelling, Denies numbness and Denies tingling Neuro Denies Abnormal speech present, Denies behavioral changes, Denies vertigo, Denies dizziness, Denies headache(s), Denies loss of vision, Denies memory loss, Denies numbness and Denies tingling Psych Denies anxiety, Denies behavioral changes, Denies depression, Denies memory loss and Denies panic attacks Chung/Lymph Denies easy bleeding and Denies easy bruising Aller/Immun Denies wheezing Physical exam (Primary Care) Vital Signs: Last Vital Signs Pulse 84 04/03/24 11:19 BP 130/85 04/03/24 11:38 Pulse Ox 100 04/03/24 11:19 Oxygen Delivery Method Room Air 04/03/24 11:19 BMI result Body Mass Index 34.5 Tobacco/Smoking Status: Tobacco use Status Tobacco use date assessed 08/23/23 04/03/24 11:19 Patient Tobacco Use Status Never used Tobacco 04/03/24 11:19 e-Cigarette/Vaping Use Never Used 04/03/24 11:19 Thrive Assessment: Date of Thrive Assessment Date Thrive assessed 08/23/23 04/03/24 11:19 Const General: healthy appearing, no acute distress, alert and awake Nutritional Appearance: well nourished Orientation/consciousness: oriented to person, oriented to place and oriented to time HENMT Ears: TM's normal bilaterally General nose exam: Normal nasal mucous membranes and turbinates present Eyes Conjunctivae: conjunctivae normal Sclerae: sclerae normal Pupils: Equal, round and reactive pupils present Neck Neck: Yes no lymphadenopathy and Yes no JVD Thyroid: Thyroid normal Carotids: no bruits Resp Effort & Inspection: normal respiratory effort and not tachypneic Auscultation: no crackles, no rales, no rhonchi and no wheezes Cardio Rate: regular rate Rhythm: regular rhythm Heart sounds: no murmurs and normal S1 and S2 GI Palpation (GI): Soft to palpation, nontender, no hepatomegaly and no splenomegaly Auscultation: normal bowel sounds Skin General skin exam: no rashes or lesions noted and dry skin Neuro General: oriented to person, oriented to place and oriented to time Cranial nerves: Yes Equal, round and reactive pupils present Speech: No Abnormal speech present Gait exam (Neuro): Normal gait present Motor exam (neuro): no tremor noted Extrem Other: BILATERAL LOWER EXTREMITY EDEMA NOTED Right upper extremity: full ROM Left upper extremity: full ROM Right lower extremity: full ROM and edema Left lower extremity: full ROM and edema Psych Mental Status: mental status grossly normal Speech and movement: Normal speech and movement present Affect: normal affect Attitude: cooperative Thought process: Normal thought process present Office Procedures Flu Questionnaire Does the patient have a severe egg allergy?: No Results AMB Hemoglobin A1c AMB Hemoglobin A1c 5.6 % Last Edit by JOSY Saul on 04/03/24 11:30 Immunizations Fluarix Triv [id number] (PF) 45 mcg (15 mcg x 3)/0.5 mL IM syringe Performing Provider: Luis Waite PA-C Performing Location: [facility] Documented (not given) by: JOSY Saul on 04/03/24 11:19 Reason Not Given: Received Previously Results Reviewed Results Reviewed: Laboratory Last Values Hgb A1c (Clinic) 5.6 % (4.0-6.0) 04/03/24 11:27 Coding Level of Care Code Est Pt Level 4 (29659) Diagnoses Type 2 diabetes mellitus with diabetic polyneuropathy, without long-term current use of insulin E11.42 Diabetes mellitus custodial insulin use: without tank terminal gauger use Primary hypertension I10 Hypertension type: primary hypertension Lymphedema I89.0 Chronic obstructive pulmonary disease, unspecified COPD type J44.9 COPD type: unspecified COPD Actinic keratosis L57.0 Mixed hyperlipidemia E78.2 Hyperlipidemia type: mixed hyperlipidemia Peripheral vascular disease I73.9 Assessment & Plan Assessment & Plan (1) Type 2 diabetes mellitus with diabetic polyneuropathy: Code(s): E11.42 - Type 2 diabetes mellitus with diabetic polyneuropathy Category: Medical Qualifiers: Diabetes mellitus custodial insulin use: without custodial use Qualified Code(s): E11.42 - Type 2 diabetes mellitus with diabetic polyneuropathy Plan: Patient's type 2 diabetes is well controlled with A1c of 5.6. She will continue her current dose of Ozempic with goal A1c to remain below 7.0 (2) Hypertension: Code(s): I10 - Essential (primary) hypertension Category: Medical Qualifiers: Hypertension type: primary hypertension Qualified Code(s): I10 - Essential (primary) hypertension Plan: Patient's blood pressure elevated today in office. Will increase her dose of losartan to 100 mg daily. She does have a nurse that comes once weekly injection blood pressure and does report 140 systolic quite regularly. (3) Lymphedema: Code(s): I89.0 - Lymphedema, not elsewhere classified Category: Medical Plan: Patient is followed by the lymphedema clinic and will be starting lymphedema treatments at home. (4) COPD (chronic obstructive pulmonary disease): Comment: She is being treated for asthma/COPD, moderately severe. It remains well controlled with her current medical regimen including: Wixela 250-50 1 inhalation b.i.d.. Ipratropium/albuterol by updraft Q 6 hours while awake. Combivent Respimat 1 inhalation Q 4-6 hours p.r.n. as rescue inhaler. Code(s): J44.9 - Chronic obstructive pulmonary disease, unspecified Category: Medical Qualifiers: COPD type: unspecified COPD Qualified Code(s): J44.9 - Chronic obstructive pulmonary disease, unspecified Plan: Patient reports her COPD has been fairly well controlled with current maintenance inhaler. She denies any COPD exacerbations recently. (5) Actinic keratosis: Code(s): L57.0 - Actinic keratosis Category: Medical Plan: Seems to have a actinic keratosis type lesion over right flank area. She has had similar on her back in the past that were removed. She will like to hold off on any removal at this time. (6) Hyperlipidemia: Code(s): E78.5 - Hyperlipidemia, unspecified Category: Medical Qualifiers: Hyperlipidemia type: mixed hyperlipidemia Qualified Code(s): E78.2 - Mixed hyperlipidemia Plan: Patient's most recent lipid panel showing improved total cholesterol and LDL. She has been started on simvastatin 10 mg will continue working on dietary modifications. Goal LDL to be below 100 (7) Peripheral vascular disease: Code(s): I73.9 - Peripheral vascular disease, unspecified Category: Medical Plan: Patient does have bilateral lower extremity lymphedema to which she is getting treatment for. She continues to follow vascular surgeon here in [place]. Orders: Orders Influenza [id number] Immunization Today E11.42 - Type 2 diabetes mellitus with diabetic polyneuropathy, Z23 - Encounter for immunization Microalbumin, Random (w Creat) Today I10 - Essential (primary) hypertension Lipid Panel Today E11.42 - Type 2 diabetes mellitus with diabetic polyneuropathy AMB Hemoglobin A1c Today E11.42 - Type 2 diabetes mellitus with diabetic polyneuropathy Complete Blood Count no Diff Today E11.42 - Type 2 diabetes mellitus with diabetic polyneuropathy Comprehensive Solen. Panel Fast Today E11.42 - Type 2 diabetes mellitus with diabetic polyneuropathy Medications: New losartan 100 mg PO DAILY 90 tabs 1RF 90 days I10 - Essential (primary) hypertension Refilled simvastatin 10 mg PO DAILY 90 tabs 1RF 90 days E11.42 - Type 2 diabetes mellitus with diabetic polyneuropathy semaglutide (Ozempic) 0.5 mg (0.736 mL) subcut QWEEK 3 mL 3RF 4 weeks E11.42 - Type 2 diabetes mellitus with diabetic polyneuropathy Discontinued losartan Discontinued Reason: Doctor's Order 50 mg PO DAILY 30 tabs 3RF I10 - Essential (primary) hypertension
[2024-04-03 11:38] VITALS: BP 130/85
== END 2024-04-03 11:47 | disposition home or self-care (01) ==
PROVIDERS: PCP Physician Assistant; Visit Provider Physician Assistant
DX: E11.42 Type 2 diabetes mellitus with diabetic polyneuropathy (principal); J44.9 Chronic obstructive pulmonary disease, unspecified; I73.9 Peripheral vascular disease, unspecified; I10 Essential (primary) hypertension; I89.0 Lymphedema, not elsewhere classified; L57.0 Actinic keratosis; E78.2 Mixed hyperlipidemia

== ENCOUNTER → 2024-04-03 10:11 | Outpatient (BNVA) | payer OTHER, SELFPAY | PROVIDERS: PCP Physician Assistant; Visit Provider Physician Assistant | DX: E11.42 Type 2 diabetes mellitus with diabetic polyneuropathy (principal); I10 Essential (primary) hypertension; I89.0 Lymphedema, not elsewhere classified; J44.9 Chronic obstructive pulmonary disease, unspecified; L57.0 Actinic keratosis; E78.2 Mixed hyperlipidemia; I73.9 Peripheral vascular disease, unspecified | CPT/HCPCS: 83036; 99212 ==

== ENCOUNTER 2024-06-21 10:36 | Outpatient (AMB) | payer OTHER, SELFPAY ==
[2024-06-21 11:22] VITALS: BP 130/84; PULSE 88; O2SAT 99; BMI 34.2
--- NOTE | 2024-06-21 11:22 | MHC.PC.OV ---
Vital Signs 06/21/24 11:22 Height 5 ft 0.4 in Weight 177 lb 6 oz BMI 34.2 BP 130/84 Blood Pressure Location Lt brachial Position Sitting Pulse 88 Pulse Source Pulse Oximeter Pulse Oximetry (%) 99 Oxygen Delivery Method Room Air Intake Visit Reasons: Cataract lt 07/03 & rt 07/17 Customer Care Agent Required: No Accompanied by: Self / Same As Patient Allergies cephalexin [From KEFLEX] Allergy (Intermediate, Verified 06/21/24 11:37) HIVES Penicillins [PENICILLINS] Allergy (Intermediate, Verified 06/21/24 11:37) HIVES acetaminophen [From Excedrin Extra Strength] Allergy (Mild, Verified 06/21/24 11:37) Hives aspirin [From Excedrin Extra Strength] Allergy (Mild, Verified 06/21/24 11:37) Hives caffeine [From Excedrin Extra Strength] Allergy (Mild, Verified 06/21/24 11:37) Hives metformin [METFORMIN] Allergy (Mild, Verified 06/21/24 11:37) HIVES enalaprilat [Vasotec] Allergy (Unknown, Verified 06/21/24 11:37) Unknown dulaglutide [From Trulicity] Allergy (Verified 06/21/24 11:37) Hives Medication List - Last Reconciled 06/21/24 by Luis Waite PA-C alcohol swabs (Alcohol Pads) 1 pad topical BID alendronate 70 mg PO QWEEK blood pressure test kit-large As directed blood sugar diagnostic (FreeStyle Lite Strips) As directed three times a day blood-glucose meter (FreeStyle Lite Meter kit) As directed 3xday cholecalciferol (vitamin D3) 125 mcg PO DAILY compr.stocking,knee,long,large As directed cyanocobalamin (vitamin B-12) 1 tab PO DAILY fluticasone propion-salmeterol 250-50 mcg/dose (Wixela Inhub) 1 inh PO BID folic acid 1 mg PO DAILY ipratropium-albuterol 20-100 mcg/actuation (Combivent Respimat) 1 puff PO QID lancets (FreeStyle Lancets) USE TO TEST TWICE A DAY DIRECTED losartan 100 mg PO DAILY 90 days metoprolol tartrate 100 mg PO BEDTIME semaglutide (Ozempic) 0.5 mg (0.736 mL) subcut QWEEK 4 weeks simvastatin 10 mg PO DAILY 90 days triamcinolone acetonide 0.1% 1 appl topical DAILY 30 days Tobacco use date assessed: 06/21/24 Fall risk assessment: No Falls in past year Last assessed Fall Risk: 06/21/24 Dental Screening Dental Screen Date: 06/21/24 Did you have a dental visit in the last 12 months?: No Did you have a dental problem in the last 6 months where you did not have access to dental care?: No Was dental information given to patient?: No HPI Cataract lt 07/03 & rt 07/17 HPI Details Patient is a 74-year-old female here today for a preop visit. Patient is due for cataract removal surgery. . Patient has a past medical history significant for type 2 diabetes hypertension, asthma/COPD, obesity, leukocytosis, history of left hip fracture with hardware placement.. Patient does not have a history of OK, Congestive heart failure for CVA. Patient is not on any anticoagulation or antiplatelet therapy at this time. PATIENT HAS MAJOR TRANSPORTATION ISSUES THUS WILL NOT ABLE TO GET LAB OR EKG PRIOR TO VISIT. SHE PROMISES TO DO SO PRIOR TO HER CATARACT PROCEDURE. .. .. CHRONIC MEDICAL CONDITIONS--> Hypertension: Patient's blood pressure acceptable today in office. She continues on losartan and metoprolol with good effect. r. She denies any dizziness, headaches or vision issues. She does report having an occasional chest discomfort. .. Lymphedema: Has a history morbid obesity. She does have slight lymphedema in her lower extremities. She now has home therapy unit to do lymphedema compression treatment. She has followed up with vascular surgeon and is due for ultrasounds of her lower extremities. . Hyperlipidemia: Most recent lipid panel showing improved total cholesterol and LDL. She has been started on simvastatin 10 mg for better control of her cholesterol. .. COPD: Continues on maintenance inhaler with decent affect, .. Type 2 diabetes: Continues to manage her type 2 diabetes with Ozempic. She denies having any further hypoglycemic events.. She has lost a significant amount of weight over the last few years and may not need diabetic medication. Most recent A1c acceptable.. [facility] Medical History Femur fracture, left Normocytic anemia Anemia Closed fracture of left distal femur Asthma COPD (chronic obstructive pulmonary disease) CHF (congestive heart failure) COPD (chronic obstructive pulmonary disease) Acid reflux Osteopenia Essential hypertension Leg swelling PVC (premature ventricular contraction) Hypertension Asthma Hyperlipidemia LDL goal <70 Type 2 diabetes mellitus with diabetic polyneuropathy Surgical History History of surgery on lower extremity History of cardiac catheterization Hx of local excision of skin lesion History of tooth extraction Hx of bilateral breast reduction surgery History of cholecystectomy Family History Father CVD (cardiovascular disease) Mother CVD (cardiovascular disease) Gastric cancer Diabetes Sister Lung disease Social History Household Members: None Housing: Apartment Do you presently have visiting nurse or other home services: No Alcohol intake: never Comment: burning Patient Tobacco Use Status: Never used Tobacco e-Cigarette/Vaping Use: Never Used Second Hand Smoke Exposure: No service: No Current occupational status: disabled Sexual orientation: Straight/Heterosexual Gender identity: Female Cognitive needs: Yes (walker) Hearing needs: No Vision needs: Yes (glasses) Questionnaire PHQ-9 Over the last 2 weeks, how often have you been bothered by any of the following problems? 1. Little interest or pleasure in doing things: not at all 2. Feeling down, depressed, or hopeless: not at all 3. Trouble falling or staying asleep, or sleeping too much: not at all 4. Feeling tired or having little energy: not at all 5. Poor appetite or overeating: not at all 6. Feeling bad about yourself - or that you are a failure or have let yourself or your family down: not at all 7. Trouble concentrating on things, such as reading the newspaper or watching television: not at all 8. Moving or speaking so slowly that other people could have noticed. Or the opposite - being so fidgety or restless that you have been moving around a lot more than usual: not at all 9. Thoughts that you would be better off or of hurting yourself in some way: not at all Total score: 0 Depression Screening Interpretation: Negative Depression Screening Done: Yes 69267 - PHQ-9 Billing: Yes Source: Developed by Drs. Chu Vaughn, Trista Vital, Reyes Johnson and colleagues, with an educational paolo from [employer]. Thrive Questionnaire Date Thrive assessed: 06/21/24 I am a: Patient What is your living situation today?: I have a steady place to live Within the past 12 months, did the food you bought not last and you didn't have the money to get more?: Never true Within the past 12 months, did you worry whether your food would run out before you got money to buy more?: Never true Do you have trouble paying for medicines?: No Do you have trouble getting transportation to medical appointments?: No Do you have trouble paying your heating and electricity bill?: No Do you have trouble taking care of your child, family member or friend?: No Do you have trouble with day-to-day activities such as bathing, preparing meals, shopping, managing finances, etc.?: No Are you currently unemployed and looking for a job?: No Are you interested in more education?: No Please select the resources that you would like help with: None Currently or been in a relationship where the following occur: No concerns reported THRIVE Score: 0 AUDIT C Alcohol Use Questionnaire (AUDIT-C) 1. How often do you have a drink containing alcohol?: Never 3. How often do you have six or more drinks on one occasion?: Never Total Score: 0 GUSTABO-7 AMB Questionnaire GUSTABO-7 Date GUSTABO - 7 assessed: 06/21/24 Feeling nervous, anxious, or on edge: 0 = Not at all Not being able to stop or control worryin = Not at all Worrying too much about different things: 0 = Not at all Trouble relaxin = Not at all Being so restless that it is hard to sit still: 0 = Not at all Becoming easily annoyed or irritable: 0 = Not at all Feeling afraid as if something awful might happen: 0 = Not at all Total GUSTABO-7 score (0-4 normal; 5-9 mild; 10-14 moderate; 15-21 severe): 0 Source: Developed by Drs. Chu Vaughn, Trista Vital, Reyes Johnson and colleagues, with an educational paolo from [employer]. Review of Systems Const Denies headache(s) Eyes Denies loss of vision ENT Denies vertigo, Denies dizziness, Denies headache(s) and Denies sore throat Card Denies chest pain, Denies leg edema and Denies lightheadedness Resp Denies cough, Denies hemoptysis and Denies wheezing GI Denies abdominal pain, Denies melena, Denies constipation, Denies diarrhea and Denies vomiting Denies urinary frequency, Denies dysuria and Denies urinary urgency Musc Denies arthralgias, Denies joint swelling, Denies numbness and Denies tingling Neuro Denies Abnormal speech present, Denies behavioral changes, Denies vertigo, Denies dizziness, Denies headache(s), Denies loss of vision, Denies memory loss, Denies numbness and Denies tingling Psych Denies anxiety, Denies behavioral changes, Denies depression, Denies memory loss and Denies panic attacks Chung/Lymph Denies easy bleeding and Denies easy bruising Aller/Immun Denies wheezing Physical exam (Primary Care) Vital Signs: Last Vital Signs Pulse 88 06/21/24 11:22 BP 130/84 06/21/24 11:22 Pulse Ox 99 06/21/24 11:22 Oxygen Delivery Method Room Air 06/21/24 11:22 BMI result Body Mass Index 34.2 Tobacco/Smoking Status: Tobacco use Status Tobacco use date assessed 06/21/24 06/21/24 11:29 Patient Tobacco Use Status Never used Tobacco 06/21/24 11:29 e-Cigarette/Vaping Use Never Used 06/21/24 11:29 PHQ-9: PHQ-9 Score PHQ-9: Total score 0 06/21/24 11:39 Depression Screening Interpretation: Negative Thrive Assessment: Date of Thrive Assessment Date Thrive assessed 06/21/24 06/21/24 11:29 Currently or been in a relationship where the following occur: No concerns reported Const General: healthy appearing, no acute distress, alert and awake Nutritional Appearance: well nourished Orientation/consciousness: oriented to person, oriented to place and oriented to time HENMT Ears: TM's normal bilaterally General nose exam: Normal nasal mucous membranes and turbinates present Eyes Conjunctivae: conjunctivae normal Sclerae: sclerae normal Pupils: Equal, round and reactive pupils present Neck Neck: Yes no lymphadenopathy and Yes no JVD Thyroid: Thyroid normal Carotids: no bruits Resp Effort & Inspection: normal respiratory effort and not tachypneic Auscultation: no crackles, no rales, no rhonchi and no wheezes Cardio Rate: regular rate Rhythm: regular rhythm Heart sounds: no murmurs and normal S1 and S2 GI Palpation (GI): Soft to palpation, nontender, no hepatomegaly and no splenomegaly Auscultation: normal bowel sounds Skin General skin exam: no rashes or lesions noted and dry skin Neuro General: oriented to person, oriented to place and oriented to time Cranial nerves: Yes Equal, round and reactive pupils present Speech: No Abnormal speech present Gait exam (Neuro): Normal gait present Motor exam (neuro): no tremor noted Extrem Right upper extremity: full ROM Left upper extremity: full ROM Right lower extremity: full ROM; no edema Left lower extremity: full ROM; no edema Psych Mental Status: mental status grossly normal Speech and movement: Normal speech and movement present Affect: normal affect Attitude: cooperative Thought process: Normal thought process present Coding Level of Care Code Est Pt Level 4 (14015) Diagnoses Pre-op evaluation Z01.818 Age-related cataract of both eyes, unspecified age-related cataract type H25.9 Age-related cataract type: unspecified Cataract type: age-related Laterality: bilateral Type 2 diabetes mellitus with diabetic polyneuropathy, without long-term current use of insulin E11.42 Diabetes mellitus termite control servicer insulin use: without longterm use Primary hypertension I10 Hypertension type: primary hypertension Additional Codes PHQ-9 - 28239 - PHQ-9 Billing: Yes ([id number]) Assessment & Plan Assessment & Plan (1) Pre-op evaluation: Code(s): Z01.818 - Encounter for other preprocedural examination Category: Medical Plan: Patient's most recent labs and vitals are stable. HAS MAJOR TRANSPORTATION ISSUES THUS WAS NOT UNABLE TO GET ANY FASTING LABS AND EKG. Advised to hold Ozempic 1 week before surgery Patient is medically clear for needed bilateral cataract surgeries. (2) Cataract: Code(s): H26.9 - Unspecified cataract Category: Medical Qualifiers: Age-related cataract type: unspecified Cataract type: age-related Laterality: bilateral Qualified Code(s): H25.9 - Unspecified age-related cataract Plan: As above (3) Type 2 diabetes mellitus with diabetic polyneuropathy: Code(s): E11.42 - Type 2 diabetes mellitus with diabetic polyneuropathy Category: Medical Qualifiers: Diabetes mellitus longterm insulin use: without longterm use Qualified Code(s): E11.42 - Type 2 diabetes mellitus with diabetic polyneuropathy Plan: Patient type 2 diabetes well controlled with current dose Ozempic. Goal A1c is to remain below 7.0 (4) Hypertension: Code(s): I10 - Essential (primary) hypertension Category: Medical Qualifiers: Hypertension type: primary hypertension Qualified Code(s): I10 - Essential (primary) hypertension Plan: Patient's blood pressure acceptable today in office. Will continue current dose of losartan with goal blood pressure to remain below 140/90 Patient Instructions: Goal: A1c to remain below 7.0 Barriers: Adherence to physical activity and healthy eating habits, transportation
--- OUTSIDE RECORDS SUMMARY | 2024-06-21 12:23 | XMS_ITS ---
Author Organization [facility] Address Unknown Allergies, Adverse Reactions, Alerts Substance Reaction Status Noted Date Resolved Date Vasotec active 07/11/2021 Shell Fish active 07/15/2021 Penicillins active 07/11/2021 metFORMIN active 07/11/2021 Dulaglutide active 07/11/2021 Cephalexin active 07/11/2021 Aspirin active 07/11/2021 Problems Problem Status Start Date End Date UNSPECIFIED FRACTURE OF LEFT FEMUR, SUBSEQUENT ENCOUNTER FOR CLOSED FRACTURE WITH ROUTINE HEALING (Primary) (S72.92XD - ICD-10-CM) ACTIVE 07/11/2021 HISTORY OF FALLING (Z91.81 - ICD-10-CM) ACTIVE 0 07/11/2021 TYPE 2 DIABETES MELLITUS WIT H DIABETIC NEUROPATHY, UNSPECIFIED (E11.40 - ICD-10-CM) ACTIVE 07/11/2021 UNSPECIFIED DIASTOLIC (CONGE STIVE) HEART FAILURE (I50.30 - ICD-10-CM) ACTIVE 07/11/2021 CHRONIC OBSTRUCTIVE PULMONAR Y DISEASE, UNSPECIFIED (J44.9 - ICD-10-CM) ACTIVE 07/11/2021 UNSPECIFIED ASTHMA, UNCOMPLICATED (J45.909 - ICD-10-CM ) ACTIVE 07/11/2021 LOCALIZED SWELLING, MASS AND LUMP, LOWER LIMB, BILATERAL (R22.43 - ICD-10-CM) ACTIVE 07/11/2021 ESSENTIAL (PRIMARY) HYPERTENSION (I10 - ICD-10-CM) ACT FANY 07/11/2021 HYPERLIPIDEMIA, UNSPECIFIED (E78.5 - ICD-10-CM) ACTIVE 07/11/2021 DISORDER OF BONE DENSITY AND STRUCTURE, UNSPECIFIED (M85.9 - ICD-10-CM) ACTIVE 07/11/2021 Encounters Encounter Performer Performer Role Encounter Diagnoses Location Date Leave - Discharged / Transferred to another hospital - [facility] - Acute care hospital [facility] 2 05:24 pm EST - 2 10:45 pm EST Discharge - Discharged to home or self care - Home - Private home/apt. with no home health services [facility] 2 09:17 pm EDT - 2 04:27 pm EDT Reason For Referral Shortness of Breath (bronchitis, pneumonia) Immunizations Vaccine Date Influenza TB 2 Step Mantoux Skin Test 07/12/2021 0 1:00 pm EST PCV13 (Pneumococcal Conjugate)Vaccine SARS-COV-2 (COVID-19) 09/18/2020 12:00 a m EDT SARS-COV-2 (COVID-19) 08/21/2020 12:00 a m EDT Social History
== END 2024-06-21 11:54 | disposition home or self-care (01) ==
PROVIDERS: PCP Physician Assistant; Visit Provider Physician Assistant
DX: Z01.818 Encounter for other preprocedural examination (principal); H25.9 Unspecified age-related cataract; E11.42 Type 2 diabetes mellitus with diabetic polyneuropathy; I10 Essential (primary) hypertension

== ENCOUNTER → 2024-06-21 10:36 | Outpatient (BNVA) | payer OTHER, SELFPAY | PROVIDERS: PCP Physician Assistant; Visit Provider Physician Assistant | DX: Z01.818 Encounter for other preprocedural examination (principal); H25.9 Unspecified age-related cataract; E11.42 Type 2 diabetes mellitus with diabetic polyneuropathy; I10 Essential (primary) hypertension | CPT/HCPCS: 96127; 99212 ==

== ENCOUNTER 2024-07-03 07:21 | Day surgery (SDC) | payer OTHER, SELFPAY ==
[2024-06-28 11:53] VITALS: BMI 34.2
--- NOTE | 2024-07-03 08:32 | HO.ANESPROP2 ---
HPI - Anesthesia Eval Consult details Narrative: for cataract extraction PMFSH Active Problems Active Problems: All Active Problems Cataract (Acute) Pre-op evaluation (Acute) Hyperlipidemia (Acute) Actinic keratosis (Acute) Acquired lymphedema of lower extremity (Acute) Post-menopausal (Acute) Lymphedema (Acute) Varicose veins of left lower extremity with inflammation (Acute) Peripheral vascular disease (Acute) Hypoglycemia (Acute) Fatigue (Acute) Hypertension (Acute) Closed left femoral fracture (Acute) Chest tightness (Acute) Leucocytosis (Acute) Endometrial thickening on ultrasound (Acute) Rash of both feet (Acute) Annual physical exam (Acute) Type 2 diabetes mellitus with diabetic polyneuropathy (Acute) Osteopenia (Acute) Asthma (Acute) COPD (chronic obstructive pulmonary disease) (Acute) Leg swelling (Acute) PVC (premature ventricular contraction) (Acute) Past Medical History Medical History Cataract Femur fracture, left Normocytic anemia Anemia Closed fracture of left distal femur Asthma COPD (chronic obstructive pulmonary disease) CHF (congestive heart failure) COPD (chronic obstructive pulmonary disease) Acid reflux Osteopenia Essential hypertension Leg swelling PVC (premature ventricular contraction) Hypertension Asthma Hyperlipidemia LDL goal <70 Type 2 diabetes mellitus with diabetic polyneuropathy Family History Family History Father CVD (cardiovascular disease) Mother CVD (cardiovascular disease) Gastric cancer Diabetes Sister Lung disease Family history of problems with anesthesia: No Surgical History Surgical History History of surgery on lower extremity History of cardiac catheterization Hx of local excision of skin lesion History of tooth extraction Hx of bilateral breast reduction surgery History of cholecystectomy History of Problems with Anesthesia: No Social History Social History Household Members: None Housing: Apartment Do you presently have visiting nurse or other home services: No Alcohol intake: never Comment: burning Patient Tobacco Use Status: Never used Tobacco e-Cigarette/Vaping Use: Never Used Second Hand Smoke Exposure: No Advance Directives: No Advance Directives Information Provided: Yes service: No Current occupational status: disabled Sexual orientation: Straight/Heterosexual Gender identity: Female Cognitive needs: Yes (walker) Hearing needs: No Vision needs: Yes (glasses) Meds Allergies Allergy/AdvReac Type Severity Reaction Status Date / Time cephalexin [From KEFLEX] Allergy Intermediate HIVES Verified 06/21/24 11:37 Penicillins [PENICILLINS] Allergy Intermediate HIVES Verified 06/21/24 11:37 acetaminophen Allergy Mild Hives Verified 06/21/24 11:37 [From Excedrin Extra Strength] aspirin Allergy Mild Hives Verified 06/21/24 11:37 [From Excedrin Extra Strength] caffeine Allergy Mild Hives Verified 06/21/24 11:37 [From Excedrin Extra Strength] metformin [METFORMIN] Allergy Mild HIVES Verified 06/21/24 11:37 enalaprilat [Vasotec] Allergy Unknown Unknown Verified 06/21/24 11:37 dulaglutide [From Trulicity] Allergy Hives Verified 06/21/24 11:37 Exam Height,Weight and Vital Signs: Height 5 ft 0.4 in Weight 80.456 kg Airway Mallampati Class: II TM Dist: <=3cm Neck ROM: Limited Heart: rrr Lungs: cta Assessment and Plan Assessment Anesthesia Assessment: Anesthesia Plan Discussed and Chart Reviewed Final Anesthetic Review Family History of Problems with Anesthesia: No History of Problems with Anesthesia: No NPO: Yes ASA Class: III Final Preanesthetic Review: No Changes in Pt Med Stat, Meds/Allgs Chart Reviewed, Consent Obtained/Reviewed and Anes Risks/Benef Reviewed Patient Risk: Intermediate Procedure Risk: Low Anesthetic Plan Anesthetic Plan: MAC: Disposition: Standard PACU
[2024-07-03] MEDS: Tetracaine HCl/PF 0.5% Oph Sol 4 ML DROPS 1 DROP EYE-LEFT (08:48)
[2024-07-03] MEDS: Cyclopentolate 1 % Ophth Sol 2 ML DRPBTL 1 DROP EYE-LEFT ×3 (08:54→09:15)
[2024-07-03] MEDS: Tropicamide 1 % Ophth Sol 3 ML BTL 1 DROP EYE-LEFT ×3 (08:56→09:15)
[2024-07-03] MEDS: Ketorolac Tromethamine 0.5% Op 5 ML DROPS 1 DROP EYE-LEFT ×3 (08:57→09:18)
[2024-07-03] MEDS: Phenylephrine HCL 2.5% Oph SoL 2 ML BOTTLE 1 DROP EYE-LEFT ×3 (08:58→09:19)
[2024-07-03 08:59] VITALS: BP 144/76; PULSE 83; RESP 18; TEMP 37.2; O2SAT 100; BMI 34.1
[2024-07-03] MEDS: Lactated Ringers 500 ML 100 ML IVCONT (09:19)
--- NOTE | 2024-07-03 09:24 | MHC.SHP ---
Pre-Procedural Eval Section A - 24 Hr Update-Section A only Date of Service: 07/03/24 The patient is an INPATIENT: No Changes since office visit: No Cold of Flu in the past 2 weeks, No New Medical Problems, No Changes in Medication and No Patient answered all questions The patient has been examined within 24 hours of the surgical procedure. The History & Physical has been completed within 30 days and I have reviewed it.: Yes Section B - Complete if H&P > 30 days Chief Complaint: Age-related nuclear cataract, left eye Allergies: Allergies Allergy/AdvReac Type Severity Reaction Status Date / Time cephalexin [From KEFLEX] Allergy Intermediate HIVES Verified 07/03/24 08:44 Penicillins [PENICILLINS] Allergy Intermediate HIVES Verified 07/03/24 08:44 acetaminophen Allergy Mild Hives Verified 07/03/24 08:44 [From Excedrin Extra Strength] aspirin Allergy Mild Hives Verified 07/03/24 08:44 [From Excedrin Extra Strength] caffeine Allergy Mild Hives Verified 07/03/24 08:44 [From Excedrin Extra Strength] metformin [METFORMIN] Allergy Mild HIVES Verified 07/03/24 08:44 enalaprilat [Vasotec] Allergy Unknown Unknown Verified 07/03/24 08:44 dulaglutide [From Trulicity] Allergy Hives Verified 07/03/24 08:44 Plan Diagnosis/Plan: Unchanged I have reviewed the history and physical and performed a pertinent physical examination on my patient. No changes have occurred unless specified. Time Spent With Patient Time: Total time managing care of this patient today ____ minutes.
--- NOTE | 2024-07-03 09:25 | HO.PNOPHT ---
Ophthalmology Procedure Procedure Date of Service: 07/03/24 Ophthalmology Viscoelastic: Healon Duet Dual Pack Pro Ophthalmology Lenses: IOL Acrysof MP - [id number] (21) Procedure Notes: PREOPERATIVE DIAGNOSIS: Decreased visual acuity left eye secondary to cataract POSTOPERATIVE DIAGNOSIS: Same PROCEDURE: Left cataract extraction with intraocular lens insertion SURGEON: Jonathan Sweeney M.D. ANESTHESIA: Topical/MAC ESTIMATED BLOOD LOSS: None COMPLICATIONS: None After obtaining informed consent, the patient was brought to the operation room suite and placed in the supine position. After adequate sedation per anesthesia, topical drops of Tetracaine were given to the left eye. The eye was then prepped and draped in the usual sterile fashion. The operating room microscope was then positioned over the operative eye and a lid speculum placed. A paracentesis was created. Viscoelastic was then instilled into the anterior chamber. A three plane incision was then created temporally, utilizing a 2.85 mm keratome. Capsulotomy forceps were then utilized to create a circular tear capsulotomy. Hydrodissection and hydrodelineation were carried out until adequate mobilization of the nucleus occurred. Phacoemulsification was then utilized to remove the dense central nucleus followed by removal of the cortical material utilizing the automated aspiration irrigation unit. Viscoat elastic was instilled into the posterior capsular bag followed by placement of a posterior chamber intraocular lens without difficulty. The residual Viscoat elastic was then removed utilizing the automated IA machine. The wound was check and found to be watertight. The patient tolerated the procedure well and the lid speculum was removed. Intracameral injection of Vigamox 0.1 mL followed by a subtenon injection of Kenalog-40 0.2 mL were administered. Iris capture in the corneal wound required instillation of MiocholThe patient will be seen in the a.m.
[2024-07-03 09:46] LABS: Glucose, Whole Blood 86 mg/dL (60-115)
[2024-07-03 10:04] VITALS: BP 158/72; PULSE 89; RESP 16; TEMP 37.2; O2SAT 100
--- NOTE | 2024-07-03 15:13 | PC.NURSE ---
Case management and director worked on helping patient to get a ride home sooner than her scheduled 4:00pm ride with the [facility], and were unable to. Patient waited in discharge and had lunch in discharge. will be moved to pacu when discharge closes - nurse will be made aware that patient's discharge time needs to be put in the computer.
--- NOTE | 2024-07-03 15:21 | PC.NURSE ---
report given to dimas bermudez rn and aware to write time out for patient in computer when discharged.
== END 2024-07-03 15:45 | disposition home or self-care (01) ==
PROVIDERS: PCP Physician Assistant; Visit Provider Ophthalmology
PROC: (CPT 66985; principal; 2024-07-03 10:00)
DX: H25.12 Age-related nuclear cataract, left eye (principal); H52.4 Presbyopia; H18.413 Arcus senilis, bilateral; H11.153 Pinguecula, bilateral; I10 Essential (primary) hypertension; E78.00 Pure hypercholesterolemia, unspecified; E11.9 Type 2 diabetes mellitus without complications; Z79.84 Long term (current) use of oral hypoglycemic drugs; Z79.85 Long-term (current) use of injectable non-insulin antidiabetic drugs; Z79.51 Long term (current) use of inhaled steroids; Z79.899 Other long term (current) drug therapy; Z88.0 Allergy status to penicillin; Z88.6 Allergy status to analgesic agent; Z88.8 Allergy status to other drugs, medicaments and biological substances
CPT/HCPCS: 66984; 82947; J2250; J3301; V2630

== ENCOUNTER 2024-07-11 09:02 | Outpatient (REF) | payer OTHER, SELFPAY ==
[2024-07-11 09:53] LABS: Hematocrit 33.4 % (37.0-47.0); Mean Corpuscular HGB Conc 32.9 g/dl (31.0-35.0); Mean Corpuscular Volume 88.1 fL (80.0-98.0); Mean Platelet Volume 8.5 fL (9.4-12.3); Platelet Count 353 X10*3/uL (160-400); Red Blood Count 3.79 X10*6/uL (4.20-5.50); Red Cell Distribution Width 14.2 % (11.0-16.0); White Blood Count 9.3 X10*3/uL (4.8-10.8)
[2024-07-11 10:31] LABS: Alanine Aminotransferase < 6 U/L (0-31); Alkaline Phosphatase 71 U/L (39-117); Anion Gap 12 (12-20); Aspartate Amino Transferase 18 U/L (5-31); Bilirubin Total 0.5 mg/dL (0.0-1.0); Blood Urea Nitrogen 14 mg/dL (9-16); Calcium 9.7 mg/dL (8.4-10.2); Carbon Dioxide 22 mmol/L (22-29); Chloride 110 mmol/L (96-108); Cholesterol 184 mg/dL (<200); Estimated Glomerular Filt Rate 58; Glucose Fasting 99 mg/dL (60-99); HDL Cholesterol 50 mg/dL (>40); LDL Cholesterol Calculated 99 mg/dL (<100); Potassium 3.3 mmol/L (3.3-5.1); Sodium 141 mmol/L (135-145); Total Protein 8.3 g/dL (6.5-8.0); Triglycerides 175 mg/dL (<150)
[2024-07-11 10:32] LABS: Creatinine Urine 134.28 mg/dL; Microalbum/Creatinine Ratio Ur 180.9 ug/mg cr (<30)
== END 2024-07-11 09:03 | disposition home or self-care (01) ==
LOC: HO.LAB 09:02
PROVIDERS: PCP Physician Assistant; Visit Provider Physician Assistant
DX: E11.42 Type 2 diabetes mellitus with diabetic polyneuropathy (principal); I10 Essential (primary) hypertension
CPT/HCPCS: 36415; 80053; 80061; 82043; 82570; 85027

== ENCOUNTER 2024-07-17 07:09 | Day surgery (SDC) | payer OTHER, SELFPAY ==
[2024-06-28 12:02] VITALS: BMI 34.2
--- NOTE | 2024-07-14 10:01 | HO.ANESPROP2 ---
Documented by User: Christa Coats NP 07/14/24 10:02 HPI - Anesthesia Eval Consult details Narrative: 74yo F for Right Cataract Extraction IOL Insertion Left eye 07/03/24: Midaz 2 Anesthesia Pre-Procedure Meds Is the patient on any of the following meds?: GLP1/DPP4 PMFSH Active Problems Active Problems: All Active Problems Cataract (Acute) Pre-op evaluation (Acute) Hyperlipidemia (Acute) Actinic keratosis (Acute) Acquired lymphedema of lower extremity (Acute) Post-menopausal (Acute) Lymphedema (Acute) Varicose veins of left lower extremity with inflammation (Acute) Peripheral vascular disease (Acute) Hypoglycemia (Acute) Fatigue (Acute) Hypertension (Acute) Closed left femoral fracture (Acute) Chest tightness (Acute) Leucocytosis (Acute) Endometrial thickening on ultrasound (Acute) Rash of both feet (Acute) Annual physical exam (Acute) Type 2 diabetes mellitus with diabetic polyneuropathy (Acute) Osteopenia (Acute) Asthma (Acute) COPD (chronic obstructive pulmonary disease) (Acute) Leg swelling (Acute) PVC (premature ventricular contraction) (Acute) Past Medical History Medical History Cataract Femur fracture, left Normocytic anemia Anemia Closed fracture of left distal femur Asthma COPD (chronic obstructive pulmonary disease) CHF (congestive heart failure) COPD (chronic obstructive pulmonary disease) Acid reflux Osteopenia Essential hypertension Leg swelling PVC (premature ventricular contraction) Hypertension Asthma Hyperlipidemia LDL goal <70 Type 2 diabetes mellitus with diabetic polyneuropathy Family History Family History Father CVD (cardiovascular disease) Mother CVD (cardiovascular disease) Gastric cancer Diabetes Sister Lung disease Family history of problems with anesthesia: No Surgical History Surgical History Hx of left cataract extraction (07/03/24) History of surgery on lower extremity History of cardiac catheterization Hx of local excision of skin lesion History of tooth extraction Hx of bilateral breast reduction surgery History of cholecystectomy History of Problems with Anesthesia: No Social History Social History Household Members: None Housing: Apartment Do you presently have visiting nurse or other home services: No Alcohol intake: never Comment: burning Patient Tobacco Use Status: Never used Tobacco e-Cigarette/Vaping Use: Never Used Second Hand Smoke Exposure: No Use of substances other than those prescribed or required for medical reasons: No Are you DNR?: No Advance Directives: No Advance Directives Information Provided: Yes Recently lost weight without trying: No service: No Current occupational status: disabled Sexual orientation: Straight/Heterosexual Gender identity: Female Cognitive needs: Yes (walker) Hearing needs: No Vision needs: Yes (glasses) Meds Allergies Allergy/AdvReac Type Severity Reaction Status Date / Time cephalexin [From KEFLEX] Allergy Intermediate HIVES Verified 07/03/24 08:44 Penicillins [PENICILLINS] Allergy Intermediate HIVES Verified 07/03/24 08:44 acetaminophen Allergy Mild Hives Verified 07/03/24 08:44 [From Excedrin Extra Strength] aspirin Allergy Mild Hives Verified 07/03/24 08:44 [From Excedrin Extra Strength] caffeine Allergy Mild Hives Verified 07/03/24 08:44 [From Excedrin Extra Strength] metformin [METFORMIN] Allergy Mild HIVES Verified 07/03/24 08:44 enalaprilat [Vasotec] Allergy Unknown Unknown Verified 07/03/24 08:44 dulaglutide [From Trulicity] Allergy Hives Verified 07/03/24 08:44 Exam Height,Weight and Vital Signs: Height 5 ft 0.4 in Weight 80.456 kg Assessment and Plan Assessment Anesthesia Assessment: Chart Reviewed Final Anesthetic Review Family History of Problems with Anesthesia: No History of Problems with Anesthesia: No Documented by User: Michelle Bethea MD 07/17/24 09:40 HPI - Anesthesia Eval Anesthesia Pre-Procedure Meds Is the patient on any of the following meds?: GLP1/DPP4 (Last dose of semaglutide 06/26/24) PMFSH Past Medical History Medical History Cataract Femur fracture, left Normocytic anemia Anemia Closed fracture of left distal femur Asthma COPD (chronic obstructive pulmonary disease) CHF (congestive heart failure) COPD (chronic obstructive pulmonary disease) Acid reflux Osteopenia Essential hypertension Leg swelling PVC (premature ventricular contraction) Hypertension Asthma Hyperlipidemia LDL goal <70 Type 2 diabetes mellitus with diabetic polyneuropathy Family History Family History Father CVD (cardiovascular disease) Mother CVD (cardiovascular disease) Gastric cancer Diabetes Sister Lung disease Family history of problems with anesthesia: No Surgical History Surgical History Hx of left cataract extraction (07/03/24) History of surgery on lower extremity History of cardiac catheterization Hx of local excision of skin lesion History of tooth extraction Hx of bilateral breast reduction surgery History of cholecystectomy History of Problems with Anesthesia: No Social History Social History Household Members: None Housing: Apartment Do you presently have visiting nurse or other home services: No Alcohol intake: never Comment: burning Patient Tobacco Use Status: Never used Tobacco e-Cigarette/Vaping Use: Never Used Second Hand Smoke Exposure: No Use of substances other than those prescribed or required for medical reasons: No Are you DNR?: No Advance Directives: No Advance Directives Information Provided: Yes Recently lost weight without trying: No service: No Current occupational status: disabled Sexual orientation: Straight/Heterosexual Gender identity: Female Cognitive needs: Yes (walker) Hearing needs: No Vision needs: Yes (glasses) Meds Allergies Allergy/AdvReac Type Severity Reaction Status Date / Time cephalexin [From KEFLEX] Allergy Intermediate HIVES Verified 07/03/24 08:44 Penicillins [PENICILLINS] Allergy Intermediate HIVES Verified 07/03/24 08:44 acetaminophen Allergy Mild Hives Verified 07/03/24 08:44 [From Excedrin Extra Strength] aspirin Allergy Mild Hives Verified 07/03/24 08:44 [From Excedrin Extra Strength] caffeine Allergy Mild Hives Verified 07/03/24 08:44 [From Excedrin Extra Strength] metformin [METFORMIN] Allergy Mild HIVES Verified 07/03/24 08:44 enalaprilat [Vasotec] Allergy Unknown Unknown Verified 07/03/24 08:44 dulaglutide [From Trulicity] Allergy Hives Verified 07/03/24 08:44 Exam Height,Weight and Vital Signs: Height 5 ft 0.4 in Weight 80.456 kg Vital Signs Temp Pulse Resp BP Pulse Ox O2 Del Method 07/17/24 08:54 99.2 F 79 16 169/80 H 97 Room Air Pertinent Lab Results Pertinent Lab Results: Lab Results 07/17/24 Range/Units 09:06 POC Glucose 93 (60-115) mg/dL Airway Mallampati Class: II TM Dist: >3cm Neck ROM: Full Loose/Missing/Broken Teeth: Yes (Edentulous) Heart: RRR Lungs: CTAB Assessment and Plan Assessment Anesthesia Assessment: Anesthesia Plan Discussed and Chart Reviewed Final Anesthetic Review Family History of Problems with Anesthesia: No History of Problems with Anesthesia: No NPO: Yes ASA Class: III Final Preanesthetic Review: No Changes in Pt Med Stat, Meds/Allgs Chart Reviewed, Consent Obtained/Reviewed and Anes Risks/Benef Reviewed Patient Risk: Intermediate Procedure Risk: Low Assessment/Block/Sedation in SS: Assess/Block/Sedation-SS Anesthetic Plan Anesthetic Plan: MAC: Disposition: Standard PACU
[2024-07-17 08:54] VITALS: BP 169/80; PULSE 79; RESP 16; TEMP 37.3; O2SAT 97
[2024-07-17] MEDS: Tetracaine HCl/PF 0.5% Oph Sol 4 ML DROPS 1 DROP EYE-RIGHT (08:57)
[2024-07-17] MEDS: Cyclopentolate 1 % Ophth Sol 2 ML DRPBTL 1 DROP EYE-RIGHT ×3 (08:58→09:02)
[2024-07-17] MEDS: Tropicamide 1 % Ophth Sol 3 ML BTL 1 DROP EYE-RIGHT ×3 (08:58→09:03)
[2024-07-17] MEDS: Ketorolac Tromethamine 0.5% Op 5 ML DROPS 1 DROP EYE-RIGHT ×3 (08:59→09:04)
[2024-07-17] MEDS: Phenylephrine HCL 2.5% Oph SoL 2 ML BOTTLE 1 DROP EYE-RIGHT ×3 (09:00→09:04)
[2024-07-17] MEDS: Lactated Ringers 500 ML 50 ML IV (09:08)
[2024-07-17 09:10] LABS: Glucose, Whole Blood 93 mg/dL (60-115)
--- NOTE | 2024-07-17 09:24 | MHC.SHP ---
Pre-Procedural Eval Section A - 24 Hr Update-Section A only Date of Service: 07/17/24 The patient is an INPATIENT: No Changes since office visit: No Cold of Flu in the past 2 weeks, No New Medical Problems, No Changes in Medication and No Patient answered all questions The patient has been examined within 24 hours of the surgical procedure. The History & Physical has been completed within 30 days and I have reviewed it.: Yes Section B - Complete if H&P > 30 days Chief Complaint: Age-related nuclear cataract, right eye Allergies: Allergies Allergy/AdvReac Type Severity Reaction Status Date / Time cephalexin [From KEFLEX] Allergy Intermediate HIVES Verified 07/03/24 08:44 Penicillins [PENICILLINS] Allergy Intermediate HIVES Verified 07/03/24 08:44 acetaminophen Allergy Mild Hives Verified 07/03/24 08:44 [From Excedrin Extra Strength] aspirin Allergy Mild Hives Verified 07/03/24 08:44 [From Excedrin Extra Strength] caffeine Allergy Mild Hives Verified 07/03/24 08:44 [From Excedrin Extra Strength] metformin [METFORMIN] Allergy Mild HIVES Verified 07/03/24 08:44 enalaprilat [Vasotec] Allergy Unknown Unknown Verified 07/03/24 08:44 dulaglutide [From Trulicity] Allergy Hives Verified 07/03/24 08:44 Plan Diagnosis/Plan: Unchanged I have reviewed the history and physical and performed a pertinent physical examination on my patient. No changes have occurred unless specified. Time Spent With Patient Time: Total time managing care of this patient today ____ minutes.
--- NOTE | 2024-07-17 09:25 | P.PCNO_ITS ---
Ophthalmology Procedure Procedure Date of Service: 07/17/24 Ophthalmology Viscoelastic: Healon Duet Dual Pack Pro Ophthalmology Lenses: IOL Acrysof MP - [id number] (21.5) Procedure Notes: PREOPERATIVE DIAGNOSIS: Decreased visual acuity right eye secondary to cataract POSTOPERATIVE DIAGNOSIS: Same PROCEDURE: Right cataract extraction with intraocular lens insertion SURGEON: Jonathan Sweeney M.D. ANESTHESIA: Topical/MAC ESTIMATED BLOOD LOSS: None COMPLICATIONS: None After obtaining informed consent, the patient was brought to the operating room suite and placed in the supine position. After adequate sedation per anesthesia, topical drops of Tetracaine were given to the right eye. The eye was then prepped and draped in the usual sterile fashion. The operating room microscope was then positioned over the operative eye and a lid speculum placed. A paracentesis was created. Viscoelastic was then instilled into the anterior chamber. A three plane incision was then created temporally, utilizing a 2.85 mm keratome. Capsulotomy forceps were then utilized to create a circular tear capsulotomy. Hydrodissection and hydrodelineation were carried out until adequate mobilization of the nucleus occurred. Phacoemulsification was then utilized to remove the dense central nu cleus followed by removal of the cortical material utilizing the automated aspiration irrigation unit. Viscoelastic was instilled into the posterior capsular bag followed by placement of a posterior chamber intraocular lens without difficulty. The residual Viscoelastic was then removed utilizing the automated IA machine. The wound was checked and found to be watertight. The patient tolerated the procedure well and the lid speculum was removed. Intracameral injection of Vigamox 0.1 mL followed by a subtenon injection of Kenalog-40 0.2 mL were administered. The patient will be seen in the a.m.
[2024-07-17 09:53] VITALS: BP 132/88; PULSE 79; RESP 16; TEMP 36.9; O2SAT 99
== END 2024-07-17 09:54 | disposition home or self-care (01) ==
PROVIDERS: PCP Physician Assistant; Visit Provider Ophthalmology
PROC: (CPT 66985; principal; 2024-07-17 10:00)
DX: H25.11 Age-related nuclear cataract, right eye (principal); H52.4 Presbyopia; H18.413 Arcus senilis, bilateral; H11.153 Pinguecula, bilateral; I10 Essential (primary) hypertension; E78.00 Pure hypercholesterolemia, unspecified; E11.9 Type 2 diabetes mellitus without complications; J44.9 Chronic obstructive pulmonary disease, unspecified; Z79.51 Long term (current) use of inhaled steroids; Z79.84 Long term (current) use of oral hypoglycemic drugs; Z79.85 Long-term (current) use of injectable non-insulin antidiabetic drugs; Z79.899 Other long term (current) drug therapy; Z87.81 Personal history of (healed) traumatic fracture; Z88.0 Allergy status to penicillin; Z88.6 Allergy status to analgesic agent; Z88.8 Allergy status to other drugs, medicaments and biological substances; Z98.890 Other specified postprocedural states
CPT/HCPCS: 66984; 82947; J2250; J3010; J3301; V2630

== ENCOUNTER 2024-08-17 09:14 | Outpatient (REF) | payer OTHER, SELFPAY ==
--- OUTSIDE RECORDS SUMMARY | 2024-08-17 10:00 | XMS_ITS ---
Author Organization [facility] Care Team Providers Care Neuro Urologist Name Role Phone Mario Alberto Feliz Unavailable Unavailable Olena Montez Unavailable Unavailable Parish Sarah Unavailable Unavailable Allergies and adverse reactions Code CodeSystem Substance Reaction Severity StartDate Concern Status Vasotec Unknown 07/11/2021 active Shell Fish Unknown 07/15/[address] Penicillins Unknown 07/11/2021 activ e 6809 RXNORM metFORMIN Mild 07/11/2021 active 4714182 RXNORM Dulaglutide Unknown 07/11/2021 active 2231 RXNORM Cephalexin Unknown 07/11/2021 active 1191 RXNORM Aspirin Mild 07/11/2021 active Care Team Name Role Address Phone Organization Yvonne Feliz PCP [address] [address], [place], [address], [place] (Office): : [facility] 07/11/2021 - 08/04/2021 Olena Montez Attending Physician [address] [address], [place], [address], [place] (Office): : [facility] 07/11/2021 - 08/04/2021 Sarah Lugo Attending Physician [address] [facility] [address], [place], [address], [place] (Office): [facility] 07/11/2021 - 08/04/2021 Immunizations Immunization Status Vaccine Details Vaccine Code CodeSystem Chavez e Notes TB 2 Step Mantoux Skin Test completed tuberculin skin test; unspecified formulation lotNumber: [id number] expiry: 10/09/2022 Mfg: SANOFI PASTEUR INc Given 0.1 ml Left Forearm intradermally Step 1 of Multi-step with next step required 98 CVX created date: 07/12/2021 consent date: 07/15/2021 administere d date: 07/12/2021 SARS-COV-2 (COVID-19) completed SARS-COV-2 (COVID-19) vaccine, mRNA, spike protein, LNP, preservative free, 100 mcg/0.5mL dose or 50 mcg/0.25mL dose Step 1 of Multi-step with next step required 207 CVX created date: 07/18/2021 administere d date: 09/18/2020 SARS-COV-2 (COVID-19) completed SARS-COV-2 (COVID-19) vaccine, mRNA, spike protein, LNP, preservative free, 100 mcg/0.5mL dose or 50 mcg/0.25mL dose Step 1 of Multi-step with next step required 207 CVX created date: 07/18/2021 administere d date: 08/21/2020 Mental Status Section Date Assessment Total Score Description 08/04/2021 BIMS 13 cognitively int act CAM 0 No delirium ind icated PHQ-9 00 07/18/2021 BIMS 13 cognitively int act CAM 0 No delirium ind icated PHQ-9 02 minimal depress ion Problems Problem # Description Date of onset Resolved Date Code CodeSystem Concern Status 1 CHRONIC OBSTRUCTIVE PULMONARY DISEASE, UNSPECIFIED 07/12/[address] active 2 DISORDER OF BONE DENSITY AND STRUCTURE, UNSPECIFIED 07/12/[address] active 3 ESSENTIAL (PRIMARY) HYPERTENSION 07/12/[address] active 4 HISTORY OF FALLING 07/12/[address] active 5 HYPERLIPIDEMIA, UNSPECIFIED 07/12/[address] active 6 LOCALIZED SWELLING, MASS AND LUMP, LOWER LIMB, BILATERAL 07/12/[address] active 7 TYPE 2 DIABETES MELLITUS WITH DIABETIC NEUROPATHY, UNSPECIFIED 07/12/[address] active 8 UNSPECIFIED ASTHMA, UNCOMPLICATED 07/12/[address] active 9 UNSPECIFIED DIASTOLIC (CONGESTIVE) HEART FAILURE 07/12/[address] active 10 UNSPECIFIED FRACTURE OF LEFT FEMUR, SUBSEQUENT ENCOUNTER FOR CLOSED FRACTURE WITH ROUTINE HEALING 07/12/[address] active Reason for Referral No Reasons for Referral Entered Social History Social History Observation Description Start Date End Date Code Code System Current Smoking Status Tobacco smoking consumption unknown 455712156 SNOMED CT Sex Assigned At Female 1950 70834-0 [facility] Vital Signs Code Code System Vitals Name Values and Units Timing Information 9279-1 [facility] Respiratory Rate Value=17.0 Units=/m in 08/04/2021 8310-5 [facility] Body Temperature Value=98.6 Units=?? F 08/04/2021 53840-1 [facility] O2 % BldC Oximetry Value=99.0 Units= % 08/04/2021 8462-4 [facility] Blood Pressure-Diastolic Value=52 Un its=mmHg 08/04/2021 8480-6 [facility] Blood Pressure-Systolic Jrnvo=862 Un its=mmHg 08/04/2021 8867-4 [facility] Heart rate Value=78.0 Units=/min 76922-1 [facility] Pain Level Value=0.0 08/04/2021 2339-0 [facility] Blood Sugar Tmibv=718.0 Units=mg/dL 08/04/2021 70851-2 LOINC Weight Rexlm=799.2 Units=Lbs 8302-2 [facility] Height Value=65.0 Units=Inches 07/12/2021
[2024-08-17 10:26] LABS: Hematocrit 33.8 % (37.0-47.0); Hemoglobin 11.1 g/dl (12.0-16.0); Mean Corpuscular HGB Conc 32.8 g/dl (31.0-35.0); Mean Corpuscular Hemoglobin 28.8 pg (27.0-33.0); Mean Corpuscular Volume 87.6 fL (80.0-98.0); Mean Platelet Volume 8.4 fL (9.4-12.3); Platelet Count 360 X10*3/uL (160-400); Red Blood Count 3.86 X10*6/uL (4.20-5.50); White Blood Count 8.9 X10*3/uL (4.8-10.8)
[2024-08-17 10:38] LABS: Appearance Urine Clear; Color Urine Yellow; Glucose Urine UA Negative (Negative); Leukocyte Esterase Urine Trace (Negative); Nitrite Urine Negative (Negative); PH 5.5 (5.0-9.0); UMIC TRIGGER UACC YES; Urine Blood Negative (Negative); Urine Ketones Negative (Negative); Urine Protein Negative (Neg-Trace)
[2024-08-17 10:46] LABS: Bacteria Urine 1+ (None Seen); Hyaline Casts Urine 0-2 /LPF (0-2); RBC Urine 0-2 /HPF (0-2); Squamous Epithelial Cell Urine 0-2 /HPF (0-2); WBC Urine 0-5 /HPF (0-5)
[2024-08-17 11:15] LABS: Anion Gap 14 (12-20); Blood Urea Nitrogen 19 mg/dL (9-16); Calcium 10.5 mg/dL (8.4-10.2); Carbon Dioxide 20 mmol/L (22-29); Chloride 107 mmol/L (96-108); Estimated Glomerular Filt Rate 52; Glucose Random 93 mg/dL (60-115); Potassium 3.9 mmol/L (3.3-5.1); Sodium 137 mmol/L (135-145)
[2024-08-18 07:24] LABS: NT-proBNP 151 pg/mL (<125)
== END 2024-08-17 09:15 | disposition home or self-care (01) ==
LOC: HO.LAB 09:14
PROVIDERS: PCP Physician Assistant; Visit Provider Physician Assistant
DX: I50.9 Heart failure, unspecified (principal)
CPT/HCPCS: 36415; 80048; 81001; 83880; 85027

== ENCOUNTER 2024-08-18 14:51 | Emergency (ER) | payer OTHER, SELFPAY ==
--- NOTE | ~2024-08-18 | XR_ITS ---
CLINICAL HISTORY: trauma,pain,laceration 4 view left knee Comparison: None Findings: Prior open reduction internal fixation of the distal left femur. Chronic fracture of the distal left femur. Lucency in the proximal femoral diaphysis may be healed fracture however acute on chronic fracture can not be excluded. Severe tricompartmental osteoarthritis. Small joint effusion. IMPRESSION: 1. Lucency in the proximal femoral diaphysis may be healed fracture however acute on chronic fracture can not be excluded. Consider CT for further evaluation. 2. Small joint effusion. This document has been electronically signed by: Diane Pugh MD on 08/18/2024 18:57:10
[2024-08-18 15:18] VITALS: BP 156/73; BP 185/100; PULSE 108; PULSE 120; RESP 20; TEMP 36.6; O2SAT 100; BMI 32.1
--- OUTSIDE RECORDS SUMMARY | 2024-08-18 15:57 | XMS_ITS ---
Author Organization [facility] Care Team Providers Care Entertainment Agent Name Role Phone Mario Alberto Feliz Unavailable Unavailable Olena Montez Unavailable Unavailable Sarah Lugo Unavailable Unavailable Allergies and adverse reactions Code CodeSystem Substance Reaction Severity StartDate Concern Status Vasotec Unknown 07/11/2021 active Shell Fish Unknown 07/15/[address] Penicillins Unknown 07/11/2021 activ e 6809 RXNORM metFORMIN Mild 07/11/2021 active 9370441 RXNORM Dulaglutide Unknown 07/11/2021 active 2231 RXNORM Cephalexin Unknown 07/11/2021 active 1191 RXNORM Aspirin Mild 07/11/2021 active Care Team Name Role Address Phone Organization Yvonne Feliz PCP [address] [address], [place], [address], [place] (Office): : [facility] 07/11/2021 - 08/04/2021 Olena Montez Attending Physician [address] [address], [place], [address], [place] States (Office): : [facility] 07/11/2021 - 08/04/2021 Sarah Lugo Attending Physician [address] [facility] [address], [place], [address], [place] (Office): [facility] 07/11/2021 - 08/04/2021 Immunizations Immunization Status Vaccine Details Vaccine Code CodeSystem Chavez e Notes TB 2 Step Mantoux Skin Test completed tuberculin skin test; unspecified formulation lotNumber: [id number] expiry: 10/09/2022 Mfg: SANOFI PASTEUR INc Given [...] 1 CHRONIC OBSTRUCTIVE PULMONARY DISEASE, UNSPECIFIED 07/12/[address] active 2 DISORDER OF BONE DENSITY AND STRUCTURE, UNSPECIFIED 07/12/[address] active 3 ESSENTIAL (PRIMARY) HYPERTENSION 07/12/[address] active 4 HISTORY OF FALLING 07/12/[address] active 5 HYPERLIPIDEMIA, UNSPECIFIED 07/12/[address] active 6 LOCALIZED SWELLING, MASS AND LUMP, LOWER LIMB, BILATERAL 07/12/[address] active 7 TYPE 2 DIABETES MELLITUS WITH DIABETIC NEUROPATHY, UNSPECIFIED 07/12/[address] active 8 UNSPECIFIED ASTHMA, UNCOMPLICATED 07/12/[address] active 9 UNSPECIFIED DIASTOLIC (CONGESTIVE) HEART FAILURE 07/12/[address] active 10 UNSPECIFIED FRACTURE OF LEFT FEMUR, SUBSEQUENT ENCOUNTER FOR CLOSED FRACTURE WITH ROUTINE HEALING 07/12/[address] active Reason for Referral No Reasons for Referral Entered Social History Social History Observation Description Start Date End Date Code Code System Current Smoking Status Tobacco smoking consumption unknown 502893253 SNOMED CT Sex Assigned At Female 1950 40355-1 [facility] Vital Signs Code Code System Vitals Name Values and Units Timing Information 9279-1 [facility] Respiratory Rate Value=17.0 Units=/m in 08/04/2021 8310-5 [facility] Body Temperature Value=98.6 Units=?? F 08/04/2021 57206-3 [facility] O2 % BldC Oximetry Value=99.0 Units= % 08/04/2021 8462-4 [facility] Blood Pressure-Diastolic Value=52 Un its=mmHg 08/04/2021 8480-6 [facility] Blood Pressure-Systolic Jejsp=860 Un its=mmHg 08/04/2021 8867-4 [facility] Heart rate Value=78.0 Units=/min 28188-9 [facility] Pain Level Value=0.0 08/04/2021 2339-0 [facility] Blood Sugar Nenyl=543.0 Units=mg/dL 08/04/2021 58318-1 LOINC Weight Avodb=233.2 Units=Lbs 8302-2 [facility] Height Value=65.0 Units=Inches 07/12/2021
[2024-08-18 17:43] VITALS: BP 163/82; PULSE 100; RESP 16; O2SAT 100
[2024-08-18 18:19] VITALS: BP 157/80; PULSE 103; RESP 16; O2SAT 100
--- NOTE | 2024-08-18 18:23 | ED.GENADULT ---
HPI - General Adult General Chief complaint: Wound/Laceration Stated complaint: LAC TO LT LEG Time Seen by Provider: 08/18/24 18:05 Source: patient, RN notes reviewed and old records reviewed Mode of arrival: ambulatory Limitations: no limitations History of Present Illness ED Provider: Nixon HPI narrative: 74-year-old female with a past medical history significant for congestive heart failure, hyperlipidemia, lymphedema, hypertension, diabetes, COPD presents for evaluation of a leg laceration. the patient is primarily wheelchair bound, but is able to walk with a walker she reports that she was seated in her kitchen next to her stove oxygen on the apartment above her which caused her she endolaser to fall from the ceiling and strike her left leg the chandelier hit her leg below the left knee. she denies any other injuries the patient is concerned about wound dehiscence because when I had breast reduction 24 years ago, both wounds opened. her pain is a 4/10. She reports that she was unable to bend the left knee but this is not new and has been that way since she had a fracture 3 years ago requiring surgical fixation Related Data Home Medications ?Medication ?Instructions ?Recorded ?Confirmed alendronate 70 mg tablet 70 mg PO PAGE 08/19/24 08/19/24 folic acid 400 mcg tablet 800 mcg PO DAILY 08/19/24 08/19/24 semaglutide 0.25 mg or 0.5 mg (2 0.5 mg subcut TU 08/19/24 08/19/24 mg/3 mL) subcutaneous pen injector (Ozempic) Previous Rx's ?Medication ?Instructions ?Recorded cyanocobalamin (vitamin B-12) 1 tab PO DAILY #90 tabs 06/18/23 1,000 mcg tablet blood pressure test kit-large #1 ea 09/01/23 compr.stocking,knee,long,large #2 ea 09/01/23 lancets 28 gauge (FreeStyle #100 ea 10/27/23 Lancets) ipratropium 20 mcg-albuterol 100 1 puff PO QID #12 grams 12/10/23 mcg/actuation mist for inhalation (Combivent Respimat) blood-glucose meter (FreeStyle #1 ea 01/20/24 Lite Meter kit) cholecalciferol (vitamin D3) 125 125 mcg PO DAILY #90 caps 03/01/24 mcg (5,000 unit) capsule metoprolol tartrate 100 mg tablet 100 mg PO BEDTIME #90 tabs 03/05/24 losartan 100 mg tablet 100 mg PO DAILY 90 days #90 tabs 04/03/24 blood sugar diagnostic (FreeStyle #100 ea 05/24/24 Lite Strips) simvastatin 10 mg tablet 10 mg PO DAILY 90 days #90 tabs 07/07/24 fluticasone 250 mcg-salmeterol 50 1 inh PO BID #60 ea 07/27/24 mcg/dose blistr powdr for inhalation (Wixela Inhub) triamcinolone acetonide 0.1 % 1 appl topical DAILY 30 days #80 07/27/24 topical cream grams furosemide 20 mg tablet 20 mg PO DAILY 10 days #10 tabs 08/07/24 Reclining chair #1 ea 08/15/24 Allergies Allergy/AdvReac Type Severity Reaction Status Date / Time cephalexin [From KEFLEX] Allergy Intermediate HIVES Verified 08/18/24 15:21 Penicillins [PENICILLINS] Allergy Intermediate HIVES Verified 08/18/24 15:21 acetaminophen Allergy Mild Hives Verified 08/18/24 15:21 [From Excedrin Extra Strength] aspirin Allergy Mild Hives Verified 08/18/24 15:21 [From Excedrin Extra Strength] caffeine Allergy Mild Hives Verified 08/18/24 15:21 [From Excedrin Extra Strength] metformin [METFORMIN] Allergy Mild HIVES Verified 08/18/24 15:21 enalaprilat [Vasotec] Allergy Unknown Unknown Verified 08/18/24 15:21 dulaglutide [From Trulicity] Allergy Hives Verified 08/18/24 15:21 Review of Systems Constitutional: Constitutional: Denies body ache(s), Denies chills and Denies headache(s) Eyes: Eyes: Denies blurry vision ENT: Denies vertigo, Denies dizziness and Denies headache(s) Cardiovascular: Cardiovascular: Denies chest pain and Denies dyspnea Respiratory: Respiratory: Denies cough and Denies dyspnea Gastrointestinal: Gastrointestinal: Denies abdominal pain, Denies nausea and Denies vomiting Musculoskeletal: Musculoskeletal: Reports arthralgias, Reports joint swelling and Reports limited range of motion Integumentary/Breasts: Skin/Breast: Denies rash Neurologic: Denies vertigo, Denies dizziness and Denies headache(s) Psychiatric: Psychiatric: Denies anxiety [facility] Past Medical History Medical History Cataract Femur fracture, left Normocytic anemia Anemia Closed fracture of left distal femur Asthma COPD (chronic obstructive pulmonary disease) CHF (congestive heart failure) COPD (chronic obstructive pulmonary disease) Acid reflux Osteopenia Essential hypertension Leg swelling PVC (premature ventricular contraction) Hypertension Asthma Hyperlipidemia LDL goal <70 Type 2 diabetes mellitus with diabetic polyneuropathy Surgical History Hx of left cataract extraction (07/03/24) History of surgery on lower extremity History of cardiac catheterization Hx of local excision of skin lesion History of tooth extraction Hx of bilateral breast reduction surgery History of cholecystectomy Family History Family History Father CVD (cardiovascular disease) Mother CVD (cardiovascular disease) Gastric cancer Diabetes Sister Lung disease Social History Social History Household Members: None Housing: Apartment Do you presently have visiting nurse or other home services: No Alcohol intake: never Comment: burning Patient Tobacco Use Status: Never used Tobacco Smoked in Last 30 Days: No e-Cigarette/Vaping Use: Never Used Second Hand Smoke Exposure: No Use of substances other than those prescribed or required for medical reasons: No Advance Directives: No Advance Directives Information Provided: Yes Do you have a plan to hurt others: No Plan service: No Current occupational status: disabled Sexual orientation: Straight/Heterosexual Gender identity: Female Cognitive needs: Yes (walker) Hearing needs: No Vision needs: Yes (glasses) Physical Exam ED Vital Signs: Vital Signs - 24 hr 08/18/24 15:18 08/18/24 17:43 08/18/24 18:19 Temperature 97.9 F Pulse Rate 108 H 100 103 H Respiratory Rate 20 16 16 Blood Pressure 156/73 H 163/82 H 157/80 H Pulse Oximetry 100 100 100 Oxygen Delivery Method Room Air Room Air Room Air 08/18/24 21:21 08/19/24 00:12 08/19/24 06:22 Temperature 97.8 F 97.8 F 97.8 F Pulse Rate 113 H 96 88 Respiratory Rate 16 15 16 Blood Pressure 136/59 L 114/57 L 117/57 L Pulse Oximetry 98 99 98 Oxygen Delivery Method Room Air Room Air Room Air 08/19/24 08:37 08/19/24 10:36 Temperature 97.8 F Pulse Rate 85 Respiratory Rate 16 Blood Pressure 115/61 146/80 H Pulse Oximetry 98 Oxygen Delivery Method Room Air BMI result Body Mass Index 32.1 Const General: healthy appearing, comfortable, no acute distress, alert and awake Nutritional Appearance: well nourished Orientation/consciousness: patient oriented x3 HENMT Head: Yes normocephalic and Yes atraumatic Eyes Eyelids: Yes eyelids normal Conjunctivae: conjunctivae normal Sclerae: sclerae normal Corneas: corneas normal Pupils: Equal, round and reactive pupils present EOM: EOMs intact bilaterally Neck Neck: Yes full ROM Resp Effort & Inspection: normal respiratory effort, able to speak in complete sentences and not labored GI Inspection: No distended Palpation (GI): Soft to palpation, not firm, nontender, no guarding and not rigid Skin General skin exam: elasticity normal Neuro General: patient oriented x3 Cranial nerves: Yes Equal, round and reactive pupils present and Yes Bilaterally intact EOM present Cognition (Neuro): normal cognition Extrem Other: 3 cm linear, full-thickness laceration to the left lateral lower leg. no active bleeding. 3+ pitting edema to the lower extremities bilaterally. There is faint erythema, but no increased warmth. Course Reevaluation(s) Reevaluation #1: wound repair was performed by PA studentDanyelle under my direct supervision. Reevaluation #2: x-ray shows a lucency in the proximal femoral diaphysis which could be related to acute on chronic fracture. there is no Tenderness in this area and the patient does have a history of a fracture in this area. This is favored to be a chronically healed fracture rather than an acute injury. The trauma was also about 10 cm below this area. Time: 19:46 Reevaluation #3: patient was to be discharged, she reported nursing staff that she did not feel safe going home because my leg is numb. I explained to the patient that the local area around the wound would be numb for a few hours due to the lidocaine and this will wear off. The patient is generally wheelchair-bound at baseline. I informed the patient she could be discharged home and she fair and they would be no risk of falling. The patient is still does not feel safe going home. She reports that she was unsure if the elevator is working at her facility and she was on the 3rd floor. She will remain in the hospital for physical therapy and case management evaluation. the patient reports that she would like to be a full code. She had initially stated DNR/ DNI, but that she understood the question appropriately, and when I went over everything on the MOLST form, she confirmed her wishes to be full code Time: 20:38 Additional Reevaluation(s): Time: 09:13 Date: 08/19/24 Provider: SHAWNA Wheeler Patient in physician observation for case management needs. No acute events reported overnight.? No current issues or complaints. VS stable. Patient is pending PT. Will continue to monitor. Time: 11:50 Date: 08/19/24 Provider: SHAWNA Wheeler Physician observation ended at 1150. Patient has been cleared for discharge by the PT, no services recommended. Patient's brother will transport her home. Will follow up as an outpatient. Medications Administered Generic Name Dose Route Start Last Admin Trade Name Freq PRN Reason Stop Dose Admin Cyanocobalamin 1,000 mcg 08/19/24 09:45 08/19/24 10:36 Cyanocobalamin (Vitamin B-12) 1,000 Mcg Tablet PO 1,000 mcg DAILY ELIZABETH Administration Furosemide 20 mg 08/19/24 09:45 08/19/24 10:36 Furosemide 20 Mg Tablet PO 20 mg DAILY ELIZABETH Administration Protocol Losartan Potassium 100 mg 08/19/24 09:45 08/19/24 10:36 Losartan Potassium 50 Mg Tablet PO 100 mg DAILY ELIZABETH Administration Protocol Triamcinolone Acetonide 1 appl 08/19/24 09:45 08/19/24 11:02 Triamcinolone Acet 0.1 % Cream 15 Gm Tube TOPICAL 1 appl DAILY ELIZABETH Administration Protocol Discontinued Medications Generic Name Dose Route Start Last Admin Trade Name Freq PRN Reason Stop Dose Admin Lidocaine/Epinephrine 10 ml 08/18/24 18:16 08/18/24 20:19 Lidocaine Hcl 1%/Epi 1:100,000 10 Ml Vial INFILTRATI 08/18/24 18:17 Not Given ONCE ONE Procedures Laceration Laceration 1: Site: lower extremity Side (If applicable): left Size (cm): 3 Description: linear Depth: simple, single layer Local Anesthetic: lidocaine 1% and with epi Amount of anesthesia used (mL): 4 Pre-repair: wound explored, irrigated extensively and deep structures intact Skin layer closed with: nylon Size (cm): 4-0 Number of sutures: 5 Technique: simple, interrupted Medical Decision Making Medical Decision Making MDM Narrative: 74-year-old female with past medical history as above presents for evaluation of a left leg wound. We will get an x-ray of the left knee given the trauma and previous surgical fixation. The wound will require closure, see procedure note. Tetanus was in the computer as of 07/08/2021, so she is up-to-date. Differential Diagnosis Differential Diagnoses: The differential diagnosis associated with the presentation includes Laceration Contusion Fracture Foreign body Lab Data Labs: Lab Results 08/19/24 Range/Units 06:55 POC Glucose 92 (60-115) mg/dL Independent Interpretation I performed an independent interpretation of an: Plain X-Ray ( Previous internal fixation of left knee) Radiology Impression Discussion of test interpretation with radiology: I have reviewed the radiologist's reading. Radiologist Impression: Findings: Prior open reduction internal fixation of the distal left femur. Chronic fracture of the distal left femur. Lucency in the proximal femoral diaphysis may be healed fracture however acute on chronic fracture can not be excluded. Severe tricompartmental osteoarthritis. Small joint effusion. IMPRESSION: 1. Lucency in the proximal femoral diaphysis may be healed fracture however acute on chronic fracture can not be excluded. Consider CT for further evaluation. 2. Small joint effusion. This document has been electronically signed by: Diane Pugh MD on 08/18/2024 18:57:10 Discharge Plan Discharge Clinical Impression: Laceration of left leg Instructions: Laceration (ED) Additional Instructions: you had 5 sutures placed to your lower leg today. These can be removed in 10-14 days follow-up with your primary doctor or return here to have them removed keep the area clean and dry. You may apply topical antibiotic no more than once per day Prescriptions: No Action (DME) compr.stocking,knee,long,large Misc See Rx Instructions .Route Qty: 2 0RF Rx Instructions: As directed (DME) blood pressure test kit-large Kit See Rx Instructions .Route Qty: 1 0RF Rx Instructions: As directed (DME) lancets [FreeStyle Lancets] 28 gauge misc See Rx Instructions .ROUTE .COMPLEX Qty: 100 11RF Dose Instruction: USE TO TEST TWICE A DAY DIRECTED Rx Instructions: USE TO TEST TWICE A DAY DIRECTED Combivent Respimat 20-100 mcg/actuation mist 1 puff PO QID Qty: 12 3RF (DME) blood-glucose meter [FreeStyle Lite Meter] Kit See Rx Instructions .ROUTE .MEDSUPPLY Qty: 1 0RF Rx Instructions: As directed 3xday cholecalciferol (vitamin D3) 125 mcg (5,000 unit) capsule 125 mcg PO DAILY Qty: 90 1RF metoprolol tartrate 100 mg tablet 100 mg PO BEDTIME Qty: 90 1RF (DME) FreeStyle Lite Strips Strip See Rx Instructions .ROUTE .MEDSUPPLY Qty: 100 11RF Rx Instructions: As directed three times a day simvastatin 10 mg tablet 10 mg PO DAILY 90 Days Qty: 90 1RF fluticasone propion-salmeterol [Wixela Inhub] 250-50 mcg/dose blister with device 1 inh PO BID Qty: 60 0RF triamcinolone acetonide 0.1 % cream 1 appl topical DAILY 30 Days Qty: 80 3RF furosemide 20 mg tablet 20 mg PO DAILY 10 Days Qty: 10 0RF (DME) Reclining chair See Rx Instructions .Route .MEDSUPPLY Qty: 1 0RF Rx Instructions: As directed cyanocobalamin (vitamin B-12) 1,000 mcg tablet 1 tab PO DAILY Qty: 90 4RF folic acid 400 mcg Tablet 800 mcg PO DAILY alendronate 70 mg tablet 70 mg PO PAGE Ozempic 0.25 mg or 0.5 mg (2 mg/3 mL) pen injector 0.5 mg subcut TU losartan 100 mg tablet 100 mg PO DAILY 90 Days Qty: 90 1RF Print Language: Telugu
[2024-08-18 21:21] VITALS: BP 136/59; PULSE 113; RESP 16; TEMP 36.6; O2SAT 98
--- NOTE | 2024-08-18 21:21 | MHC.CM.ED ---
CM met with patient at the request of Jasbir MATOS. A&Ox3. Very chatty. Is worried about going home tonight, worried about laceration/sutures/openin, and leg/knee feeling numb. Pt is agreeable to PT eval in the am per PA. Pt is not interested in STR at this time. Pt lives alone. Uses a wheelchair and a rollator walker. States she is independent with ADL's and housekeeping. States has PT [address] [facility]. ALso has transportation and grocery help from her brother. Has weekly nursing services for Ozempic injection from [facility]. States her brother, Angelito ([phone]) will drive her home at discharge. PT is pending. No referrals placed at this time. Expect discharge to home pending PT evaluation.
--- NOTE | 2024-08-18 21:22 | MHC.EDTECH ---
Patient given sandwich and drink
--- NOTE | 2024-08-18 23:22 | MHC.EDTECH ---
assumed care of pt @[id number]
[2024-08-19 00:12] VITALS: BP 114/57; PULSE 96; RESP 15; TEMP 36.6; O2SAT 99
[2024-08-19 06:22] VITALS: BP 117/57; PULSE 88; RESP 16; TEMP 36.6; O2SAT 98
[2024-08-19 07:01] LABS: Glucose, Whole Blood 92 mg/dL (60-115)
[2024-08-19 08:37] VITALS: BP 115/61; PULSE 85; RESP 16; TEMP 36.6; O2SAT 98
--- NOTE | 2024-08-19 10:07 | PHA.MEDREC ---
Pharmacy Consult ? Medication Reconciliation Pharmacy has completed the medication reconciliation. Reviewed med rec done by nursing.
[2024-08-19 10:36] VITALS: BP 146/80
[2024-08-19] MEDS: Furosemide 20 MG TABLET PO (10:36)
[2024-08-19] MEDS: Losartan Potassium 50 MG TABLET 100 MG PO (10:36)
[2024-08-19] MEDS: Cyanocobalamin (Vitamin B-12) 1,000 MCG TABLET 1000 MCG PO (10:36)
[2024-08-19] MEDS: Triamcinolone Acet 0.1 % Cream 15 GM TUBE 1 APPL TOPICAL (11:02)
[2024-08-19 12:11] VITALS: BP 162/92; PULSE 98; RESP 16; TEMP 36.6; O2SAT 99
== END 2024-08-19 12:35 | disposition home or self-care (01) ==
PROVIDERS: Emergency Provider Emergency Medicine; PCP Physician Assistant
DX: S81.812A Laceration without foreign body, left lower leg, initial encounter (principal); R26.2 Difficulty in walking, not elsewhere classified; E11.9 Type 2 diabetes mellitus without complications; M79.605 Pain in left leg; W26.9XXA Contact with unspecified sharp object(s), initial encounter; Y93.9 Activity, unspecified; Y92.9 Unspecified place or not applicable; Y99.8 Other external cause status; Z79.899 Other long term (current) drug therapy; Z79.84 Long term (current) use of oral hypoglycemic drugs
CPT/HCPCS: 12032; 73564; 82947; 97161; 99284

== ENCOUNTER → 2024-08-18 18:17 | Outpatient (BNV) | payer OTHER, SELFPAY | PROVIDERS: Emergency Provider Emergency Medicine; PCP Physician Assistant; Visit Provider Radiology Diagnostic Radiology | DX: S81.812A Laceration without foreign body, left lower leg, initial encounter (principal); M25.462 Effusion, left knee | CPT/HCPCS: 73564 ==

== ENCOUNTER 2024-08-31 12:25 | Outpatient (AMB) | payer OTHER, SELFPAY ==
--- NOTE | 2024-08-31 12:47 | A.OFFPC_ITS ---
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 Accompanied by: Self / Same As Patient Allergies cephalexin [From KEFLEX] Allergy (Intermediate, Verified 08/31/24 13:05) HIVES Penicillins [PENICILLINS] Allergy (Intermediate, Verified 08/31/24 13:05) HIVES acetaminophen [From Excedrin Extra Strength] Allergy (Mild, Verified 08/31/24 13:05) Hives aspirin [From Excedrin Extra Strength] Allergy (Mild, Verified 08/31/24 13:05) Hives caffeine [From Excedrin Extra Strength] Allergy (Mild, Verified 08/31/24 13:05) Hives metformin [METFORMIN] Allergy (Mild, Verified 08/31/24 13:05) HIVES enalaprilat [Vasotec] Allergy (Unknown, Verified 08/31/24 13:05) Unknown dulaglutide [From Trulicity] Allergy (Verified 08/31/24 13:05) Hives Medication List - Last Reconciled 08/31/24 by Luis Waite PA-C alendronate 70 mg PO PAGE blood pressure test kit-large As directed blood sugar diagnostic (FreeStyle Lite Strips) As directed three times a day blood-glucose meter (FreeStyle Lite Meter kit) As directed 3xday cholecalciferol (vitamin D3) 125 mcg PO DAILY compr.stocking,knee,long,large As directed cyanocobalamin (vitamin B-12) 1 tab PO DAILY fluticasone propion-salmeterol 250-50 mcg/dose (Wixela Inhub) 1 inh PO BID folic acid 800 mcg PO DAILY furosemide 20 mg PO DAILY 10 days ipratropium-albuterol 20-100 mcg/actuation (Combivent Respimat) 1 puff PO QID lancets (FreeStyle Lancets) USE TO TEST TWICE A DAY DIRECTED losartan 100 mg PO DAILY 90 days metoprolol tartrate 100 mg PO BEDTIME [Reclining chair As directed] semaglutide (Ozempic) 0.5 mg subcut TU simvastatin 10 mg PO DAILY 90 days triamcinolone acetonide 0.1% 1 appl topical DAILY 30 days Tobacco use date assessed: 06/21/24 Dental Screening Dental Screen Date: 06/21/24 [facility] 08/19 stitch removal HPI Details PATIENT IS A 74-YEAR-OLD FEMALE HERE TODAY FOR AN ER FOLLOW-UP VISIT. Patient here today for removal of stitches placed in her leg two weeks ago following a chandelier fall. The patient's leg injury was managed with compression at home initially. She reports swelling in the legs, minimally relieved by water pills. There has been a history of leg swelling, initially linked to a leg fracture requiring surgery three years ago. The edema, described as persistent and painful, has restricted her clothing fit and mobility. She notes additional issues following being off water pills, particularly in terms of increased swelling. Previous urinary tests indicated protein elevation, interpreted as possible dehydration. A history of using lymphedema management machines with limited recent success due to discomfort was reported. [facility] Medical History (Updated 08/31/24 @ 13:37 by Luis Waite PA-C) Cataract Femur fracture, left Normocytic anemia Anemia Closed fracture of left distal femur Asthma COPD (chronic obstructive pulmonary disease) CHF (congestive heart failure) COPD (chronic obstructive pulmonary disease) Acid reflux Osteopenia Essential hypertension Leg swelling PVC (premature ventricular contraction) Hypertension Asthma Hyperlipidemia LDL goal <70 Type 2 diabetes mellitus with diabetic polyneuropathy Surgical History Hx of left cataract extraction (07/03/24) History of surgery on lower extremity History of cardiac catheterization Hx of local excision of skin lesion History of tooth extraction Hx of bilateral breast reduction surgery History of cholecystectomy Family History Father CVD (cardiovascular disease) Mother CVD (cardiovascular disease) Gastric cancer Diabetes Sister Lung disease Social History Household Members: None Housing: Apartment Do you presently have visiting nurse or other home services: No Alcohol intake: never Comment: burning Patient Tobacco Use Status: Never used Tobacco e-Cigarette/Vaping Use: Never Used Second Hand Smoke Exposure: No service: No Current occupational status: disabled Sexual orientation: Straight/Heterosexual Gender identity: Female Cognitive needs: Yes (walker) Hearing needs: No Vision needs: Yes (glasses) Questionnaire Thrive Questionnaire Date Thrive assessed: 06/21/24 GUSTABO-7 AMB Questionnaire GUSTABO-7 Date GUSTABO - 7 assessed: 06/21/24 Source: Developed by Drs. Chu Vaughn, Trista Vital, Reyes Johnson and colleagues, with an educational paolo from [employer]. Review of Systems Const Denies headache(s) Eyes Denies loss of vision ENT Denies vertigo, Denies dizziness, Denies headache(s) and Denies sore throat Card Denies chest pain, Denies leg edema and Denies lightheadedness Resp Denies cough, Denies hemoptysis and Denies wheezing GI Denies abdominal pain, Denies melena, Denies constipation, Denies diarrhea and Denies vomiting Denies urinary frequency, Denies dysuria and Denies urinary urgency Musc Denies arthralgias, Denies joint swelling, Denies numbness and Denies tingling Neuro Denies Abnormal speech present, Denies behavioral changes, Denies vertigo, Denies dizziness, Denies headache(s), Denies loss of vision, Denies memory loss, Denies numbness and Denies tingling Psych Denies anxiety, Denies behavioral changes, Denies depression, Denies memory loss and Denies panic attacks Chung/Lymph Denies easy bleeding and Denies easy bruising Aller/Immun Denies wheezing Physical exam (Primary Care) Vital Signs: Last Vital Signs Temp 97.5 F 08/31/24 12:56 Pulse 102 H 08/31/24 12:56 Resp 16 08/31/24 12:56 BP 142/70 H 08/31/24 12:56 Pulse Ox 100 08/31/24 12:56 Oxygen Delivery Method Room Air 08/31/24 12:56 BMI result Body Mass Index 33.5 Tobacco/Smoking Status: Tobacco use Status Tobacco use date assessed 06/21/24 08/31/24 12:47 Patient Tobacco Use Status Never used Tobacco 08/31/24 12:47 e-Cigarette/Vaping Use Never Used 08/31/24 12:47 Thrive Assessment: Date of Thrive Assessment Date Thrive assessed 06/21/24 08/31/24 12:47 Const General: healthy appearing, no acute distress, alert and awake Nutritional Appearance: well nourished Orientation/consciousness: oriented to person, oriented to place and oriented to time HENMT Ears: TM's normal bilaterally General nose exam: Normal nasal mucous membranes and turbinates present Eyes Conjunctivae: conjunctivae normal Sclerae: sclerae normal Pupils: Equal, round and reactive pupils present Neck Neck: Yes no lymphadenopathy and Yes no JVD Thyroid: Thyroid normal Carotids: no bruits Resp Effort & Inspection: normal respiratory effort and not tachypneic Auscultation: no crackles, no rales, no rhonchi and no wheezes Cardio Rate: regular rate Rhythm: regular rhythm Heart sounds: no murmurs and normal S1 and S2 GI Palpation (GI): Soft to palpation, nontender, no hepatomegaly and no splenomegaly Auscultation: normal bowel sounds Skin General skin exam: no rashes or lesions noted and dry skin Neuro General: oriented to person, oriented to place and oriented to time Cranial nerves: Yes Equal, round and reactive pupils present Speech: No Abnormal speech present Gait exam (Neuro): Normal gait present Motor exam (neuro): no tremor noted Extrem Other: WORSENING LOWER EXTREMITY EDEMA NOTED. Right upper extremity: full ROM Left upper extremity: full ROM Right lower extremity: full ROM and edema Left lower extremity: full ROM and edema Psych Mental Status: mental status grossly normal Speech and movement: Normal speech and movement present Affect: normal affect Attitude: cooperative Thought process: Normal thought process present Coding Level of Care Code Est Pt Level 4 (90608) Diagnoses Visit for suture removal Z48.02 Microalbuminuria due to type 2 diabetes mellitus E11.29; R80.9 Cellulitis of left lower extremity L03.116 Laterality: left Assessment & Plan Assessment & Plan (1) Visit for suture removal: Code(s): Z48.02 - Encounter for removal of sutures Category: Medical Plan: # 5 Sutures removed from left anterior aspect of leg. No noted hemorrhaging or dehiscence. Laceration covered with a dry dressing. (2) Microalbuminuria due to type 2 diabetes mellitus: Code(s): E11.29 - Type 2 diabetes mellitus with other diabetic kidney complication; R80.9 - Proteinuria, unspecified Category: Medical Plan: Encouraged re-evaluation to address any dehydration indicators. (3) Cellulitis, leg: Code(s): L03.119 - Cellulitis of unspecified part of limb Category: Medical Qualifiers: Laterality: left Qualified Code(s): L03.116 - Cellulitis of left lower limb Plan: Continued diuretic adjustment to alleviate swelling, with prescribed doxycycline for possible infection signs. IT WAS LIKELY THAT HER LYMPHEDEMA HAS GOTTEN WORSE THOUGH ABUNDANCE OF CAUTION WILL CHECK A BNP TO EVALUATE FOR CONGESTIVE HEART FAILURE CONSIDERING ECHOCARDIOGRAM. ADVISED ON COMPRESSION STOCKINGS AND USE OF HER PNEUMATIC COMPRESSION THERAPY AT HOME. Orders: Orders Microalbumin, Random (w Creat) Today E11.29 - Type 2 diabetes mellitus with other diabetic kidney complication, R80.9 - Proteinuria, unspecified NT-proBNP Today I50.9 - Heart failure, unspecified Medications: New doxycycline monohydrate 100 mg PO BID 10 days 20 tabs 0RF L03.119 - Cellulitis of unspecified part of limb Changed From semaglutide (Ozempic) 0.5 mg subcut TU E11.42 - Type 2 diabetes mellitus with diabetic polyneuropathy To semaglutide (Ozempic) 0.5 mg (0.736 mL) subcut QWEEK 4 weeks 3 mL 3RF E11.42 - Type 2 diabetes mellitus with diabetic polyneuropathy From furosemide 20 mg PO DAILY 10 days 10 tabs 0RF I50.9 - Heart failure, unspecified To furosemide 20 mg PO DAILY 30 days 30 tabs 2RF I50.9 - Heart failure, unspecified Refilled simvastatin 10 mg PO DAILY 90 days 90 tabs 1RF E11.42 - Type 2 diabetes mellitus with diabetic polyneuropathy
[2024-08-31 12:56] VITALS: BP 142/70; PULSE 102; RESP 16; TEMP 36.4; O2SAT 100; BMI 33.5
== END 2024-08-31 13:37 | disposition home or self-care (01) ==
LOC: HO.HMCH 12:25
PROVIDERS: PCP Physician Assistant; Visit Provider Physician Assistant
DX: Z48.02 Encounter for removal of sutures (principal); E11.29 Type 2 diabetes mellitus with other diabetic kidney complication; R80.9 Proteinuria, unspecified; L03.116 Cellulitis of left lower limb

== ENCOUNTER → 2024-08-31 12:25 | Outpatient (BNVA) | payer OTHER, SELFPAY | PROVIDERS: PCP Physician Assistant; Visit Provider Physician Assistant | DX: E11.29 Type 2 diabetes mellitus with other diabetic kidney complication (principal); R80.9 Proteinuria, unspecified; L03.116 Cellulitis of left lower limb; Z48.02 Encounter for removal of sutures; Z79.899 Other long term (current) drug therapy; E11.42 Type 2 diabetes mellitus with diabetic polyneuropathy | CPT/HCPCS: 99212 ==

== ENCOUNTER 2024-09-19 08:03 | Outpatient (REF) | payer OTHER, SELFPAY ==
[2024-09-19 08:52] LABS: Appearance Urine Clear; Color Urine Yellow; Glucose Urine UA Negative (Negative); Leukocyte Esterase Urine Negative (Negative); Nitrite Urine Negative (Negative); Specific Gravity - Urine <= 1.005 (1.005-1.025); Urine Blood Negative (Negative); Urine Ketones Negative (Negative); Urine Protein Negative (Neg-Trace)
[2024-09-19 09:36] LABS: Creatinine Urine 23.11 mg/dL; Microalbum/Creatinine Ratio Ur 30.2 ug/mg cr (<30)
[2024-09-20 13:14] LABS: NT-proBNP 136 pg/mL (<125)
== END 2024-09-19 08:04 | disposition home or self-care (01) ==
LOC: HO.LAB 08:03
PROVIDERS: PCP Physician Assistant; Visit Provider Physician Assistant
DX: L03.116 Cellulitis of left lower limb (principal); E11.42 Type 2 diabetes mellitus with diabetic polyneuropathy; I89.0 Lymphedema, not elsewhere classified; I50.9 Heart failure, unspecified; R26.89 Other abnormalities of gait and mobility; E11.29 Type 2 diabetes mellitus with other diabetic kidney complication; R80.9 Proteinuria, unspecified; R30.0 Dysuria
CPT/HCPCS: 36415; 81003; 82043; 82570; 83036; 83880; 96127; 99212

== ENCOUNTER 2024-09-19 09:58 | Outpatient (AMB) | payer OTHER, SELFPAY ==
--- NOTE | 2024-09-19 10:08 | A.OFFPC_ITS ---
Vital Signs 3 09/19/24 10:22 Height 5 ft 3 in Weight 191 lb 8 oz BMI 33.9 BP 150/70 H Blood Pressure Location Lt brachial Position Sitting Pulse 96 Pulse Source Pulse Oximeter Temp 97.1 F Temp Source Temporal Artery Scan Pulse Oximetry (%) 99 Oxygen Delivery Method Room Air Intake Visit Reasons: f/u DMII Intake Note: The patient is here for a follow-up for Type 2 Diabetes Mellitus and follow-up from [facility] visit regarding a laceration to the left lower leg. Today's primary concern is increased swelling in the left leg, which appears worse than the right and may indicate edema. 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: No Accompanied by: Self / Same As Patient Allergies cephalexin [From KEFLEX] Allergy (Intermediate, Verified 09/19/24 10:34) HIVES Penicillins [PENICILLINS] Allergy (Intermediate, Verified 09/19/24 10:34) HIVES acetaminophen [From Excedrin Extra Strength] Allergy (Mild, Verified 09/19/24 10:34) Hives aspirin [From Excedrin Extra Strength] Allergy (Mild, Verified 09/19/24 10:34) Hives caffeine [From Excedrin Extra Strength] Allergy (Mild, Verified 09/19/24 10:34) Hives metformin [METFORMIN] Allergy (Mild, Verified 09/19/24 10:34) HIVES enalaprilat [Vasotec] Allergy (Unknown, Verified 09/19/24 10:34) Unknown dulaglutide [From Trulicity] Allergy (Verified 09/19/24 10:34) Hives Medication List - Last Reconciled 09/19/24 by Luis Waite PA-C alendronate 70 mg PO PAGE blood pressure test kit-large As directed blood sugar diagnostic (FreeStyle Lite Strips) As directed three times a day blood-glucose meter (FreeStyle Lite Meter kit) As directed 3xday cholecalciferol (vitamin D3) 125 mcg PO DAILY compr.stocking,knee,long,large As directed cyanocobalamin (vitamin B-12) 1 tab PO DAILY doxycycline monohydrate 100 mg PO BID 10 days fluticasone propion-salmeterol 250-50 mcg/dose (Wixela Inhub) 1 inh PO BID folic acid 800 mcg PO DAILY furosemide 20 mg PO DAILY 30 days ipratropium-albuterol 20-100 mcg/actuation (Combivent Respimat) 1 puff PO QID lancets (FreeStyle Lancets) USE TO TEST TWICE A DAY DIRECTED losartan 100 mg PO DAILY 90 days metoprolol tartrate 100 mg PO BEDTIME [Reclining chair As directed] semaglutide (Ozempic) 0.5 mg (0.736 mL) subcut QWEEK 4 weeks simvastatin 10 mg PO DAILY 90 days triamcinolone acetonide 0.1% 1 appl topical DAILY 30 days Tobacco use date assessed: 06/21/24 Fall risk assessment: No Falls in past year Last assessed Fall Risk: 09/19/24 Dental Screening Dental Screen Date: 06/21/24 HPI f/u DMII 2 HPI0 Details Patient is a 74-year-old female here today for follow-up visit . . Patient has a past medical history si gnificant for type 2 diabetes hypertension, asthma/COPD, obesity, leukocytosis, history of left hip fracture with hardware placement.. .. Bilateral lower extremity edema : Patient continues to suffer with peripheral edema and a potential skin infection. The edema has worsened over the past few weeks, with noticeable swelling in the lower extremities. The patient's weight has increased by two pounds over the past few weeks, but she usually maintains a weight of around 177 lbs. The patient reports that the skin on her legs is tight, leading to the formation of puddles due to leaking fluid. Additionally, there is concern for a skin infection, as the patient is currently on doxycycline but has not observed improvement. There is an open area on the skin that appears to be worsening. The patient demonstrates slight sharp pains in the legs, and they remain hard. She has been experiencing the symptoms since her second cataract surgery, which she believes may have aggravated the situation. PLAN: Will start patient with a prednisone taper, trying alternative antibiotic, transitioned her from furosemide to torsemide for diuresis and supply patient with a barrier cream for her skin. .. CHRONIC MEDICAL CONDITIONS--> Hypertension: Patient's blood pressure acceptable today in office. She continues on losartan and metoprolol with good effect. r. She denies any dizziness, headaches or vision issues. She does report having an occasional chest discomfort. .. Lymphedema: Has a history morbid obesity. She does have slight lymphedema in her lower extremities. She now has home therapy unit to do lymphedema compression treatment. She has followed up with vascular surgeon and is due for ultrasounds of her lower extremities. . Hyperlipidemia: Most recent lipid panel showing improved total cholesterol and LDL. She has been started on simvastatin 10 mg for better control of her cholesterol. .. COPD: Continues on maintenance inhaler with decent affect, .. Type 2 diabetes: Continues to manage her type 2 diabetes with Ozempic. She denies having any further hypoglycemic events.. She has lost a significant amount of weight over the last few years and may not need diabetic medication. Most recent A1c acceptable.. [facility] Medical History (Updated 08/31/24 @ 13:37 by Luis Waite PA-C) Cataract Femur fracture, left Normocytic anemia Anemia Closed fracture of left distal femur Asthma COPD (chronic obstructive pulmonary disease) CHF (congestive heart failure) COPD (chronic obstructive pulmonary disease) Acid reflux Osteopenia Essential hypertension Leg swelling PVC (premature ventricular contraction) Hypertension Asthma Hyperlipidemia LDL goal <70 Type 2 diabetes mellitus with diabetic polyneuropathy Surgical History Hx of left cataract extraction (07/03/24) History of surgery on lower extremity History of cardiac catheterization Hx of local excision of skin lesion History of tooth extraction Hx of bilateral breast reduction surgery History of cholecystectomy Family History Father CVD (cardiovascular disease) Mother CVD (cardiovascular disease) Gastric cancer Diabetes Sister Lung disease Social History Household Members: None Housing: Apartment Do you presently have visiting nurse or other home services: No Alcohol intake: never Comment: burning Patient Tobacco Use Status: Never used Tobacco e-Cigarette/Vaping Use: Never Used Second Hand Smoke Exposure: No service: No Current occupational status: disabled Sexual orientation: Straight/Heterosexual Gender identity: Female Cognitive needs: Yes (walker) Hearing needs: No Vision needs: Yes (glasses) Questionnaire PHQ-9 Over the last 2 weeks, how often have you been bothered by any of the following problems? 1. Little interest or pleasure in doing things: not at all 2. Feeling down, depressed, or hopeless: not at all 3. Trouble falling or staying asleep, or sleeping too much: not at all 4. Feeling tired or having little energy: not at all 5. Poor appetite or overeating: not at all 6. Feeling bad about yourself - or that you are a failure or have let yourself or your family down: not at all 7. Trouble concentrating on things, such as reading the newspaper or watching television: not at all 8. Moving or speaking so slowly that other people could have noticed. Or the opposite - being so fidgety or restless that you have been moving around a lot more than usual: not at all 9. Thoughts that you would be better off or of hurting yourself in some way: not at all Total score: 0 Depression Screening Interpretation: Negative Depression Screening Done: Yes 38977 - PHQ-9 Billing: Yes Source: Developed by Drs. Chu Vaughn, Trista Vital, Reyes Johnson and colleagues, with an educational paloo from [employer]. Thrive Questionnaire Date Thrive assessed: 09/19/24 I am a: Patient What is your living situation today?: I have a steady place to live Within the past 12 months, did the food you bought not last and you didn't have the money to get more?: Sometimes True Within the past 12 months, did you worry whether your food would run out before you got money to buy more?: I choose not to answer this question Do you have trouble paying for medicines?: No Do you have trouble getting transportation to medical appointments?: Yes Do you have trouble paying your heating and electricity bill?: No Do you have trouble taking care of your child, family member or friend?: No Do you have trouble with day-to-day activities such as bathing, preparing meals, shopping, managing finances, etc.?: No Are you currently unemployed and looking for a job?: No Are you interested in more education?: No Please select the resources that you would like help with: None Currently or been in a relationship where the following occur: I choose not to answer THRIVE Score: 2 AUDIT C Alcohol Use Questionnaire (AUDIT-C) 1. How often do you have a drink containing alcohol?: Never 3. How often do you have six or more drinks on one occasion?: Never Total Score: 0 GUSTABO-7 AMB Questionnaire GUSTABO-7 Date GUSTABO - 7 assessed: 09/19/24 Feeling nervous, anxious, or on edge: 0 = Not at all Not being able to stop or control worryin = Not at all Worrying too much about different things: 0 = Not at all Trouble relaxin = Not at all Being so restless that it is hard to sit still: 0 = Not at all Becoming easily annoyed or irritable: 0 = Not at all Feeling afraid as if something awful might happen: 0 = Not at all Total GUSTABO-7 score (0-4 normal; 5-9 mild; 10-14 moderate; 15-21 severe): 0 Source: Developed by Drs. Chu Vaughn, Trista Vital, Reyes Johnson and colleagues, with an educational paolo from [employer]. GSUTABO-7 Assessment Billing GUSTABO-7 Assessment Tool: GUSTABO-7 Assessment 70030 Review of Systems Const Denies headache(s) Eyes Denies loss of vision ENT Denies vertigo, Denies dizziness, Denies headache(s) and Denies sore throat Card Denies chest pain, Denies leg edema and Denies lightheadedness Resp Denies cough, Denies hemoptysis and Denies wheezing GI Denies abdominal pain, Denies melena, Denies constipation, Denies diarrhea and Denies vomiting Denies urinary frequency, Denies dysuria and Denies urinary urgency Musc Denies arthralgias, Denies joint swelling, Denies numbness and Denies tingling Neuro Denies Abnormal speech present, Denies behavioral changes, Denies vertigo, Denies dizziness, Denies headache(s), Denies loss of vision, Denies memory loss, Denies numbness and Denies tingling Psych Denies anxiety, Denies behavioral changes, Denies depression, Denies memory loss and Denies panic attacks Chung/Lymph Denies easy bleeding and Denies easy bruising Aller/Immun Denies wheezing Physical exam (Primary Care) Vital Signs: Last Vital Signs Temp 97.1 F 09/19/24 10:22 Pulse 96 09/19/24 10:22 BP 150/70 H 09/19/24 10:22 Pulse Ox 99 09/19/24 10:22 Oxygen Delivery Method Room Air 09/19/24 10:22 BMI result Body Mass Index 33.9 Tobacco/Smoking Status: Tobacco use Status Tobacco use date assessed 06/21/24 09/19/24 10:09 Patient Tobacco Use Status Never used Tobacco 09/19/24 10:09 e-Cigarette/Vaping Use Never Used 09/19/24 10:09 PHQ-9: PHQ-9 Score PHQ-9: Total score 0 09/19/24 10:58 Depression Screening Interpretation: Negative Thrive Assessment: Date of Thrive Assessment Date Thrive assessed 09/19/24 09/19/24 10:09 Currently or been in a relationship where the following occur: I choose not to answer Const General: healthy appearing, no acute distress, alert and awake Nutritional Appearance: well nourished Orientation/consciousness: oriented to person, oriented to place and oriented to time HENMT Ears: TM's normal bilaterally General nose exam: Normal nasal mucous membranes and turbinates present Eyes Conjunctivae: conjunctivae normal Sclerae: sclerae normal Pupils: Equal, round and reactive pupils present Neck Neck: Yes no lymphadenopathy and Yes no JVD Thyroid: Thyroid normal Carotids: no bruits Resp Effort & Inspection: normal respiratory effort and not tachypneic Auscultation: no crackles, no rales, no rhonchi and no wheezes Cardio Rate: regular rate Rhythm: regular rhythm Heart sounds: no murmurs and normal S1 and S2 GI Palpation (GI): Soft to palpation, nontender, no hepatomegaly and no splenomegaly Auscultation: normal bowel sounds Skin General skin exam: no rashes or lesions noted and dry skin Neuro General: oriented to person, oriented to place and oriented to time Cranial nerves: Yes Equal, round and reactive pupils present Speech: No Abnormal speech present Gait exam (Neuro): Normal gait present Motor exam (neuro): no tremor noted Extrem Other: Right upper extremity: full ROM Left upper extremity: full ROM Right lower extremity: full ROM; no edema Left lower extremity: full ROM; no edema Psych Mental Status: mental status grossly normal Speech and movement: Normal speech and movement present Affect: normal affect Attitude: cooperative Thought process: Normal thought process present Results AMB Hemoglobin A1c 2 AMB Hemoglobin A1c 5.8 % Last Edit by JOSY Saul on 09/19/24 10:59 Results Reviewed Results Reviewed: Laboratory Last Values Hgb A1c (Clinic) 5.8 % (4.0-6.0) 09/19/24 10:58 Coding Level of Care Code Est Pt Level 3 (89006) Diagnoses Cellulitis of left lower extremity L03.116 Laterality: left Additional Codes GUSTABO-7 Assessment Billing - GUSTABO-7 Assessment Tool: GUSTABO-7 Assessment 69145 ([id number]) PHQ-9 - 30375 - PHQ-9 Billing: Yes ([id number]) Assessment & Plan Assessment & Plan (1) Cellulitis, leg: Code(s): L03.119 - Cellulitis of unspecified part of limb Category: Medical Qualifiers: Laterality: left Qualified Code(s): L03.116 - Cellulitis of left lower limb Plan: PLEASE SEE PICTURE SECTION and physical exam. We will initiate torsemide at 40 mg daily, adjusting based on response. Elevating the legs is advised. Will try barrier cream to help with healing this skin and and also transitioned to a alternative antibiotic to clear bacterial infection. IT WAS LIKELY THAT HER LYMPHEDEMA HAS GOTTEN WORSE THOUGH ABUNDANCE OF CAUTION WILL CHECK A BNP TO EVALUATE FOR CONGESTIVE HEART FAILURE CONSIDERING ECHOCARDIOGRAM. ADVISED ON COMPRESSION STOCKINGS AND USE OF HER PNEUMATIC COMPRESSION THERAPY AT HOME. Orders: Orders 2 AMB Hemoglobin A1c 09/19/24 E11.42 - Type 2 diabetes mellitus with diabetic polyneuropathy Medications: New 2 prednisone Take 3 tablets x3 days, 2 tablets x3 days, 1 tablet x3 days 10 mg PO DIRECTED 9 days 18 tabs 0RF L03.116 - Cellulitis of left lower limb silver sulfadiazine 1% (Silvadene) apply a 1.5 mm thickness 1 appl topical DAILY 4 weeks 50 grams 0RF L03.116 - Cellulitis of left lower limb torsemide 40 mg (2 x 20 mg) PO DAILY 15 days 30 tabs 0RF I50.9 - Heart failure, unspecified walker ([facility] As directed 1 ea 0RF E11.42 - Type 2 diabetes mellitus with diabetic polyneuropathy, I89.0 - Lymphedema, not elsewhere classified, R26.89 - Other abnormalities of gait and mobility clindamycin HCl 300 mg PO TID 7 days 21 caps 0RF L03.116 - Cellulitis of left lower limb Refilled 2 [Reclining chair] As directed 1 ea 0RF I50.9 - Heart failure, unspecified, R06.01 - Orthopnea Discontinued 2 doxycycline monohydrate Discontinued Reason: Doctor's Order 100 mg PO BID 10 days 20 tabs 0RF L03.119 - Cellulitis of unspecified part of limb furosemide Discontinued Reason: Doctor's Order 20 mg PO DAILY 30 days 30 tabs 2RF I50.9 - Heart failure, unspecified
[2024-09-19 10:22] VITALS: BP 150/70; PULSE 96; TEMP 36.2; O2SAT 99; BMI 33.9
== END 2024-09-19 11:07 | disposition home or self-care (01) ==
LOC: HO.HMCH 09:59
PROVIDERS: PCP Physician Assistant; Visit Provider Physician Assistant
DX: L03.116 Cellulitis of left lower limb (principal)

== ENCOUNTER 2024-10-05 11:29 | Outpatient (AMB) | payer OTHER, SELFPAY ==
[2024-10-05 12:02] VITALS: BP 180/86; PULSE 85; TEMP 36.3; O2SAT 99; BMI 34.4
--- NOTE | 2024-10-05 12:02 | A.OFFPC_ITS ---
Vital Signs 10/05/24 12:02 Height 5 ft 3 in Weight 194 lb 4 oz BMI 34.4 BP 180/86 H Blood Pressure Location Lt brachial Position Sitting Pulse 85 Pulse Source Pulse Oximeter Temp 97.3 F Temp Source Temporal Artery Scan Pulse Oximetry (%) 99 Oxygen Delivery Method Room Air Intake Visit Reasons: 2 weeks Allergies cephalexin [From KEFLEX] Allergy (Intermediate, Verified 09/19/24 10:34) HIVES Penicillins [PENICILLINS] Allergy (Intermediate, Verified 09/19/24 10:34) HIVES acetaminophen [From Excedrin Extra Strength] Allergy (Mild, Verified 09/19/24 10:34) Hives aspirin [From Excedrin Extra Strength] Allergy (Mild, Verified 09/19/24 10:34) Hives caffeine [From Excedrin Extra Strength] Allergy (Mild, Verified 09/19/24 10:34) Hives metformin [METFORMIN] Allergy (Mild, Verified 09/19/24 10:34) HIVES enalaprilat [Vasotec] Allergy (Unknown, Verified 09/19/24 10:34) Unknown dulaglutide [From Trulicity] Allergy (Verified 09/19/24 10:34) Hives Medication List - Last Reconciled 10/05/24 by Luis Waite PA-C alendronate 70 mg PO PAGE blood pressure test kit-large As directed blood sugar diagnostic (FreeStyle Lite Strips) As directed three times a day blood-glucose meter (FreeStyle Lite Meter kit) As directed 3xday cholecalciferol (vitamin D3) 125 mcg PO DAILY clindamycin HCl 300 mg PO TID 7 days compr.stocking,knee,long,large As directed [compression stockings Size XL 1 pair, medical compression 10-15mmhg ] cyanocobalamin (vitamin B-12) 1 tab PO DAILY fluticasone propion-salmeterol 250-50 mcg/dose (Wixela Inhub) 1 inh PO BID folic acid 800 mcg PO DAILY ipratropium-albuterol 20-100 mcg/actuation (Combivent Respimat) 1 puff PO QID lancets (FreeStyle Lancets) USE TO TEST TWICE A DAY DIRECTED losartan 100 mg PO DAILY 90 days metoprolol tartrate 100 mg PO BEDTIME [Power lift recliner As directed] prednisone 10 mg PO DIRECTED 9 days semaglutide (Ozempic) 0.5 mg (0.736 mL) subcut QWEEK 4 weeks silver sulfadiazine 1% (Silvadene) 1 appl topical DAILY 4 weeks simvastatin 10 mg PO DAILY 90 days torsemide 100 mg PO DAILY 30 days triamcinolone acetonide 0.1% 1 appl topical DAILY 30 days walker (Ultra-Light Rollator misc) As directed Tobacco use date assessed: 06/21/24 Dental Screening Dental Screen Date: 06/21/24 HPI 2 weeks HPI Details Patient is a 74-year-old female here today for follow-up visit . . Patient has a past medical history si gnificant for type 2 diabetes hypertension, asthma/COPD, obesity, leukocytosis, history of left hip fracture with hardware placement.. .. Bilateral lower extremity edema : Patient continues to suffer with peripheral edema and a potential skin infection. The edema has worsened over the past few weeks, with noticeable swelling in the lower extremities. We have treated her with antibiotics and a prednisone taper for the appearance of a cellulitis secondary to trauma to her legs recently. Her legs have become less erythematous though continues to be fairly edematous. She has a gained a few lb since last office visit. We have switched her diuretics to furosemide 40 mg though still seems to have pretty edematous legs. PLAN: Will increase her torsemide to 100 mg which she was on in the past with good affect. [facility] Medical History Cataract Femur fracture, left Normocytic anemia Anemia Closed fracture of left distal femur Asthma COPD (chronic obstructive pulmonary disease) CHF (congestive heart failure) COPD (chronic obstructive pulmonary disease) Acid reflux Osteopenia Essential hypertension Leg swelling PVC (premature ventricular contraction) Hypertension Asthma Hyperlipidemia LDL goal <70 Type 2 diabetes mellitus with diabetic polyneuropathy Surgical History Hx of left cataract extraction (07/03/24) History of surgery on lower extremity History of cardiac catheterization Hx of local excision of skin lesion History of tooth extraction Hx of bilateral breast reduction surgery History of cholecystectomy Family History Father CVD (cardiovascular disease) Mother CVD (cardiovascular disease) Gastric cancer Diabetes Sister Lung disease Social History Household Members: None Housing: Apartment Do you presently have visiting nurse or other home services: No Alcohol intake: never Comment: burning Patient Tobacco Use Status: Never used Tobacco e-Cigarette/Vaping Use: Never Used Second Hand Smoke Exposure: No service: No Current occupational status: disabled Sexual orientation: Straight/Heterosexual Gender identity: Female Cognitive needs: Yes (walker) Hearing needs: No Vision needs: Yes (glasses) Questionnaire Thrive Questionnaire Date Thrive assessed: 09/19/24 I am a: Patient What is your living situation today?: I have a steady place to live Within the past 12 months, did the food you bought not last and you didn't have the money to get more?: Sometimes True Within the past 12 months, did you worry whether your food would run out before you got money to buy more?: I choose not to answer this question Do you have trouble paying for medicines?: No Do you have trouble getting transportation to medical appointments?: Yes Do you have trouble paying your heating and electricity bill?: No Do you have trouble taking care of your child, family member or friend?: No Do you have trouble with day-to-day activities such as bathing, preparing meals, shopping, managing finances, etc.?: No Are you currently unemployed and looking for a job?: No Are you interested in more education?: No Please select the resources that you would like help with: None Currently or been in a relationship where the following occur: I choose not to answer THRIVE Score: 2 GUSTABO-7 AMB Questionnaire GUSTABO-7 Date GUSTABO - 7 assessed: 09/19/24 Source: Developed by Drs. Chu Vaughn, Trista Vital, Reyes Johnson and colleagues, with an educational paolo from [employer]. Review of Systems Const Denies headache(s) Eyes Denies loss of vision ENT Denies vertigo, Denies dizziness, Denies headache(s) and Denies sore throat Card Denies chest pain, Denies leg edema and Denies lightheadedness Resp Denies cough, Denies hemoptysis and Denies wheezing GI Denies abdominal pain, Denies melena, Denies constipation, Denies diarrhea and Denies vomiting Denies urinary frequency, Denies dysuria and Denies urinary urgency Musc Denies arthralgias, Denies joint swelling, Denies numbness and Denies tingling Neuro Denies Abnormal speech present, Denies behavioral changes, Denies vertigo, Denies dizziness, Denies headache(s), Denies loss of vision, Denies memory loss, Denies numbness and Denies tingling Psych Denies anxiety, Denies behavioral changes, Denies depression, Denies memory loss and Denies panic attacks Chung/Lymph Denies easy bleeding and Denies easy bruising Aller/Immun Denies wheezing Physical exam (Primary Care) Vital Signs: Last Vital Signs Temp 97.3 F 10/05/24 12:02 Pulse 85 10/05/24 12:02 BP 180/86 H 10/05/24 12:02 Pulse Ox 99 10/05/24 12:02 Oxygen Delivery Method Room Air 10/05/24 12:02 BMI result Body Mass Index 34.4 Tobacco/Smoking Status: Tobacco use Status Tobacco use date assessed 06/21/24 10/05/24 12:03 Patient Tobacco Use Status Never used Tobacco 10/05/24 12:03 e-Cigarette/Vaping Use Never Used 10/05/24 12:03 Thrive Assessment: Date of Thrive Assessment Date Thrive assessed 09/19/24 10/05/24 12:03 Currently or been in a relationship where the following occur: I choose not to answer Const General: healthy appearing, no acute distress, alert and awake Nutritional Appearance: well nourished Orientation/consciousness: oriented to person, oriented to place and oriented to time HENMA Ears: TM's normal bilaterally General nose exam: Normal nasal mucous membranes and turbinates present Eyes Conjunctivae: conjunctivae normal Sclerae: sclerae normal Pupils: Equal, round and reactive pupils present Neck Neck: Yes no lymphadenopathy and Yes no JVD Thyroid: Thyroid normal Carotids: no bruits Resp Effort & Inspection: normal respiratory effort and not tachypneic Auscultation: no crackles, no rales, no rhonchi and no wheezes Cardio Rate: regular rate Rhythm: regular rhythm Heart sounds: no murmurs and normal S1 and S2 GI Palpation (GI): Soft to palpation, nontender, no hepatomegaly and no splenomegaly Auscultation: normal bowel sounds Skin General skin exam: no rashes or lesions noted and dry skin Neuro General: oriented to person, oriented to place and oriented to time Cranial nerves: Yes Equal, round and reactive pupils present Speech: No Abnormal speech present Gait exam (Neuro): Normal gait present Motor exam (neuro): no tremor noted Extrem Right upper extremity: full ROM Left upper extremity: full ROM Right lower extremity: edema Left lower extremity: edema Psych Mental Status: mental status grossly normal Speech and movement: Normal speech and movement present Affect: normal affect Attitude: cooperative Thought process: Normal thought process present Coding Level of Care Code Est Pt Level 3 (42895) Diagnoses Lower extremity edema R60.0 Assessment & Plan Assessment & Plan (1) Lower extremity edema: Code(s): R60.0 - Localized edema Category: Medical Plan: Patient continues to have worsening bilateral lower extremity edema. Unclear if this is related to her chronic lymphedema or a Congestive heart failure picture. She denies any shortness of breath on exertion, orthopnea or lethargy. Recent BNP downtrending Recent history of as she had earlier in her apartment falling hand causing injury to her left lower extremity. Again she was treated with antibiotics and prednisone taper then erythema in the legs seems to have resolved/. For now will increase her torsemide dose to 100 mg daily which she has been on in the past with good effect. Will try to reset her up with vascular specialty to help manage her lymphedema. Will supply patient with paper Rx for compression stockings Orders: Orders Comprehensive Met. Panel 10/05/24 I50.9 - Heart failure, unspecified Referrals Vascular Surgery Referral I89.0 - Lymphedema, not elsewhere classified Medications: New [compression stockings Size XL] need for 10-15mmhg medical compression 1 ea 0RF R60.0 - Localized edema [compression stockings Size XL] 1 pair, medical compression 10-15mmhg 2 ea 0RF R60.0 - Localized edema torsemide 100 mg PO DAILY 30 days 30 tabs 1RF R60.0 - Localized edema Discontinued torsemide Discontinued Reason: Doctor's Order 40 mg (2 x 20 mg) PO DAILY 15 days 30 tabs 0RF I50.9 - Heart failure, unspecified
== END 2024-10-05 12:38 | disposition home or self-care (01) ==
LOC: HO.HMCH 11:30
PROVIDERS: PCP Physician Assistant; Visit Provider Physician Assistant
DX: R60.0 Localized edema (principal)

== ENCOUNTER → 2024-10-05 11:29 | Outpatient (BNVA) | payer OTHER, SELFPAY | PROVIDERS: PCP Physician Assistant; Visit Provider Physician Assistant | DX: R60.0 Localized edema (principal) | CPT/HCPCS: 99212 ==

== ENCOUNTER 2024-10-10 09:53 | Outpatient (AMB) | payer OTHER, SELFPAY ==
[2024-10-10 10:08] VITALS: BMI 34.4
--- NOTE | 2024-10-10 10:08 | A.OFFVIS_ITS ---
Vital Signs 10/10/24 10:08 Height 5 ft 3 in Weight 194 lb BMI 34.4 Intake Visit Reasons: follow up LE swelling per Ravindra Intake Note: follow up LE swelling per Luis Waite. Pt states Left LE swelling since August after a chandelier fell and hit her leg causing her to go to the ED and get 5 sutures. Pt states that she is unable to get her lymphedema pumps on at the moment. Attendant Lodging Facilities Required: No Accompanied by: Self / Same As Patient Allergies cephalexin [From KEFLEX] Allergy (Intermediate, Verified 10/10/24 10:11) HIVES Penicillins [PENICILLINS] Allergy (Intermediate, Verified 10/10/24 10:11) HIVES acetaminophen [From Excedrin Extra Strength] Allergy (Mild, Verified 10/10/24 10:11) Hives aspirin [From Excedrin Extra Strength] Allergy (Mild, Verified 10/10/24 10:11) Hives caffeine [From Excedrin Extra Strength] Allergy (Mild, Verified 10/10/24 10:11) Hives metformin [METFORMIN] Allergy (Mild, Verified 10/10/24 10:11) HIVES enalaprilat [Vasotec] Allergy (Unknown, Verified 10/10/24 10:11) Unknown dulaglutide [From Trulicity] Allergy (Verified 10/10/24 10:11) Hives HPI HPI follow up LE swelling per Ravindra: Details: Miracle is presenting today for concerns of ongoing and worsening left lower extremity swelling on referral from her PCP. She states that in the beginning of August she had a chandelier fall on her left knee area, the glass cutting into just below her knee, requiring 5 sutures. She states that her PCP removed the sutures a couple of weeks later and since the accident she states her left leg has been more swollen. She denies any other injuries. She states she was using her lymphedema pumps until about a week ago, when she states she was unable to get them on correctly due to the swelling. She states her recliner, which she slept in at home, broke, and she has been sleeping in her wheelchair with her feet up. She states since stopping the pumps, she has had increased weeping of the left lower leg. Her PCP started her back on Torsemide, which she states has helped the swelling in the past; however, she states she cannot pick it up until Thday. She states she will also be picking up compression socks later next month. [facility] Medical History Cataract Femur fracture, left Normocytic anemia Anemia Closed fracture of left distal femur Asthma COPD (chronic obstructive pulmonary disease) CHF (congestive heart failure) COPD (chronic obstructive pulmonary disease) Acid reflux Osteopenia Essential hypertension Leg swelling PVC (premature ventricular contraction) Hypertension Asthma Hyperlipidemia LDL goal <70 Type 2 diabetes mellitus with diabetic polyneuropathy Surgical History Hx of left cataract extraction (07/03/24) History of surgery on lower extremity History of cardiac catheterization Hx of local excision of skin lesion History of tooth extraction Hx of bilateral breast reduction surgery History of cholecystectomy Family History Father CVD (cardiovascular disease) Mother CVD (cardiovascular disease) Gastric cancer Diabetes Sister Lung disease Social History Household Members: None Housing: Apartment Do you presently have visiting nurse or other home services: No Alcohol intake: never Comment: burning Patient Tobacco Use Status: Never used Tobacco e-Cigarette/Vaping Use: Never Used Second Hand Smoke Exposure: No service: No Current occupational status: disabled Sexual orientation: Straight/Heterosexual Gender identity: Female Cognitive needs: Yes (walker) Hearing needs: No Vision needs: Yes (glasses) Review of Systems Const Reports as per HPI and Denies weakness ENT Reports Normal hearing present and Denies dizziness Card Reports as per HPI, Denies chest pain, Denies chest pain at rest, Denies chest pain with activity, Denies dyspnea and Denies dyspnea on exertion Resp Reports as per HPI, Denies cough, Denies dyspnea and Denies dyspnea on exertion GI Reports as per HPI, Denies abdominal pain, Denies nausea and Denies vomiting Musc Denies numbness Skin/Breast Reports as per HPI, Denies erythema and Denies wounds Neuro Reports Normal hearing present, Denies dizziness, Denies numbness, Denies Sensory deficit (Neuro) and Denies weakness Psych Reports no additional complaints Endo Reports no additional complaints Physical Exam Vital Signs: BMI result Body Mass Index 34.4 Const General: healthy appearing and no acute distress Orientation/consciousness: patient oriented x3 HEENT Head: Yes normal to inspection Ears: hearing grossly normal bilaterally Mouth: Normal oral and palatal mucosa present Resp Effort & Inspection: normal respiratory effort and able to speak in complete sentences Auscultation: clear to auscultation bilaterally Cardio Jugular venous distension: no JVD Rate: regular rate Rhythm: regular rhythm Heart sounds: S1 normal heart sound present and S2 normal heart sound present Bruits: no abdominal aortic bruits, no carotid bruits, no femoral bruits and no renal bruits Peripheral pulses: Peripheral pulses 2+ throughout GI Inspection: Yes normal to inspection Palpation (GI): No Abdominal aortic bruit present Skin General skin exam: no rashes or lesions noted Wounds: no wounds Hair: normal Neuro General: patient oriented x3 Cranial nerves: Yes Normal hearing present Cognition (Neuro): normal cognition Gait exam (Neuro): Normal gait present Motor exam (neuro): 5/5 motor strength present throughout Sensory Exam: No Sensory deficit (Neuro) Extrem Other: Bilateral lower extremities: +2/3 pitting edema noted. Small amount of serous weeping noted on the left lower extremity, mid calf. Erythematous discoloration noted from the pre-tibial area to the feet, bilaterally. No wounds noted. Bandage covering just below the left knee, where the pt was cut with glass, bandage not taken down. General: Yes normal to inspection, Yes full ROM, Yes capillary refill normal and Yes normal gait Assessment & Plan Assessment & Plan (1) Lymphedema: Code(s): I89.0 - Lymphedema, not elsewhere classified Category: Medical Plan: Miracle is presenting today on a referral from her PCP for ongoing and worsening left lower extremity swelling, pain, and weeping. She was using her lymphedema pumps until appx 1-2w ago, when she states she had difficulty getting them on. She states they were working prior to that. She did have an injury to the left leg, in early August, resulting in requiring 5 sutures, which has now healed. We discussed with her that there does not seem to be any infections/open wounds but the weeping continues. We discussed the importance of starting to use the pumps again, to help with the swelling and weeping. We discussed that we will reach out to [employer] to see if they can get to her house to re-fit them/change them for her to be more comfortable/fit better. We discussed the importance of good sleep and to not sleep in her wheelchair, if possible. We discussed that if she has any other further vascular concerns, to reach out to us. Thank you for allowing us to participate in the patient's care. If there are any questions or concerns, please do not hesitate to reach out to us. Coding Level of Care Code Est Pt Level 4 (11456) Diagnoses Lymphedema I89.0
== END 2024-10-10 10:43 | disposition home or self-care (01) ==
LOC: HO.HVS 09:54
PROVIDERS: PCP Physician Assistant; Visit Provider Physician Assistant Surgical
DX: I89.0 Lymphedema, not elsewhere classified (principal)
CPT/HCPCS: 99214

== ENCOUNTER → 2024-10-10 09:53 | Outpatient (BNVA) | payer OTHER, SELFPAY | PROVIDERS: PCP Physician Assistant; Visit Provider Physician Assistant Surgical | DX: I89.0 Lymphedema, not elsewhere classified (principal) | CPT/HCPCS: 99212 ==

== ENCOUNTER 2024-11-16 10:23 | Outpatient (REF) | payer OTHER, SELFPAY ==
--- OUTSIDE RECORDS SUMMARY | 2024-11-16 11:04 | XMS_ITS | Patient Health Record ---
Author Organization [facility] Address [address] [place] [address] Care Team Providers Care Furnace Mason Name Role Phone Jerome Martinez Jr Reason For Referral No Information Plan Of Treatment No Information
[2024-11-16 11:31] LABS: Alanine Aminotransferase 12 U/L (0-31); Albumin Level 4.2 g/dL (3.5-5.0); Alkaline Phosphatase 90 U/L (39-117); Anion Gap 14 (12-20); Aspartate Amino Transferase 21 U/L (5-31); Blood Urea Nitrogen 11 mg/dL (9-16); Calcium 10.2 mg/dL (8.4-10.2); Carbon Dioxide 24 mmol/L (22-29); Chloride 105 mmol/L (96-108); Estimated Glomerular Filt Rate 56; Potassium 3.6 mmol/L (3.3-5.1); Sodium 139 mmol/L (135-145); Total Protein 8.1 g/dL (6.5-8.0)
== END 2024-11-16 10:24 | disposition home or self-care (01) ==
LOC: HO.LAB 10:23
PROVIDERS: PCP Physician Assistant; Visit Provider Physician Assistant
DX: I50.9 Heart failure, unspecified (principal)
CPT/HCPCS: 36415; 80053

== ENCOUNTER 2024-12-05 13:02 | Outpatient (AMB) | payer OTHER, SELFPAY ==
--- NOTE | 2024-12-05 13:08 | MHC.PC.OV ---
Vital Signs 12/05/24 13:09 Height 5 ft 3 in Weight 179 lb 6 oz BMI 31.8 BP 140/90 H Blood Pressure Location Lt brachial Position Sitting Pulse 118 H Pulse Source Pulse Oximeter Temp 97.1 F Temp Source Temporal Artery Scan Pulse Oximetry (%) 98 Oxygen Delivery Method Room Air Intake Visit Reasons: f/u lower extremity edema Intake Note: Patient is here to follow up on Lower extremity edema. Care Partner Required: No Loading Shovel Oiler: Not Required per policy Accompanied by: Self / Same As Patient Allergies cephalexin (From KEFLEX) Allergy (Intermediate, Verified 12/05/24 13:30) HIVES Penicillins (PENICILLINS) Allergy (Intermediate, Verified 12/05/24 13:30) HIVES acetaminophen (From Excedrin Extra Strength) Allergy (Mild, Verified 12/05/24 13:30) Hives aspirin (From Excedrin Extra Strength) Allergy (Mild, Verified 12/05/24 13:30) Hives caffeine (From Excedrin Extra Strength) Allergy (Mild, Verified 12/05/24 13:30) Hives metformin (METFORMIN) Allergy (Mild, Verified 12/05/24 13:30) HIVES enalaprilat (Vasotec) Allergy (Unknown, Verified 12/05/24 13:30) Unknown dulaglutide (From Trulicity) Allergy (Verified 12/05/24 13:30) Hives Medication List - Last Reconciled 12/05/24 by Luis Waite PA-C alendronate 70 mg PO PAGE blood pressure test kit-large As directed blood sugar diagnostic (FreeStyle Lite Strips) As directed three times a day blood-glucose meter (FreeStyle Lite Meter kit) As directed 3xday cholecalciferol (vitamin D3) 125 mcg PO DAILY compr.stocking,knee,long,large As directed [compression stockings Size XL 1 pair, medical compression 10-15mmhg ] cyanocobalamin (vitamin B-12) 1 tab PO DAILY fluticasone propion-salmeterol 250-50 mcg/dose (Wixela Inhub) 1 inh PO BID folic acid 800 mcg PO DAILY ipratropium-albuterol 20-100 mcg/actuation (Combivent Respimat) 1 puff PO QID lancets (FreeStyle Lancets) USE TO TEST TWICE A DAY DIRECTED losartan 100 mg PO DAILY 90 days metoprolol tartrate 100 mg PO BEDTIME [Power lift recliner As directed] prednisone 10 mg PO DIRECTED 9 days semaglutide (Ozempic) 0.5 mg (0.736 mL) subcut QWEEK 4 weeks silver sulfadiazine 1% (Silvadene) 1 appl topical DAILY 4 weeks simvastatin 10 mg PO DAILY 90 days torsemide 100 mg PO DAILY 30 days triamcinolone acetonide 0.1% 1 appl topical DAILY 30 days walker (Ultra-Light Rollator misc) As directed Tobacco use date assessed: 12/05/24 Fall risk assessment: No Falls in past year Last assessed Fall Risk: 12/05/24 Dental Screening Dental Screen Date: 06/21/24 HPI f/u lower extremity edema HPI Details Patient is a 74-year-old female here today for follow-up visit . . Patient has a past medical history significant for type 2 diabetes hypertension, asthma/COPD, obesity, leukocytosis, history of left hip fracture with hardware placement.. .. Bilateral lower extremity edema / CHF : Patient's lower extremity edema is much improved since transitioning to torsemide. It is unclear if her lower extremity TMs related to lymphedema or congestive heart failure. She was seeing a security support analyst in 2021. Will send patient for echocardiogram to evaluate cardiac function. She still has a bit of swelling around the patellar for left knee which she attributes to her previous injury. Hypertension: Patient's blood pressure acceptable today in office. She continues on losartan and metoprolol with good effect. r. She denies any dizziness, headaches or vision issues. She does report having an occasional chest discomfort. .. Lymphedema: Has a history morbid obesity. She does have slight lymphedema in her lower extremities. She now has home therapy unit to do lymphedema compression treatment. She has followed up with vascular surgeon and is due for ultrasounds of her lower extremities. . Hyperlipidemia: Most recent lipid panel showing improved total cholesterol and LDL. She has been started on simvastatin 10 mg for better control of her cholesterol. .. COPD: Continues on maintenance inhaler with decent affect. Was previously seeing a laminating machine operator helper. She continues with Combivent and p.r.n. use of her albuterol inhaler. She does report at times feeling that her hands are numb and blue and also having shortness of breath. Unclear if this is related to a pulmonary versus cardiac versus autoimmune disorder. Again will send for echocardiogram to begin workup. .. Type 2 diabetes: Continues to manage her type 2 diabetes with Ozempic. She denies having any further hypoglycemic events.. She has lost a significant amount of weight over the last few years and may not need diabetic medication. Most recent A1c acceptable.. [facility] Medical History Cataract Femur fracture, left Normocytic anemia Anemia Closed fracture of left distal femur Asthma COPD (chronic obstructive pulmonary disease) CHF (congestive heart failure) COPD (chronic obstructive pulmonary disease) Acid reflux Osteopenia Essential hypertension Leg swelling PVC (premature ventricular contraction) Hypertension Asthma Hyperlipidemia LDL goal <70 Type 2 diabetes mellitus with diabetic polyneuropathy Surgical History Hx of left cataract extraction (07/03/24) History of surgery on lower extremity History of cardiac catheterization Hx of local excision of skin lesion History of tooth extraction Hx of bilateral breast reduction surgery History of cholecystectomy Family History Father CVD (cardiovascular disease) Mother CVD (cardiovascular disease) Gastric cancer Diabetes Sister Lung disease Social History Household Members: None Housing: Apartment Do you presently have visiting nurse or other home services: No Alcohol intake: never Comment: burning Patient Tobacco Use Status: Never used Tobacco e-Cigarette/Vaping Use: Never Used Second Hand Smoke Exposure: No service: No Current occupational status: disabled Sexual orientation: Straight/Heterosexual Gender identity: Female Cognitive needs: Yes (walker) Hearing needs: No Vision needs: Yes (glasses) Questionnaire Thrive Questionnaire Date Thrive assessed: 09/19/24 I am a: Patient What is your living situation today?: I have a steady place to live Within the past 12 months, did the food you bought not last and you didn't have the money to get more?: Sometimes True Within the past 12 months, did you worry whether your food would run out before you got money to buy more?: I choose not to answer this question Do you have trouble paying for medicines?: No Do you have trouble getting transportation to medical appointments?: Yes Do you have trouble paying your heating and electricity bill?: No Do you have trouble taking care of your child, family member or friend?: No Do you have trouble with day-to-day activities such as bathing, preparing meals, shopping, managing finances, etc.?: No Are you currently unemployed and looking for a job?: No Are you interested in more education?: No Please select the resources that you would like help with: None Currently or been in a relationship where the following occur: I choose not to answer THRIVE Score: 2 GUSTABO-7 AMB Questionnaire GUSTABO-7 Date GUSTABO - 7 assessed: 09/19/24 Source: Developed by Drs. Chu Vaughn, Trista Vital, Reyes Johnson and colleagues, with an educational paolo from [employer]. Review of Systems Const Denies headache(s) Eyes Denies loss of vision ENT Denies vertigo, Denies dizziness, Denies headache(s) and Denies sore throat Card Denies chest pain, Reports leg edema, Denies lightheadedness and Reports dyspnea on exertion Resp Denies cough, Denies hemoptysis, Reports dyspnea on exertion and Denies wheezing GI Denies abdominal pain, Denies melena, Denies constipation, Denies diarrhea and Denies vomiting Denies urinary frequency, Denies dysuria and Denies urinary urgency Musc Denies arthralgias, Denies joint swelling, Denies numbness and Denies tingling Neuro Denies Abnormal speech present, Denies behavioral changes, Denies vertigo, Denies dizziness, Denies headache(s), Denies loss of vision, Denies memory loss, Denies numbness and Denies tingling Psych Denies anxiety, Denies behavioral changes, Denies depression, Denies memory loss and Denies panic attacks Chung/Lymph Denies easy bleeding and Denies easy bruising Aller/Immun Denies wheezing Physical exam (Primary Care) Vital Signs: Last Vital Signs Temp 97.1 F 12/05/24 13:09 Pulse 118 H 12/05/24 13:09 BP 140/90 H 12/05/24 13:09 Pulse Ox 98 12/05/24 13:09 Oxygen Delivery Method Room Air 12/05/24 13:09 BMI result Body Mass Index 31.8 Tobacco/Smoking Status: Tobacco use Status Tobacco use date assessed 12/05/24 12/05/24 13:21 Patient Tobacco Use Status Never used Tobacco 12/05/24 13:21 e-Cigarette/Vaping Use Never Used 12/05/24 13:21 Thrive Assessment: Date of Thrive Assessment Date Thrive assessed 09/19/24 12/05/24 13:21 Currently or been in a relationship where the following occur: I choose not to answer Const General: healthy appearing, no acute distress, alert and awake Nutritional Appearance: well nourished Orientation/consciousness: oriented to person, oriented to place and oriented to time HENMT Ears: TM's normal bilaterally General nose exam: Normal nasal mucous membranes and turbinates present Eyes Conjunctivae: conjunctivae normal Sclerae: sclerae normal Pupils: Equal, round and reactive pupils present Neck Neck: Yes no lymphadenopathy and Yes no JVD Thyroid: Thyroid normal Carotids: no bruits Resp Effort & Inspection: normal respiratory effort and not tachypneic Auscultation: no crackles, no rales, no rhonchi and no wheezes Cardio Rate: regular rate Rhythm: regular rhythm Heart sounds: no murmurs and normal S1 and S2 GI Palpation (GI): Soft to palpation, nontender, no hepatomegaly and no splenomegaly Auscultation: normal bowel sounds Skin General skin exam: no rashes or lesions noted and dry skin Neuro General: oriented to person, oriented to place and oriented to time Cranial nerves: Yes Equal, round and reactive pupils present Speech: No Abnormal speech present Gait exam (Neuro): Normal gait present Motor exam (neuro): no tremor noted Extrem Other: BILATERAL LOWER EXTREMITY WITH IMPROVED EDEMA NOW ON LEVEL OF PROXIMAL HARE Right upper extremity: full ROM Left upper extremity: full ROM Right lower extremity: full ROM and edema Left lower extremity: full ROM and edema Psych Mental Status: mental status grossly normal Speech and movement: Normal speech and movement present Affect: normal affect Attitude: cooperative Thought process: Normal thought process present Coding Level of Care Code Est Pt Level 4 (02192) Diagnoses Chronic obstructive pulmonary disease, unspecified COPD type J44.9 COPD type: unspecified COPD Lower extremity edema R60.0 Chronic pain of left knee M25.562; G89.29 Chronicity: chronic Assessment & Plan Assessment & Plan (1) COPD (chronic obstructive pulmonary disease): Comment: She is being treated for asthma/COPD, moderately severe. It remains well controlled with her current medical regimen including: Wixela 250-50 1 inhalation b.i.d.. Ipratropium/albuterol by updraft Q 6 hours while awake. Combivent Respimat 1 inhalation Q 4-6 hours p.r.n. as rescue inhaler. Code(s): J44.9 - Chronic obstructive pulmonary disease, unspecified Category: Medical Qualifiers: COPD type: unspecified COPD Qualified Code(s): J44.9 - Chronic obstructive pulmonary disease, unspecified Plan: The patient will continue using inhalers and nebulizers for COPD management, although she needs to obtain the liquid medication for the nebulizer. A letter was provided to prevent fumigation exposure, which could exacerbate her respiratory conditions. (2) Lower extremity edema: Code(s): R60.0 - Localized edema Category: Medical Plan: Has much improved since starting torsemide (3) Left knee pain: Code(s): M25.562 - Pain in left knee Category: Medical Qualifiers: Chronicity: chronic Qualified Code(s): M25.562 - Pain in left knee; G89.29 - Other chronic pain Plan: An x-ray is planned to evaluate the joint effusion and assess for any underlying issues. Orders: Orders CA echo transthoracic complete Today I50.9 - Heart failure, unspecified Complete Blood Count no Diff Today D72.829 - Elevated white blood cell count, unspecified Comprehensive Met. Panel Today E11.42 - Type 2 diabetes mellitus with diabetic polyneuropathy NT-proBNP Today I50.9 - Heart failure, unspecified XR knee LT 3V Today M25.562 - Pain in left knee Referrals Pulmonology Referral J44.9 - Chronic obstructive pulmonary disease, unspecified Medications: Refilled alendronate 70 mg PO PAGE 14 tabs 1RF I50.9 - Heart failure, unspecified simvastatin 10 mg PO DAILY 90 tabs 1RF 90 days E11.42 - Type 2 diabetes mellitus with diabetic polyneuropathy triamcinolone acetonide 0.1% 1 appl topical DAILY 80 grams 3RF 30 days R21 - Rash and other nonspecific skin eruption losartan 100 mg PO DAILY 90 tabs 1RF 90 days I10 - Essential (primary) hypertension
[2024-12-05 13:09] VITALS: BP 140/90; PULSE 118; TEMP 36.2; O2SAT 98; BMI 31.8
--- OUTSIDE RECORDS SUMMARY | 2024-12-05 13:49 | XMS_ITS | Patient Health Record ---
Author Organization [facility] Address [address] [place] [address] Care Team Providers Care Pricing Director Name Role Phone Jerome Martinez Jr Reason For Referral No Information Plan Of Treatment No Information
== END 2024-12-05 14:02 | disposition home or self-care (01) ==
LOC: HO.HMCH 13:03
PROVIDERS: PCP Physician Assistant; Visit Provider Physician Assistant
DX: J44.9 Chronic obstructive pulmonary disease, unspecified (principal); R60.0 Localized edema; M25.562 Pain in left knee; G89.29 Other chronic pain

== ENCOUNTER → 2024-12-05 13:02 | Outpatient (BNVA) | payer OTHER, SELFPAY | PROVIDERS: PCP Physician Assistant; Visit Provider Physician Assistant | DX: R60.0 Localized edema (principal); J44.9 Chronic obstructive pulmonary disease, unspecified; M25.562 Pain in left knee; G89.29 Other chronic pain; I10 Essential (primary) hypertension; E78.5 Hyperlipidemia, unspecified; E11.9 Type 2 diabetes mellitus without complications; Z79.85 Long-term (current) use of injectable non-insulin antidiabetic drugs | CPT/HCPCS: 99212 ==

== ENCOUNTER → 2025-01-04 09:32 | Outpatient (REF) | payer OTHER, SELFPAY ==
--- NOTE | ~2025-01-04 | XR_ITS ---
EXAMINATION: XR KNEE, LEFT CLINICAL INFORMATION: M25.562 - Pain in left knee COMPARISON: 08/18/2024, 07/08/2021. TECHNIQUE: Three views of the left knee. FINDINGS: There is bony demineralization. Intramedullary tim with 4 transverse fixation screws in the distal femoral metadiaphysis, fixating a healed distal femoral metadiaphyseal fracture. Hardware appears intact without complication or loosening. No acute fracture, dislocation, or suspicious bone lesion. Chondrocalcinosis noted in all 3 compartments. Severe joint space loss medial compartment with [id number] appearance, subchondral sclerosis, and marginal osteophytic spurs. There is mild compensatory widening of the lateral compartment with mild varus angulation of the knee. Moderate to severe osteoarthrosis in the lateral compartment and moderate changes in the patellofemoral compartment. No definitive joint effusion. Soft tissues demonstrate vascular calcifications. XR/XR knee LT 3V IMPRESSION: 1. No acute findings of the left knee. Chronic findings as discussed. 2. Chondrocalcinosis of all 3 compartments. 3. Tricompartmental osteoarthrosis. [id number] appearance of the medial compartment. Mild varus angulation of the knee. Electronically signed by: David Rossi MD 01/04/2025 10:31 AM EDT
--- OUTSIDE RECORDS SUMMARY | 2025-01-04 10:37 | XMS_ITS | Patient Health Record ---
Author Organization [facility] Address [address] [place] [address] Care Team Providers Care Senior Software Engineer Name Role Phone Jerome Martinez Jr Reason For Referral No Information Plan Of Treatment No Information
[2025-01-04 10:44] LABS: Hematocrit 36.7 % (37.0-47.0); Hemoglobin 11.9 g/dl (12.0-16.0); Mean Corpuscular HGB Conc 32.4 g/dl (31.0-35.0); Mean Corpuscular Hemoglobin 28.0 pg (27.0-33.0); Mean Corpuscular Volume 86.4 fL (80.0-98.0); NRBC Abs Auto 0.000 X10*3/uL (0.0-0.012); NRBC Pct Auto 0.0 /100WBC (0.0-0.2); Platelet Count 343 X10*3/uL (160-400); Red Blood Count 4.25 X10*6/uL (4.20-5.50); White Blood Count 7.0 X10*3/uL (4.8-10.8)
[2025-01-04 11:13] LABS: Alanine Aminotransferase 7 U/L (0-31); Albumin Level 4.4 g/dL (3.5-5.0); Alkaline Phosphatase 86 U/L (39-117); Anion Gap 11 (12-20); Aspartate Amino Transferase 19 U/L (5-31); Blood Urea Nitrogen 16 mg/dL (9-16); Calcium 10.3 mg/dL (8.4-10.2); Carbon Dioxide 26 mmol/L (22-29); Chloride 105 mmol/L (96-108); Estimated Glomerular Filt Rate 50; Potassium 3.9 mmol/L (3.3-5.1); Sodium 138 mmol/L (135-145); Total Protein 8.3 g/dL (6.5-8.0)
--- NOTE | 2025-01-04 12:35 | CA_ITS ---
Transthoracic Echocardiogram Patient (Last, First, Middle): Miracle Crockett G Gender: Female Date of : 1950 Age: 74 Procedure Date: 01/04/2025 Procedure Type: Transthoracic Echocardiogram Location: OP Height: 160.02 cm Weight: 81.19 kg BSA: 1.84 m2 Heart Rate: 84 bpm BP: 138 / 84 mmHg Legal Coordinator: SB Referring MD: Luis Waite PA-C Symptoms: I50.9 - Heart failure, unspecified Study Quality: Adequate ECG Rhythm: Sinus Conclusions: - The left ventricular systolic function is normal. The calculated ejection fraction is 64% by biplane method. - No obvious valvular pathology seen on this study. Findings Left Ventricle Normal left ventricular cavity size. There is normal left ventricular wall thickness. The left ventricular systolic function is normal. The calculated ejection fraction is 64% by biplane method. There is no evidence of regional wall motion abnormalities. Evidence suggests grade I (mild) diastolic dysfunction. Right Ventricle Normal right ventricular cavity size and systolic function. Atria Both atria are normal in size. Aortic Valve There is mild calcification of the aortic valve. There is no aortic valve stenosis. There is trace (trivial) aortic valve regurgitation. Mitral Valve There is mild mitral annular calcification. There is trace mitral valve regurgitation. There is no mitral valve stenosis. Pulmonic Valve The pulmonic valve is likely normal. Tricuspid Valve There is trace tricuspid valve regurgitation. There is no evidence of pulmonary hypertension. Great Vessels The asc aorta and aortic arch are normal in size. Venous The inferior vena cava is normal in size and collapses greater than 50% with inspiration. Pericardium/Pleural There is no evidence of pericardial effusion. Prior Study Comparison No significant change compared to prior study dated: 07/08/2021. Recommendations, Care & Conclusions No obvious valvular pathology seen on this study. Measurements 2D Linear Measurements IVSd: 1.04 0.6-0.9/0.6-1.0 cm LVIDd: 4.77 3.9-5.3/4.2-5.9 cm LVIDd Index: 2.59 2.4-3.2/2.2-3.1 cm/m2 LVIDs: 3.32 2.0-3.6 cm LVPWd: 0.91 0.7-1.1 cm LA Diam: 3.70 2.7-3.8/3.0-4.0 cm LAIDs Index: 2.01 1.5-2.3 cm/m2 LV Mass: 203.01 67-162/88-224 g LV Mass Index: 110.33 43-95/49-115 g/m2 LVOT Diam: 2.00 3.0+(-)1.3 cm 2D Systolic Function EF 4C: 61.40 >55% EF 2C: 66.10 >55% EF BiP: 63.90 >55% Mitral Valve MV Pk E: 0.82 MV PK A: 1.00 MV Decel Time: 149.00 E/A: 0.80 E'Lateral: 5.66 E'Medial: 5.22 E/E' Med: 15.70 E/E' Lat: 14.50 PHT: 44.00 MVA PHT: 5.00 Decel [place]: 5.49 Aortic Valve AoV Pk Albert: 1.26 AoV Pk Grad: 6.00 HANNAH: 2.47 LVOT LVOT Pk Albert: 0.86 LVOT Mn Albert: 0.56 LVOT VTI: 0.17 LVOT Pk Grad: 3.00 LVOT Mn Grad: 2.00 LVOT Diam: 2.00 LVOT Area: 3.14 Diastolic Function MV Pk E: 0.82 MV Pk A: 1.00 E/A: 0.80 E'Medial: 5.22 E/E' Med: 15.70 E' Laterial: 5.66 E/E' Lat: 14.50 Right Ventricle TAPSE (mm): 25.30 TVS' Albert: 11.20 Tricuspid Valve TR Pk Albert: 2.46 TR Pk Grad: 24.00 RA Press: 3.00 RVSP: 27.00 Great Vessels Aorta Sinus of Valsalva: 3.50 2.0-3.5 cm Ao Asc: 3.70 2.1-3.4 cm Ao Arch: 2.30 Pulmonary Veins Pulm Vein S/D 1.50 Pulmonary Valve PV Pk Albert: 0.73 Peak PV Grad: 2.00 Updated in Other Vendor System with Status of Final Talha Dang MD electronically signed on 01/06/2025 10:29:22 AM with status of Final
== END ==
LOC: HO.CARD 09:32
PROVIDERS: PCP Physician Assistant; Visit Provider Physician Assistant
DX: I50.9 Heart failure, unspecified (principal); M25.562 Pain in left knee; D72.829 Elevated white blood cell count, unspecified; E11.42 Type 2 diabetes mellitus with diabetic polyneuropathy
CPT/HCPCS: 36415; 73562; 80053; 83880; 85027; 93306

== ENCOUNTER → 2025-01-04 09:59 | Outpatient (BNV) | payer OTHER, SELFPAY | PROVIDERS: PCP Physician Assistant; Visit Provider Radiology Diagnostic Radiology | DX: M17.12 Unilateral primary osteoarthritis, left knee (principal); M11.262 Other chondrocalcinosis, left knee | CPT/HCPCS: 73562 ==

== ENCOUNTER → 2025-01-04 12:35 | Outpatient (BNV) | payer OTHER, SELFPAY | PROVIDERS: PCP Physician Assistant; Visit Provider Internal Medicine | DX: I50.9 Heart failure, unspecified (principal) | CPT/HCPCS: 93306 ==

== ENCOUNTER 2025-01-30 09:58 | Outpatient (REF) | payer OTHER, SELFPAY ==
--- OUTSIDE RECORDS SUMMARY | 2025-01-30 12:02 | XMS_ITS | Patient Health Record ---
Author Organization [facility] Address [address] [place] [address] Care Team Providers Care Oil Scout Name Role Phone Jerome Martinez Jr [phone] Reason For Referral No Information Plan Of Treatment No Information
== END 2025-01-30 09:59 | disposition home or self-care (01) ==
LOC: HO.MAMMO 09:58
PROVIDERS: PCP Physician Assistant; Visit Provider Physician Assistant
DX: Z12.31 Encounter for screening mammogram for malignant neoplasm of breast (principal)
CPT/HCPCS: 77063; 77067

== ENCOUNTER → 2025-01-30 10:45 | Outpatient (BNV) | payer OTHER, SELFPAY | PROVIDERS: PCP Physician Assistant; Visit Provider Radiology Body Imaging | DX: Z12.31 Encounter for screening mammogram for malignant neoplasm of breast (principal) | CPT/HCPCS: 77063; 77067 ==

== ENCOUNTER 2025-02-05 10:50 | Outpatient (AMB) | payer OTHER, SELFPAY ==
--- NOTE | 2025-02-05 10:54 | A.OFFVIS_ITS ---
Vital Signs 02/05/25 10:58 Height 5 ft 3 in Weight 178 lb 9.191 oz BMI 31.6 BP 168/82 H Blood Pressure Location Lt brachial Position Sitting Pulse 82 Pulse Source Pulse Oximeter Pulse Oximetry (%) 100 Oxygen Delivery Method Room Air Intake Visit Reasons: COPD Intake Note: pt is here for follow up after a while, had issues with fx leg, breathing is not good with heat and has been having issues at the apartment. Has a question on nebulizer medication, pt is requesting a note that they cannot spray bug deterent in her apartment due to the inablity to breath when this is done. Water Meter Mechanic Required: No Senior Sales Consultant: Senior Sales Consultant offered & declined Allergies cephalexin (From KEFLEX) Allergy (Intermediate, Verified 02/05/25 11:09) HIVES Penicillins (PENICILLINS) Allergy (Intermediate, Verified 02/05/25 11:09) HIVES acetaminophen (From Excedrin Extra Strength) Allergy (Mild, Verified 02/05/25 11:09) Hives aspirin (From Excedrin Extra Strength) Allergy (Mild, Verified 02/05/25 11:09) Hives caffeine (From Excedrin Extra Strength) Allergy (Mild, Verified 02/05/25 11:09) Hives metformin (METFORMIN) Allergy (Mild, Verified 02/05/25 11:09) HIVES enalaprilat (Vasotec) Allergy (Unknown, Verified 02/05/25 11:09) Unknown dulaglutide (From Trulicity) Allergy (Verified 02/05/25 11:09) Hives Medication List - Last Reconciled 02/05/25 by Skip Simons MD alendronate 70 mg PO PAGE blood pressure test kit-large As directed blood sugar diagnostic (FreeStyle Lite Strips) As directed three times a day blood-glucose meter (FreeStyle Lite Meter kit) As directed 3xday cholecalciferol (vitamin D3) 125 mcg PO DAILY compr.stocking,knee,long,large As directed [compression stockings Size XL 1 pair, medical compression 10-15mmhg ] cyanocobalamin (vitamin B-12) 1 tab PO DAILY fluticasone propion-salmeterol 250-50 mcg/dose (Wixela Inhub) 1 inh PO BID folic acid 800 mcg PO DAILY ipratropium-albuterol 20-100 mcg/actuation (Combivent Respimat) 1 puff PO QID lancets (FreeStyle Lancets) USE TO TEST TWICE A DAY DIRECTED losartan 100 mg PO DAILY 90 days metoprolol tartrate 100 mg PO BEDTIME [Power lift recliner As directed] semaglutide (Ozempic) 0.5 mg (0.736 mL) subcut QWEEK 4 weeks silver sulfadiazine 1% (Silvadene) 1 appl topical DAILY 4 weeks simvastatin 10 mg PO DAILY 90 days torsemide 100 mg PO DAILY 30 days triamcinolone acetonide 0.1% 1 appl topical DAILY 30 days walker (Ultra-Light Rollator misc) As directed Do you need a note to return to daycare/school/sports/work: No HPI HPI COPD: Details: This 74 years old female is coming to see me for pulmonary follow-up after almost 4 years. In the meantime she has been in and out of the hospital for various medical problems mostly pertaining to congestive heart failure, fluid retention in the lower extremities and vascular problems. After each hospitalization she spent few weeks in the rehab facility. Now she has been at home, in her apartment. Breathing is holding stable while she is using current inhalers , Wixela 250-51 inhalation b.i.d., and Combivent Respimat 1 inhalation Q 4-6 hours p.r.n.. She carries it around as her rescue inhaler. She is enquiring about having a nebulizer and use the solution in nebulizer instead of the inhalers. She is alsovoicing a concern, that the housing authority wants to spray her apartment, and she is afraid that she it is going to affect her breathing. She is requesting a letter from me to request the housing authority not to use any sprays in her apartment. [facility] Medical History Cataract Femur fracture, left Normocytic anemia Anemia Closed fracture of left distal femur Asthma COPD (chronic obstructive pulmonary disease) CHF (congestive heart failure) COPD (chronic obstructive pulmonary disease) Acid reflux Osteopenia Essential hypertension Leg swelling PVC (premature ventricular contraction) Hypertension Asthma Hyperlipidemia LDL goal <70 Type 2 diabetes mellitus with diabetic polyneuropathy Surgical History Hx of left cataract extraction (07/03/24) History of surgery on lower extremity History of cardiac catheterization Hx of local excision of skin lesion History of tooth extraction Hx of bilateral breast reduction surgery History of cholecystectomy Family History Father CVD (cardiovascular disease) Mother CVD (cardiovascular disease) Gastric cancer Diabetes Sister Lung disease Social History Household Members: None Housing: Apartment Do you presently have visiting nurse or other home services: No Alcohol intake: never Comment: burning Patient Tobacco Use Status: Never used Tobacco e-Cigarette/Vaping Use: Never Used Second Hand Smoke Exposure: No service: No Current occupational status: disabled Sexual orientation: Straight/Heterosexual Gender identity: Female Cognitive needs: Yes (walker) Hearing needs: No Vision needs: Yes (glasses) Review of Systems Const All systems reviewed & are unremarkable except as noted in HPI and below Reports weakness ENT Denies nasal congestion and Denies nasal discharge Card Denies chest pain and Reports dyspnea on exertion Resp Reports cough (mild occasional ) and Reports dyspnea on exertion Musc Reports abnormal gait (poor balance , weak legs , has to use walker .) and Reports muscle weakness Neuro Reports abnormal gait (poor balance , weak legs , has to use walker .) and Reports weakness Psych Reports no additional complaints Physical Exam Const General: comfortable, no acute distress, alert and awake Orientation/consciousness: patient oriented x3 HEENT Head: Yes normal to inspection General nose exam: No nasal polyps present and No nasal discharge present Face and sinus: Yes sinuses nontender Mouth: oropharynx normal Throat: Yes posterior oropharynx normal Eyes General: appearance normal, both eyes and all related structures Neck Neck: Yes normal visual inspection, Yes no lymphadenopathy, Yes trachea midline and Yes no JVD Thyroid: Thyroid normal Chest Chest palpation & inspection: normal inspection of the chest, normal palpation of entire chest wall and no tenderness Resp Other: Percussion note is resonant . Breath sounds are distant with prolonged expiratory phase. No wheezes crepitations or rhonchi are heard. Cardio Palpation: normal PMI Rate: regular rate Rhythm: regular rhythm Heart sounds: no gallops and no murmurs GI Palpation (GI): Soft to palpation, nontender, No hepatosplenomegaly present and no masses Auscultation: normal bowel sounds Back/Spine/Pelvis Thoracic/Lumbar Spine: thoracic and lumbar spine normal to inspection and thoraco-lumbar ROM limited Skin General skin exam: no rashes or lesions noted and dry skin (OF THE LEGS) Neuro General: patient oriented x3, No gait normal (Gait impaired due to edema of the legs and arthritis, walks with the walker) and no focal motor deficits Cranial nerves: Yes CN's II-XII intact bilaterally Extrem General: Yes normal to inspection, Yes no calf tenderness and Yes edema (Chronic stasis edema of legs with stasis dermatitis) Psych Appearance: grossly normal and well kempt Speech and movement: Normal speech and movement present Assessment & Plan Assessment & Plan (1) COPD (chronic obstructive pulmonary disease): Comment: She is being treated for asthma/COPD, moderately severe. It remains well controlled with her current medical regimen including: Wixela 250-50 1 inhalation b.i.d.. Combivent Respimat 1 inhalation Q 4-6 hours p.r.n. as rescue inhaler. She does not have nebulizer or the solution to use in the nebulizer at this time. Code(s): J44.9 - Chronic obstructive pulmonary disease, unspecified Category: Medical Qualifiers: COPD type: unspecified COPD Qualified Code(s): J44.9 - Chronic obstructive pulmonary disease, unspecified Plan: Asthma/COPD, seems to be well controlled at this time. I explained to her that that she is on optimal regimen including : Wixela 250-50 1 inhalation b.i.d. and Combivent Respimat that she can use 1 inhalation Q 4-6 hours p.r.n.. I explained to her that she does not need to use nebulizer . I gave her a note for the housing authority, requesting that she may be exempt from having her apartment sprayed , if it is possible. Coding Level of Care Code Est Pt Level 4 (63853) Diagnoses Chronic obstructive pulmonary disease, unspecified COPD type J44.9 COPD type: unspecified COPD
[2025-02-05 10:58] VITALS: BP 168/82; PULSE 82; O2SAT 100; BMI 31.6
--- OUTSIDE RECORDS SUMMARY | 2025-02-05 12:22 | XMS_ITS | Patient Health Record ---
Author Organization [facility] Address [address] [place] [address] Care Team Providers Care Cement Mixer Name Role Phone Jerome Martinez Jr [phone] Reason For Referral No Information Plan Of Treatment No Information
== END 2025-02-05 11:25 | disposition home or self-care (01) ==
LOC: HO.HPS 10:50
PROVIDERS: PCP Physician Assistant; Referring Provider Physician Assistant; Visit Provider Internal Medicine
DX: J44.9 Chronic obstructive pulmonary disease, unspecified (principal)
CPT/HCPCS: 99214

== ENCOUNTER → 2025-02-05 10:50 | Outpatient (BNVA) | payer OTHER, SELFPAY | PROVIDERS: PCP Physician Assistant; Referring Provider Physician Assistant; Visit Provider Internal Medicine | DX: J44.9 Chronic obstructive pulmonary disease, unspecified (principal); J45.909 Unspecified asthma, uncomplicated | CPT/HCPCS: 99212 ==

== ENCOUNTER 2025-03-08 09:22 | Outpatient (AMB) | payer OTHER, SELFPAY ==
--- NOTE | 2025-03-08 09:24 | MHC.PC.OV ---
Vital Signs 03/08/25 09:25 Height 5 ft 3 in Weight 174 lb 2 oz BMI 30.8 BP 120/76 Blood Pressure Location Lt brachial Position Sitting Pulse 78 Pulse Source Pulse Oximeter Pulse Oximetry (%) 99 Oxygen Delivery Method Room Air Intake Visit Reasons: f/u DMII/ HTN Hand Spring Repairer Required: No Accompanied by: Self / Same As Patient Allergies cephalexin (From KEFLEX) Allergy (Intermediate, Verified 03/08/25 09:38) HIVES Penicillins (PENICILLINS) Allergy (Intermediate, Verified 03/08/25 09:38) HIVES acetaminophen (From Excedrin Extra Strength) Allergy (Mild, Verified 03/08/25 09:38) Hives aspirin (From Excedrin Extra Strength) Allergy (Mild, Verified 03/08/25 09:38) Hives caffeine (From Excedrin Extra Strength) Allergy (Mild, Verified 03/08/25 09:38) Hives metformin (METFORMIN) Allergy (Mild, Verified 03/08/25 09:38) HIVES enalaprilat (Vasotec) Allergy (Unknown, Verified 03/08/25 09:38) Unknown dulaglutide (From Trulicity) Allergy (Verified 03/08/25 09:38) Hives Medication List - Last Reconciled 03/08/25 by Luis Waite PA-C alendronate 70 mg PO PAGE blood pressure test kit-large As directed blood sugar diagnostic (FreeStyle Lite Strips) As directed three times a day blood-glucose meter (FreeStyle Lite Meter kit) As directed 3xday cholecalciferol (vitamin D3) 125 mcg PO DAILY compr.stocking,knee,long,large As directed [compression stockings Size XL 1 pair, medical compression 10-15mmhg ] cyanocobalamin (vitamin B-12) 1 tab PO DAILY fluticasone propion-salmeterol 250-50 mcg/dose (Wixela Inhub) 1 inh PO BID folic acid 800 mcg PO DAILY ipratropium-albuterol 20-100 mcg/actuation (Combivent Respimat) 1 puff PO QID lancets (FreeStyle Lancets) USE TO TEST TWICE A DAY DIRECTED losartan 100 mg PO DAILY 90 days metoprolol tartrate 100 mg PO BEDTIME [Power lift recliner As directed] semaglutide (Ozempic) 0.5 mg (0.736 mL) subcut QWEEK 4 weeks silver sulfadiazine 1% (Silvadene) 1 appl topical DAILY 4 weeks simvastatin 10 mg PO DAILY 90 days torsemide 100 mg PO DAILY 30 days triamcinolone acetonide 0.1% 1 appl topical DAILY 30 days walker (Ultra-Light Rollator misc) As directed Tobacco use date assessed: 03/08/25 Fall risk assessment: No Falls in past year Last assessed Fall Risk: 03/08/25 Dental Screening Dental Screen Date: 03/08/25 Did you have a dental visit in the last 12 months?: No Did you have a dental problem in the last 6 months where you did not have access to dental care?: No Was dental information given to patient?: No HPI f/u DMII/ HTN HPI Details Patient is a 74-year-old female here today for follow-up visit . . Patient has a past medical history significant for type 2 diabetes hypertension, asthma/COPD, obesity, leukocytosis, history of left hip fracture with hardware placement.. .. Bilateral lower extremity edema / CHF : Echocardiogram from December of 2024 showing-->Evidence suggests grade I (mild) diastolic dysfunction. Patient continues on torsemide which seems to work well for her diuresis. Her lower extremity edema has much improved. Hypertension: Patient's blood pressure acceptable today in office. She continues on losartan and metoprolol with good effect. r. She denies any dizziness, headaches or vision issues. She does report having an occasional chest discomfort. .. Lymphedema: Has been better since being on new diuretic torsemide. Has a history morbid obesity. She does have slight lymphedema in her lower extremities. She now has home therapy unit to do lymphedema compression treatment. She has followed up with vascular surgeon and is due for ultrasounds of her lower extremities. . Hyperlipidemia: Most recent lipid panel showing improved total cholesterol and LDL. She has been started on simvastatin 10 mg for better control of her cholesterol. .. COPD: Continues on maintenance inhaler with decent affect. She is followed by [place] [facility]. She continues with Combivent and p.r.n. use of her albuterol inhaler. .. Type 2 diabetes: Continues to manage her type 2 diabetes with Ozempic. She denies having any further hypoglycemic events.. She has lost a significant amount of weight over the last few years and may not need diabetic medication. Most recent A1c acceptable.. [facility] Medical History Cataract Femur fracture, left Normocytic anemia Anemia Closed fracture of left distal femur Asthma COPD (chronic obstructive pulmonary disease) CHF (congestive heart failure) COPD (chronic obstructive pulmonary disease) Acid reflux Osteopenia Essential hypertension Leg swelling PVC (premature ventricular contraction) Hypertension Asthma Hyperlipidemia LDL goal <70 Type 2 diabetes mellitus with diabetic polyneuropathy Surgical History Hx of left cataract extraction (07/03/24) History of surgery on lower extremity History of cardiac catheterization Hx of local excision of skin lesion History of tooth extraction Hx of bilateral breast reduction surgery History of cholecystectomy Family History Father CVD (cardiovascular disease) Mother CVD (cardiovascular disease) Gastric cancer Diabetes Sister Lung disease Social History Household Members: None Housing: Apartment Do you presently have visiting nurse or other home services: No Alcohol intake: never Comment: burning Patient Tobacco Use Status: Never used Tobacco e-Cigarette/Vaping Use: Never Used Second Hand Smoke Exposure: No service: No Current occupational status: disabled Sexual orientation: Straight/Heterosexual Gender identity: Female Cognitive needs: Yes (walker) Hearing needs: No Vision needs: Yes (glasses) Questionnaire Thrive Questionnaire Date Thrive assessed: 09/19/24 I am a: Patient What is your living situation today?: I have a steady place to live Within the past 12 months, did the food you bought not last and you didn't have the money to get more?: Sometimes True Within the past 12 months, did you worry whether your food would run out before you got money to buy more?: I choose not to answer this question Do you have trouble paying for medicines?: No Do you have trouble getting transportation to medical appointments?: Yes Do you have trouble paying your heating and electricity bill?: No Do you have trouble taking care of your child, family member or friend?: No Do you have trouble with day-to-day activities such as bathing, preparing meals, shopping, managing finances, etc.?: No Are you currently unemployed and looking for a job?: No Are you interested in more education?: No Please select the resources that you would like help with: None Currently or been in a relationship where the following occur: I choose not to answer THRIVE Score: 2 AUDIT C Alcohol Use Questionnaire (AUDIT-C) 1. How often do you have a drink containing alcohol?: Never 3. How often do you have six or more drinks on one occasion?: Never Total Score: 0 GUSTABO-7 AMB Questionnaire GUSTABO-7 Date GUSTABO - 7 assessed: 09/19/24 Source: Developed by Drs. Chu Vaughn, Trista Vital, Reyes Johnson and colleagues, with an educational paolo from [employer]. Review of Systems Const Denies headache(s) Eyes Denies loss of vision ENT Denies vertigo, Denies dizziness, Denies headache(s) and Denies sore throat Card Denies chest pain, Denies leg edema and Denies lightheadedness Resp Denies cough, Denies hemoptysis and Denies wheezing GI Denies abdominal pain, Denies melena, Denies constipation, Denies diarrhea and Denies vomiting Denies urinary frequency, Denies dysuria and Denies urinary urgency Musc Denies arthralgias, Denies joint swelling, Denies numbness and Denies tingling Neuro Denies Abnormal speech present, Denies behavioral changes, Denies vertigo, Denies dizziness, Denies headache(s), Denies loss of vision, Denies memory loss, Denies numbness and Denies tingling Psych Denies anxiety, Denies behavioral changes, Denies depression, Denies memory loss and Denies panic attacks Chung/Lymph Denies easy bleeding and Denies easy bruising Aller/Immun Denies wheezing Physical exam (Primary Care) Vital Signs: Last Vital Signs Pulse 78 03/08/25 09:25 BP 120/76 03/08/25 09:25 Pulse Ox 99 03/08/25 09:25 Oxygen Delivery Method Room Air 03/08/25 09:25 BMI result Body Mass Index 30.8 Tobacco/Smoking Status: Tobacco use Status Tobacco use date assessed 03/08/25 03/08/25 09:27 Patient Tobacco Use Status Never used Tobacco 03/08/25 09:27 e-Cigarette/Vaping Use Never Used 03/08/25 09:27 Thrive Assessment: Date of Thrive Assessment Date Thrive assessed 09/19/24 03/08/25 09:27 Currently or been in a relationship where the following occur: I choose not to answer Const General: healthy appearing, no acute distress, alert and awake Nutritional Appearance: well nourished Orientation/consciousness: oriented to person, oriented to place and oriented to time HENMT Ears: TM's normal bilaterally General nose exam: Normal nasal mucous membranes and turbinates present Eyes Conjunctivae: conjunctivae normal Sclerae: sclerae normal Pupils: Equal, round and reactive pupils present Neck Neck: Yes no lymphadenopathy and Yes no JVD Thyroid: Thyroid normal Carotids: no bruits Resp Effort & Inspection: normal respiratory effort and not tachypneic Auscultation: no crackles, no rales, no rhonchi and no wheezes Cardio Rate: regular rate Rhythm: regular rhythm Heart sounds: no murmurs and normal S1 and S2 GI Palpation (GI): Soft to palpation, nontender, no hepatomegaly and no splenomegaly Auscultation: normal bowel sounds Skin General skin exam: no rashes or lesions noted and dry skin Neuro General: oriented to person, oriented to place and oriented to time Cranial nerves: Yes Equal, round and reactive pupils present Speech: No Abnormal speech present Gait exam (Neuro): Normal gait present Motor exam (neuro): no tremor noted Extrem Right upper extremity: full ROM Left upper extremity: full ROM Right lower extremity: full ROM; no edema Left lower extremity: full ROM; no edema Psych Mental Status: mental status grossly normal Speech and movement: Normal speech and movement present Affect: normal affect Attitude: cooperative Thought process: Normal thought process present Results AMB Hemoglobin A1c AMB Hemoglobin A1c 5.7 % Last Edit by JAVIER Kong on 03/08/25 10:06 Immunizations pneumoc 20-rodney conj-dip cr(PF) 0.5 mL IM syringe Performing Provider: Luis Waite PA-C [facility] Administered by: JAVIER Kong on 03/08/25 10:02 Dose Route Admin Location Dispensed Lot Number Expiration Date [facility] Group Account Director 0.5 mL IM Right Deltoid 0.5 mL [id number] 01/08/26 [email or web address] Total Dispensed Waste 0.5 mL 0 % VIS Given Date VIS Provided VIS Publication Date 03/08/25 Single Vaccine 24 Eligibility Eligibility Date Funding Source Not [facility] Eligible 03/08/25 Private Results Reviewed Results Reviewed: Laboratory Last Values Hgb A1c (Clinic) 5.7 % (4.0-6.0) 03/08/25 09:54 Coding Level of Care Code Est Pt Level 4 (37419) Diagnoses Type 2 diabetes mellitus with diabetic polyneuropathy, without long-term current use of insulin E11.42 Diabetes mellitus terminal system operator insulin use: without terminal system operator use Primary hypertension I10 Hypertension type: primary hypertension Chronic diastolic congestive heart failure I50.32 Heart failure chronicity: chronic Heart failure type: diastolic Chronic obstructive pulmonary disease, unspecified COPD type J44.9 COPD type: unspecified COPD Assessment & Plan Assessment & Plan (1) Type 2 diabetes mellitus with diabetic polyneuropathy: Code(s): E11.42 - Type 2 diabetes mellitus with diabetic polyneuropathy Category: Medical Qualifiers: Diabetes mellitus long-term insulin use: without long-term use Qualified Code(s): E11.42 - Type 2 diabetes mellitus with diabetic polyneuropathy Plan: Patient type 2 diabetes well controlled with current dose Ozempic. Today's A1c of 5.7 Goal A1c is to remain below 7.0 Goal LDL to remain below 100 (2) Hypertension: Code(s): I10 - Essential (primary) hypertension Category: Medical Qualifiers: Hypertension type: primary hypertension Qualified Code(s): I10 - Essential (primary) hypertension Plan: Patient's blood pressure acceptable today in office. Will continue current dose of losartan with goal blood pressure to remain below 140/90 (3) CHF (congestive heart failure): Code(s): I50.9 - Heart failure, unspecified Category: Medical Qualifiers: Heart failure chronicity: chronic Heart failure type: diastolic Qualified Code(s): I50.32 - Chronic diastolic (congestive) heart failure Plan: Patient's seems well compensated on current dose of torsemide. Her lower extremities edema are much improved (4) COPD (chronic obstructive pulmonary disease): Comment: She is being treated for asthma/COPD, moderately severe. It remains well controlled with her current medical regimen including: Wixela 250-50 1 inhalation b.i.d.. Combivent Respimat 1 inhalation Q 4-6 hours p.r.n. as rescue inhaler. She does not have nebulizer or the solution to use in the nebulizer at this time. Code(s): J44.9 - Chronic obstructive pulmonary disease, unspecified Category: Medical Qualifiers: COPD type: unspecified COPD Qualified Code(s): J44.9 - Chronic obstructive pulmonary disease, unspecified Plan: She continues to follow up pulmonology, she denies any acute exacerbations in her COPD. Continues on maintenance inhaler with good effect. Orders: Orders Complete Blood Count no Diff Today I10 - Essential (primary) hypertension Pneumococcal 20 Immunization Today I10 - Essential (primary) hypertension, Z23 - Encounter for immunization Lipid Panel Today E78.2 - Mixed hyperlipidemia Comprehensive [place]. Panel Fast Today I10 - Essential (primary) hypertension Microalbumin, Random (w Creat) Today I10 - Essential (primary) hypertension AMB Hemoglobin A1c Today Z13.9 - Encounter for screening, unspecified Medications: Refilled triamcinolone acetonide 0.1% 1 appl topical DAILY 80 grams 3RF 30 days R21 - Rash and other nonspecific skin eruption lancets (FreeStyle Lancets) USE TO TEST TWICE A DAY DIRECTED 100 ea 11RF E11.42 - Type 2 diabetes mellitus with diabetic polyneuropathy blood sugar diagnostic (FreeStyle Lite Strips) As directed three times a day 100 ea 11RF E11.42 - Type 2 diabetes mellitus with diabetic polyneuropathy simvastatin 10 mg PO DAILY 90 tabs 1RF 90 days E11.42 - Type 2 diabetes mellitus with diabetic polyneuropathy
[2025-03-08 09:25] VITALS: BP 120/76; PULSE 78; O2SAT 99; BMI 30.8
--- OUTSIDE RECORDS SUMMARY | 2025-03-08 10:46 | XMS_ITS | Patient Health Record ---
Author Organization [facility] Address [address] [place] [address] Care Team Providers Care Cushion Padder Name Role Phone Jerome Martinez Jr Reason For Referral No Information Plan Of Treatment No Information
--- OUTSIDE RECORDS SUMMARY | 2025-03-08 10:47 | XMS_ITS | Data Portability ---
Author Organization [facility], Main Office Address [address] [facility], [address] [place] [address] Care Team Providers Care Morphology Teacher Name Role Phone [place]I [place] 1ST FLOOR OTHER Assessment No assessment recorded. Plan of Treatment Reminders Order Date Submit Date Provider Last Modified By Organization Details Last Modified Time Details Appointments None record ed. Lab None record ed. Referral None record ed. Procedures None record ed. Surgeries None record ed. Imaging None record ed. Medication Orders None record ed. Patient TargetsNo targets recorded. Patient InstructionsNo instructions recorded. Reason for Referral None Reported. Problems Name Problem SNOMED Code Status Onset Date Resolution Date Notes Provider Name and Address Organization Details Recorded Time Diabetes mellitus 15451919 Active 2019 ORQUIDEA JUNIOR [address] , [address], [place], [address], [facility] 0 08:55:09 Essential hypertensi on 58601893 Active 2019 ORQUIDEA JUNIOR [address] , [address], [place], [address], [facility] 0 08:55:18 Mixed hyperlipid emia 669088901 Active 2019 ORQUIDEA JUNIOR [address], [address], [place], [address], [facility] 0 08:55:35 Asthma 661653516 Active 2019 ORQUIDEA JUNIOR [address], [address], [place], [address], [facility] 0 08:55:44 Lymphedema 983062093 Active 2019 ORQUIDEA JUNIOR [address], [address], [place], [address], [facility] 0 08:55:57 Chronic obstructiv e pulmonary disease 25305396 Active 2019 PETRA CLARKORQUIDEA MILLER [address] [facility], [address], [place], [address], [facility] 0 08:56:06 Recurrent falls 353597169 Active 2019 ORQUIDEA JUNIOR [address] [facility], [address], [place], [address], [facility] 0 08:56:16 Influenza 7877109 Active 2019 ORQUIDEA JUNIOR [address] [facility], [address], [place], [address], [facility] 0 08:57:47 Congestive heart failure 47732202 Active 2019 ORQUIDEA JUNIOR [address] [facility], [address], [place], [address], [facility] 0 08:58:03 Acute hypokalemi a 72833184 Active 2019 ORQUIDEA JUNIOR [address] [facility], [address], [place], [address], [facility] 0 09:39:59 Gastroesop hageal reflux disease without esophagiti s 671783151 Active 2019 ORQUIDEA JUNIOR [address] [facility], [address], [place], [address], [facility] 0 19:19:57 Paroxysmal supraventr icular tachycardi a 03435730 Active 2019 Sarah Lugo MD [address] [facility], [address], [place], [address], [facility] 0 20:59:48 Hyponatrem ia 43700276 Active 2019 ORQUIDEA JUNIOR [address] [facility], [address], [place], [address], [facility] 0 13:16:03 Fracture of femur 82100508 Active 2021 JOSE HANNAHKIEL GUNDERSON [address], [address], [place], [address], [facility] 2 14:10:41 Wound of skin 259691085 Active 2021 surgical incision left leg JOSE HANNAHJALYN, KIEL [address], [address], [place], [address], [facility] 2 14:12:18 Osteoporos is 01836576 Active 2021 JOSE BRIELLEKIEL GUNDERSON [address], [address], [place], [address], [facility] 2 14:38:51 Vitamin B12 deficiency (non anemic) 80522149 Active 2021 Sarah Lugo MD [address] , [address], [place], [address], [facility] 2 01:51:28 Pulmonary embolism 22234593 Active 2021 bilateral JOSE WHITEHEADKIEL [address] , [address], [place], [address], [facility] 2 14:56:50 Problem Notes None recorded. Medical Equipment None Reported. Allergies Allergen ID Allergen Name Allergen Category Reaction Reaction Severity Criticality Documentation Date Start Date Code Code System Note Provider Name and Address Organization Details Recorded Time 03517 Vasotec medicatio n Not available Not available Not available 06/16/2019 52854 1 RxNorm MARIAH JUNIORP [address], [address], [place], [address], [facility] 0 08:49:51 31035 calcium carbonate medicatio n Not available Not available Not available 06/16/2019 1897 RxNorm PETRA GARCIA, WIRE [employer] [address], [address], [place], [address], [facility] 0 08:50:03 12949 metformin medicatio n Not available Not available Not available 06/16/2019 6809 RxNorm PETRA GARCIA, [employer] [address], [address], [place], [address], [facility] 0 08:50:12 47111 Product containin g penicilli n (product) medicatio n Not available Not available Not available 06/16/2019 66644 8001 SNOMED PETRA GARCIA, [employer] [address], [address], [place], [address], [facility] 0 08:50:30 77967 cephalexi n medicatio n Not available Not available Not available 06/16/2019 2231 RxNorm PETRA GARCIA, [employer] [address] , [address], [place], [address], [facility] 0 08:50:41 Vitals Date Recorded Body height Heart rate Respiratory rate Body temperature Oxygen saturation Oxygen saturation in Arterial blood by Pulse oximetry Systolic And Diastolic Provider Name and Address Organization Details Last Updated DateTime 2 165.1 cm 71 /min 18 /min 98.1 [degF] 96 % 96 % 106/68 mm[Hg] JOSE WHITEHEAD NP [address] [facility], [address], [place], [address], [facility] 2 11:51:31 Date Recorded Body height Heart rate Respiratory rate Body temperature Oxygen saturation Oxygen saturation in Arterial blood by Pulse oximetry Provider Name and Address Organization Details Last Updated DateTime 2 165.1 cm 70 /min 18 /min 97.8 [degF] 96 % 96 % JOSE WHITEHEAD NP [address] [facility], [address], [place], [address], [facility] 2 14:58:18 Date Recorded Body height Heart rate Respiratory rate Body temperature Oxygen saturation Oxygen saturation in Arterial blood by Pulse oximetry Systolic And Diastolic Provider Name and Address Organization Details Last Updated DateTime 2 165.1 cm 66 /min 18 /min 97.4 [degF] 96 % 96 % 109/62 mm[Hg] JOSE WHITEHEAD NP [address] [facility], [address], [place], [address], [facility] 2 11:40:23 Date Recorded Body height Heart rate Respiratory rate Body temperature Oxygen saturation Oxygen saturation in Arterial blood by Pulse oximetry Systolic And Diastolic Provider Name and Address Organization Details Last Updated DateTime 2 165.1 cm 66 /min 18 /min 98.1 [degF] 99 % 99 % 116/70 mm[Hg] JOSE WHITEHEAD NP [address] [facility], [address], [place], [address], [facility] 2 12:23:01 Date Recorded Body height Heart rate Respiratory rate Body temperature Oxygen saturation Oxygen saturation in Arterial blood by Pulse oximetry Systolic And Diastolic Provider Name and Address Organization Details Last Updated DateTime 2 165.1 cm 72 /min 18 /min 97.7 [degF] 97 % 97 % 104/60 mm[Hg] JOSE WHITEHEAD NP [address] [facility], [address], [place], [address], [facility] 2 10:54:21 Social History Question Answer Notes LastModified by Organizat ion Details LastModified Time Tobacco Smoking Status Never Smoker Not Available [facility] 03/05/2020 03:13:23 Do You Have An Advance Directive? Yes Information not available 07/12/2021 How Much Tobacco Do You Chew? None [id number] Information not available 03/05/2020 What Is Your Code Status? Full Code Information not available 07/12/2021 Where Do You Live? Apartment Information not available 07/15/2021 Legal Guardian? No Informati on not available 07/15/2021 Do You Have A Medical Power Of Paper Control Clerk? Yes HCP On File [id number] Information not available 03/05/2020 What Was The Date Of Your Most Recent Tobacco Screening? 07/15/2021 Information not available 07/15/2021 Do You Have An Out Of Hospital DNR? No Information not available 07/15/2021 What Is Your Relationship Status? Single Information not available 07/15/2021 How Much Tobacco Do You Smoke? No [id number] Information not available 03/05/2020 Has Tobacco Cessation Counseling Been Provided? No N/a As Pt Is A Non-smoke r Information not available 07/15/2021 Sex: Unknown Functional Status Question Answer Note LastModified by Organizat ion Details LastModified Time Do you use any illicit or recreational drugs? No Information not available 07/15/2021 Do you or have you ever used any other forms of tobacco or nicotine? No Information not available 07/15/2021 What is your level of alcohol consumption? None [id number] Information not available 03/05/2020 Do you or have you ever used smokeless tobacco? Never used smokeless tobacco [id number] Information not available 03/05/2020 Do you or have you ever used e-cigarettes or vape? Never used electronic cigarettes [id number] Information not available 03/05/2020 Mental Status None recorded. Family History Nothing Reported Notes:Mo of [place] in 80s, fa young of CAD. Medical History No medical history recorded. Gynecological HistoryNo gynecological history recorded. Obstetrics History GPAL:G 0 P 0 0 0 0 Immunizations Vaccine Type Date Status Note Provider Nam e and Address Organization Details Recorded Time Influenza, adjuvanted, quadrivalent, PF 02/12/2022 completed Lizz maradiaga, [facility] 07/07/2023 13:19:58 Influenza, adjuvanted, quadrivalent, PF 01/21/2023 completed Lizz maradiaga [facility] 07/07/2023 13:20:11 Past Encounters Encounter ID Performer Location Encounter Start Date Encounter Closed Date Diagnosis/Indication Diagnosis SNOMED-CT Code Diagnosis ICD10 Code Diagnosis IMO Codes Diagnosis Note [id number] ORQUIDEA JUNIOR [address] [address] 06/16/2019 08:40:02 06/30/2019 16:30:49 Influenza 1759428 J11.1 not able to be on treatment- past treatment time on isolation currently monitor Congestive heart failure 79504912 I50.89 metolazone 5 mg qd torsemide 100 mg q am and 50 mg q pm daily weight monitor fluid balance Chronic ob structive pulmonary disease 53150588 J41.8 zithromax 250 mg x 5 days advair discus 250/50 bid combivent 20/100 mcg/act qid claritin 10 mg qd prednisone 40 mg qd x 5 days pro air 2 puffs q 4 hrs prn monitor for symptoms Asthma 996522771 J45.21 see above Diabetes mellitus 651752 09 E11.9 carbohydra te controlled diet glimepirid e 2 mg qd januvia 100 mg qd monitor a1c monitor for s/s of hypo/hyper glycemia Essential hypertension 12191678 I10 ASA 81 mg qd flecainide 50 mg qd (unable to find reason for this other than frequent PVCs) metoprolol tartrate 200 mg q am and 100 mg q pm monitor b/p and labs Lymphedema 728011433 I89 .0 metolazone 5 mg qd torsemide 100 mg q am and 50 mg q pm monitor edema followed by vascular in the community for this Mixed hyperlipidemia 267 726286 E78.2 atorvastat in 80 mg qd monitor labs Recurrent falls 85476259 2 R29.6 PT/OT eval and treat monitor for safety utilize drew covarrubias Acute hypokalemia 325791 03 E87.6 potassium chloride 10 meq bid low K 2.7 and given extra dose yesterday drawn again today-agai n low 2.8 given 30 meq today and will change to 20 meq q am and 10 meq q pm recheck labs on wednesday Gastroesop hageal reflux disease without esophagitis 650642641 K21.9 omeprazole 20 mg qd monitor for symptoms [id number] Sarah Lugo MD [address] [address] 06/19/2019 13:05:56 06/30/2019 16:36:43 Influenza 4795116 J09.X2 Continue precaution s until no longer coughing. Unable to use tamiflu, because outside treatment window. Considered to have been ill since 06/06 Monitor sxs. Acute hypokalemia 174410 03 E87.6 K+ continues to be low despite increased dose. Will give extra 30 meq now and then increase daily dose to 30 meq BID. No good reason for new onset hypokalemi a, no change in usual dose of diuretic. Recheck tomorrow. Congestive heart failure 68270937 I50.89 Appears euvolemic. Continue metolazone 5 mg qd and torsemide 100 mg q am and 50 mg q pm Monitor resp. status, wts, fluid balance and labs. Diabetes mellitus 025855 09 E11.9 With elevated HgA1C. Will work on CCD and continue current meds. Also just completed course of prednisone . Continue glimepirid e 2 mg qd and januvia 100 mg qd. Monitor for s/s of hypo/hyper glycemia. Essential hypertension 72459785 I10 Good control on metoprolol tartrate 200 mg qAM and 100 mg qPM, metolazone 5 mg qd, and torsemide 100 mg qAM and 50 mg qPM. Monitor BP and labs Lymphedema 170549513 I89 .0 Edema much improved. Diuretics as above Monitor edema Mixed hyperlipidemia 267 670747 E78.2 Continue atorvastat in 80 mg qd Monitor labs as out pt. Recurrent falls 62369468 2 R29.6 Was very weak in ED. Needs intensive PT/OT for strengthen ing, stamina, gait training, balance and safety. Was independen t prior to illness. Gastroesop hageal reflux disease without esophagitis 662308970 K21.9 Continue omeprazole 20 mg qd monitor for symptoms Acute exac erbation of asthma 858132467 J45.41 Completed course of zithromax and burst of prednisone 40 mg qd this AM. Continue advair discus 250/50 BID, combivent 20/100 mcg/act QID, claritin 10 mg qd, and proair 2 puffs q 4 hrs prn Monitor for resolution of sxs. Paroxysmal supraventricular tachycardia 66276465 I47.1 Continue flecainide 50 mg qd and ASA 81 mg qd. [id number] [address] 06/20/2019 12:17:09 06/30/2019 16:32:16 Acute hypokalemia 41157178 E87.6 potassium chloride 30 meq bid currently stable recheck labs on Hyponatremia 80965900 E8 7.1 low sodium of [address] on 1800 [place] [id number] ORQUIDEA JUNIOR [address] [address] 06/21/2019 13:08:43 06/30/2019 16:34:10 Influenza 7356170 J11.1 resolved follow up with PCP Acute hypokalemia 284556 03 E87.6 potassium chloride 30 meq bid will need to follow up with PCP Congestive heart failure 83323844 I50.89 metolazone 5 mg qd torsemide 100 mg q am and 50 mg q pm follow up with PCP Chronic ob structive pulmonary disease 20569325 J41.8 advair discus 250/50 bid combivent 20/100 mcg/act qid claritin 10 mg qd pro air 2 puffs q 4 hrs prn follow up with PCP Asthma 669247217 J45.21 follow up with PCP Diabetes mellitus 262896 09 E11.9 carbohydra te controlled diet glimepirid e 2 mg qd januvia 100 mg qd follow up with PCP Essential hypertension 44330466 I10 ASA 81 mg qd flecainide 50 mg qd metoprolol tartrate 200 mg q am and 100 mg q pm follow up with PCP Lymphedema 734436794 I89 .0 metolazone 5 mg qd torsemide 100 mg q am and 50 mg q pm follow up with vascular in the community Mixed hyperlipidemia 267 488866 E78.2 atorvastat in 80 mg qd follow up with PCP Recurrent falls 50017404 2 R29.6 utilize rolling walker follow up with PCP Gastroesop hageal reflux disease without esophagitis 129477789 K21.9 omeprazole 20 mg qd follow up with PCP Hyponatremia 15880036 E8 7.1 1800 fluid restrictio n follow up with PCP [id number] KIEL ZHENG [address] [place] [address] 07/12/2021 13:23:39 07/14/2021 14:37:17 Fracture of femur 61319924 S72.92XA monitor acitivity and cms to legPT OT eval and treatperco cet 5/325 q4 hr prnlovenox 40 mg sc to 4.9 Wound of skin 606709219 T14.8XXA monitor for any signs of infectionc hange dressing per protocol Chronic ob structive pulmonary disease 79799151 J41.8 combivent respimat 20/100 qidwixela 250/50 bidalbuter ol/atroven t neb q6 hr prnmonitor resp status Asthma 241651176 J45.21 combivent respimat 20/100 qidwixela 250/50 bidalbuter ol/atroven t neb q6 hr prnmonitor resp status Congestive heart failure 86249264 I50.89 torsemide 100 mg dailylosar ellis 50 mg daily Diabetes mellitus 407022 09 E11.9 ozempic 0.25 mg x4 weeks then 0.5 weeklyglim iperide 1 mg am, 2 mg hs Essential hypertension 61169035 I10 metoprolol 200 mg am, 100 mg hslosartan 50 mg dailymonit or bp Gastroesop hageal reflux disease without esophagitis 978875534 K21.9 monitor for symptoms Lymphedema 854981627 I89 .0 torsemide 100 mg daily Recurrent falls 79449973 2 R29.6 PT OT eval and treatfall precaution sfrequent safety checks Mixed hyperlipidemia 267 717802 E78.2 rosuvastat in 40 mg daily Osteoporosis 30916135 M8 1.0 alendronat e 70 mg weekly on sat [id number] Sarah Lugo MD [address] [place] [address] 07/15/2021 14:54:47 07/23/2021 15:26:06 Fracture of femur 58241062 S72.22XD Recovering well.Fadi nue percocet 5/325 q 4 hrs prn for pain.Fadi nue lovenox 40 mg sq qd and ASA 81 mg qd for DVT prophylaxi s until 08/23.Needs PT/OT for strengthen ing, balance, gait training, safety and function.C ontinue fall precaution s.Monitor for safety.F/U with ortho as planned.Mo nitor incisions. Chronic ob structive pulmonary disease 64978164 J41.8 At baseline.C ontinue combivent respimat 20/100 QID, Advair 250/50 BID and duonebs q 6 hrs prn.Monito r resp status Asthma 885529217 J45.21 As above. Congestive heart failure 70451139 I50.89 Appears euvolemic. Continue torsemide 100 mg qd, losartan 50 mg qd and metoprolol 200 mg qAM and 100 mg qPM.Monito r resp. status, fluid status, wts and labs. Diabetes mellitus 238334 09 E11.9 Sugars in adequate control since here.Fadi nue ozempic 0.25 mg x 4 weeks then 0.5 mg weekly, glimepirid e 1 mg qam and 2 mg qhs, SSI.Monito r sugars TID and HgA1C q 3 months. Essential hypertension 18989813 I10 Good control on meds as above.Jennifer tor BP and labs. Gastroesop hageal reflux disease without esophagitis 847012478 K21.9 No current sxs, on no meds.Monit or Lymphedema 179580173 I89 .0 Continue torsemide 100 mg qd.Monitor . Recurrent falls 15909191 2 R29.6 Very deconditio audrey.Needs PT/OT for strengthen ing, balance, gait training, safety and function.C ontinue fall precaution s.Monitor for safety. Mixed hyperlipidemia 267 663762 E78.2 Continue rosuvastat in 40 mg qd.Monitor labs as outpt. Osteoporosis 49251908 M8 0.052D Continue alendronat e 70 mg weekly,Mon itor as outpt. Vitamin B1 2 deficiency (non anemic) 84364376 E53.8 Hasn't had B12 shot in several months, will check level in AM. [id number] JOSE WHITEHEAD NP [address] [address] 07/17/2021 10:08:03 07/23/2021 15:33:24 Chronic obstructive pulmonary disease 42801882 J41.8 combivent respimat 20/100 qidwixela 250/50 bidalbuter ol/atroven t neb q6 hr prnmonitor resp status Fracture of femur 434939 00 S72.92XA monitor acitivity and cms to legPT OT eval and treatperco cet 5/325 q4 hr prnlovenox 40 mg sc to 4/9 Wound of skin 409446311 T14.8XXA monitor for any signs of infectionc hange dressing per protocol [id number] JOSE WHITEHEAD NP [address] [address] 07/21/2021 14:40:07 07/29/2021 12:30:20 Pulmonary embolism 15953619 I26.99 eiliquis 10 mg bid for 5 dayseliqui s 5 mg bidlovenox 40 mg sc daily Fracture of femur 163616 00 S72.22XD monitor acitivity and cms to legPT OT eval and treatperco cet 5/325 q4 hr prnlovenox 40 mg sc to 4/9 Wound of skin 528533400 T14.8XXA monitor for any signs of infectionc hange dressing per protocol Chronic ob structive pulmonary disease 10702970 J41.8 combivent respimat 20/100 qidwixela 250/50 bidalbuter ol/atroven t neb q6 hr prnmonitor resp status Asthma 174054569 J45.21 combivent respimat 20/100 qidwixela 250/50 bidalbuter ol/atroven t neb q6 hr prnmonitor resp status Congestive heart failure 59390038 I50.89 torsemide 100 mg daily Diabetes mellitus 942874 09 E11.9 ozempic 0.25 mg x4 weeks then 0.5 weeklyglim iperide 1 mg am, 2 mg hslispro sliding scale Essential hypertension 10532843 I10 metoprolol 100 mg hsmonitor bp Gastroesop hageal reflux disease without esophagitis 453978801 K21.9 monitor for symptoms Lymphedema 899807898 I89 .0 torsemide 100 mg daily Recurrent falls 86460130 2 R29.6 PT OT eval and treatfall precaution sfrequent safety checks Mixed hyperlipidemia 267 242313 E78.2 rosuvastat in 40 mg daily Osteoporosis 85453053 M8 1.0 alendronat e 70 mg weekly on sat [id number] KIEL ZHENG [address] [address] 07/24/2021 10:50:27 07/28/2021 14:35:14 Fracture of femur 28229497 S72.22XD monitor acitivity and cms to legPT OT eval and treatperco cet 5/325 q4 hr prnlovenox 40 mg sc to 4/9 Wound of skin 931225173 T14.8XXA monitor for any signs of infectionc hange dressing per protocol Osteoporosis 58003833 M8 1.0 alendronat e 70 mg weekly on sat [id number] JOSE WHITEHEAD NP [facility] [address] [place] [address] 07/30/2021 09:02:59 08/06/2021 10:33:44 Fracture of femur 35639265 S72.22XD monitor acitivity and cms to legPT OT eval and treatperco cet 5/325 q4 hr prnlovenox 40 mg sc to 4/9 Wound of skin 038699774 T14.8XXA monitor for any signs of infectionc hange dressing per protocol Osteoporosis 54481544 M8 1.0 alendronat e 70 mg weekly on sat [id number] KIEL ZHENG GEOVANNA [address] [place] [address] rd PABLOANDREWMARIA LUISA [address] 08/04/2021 10:37:36 08/06/2021 11:39:05 Pulmonary embolism 72583601 I26.99 eliquis 5 mg bidlovenox 40 mg sc daily Fracture of femur 247673 00 S72.22XD monitor acitivity and cms to legPT OT eval and treatperco cet 5/325 q4 hr prnlovenox 40 mg sc to 4/9 Wound of skin 157898918 T14.8XXA monitor for any signs of infectionc hange dressing per protocol Chronic ob structive pulmonary disease 77379026 J41.8 combivent respimat 20/100 qidwixela 250/50 bidalbuter ol/atroven t neb q6 hr prnmonitor resp status Asthma 152871925 J45.21 combivent respimat 20/100 qidwixela 250/50 bidalbuter ol/atroven t neb q6 hr prnmonitor resp status Congestive heart failure 88583178 I50.89 torsemide 100 mg daily Diabetes mellitus 609078 09 E11.9 ozempic 0.25 mg x4 weeks then 0.5 weeklyglim iperide 1 mg am, 2 mg hslispro sliding scale Essential hypertension 61702333 I10 metoprolol 100 mg hsmonitor bp Gastroesop hageal reflux disease without esophagitis 091201253 K21.9 monitor for symptomsom eprazole 20 mg daily Lymphedema 038369880 I89 .0 torsemide 100 mg daily Recurrent falls 79201662 2 R29.6 PT OT eval and treatfall precaution sfrequent safety checks Mixed hyperlipidemia 267 715606 E78.2 rosuvastat in 40 mg daily Osteoporosis 15993350 M8 1.0 alendronat e 70 mg weekly on sat Health Concerns Section Related Observation LastModified by Organization Detai ls LastModified Time None Recorded Concern Status LastModified by Organization Details LastModified Time None Recorded Advance Directives Directive Y: Payers Insurance Date Sequence Insurance Name Policy Number Policy [place] Covered Member ID [place] Member ID Guarantor Name 07/30/[address] [facility] - DOS PRIOR TO 2022 - DUAL ELIGIBLE (MEDICARE REPLACEMENT/ADV ANTAGE - HMO) Miracle Crockett [id number] Miracle Crockett Notes Date Note Type Note Provider Name and Address Organization Details Recorded Time 07/17/2021 text/html ROS as noted in the HPI seen today for acute rounding visit, CAOx3 sitting up in bed, left dressings dry intact, good cms to left leg, lungs clear, she has been participating with PT and doing well JOSE WHITEHEAD NP [address] [facility], [address], [place], [address], [facility] 07/17/2021 11:55:40 07/21/2021 text/html ROS as noted in the HPI seen today for readmission visit-71 yof originally admitted to for rehab after presenting to the hospital 07/08 after a fall, she was coming out of the bank onto an uneven sidewalk, she tripped and fell with her walker landing on her left side, no loc or head injury, xrays of ankle, hip pelvis showed comminuted impacted displaced left distal femoral shaft and supracondylar fracture, she had an orif 07/09.07/18 pt had increased sob and chest pain, sent to ED for eval. she required 1 unit PRBC for low h/h, CT showed bilateral pulmonary emboli, heparin started. CAOx3 sitting up in bed, dressings left leg intact, dry, no staining, good cms to feet, no edema, lungs clear, she denies any resp distress or discomfort JOSE WHITEHEAD NP [address] [facility], [address], [place], [address], [facility] 07/29/2021 11:55:28 07/24/2021 text/html ROS as noted in the HPI seen today for acute rounding visit, sitting up in bed, left leg dressing dry intact, good cms, lungs clear,trace edema, tolerating PT therapy JOSE WHITEHEAD NP [address] [facility], [address], [place], [address], [place] 07/24/2021 11:48:24 07/30/2021 text/html ROS as noted in the HPI seen today for acute rounding visit, CAOx3 sitting up on side of bed, lungs clear, good cms to left leg, she ambulated in PT with contact guard and is doing very well, she missed her appt wednesday to have china removed, nursing aware and is to make a new appt JOSE WHITEHEAD NP [address] [facility], [address], [place], [address], [place] 07/30/2021 12:25:33 08/04/2021 text/html ROS as noted in the HPI seen today for discharge summary-71 yof originally admitted to for rehab after presenting to the hospital 07/08 after a fall, she was coming out of the bank onto an uneven sidewalk, she tripped and fell with her walker landing on her left side, no loc or head injury, xrays of ankle, hip pelvis showed comminuted impacted displaced left distal femoral shaft and supracondylar fracture, she had an orif 07/09.07/18 pt had increased sob and chest pain, sent to ED for eval. she required 1 unit PRBC for low h/h, CT showed bilateral pulmonary emboli, heparin started. CAOx3 sitting up in bed, dressings left leg intact, dry, no staining, good cms to feet, no edema, lungs clear, she denies any resp distress or discomfort, ambulating with walker and supervision JOSE WHITEHEAD NP [address] [facility], [address], [place], [address], [place] 08/04/2021 12:36:29 OBGyn Episode No OBEpisode recorded.
== END 2025-03-08 10:04 | disposition home or self-care (01) ==
LOC: HO.HMCH 09:23
PROVIDERS: PCP Physician Assistant; Visit Provider Physician Assistant
DX: E11.42 Type 2 diabetes mellitus with diabetic polyneuropathy (principal); I10 Essential (primary) hypertension; I50.32 Chronic diastolic (congestive) heart failure; J44.9 Chronic obstructive pulmonary disease, unspecified; Z23 Encounter for immunization; Z13.9 Encounter for screening, unspecified

== ENCOUNTER → 2025-03-08 09:22 | Outpatient (BNVA) | payer OTHER, SELFPAY | PROVIDERS: PCP Physician Assistant; Visit Provider Physician Assistant | DX: E11.42 Type 2 diabetes mellitus with diabetic polyneuropathy (principal); I11.0 Hypertensive heart disease with heart failure; I50.32 Chronic diastolic (congestive) heart failure; J44.9 Chronic obstructive pulmonary disease, unspecified; R60.0 Localized edema; E78.2 Mixed hyperlipidemia; I89.0 Lymphedema, not elsewhere classified; R21 Rash and other nonspecific skin eruption; Z23 Encounter for immunization | CPT/HCPCS: 83036; 90471; 90677; 99212 ==

== ENCOUNTER 2025-03-19 10:22 | Outpatient (AMB) | payer OTHER, SELFPAY ==
--- NOTE | 2025-03-19 10:30 | MHC.OFFVIS ---
Intake Visit Reasons: OV-LT knee pain Intake Note: Miracle is a 74 year old woman who preents today or her left knee pain. Patient reports in past she had a fx in the left leg after falling in her kitchen in August of 2024 that resulted in surgery. Today she expresses having continued pain in the left leg/knee with daily swelling. Prolonged walking, standing and sitting causing pain in the left leg. Reports stiffness that gets in the way of her ambulation of stares. She says her entire left leg is currently numb, feels like rubber band she says. Reports had PT when she was in rehab and at home therapy for the left knee. Allergies cephalexin (From KEFLEX) Allergy (Intermediate, Verified 03/19/25 10:35) HIVES Penicillins (PENICILLINS) Allergy (Intermediate, Verified 03/19/25 10:35) HIVES acetaminophen (From Excedrin Extra Strength) Allergy (Mild, Verified 03/19/25 10:35) Hives aspirin (From Excedrin Extra Strength) Allergy (Mild, Verified 03/19/25 10:35) Hives caffeine (From Excedrin Extra Strength) Allergy (Mild, Verified 03/19/25 10:35) Hives metformin (METFORMIN) Allergy (Mild, Verified 03/19/25 10:35) HIVES enalaprilat (Vasotec) Allergy (Unknown, Verified 03/19/25 10:35) Unknown dulaglutide (From Trulicity) Allergy (Verified 03/19/25 10:35) Hives Medication List - Last Reconciled 03/19/25 by Cesar Flores PA-C alendronate 70 mg PO PAGE blood pressure test kit-large As directed blood sugar diagnostic (FreeStyle Lite Strips) As directed three times a day blood-glucose meter (FreeStyle Lite Meter kit) As directed 3xday cholecalciferol (vitamin D3) 125 mcg PO DAILY compr.stocking,knee,long,large As directed [compression stockings Size XL 1 pair, medical compression 10-15mmhg ] cyanocobalamin (vitamin B-12) 1 tab PO DAILY fluticasone propion-salmeterol 250-50 mcg/dose (Wixela Inhub) 1 inh PO BID folic acid 800 mcg PO DAILY ipratropium-albuterol 20-100 mcg/actuation (Combivent Respimat) 1 puff PO QID lancets (FreeStyle Lancets) USE TO TEST TWICE A DAY DIRECTED losartan 100 mg PO DAILY 90 days metoprolol tartrate 100 mg PO BEDTIME [Power lift recliner As directed] semaglutide (Ozempic) 0.5 mg (0.736 mL) subcut QWEEK 4 weeks silver sulfadiazine 1% (Silvadene) 1 appl topical DAILY 4 weeks simvastatin 10 mg PO DAILY 90 days torsemide 100 mg PO DAILY 30 days triamcinolone acetonide 0.1% 1 appl topical DAILY 30 days walker (Ultra-Light Rollator misc) As directed HPI HPI OV-LT knee pain: Details: 74-year-old female presents to the office today for an injury to her left leg. She states in August as xuer fell in her house and it cut her leg. She states the paramedics remove the glass from her leg and she had sutures. She also developed lymphedema in bilateral lower extremities which she is being treated by her primary care doctor. The patient was referred to our office to follow up on her laceration to make sure there was no infection. Patient has not had fever or chills. [facility] Medical History Cataract Femur fracture, left Normocytic anemia Anemia Closed fracture of left distal femur Asthma COPD (chronic obstructive pulmonary disease) CHF (congestive heart failure) COPD (chronic obstructive pulmonary disease) Acid reflux Osteopenia Essential hypertension Leg swelling PVC (premature ventricular contraction) Hypertension Asthma Hyperlipidemia LDL goal <70 Type 2 diabetes mellitus with diabetic polyneuropathy Surgical History Hx of left cataract extraction (07/03/24) History of surgery on lower extremity History of cardiac catheterization Hx of local excision of skin lesion History of tooth extraction Hx of bilateral breast reduction surgery History of cholecystectomy Family History Father CVD (cardiovascular disease) Mother CVD (cardiovascular disease) Gastric cancer Diabetes Sister Lung disease Social History Household Members: None Housing: Apartment Do you presently have visiting nurse or other home services: No Alcohol intake: never Comment: burning Patient Tobacco Use Status: Never used Tobacco e-Cigarette/Vaping Use: Never Used Second Hand Smoke Exposure: No service: No Current occupational status: disabled Sexual orientation: Straight/Heterosexual Gender identity: Female Cognitive needs: Yes (walker) Hearing needs: No Vision needs: Yes (glasses) Review of Systems Const All systems reviewed & are unremarkable except as noted in HPI and below Physical Exam Extrem Other: Left knee is normal to inspection. There is no erythema no swelling. She does have a scar just below the proximal tibia. Full range of motion of the knee. Calf supple nontender neurovascularly intact. Assessment & Plan Assessment & Plan (1) Laceration of left leg: Code(s): S81.812A - Laceration without foreign body, left lower leg, initial encounter Category: Medical Plan: I reassured the patient there is no evidence of infection. Appears her some scar tissue around the laceration which she should massage. She will continue to follow up with her primary on her lymphedema and she can see us as needed. Medications: New diclofenac sodium 1% apply 4grams to affected area four times a day as needed 4 grams topical QID 100 grams 6RF 30 days Coding Level of Care Code Est Pt Level 3 (70463) Complex EM visit Add On G2211 Diagnoses Laceration of left leg S81.812A
--- OUTSIDE RECORDS SUMMARY | 2025-03-19 12:10 | XMS_ITS | Data Portability ---
Author Organization [facility], Main Office Address [address] [facility], [address] [place] [address] Care Team Providers Care Manufacturing Sales Representative Name Role Phone LOI [place] 1ST FLOOR [...] Address Organization Details Recorded Time Diabetes mellitus 41276767 Active 2019 ORQUIDEA JUNIOR [address], [place], [address], [facility] 0 08:55:09 Essential hypertensi on 26616445 Active 2019 ORQUIDEA JUNIOR [address] , [address], [place], [address], [facility] [employer] 0 08:55:18 Mixed hyperlipid emia 648476743 Active 2019 ORQUIDEA JUNIOR [address], [address], [place], [address], [facility] [employer] 0 08:55:35 Asthma 403977979 Active 2019 ORQUIDEA JUNIOR [address], [address], [place], [address], [facility] [employer] 0 08:55:44 Lymphedema 813584035 Active 2019 ORQUIDEA JUNIOR [address], [address], [place], [address], [employer] [facility] 0 08:55:57 Chronic obstructiv e pulmonary disease 98196915 Active 2019 PERTA CLARKORQUIDEA MILLER [address] [facility], [address], [place], [address], [employer] [facility] 0 08:56:06 Recurrent falls 365631835 Active 2019 ORQUIDEA JUNIOR [address] [facility], [address], [place], [address], [employer] [facility] 0 08:56:16 Influenza 0420030 Active 2019 ORQUIDEA JUNIOR [address] [facility], [address], [place], [address], [employer] [facility] 0 08:57:47 Congestive heart failure 95814050 Active 2019 ORQUIDEA JUNIOR [address] [facility], [address], [place], [address], [employer] [facility] 0 08:58:03 Acute hypokalemi a 51140326 Active 2019 ORQUIDEA JUNIOR [address] [facility], [address], [place], [address], [employer] [facility] 0 09:39:59 Gastroesop hageal reflux disease without esophagiti s 820566451 Active 2019 ORQUIDEA JUNIOR [address] [facility], [address], [place], [address], [employer] [facility] 0 19:19:57 Paroxysmal supraventr icular tachycardi a 56463975 Active 2019 Sarah Lugo MD [address] [facility], [address], [place], [address], [employer] [facility] 0 20:59:48 Hyponatrem ia 19820641 Active 2019 ORQUIDEA JUNIOR [address] [facility], [address], [place], [address], [employer] [facility] 0 13:16:03 Fracture of femur 32551012 Active 2021 JOSE HANNAHKIEL GUNDERSON [address], [address], [place], [address], [employer] 2 14:10:41 Wound of skin 319064485 Active 2021 surgical incision left leg JOSE HANNAHJALYN, KIEL [address], [address], [place], [address], [employer] [facility] 2 14:12:18 Osteoporos is 40567292 Active 2021 JOSE BRIELLEKIEL GUNDERSON [address], [address], [place], [address], [employer] [facility] 2 14:38:51 Vitamin B12 deficiency (non anemic) 86451131 Active 2021 Sarah Lugo MD [address] , [address], [place], [address], [employer] [facility] 2 01:51:28 Pulmonary embolism 45092829 Active 2021 bilateral JOSE WHITEHEADKIEL [address] , [address], [place], [address], [employer] [facility] 2 14:56:50 Problem Notes None recorded. Medical Equipment None Reported. Allergies Allergen ID Allergen Name Allergen Category Reaction Reaction Severity Criticality Documentation Date Start Date Code Code System Note Provider Name and Address Organization Details Recorded Time 26470 Vasotec medicatio n Not available Not available Not available 06/16/2019 79631 1 RxNorm MARIAH JUNIORP [address], [address], [place], [address], [employer] [facility] 0 08:49:51 16873 calcium carbonate medicatio n Not available Not available Not available 06/16/2019 1897 RxNorm PETRA GARCIA, DISPATCHER MAINTENANCE [address], [address], [place], [address], [employer] [facility] 0 08:50:03 75152 metformin medicatio n Not available Not available Not available 06/16/2019 6809 RxNorm PETRA GARCIA, DISPATCHER MAINTENANCE [address], [address], [place], [address], [employer] [facility] 0 08:50:12 64698 Product containin g penicilli n (product) medicatio n Not available Not available Not available 06/16/2019 78511 8001 SNOMED PETRA GARCIA, DISPATCHER MAINTENANCE [address], [address], [place], [address], [employer] [facility] 0 08:50:30 38305 cephalexi n medicatio n Not available Not available Not available 06/16/2019 2231 RxNorm PETRA GARCIA, DISPATCHER MAINTENANCE [address] , [address], [place], [address], [employer] [facility] 0 08:50:41 Vitals Date Recorded Body height Heart rate Respiratory rate Body temperature Oxygen saturation Oxygen saturation in Arterial blood by Pulse oximetry Systolic And Diastolic Provider Name and Address Organization Details Last Updated DateTime 2 165.1 cm 71 /min 18 /min 98.1 [degF] 96 % 96 % 106/68 mm[Hg] JOSE WHITEHEAD NP [address] [facility], [address], [place], [address], [employer] [facility] 2 11:51:31 Date Recorded Body height Heart rate Respiratory rate Body temperature Oxygen saturation Oxygen saturation in Arterial blood by Pulse oximetry Provider Name and Address Organization Details Last Updated DateTime 2 165.1 cm 70 /min 18 /min 97.8 [degF] 96 % 96 % JOSE WHITEHEAD NP [address] [facility], [address], [place], [address], [employer] [facility] 2 14:58:18 Date Recorded Body height Heart rate Respiratory rate Body temperature Oxygen saturation Oxygen saturation in Arterial blood by Pulse oximetry Systolic And Diastolic Provider Name and Address Organization Details Last Updated DateTime 2 165.1 cm 66 /min 18 /min 97.4 [degF] 96 % 96 % 109/62 mm[Hg] JOSE WHITEHEAD NP [address] [facility], [address], [place], [address], [employer] [facility] 2 11:40:23 Date Recorded Body height Heart rate Respiratory rate Body temperature Oxygen saturation Oxygen saturation in Arterial blood by Pulse oximetry Systolic And Diastolic Provider Name and Address Organization Details Last Updated DateTime 2 165.1 cm 66 /min 18 /min 98.1 [degF] 99 % 99 % 116/70 mm[Hg] JOSE WHITEHEAD NP [address] [facility], [address], [place], [address], [employer] [facility] 2 12:23:01 Date Recorded Body height Heart rate Respiratory rate Body temperature Oxygen saturation Oxygen saturation in Arterial blood by Pulse oximetry Systolic And Diastolic Provider Name and Address Organization Details Last Updated DateTime 2 165.1 cm 72 /min 18 /min 97.7 [degF] 97 % 97 % 104/60 mm[Hg] JOSE WHITEHEAD NP [address] [facility], [address], [place], [address], [employer] 2 10:54:21 Social History Question Answer Notes LastModified by Organizat ion Details LastModified Time Tobacco Smoking Status Never Smoker Not Available [facility] 03/05/2020 03:13:23 Do You Have An Advance Directive? Yes Information not available 07/12/2021 How Much Tobacco Do You Chew? None [id number] Information not available 03/05/2020 What Is Your Code Status? Full Code Information not available 07/12/2021 Where Do You Live? Apartment Information not available 07/15/2021 Legal Guardian? No Informati on not available 07/15/2021 Do You Have A Medical Power Of Shoe Sticks Repairer? Yes HCP On File [id number] Information not available 03/05/2020 What Was The Date Of Your Most Recent Tobacco Screening? 07/15/2021 Information not available 07/15/2021 Do You Have An Out Of Hospital DNR? No Information not available 07/15/2021 What Is Your Relationship Status? Single Information not available 07/15/2021 How Much Tobacco Do You Smoke? No [id number] Information not available 03/05/2020 Has Tobacco Cessation [...] is your level of alcohol consumption? None [id number] Information not available 03/05/2020 Do you or have you ever used smokeless tobacco? Never used smokeless tobacco [id number] Information not available 03/05/2020 Do you or have you ever used e-cigarettes or vape? Never used electronic cigarettes [id number] Information not available 03/05/2020 Mental Status None [...] adjuvanted, quadrivalent, PF 02/12/2022 completed Lizz maradiaga, [facility] 07/07/2023 13:19:58 Influenza, adjuvanted, quadrivalent, PF 01/21/2023 completed Lizz maradiaga [facility] 07/07/2023 13:20:11 Past Encounters Encounter ID Performer Location Encounter Start Date Encounter Closed Date Diagnosis/Indication Diagnosis SNOMED-CT Code Diagnosis ICD10 Code Diagnosis IMO Codes Diagnosis Note [id number] ORQUIDEA JUNIOR [address] [address] 06/16/2019 08:40:02 06/30/2019 16:30:49 Influenza 4260887 J11.1 not able to be on treatment- past treatment time on isolation currently monitor Congestive heart failure 70267182 I50.89 metolazone 5 mg qd torsemide 100 mg q am and 50 mg q pm daily weight monitor fluid balance Chronic ob structive pulmonary disease 98943122 J41.8 zithromax 250 mg x 5 days advair discus 250/50 bid combivent 20/100 mcg/act qid claritin 10 mg qd prednisone 40 mg qd x 5 days pro air 2 puffs q 4 hrs prn monitor for symptoms Asthma 294534813 J45.21 see above Diabetes mellitus 900816 09 E11.9 carbohydra te controlled diet glimepirid e 2 mg qd januvia 100 mg qd monitor a1c monitor for s/s of hypo/hyper glycemia Essential hypertension 15383811 I10 ASA 81 mg qd flecainide 50 mg qd (unable to find reason for this other than frequent PVCs) metoprolol tartrate 200 mg q am and 100 mg q pm monitor b/p and labs Lymphedema 633034409 I89 .0 metolazone 5 mg qd torsemide 100 mg q am and 50 mg q pm monitor edema followed by vascular in the community for this Mixed hyperlipidemia 267 949518 E78.2 atorvastat in 80 mg qd monitor labs Recurrent falls 49736818 2 R29.6 PT/OT eval and treat monitor for safety utilize drew covarrubias Acute hypokalemia 063874 03 E87.6 potassium chloride 10 meq bid low K 2.7 and given extra dose yesterday drawn again today-agai n low 2.8 given 30 meq today and will change to 20 meq q am and 10 meq q pm recheck labs on wednesday Gastroesop hageal reflux disease without esophagitis 224386025 K21.9 omeprazole 20 mg qd monitor for symptoms [id number] Sarah Lugo MD [address] [address] 06/19/2019 13:05:56 06/30/2019 16:36:43 Influenza 2067089 J09.X2 Continue precaution s until no longer coughing. Unable to use tamiflu, because outside treatment window. Considered to have been ill since 06/06 Monitor sxs. Acute hypokalemia 304751 03 E87.6 K+ continues to be low despite increased dose. Will give extra 30 meq now and then increase daily dose to 30 meq BID. No good reason for new onset hypokalemi a, no change in usual dose of diuretic. Recheck tomorrow. Congestive heart failure 44189049 I50.89 Appears euvolemic. Continue metolazone 5 mg qd and torsemide 100 mg q am and 50 mg q pm Monitor resp. status, wts, fluid balance and labs. Diabetes mellitus 488343 09 E11.9 With elevated HgA1C. Will work on CCD and continue current meds. Also just completed course of prednisone . Continue glimepirid e 2 mg qd and januvia 100 mg qd. Monitor for s/s of hypo/hyper glycemia. Essential hypertension 50057758 I10 Good control on metoprolol tartrate 200 mg qAM and 100 mg qPM, metolazone 5 mg qd, and torsemide 100 mg qAM and 50 mg qPM. Monitor BP and labs Lymphedema 652196358 I89 .0 Edema much improved. Diuretics as above Monitor edema Mixed hyperlipidemia 267 833364 E78.2 Continue atorvastat in 80 mg qd Monitor labs as out pt. Recurrent falls 90627855 2 R29.6 Was very weak in ED. Needs intensive PT/OT for strengthen ing, stamina, gait training, balance and safety. Was independen t prior to illness. Gastroesop hageal reflux disease without esophagitis 804245365 K21.9 Continue omeprazole 20 mg qd monitor for symptoms Acute exac erbation of asthma 434024904 J45.41 Completed course of zithromax and burst of prednisone 40 mg qd this AM. Continue advair discus 250/50 BID, combivent 20/100 mcg/act QID, claritin 10 mg qd, and proair 2 puffs q 4 hrs prn Monitor for resolution of sxs. Paroxysmal supraventricular tachycardia 54182870 I47.1 Continue flecainide 50 mg qd and ASA 81 mg qd. [id number] [address] 06/20/2019 12:17:09 06/30/2019 16:32:16 Acute hypokalemia 57789936 E87.6 potassium chloride 30 meq bid currently stable recheck labs on Hyponatremia 58050320 E8 7.1 low sodium of [address] on 1800 [place] [id number] ORQUIDEA JUNIOR [address] [address] 06/21/2019 13:08:43 06/30/2019 16:34:10 Influenza 3431443 J11.1 resolved follow up with PCP Acute hypokalemia 438276 03 E87.6 potassium chloride 30 meq bid will need to follow up with PCP Congestive heart failure 99036677 I50.89 metolazone 5 mg qd torsemide 100 mg q am and 50 mg q pm follow up with PCP Chronic ob structive pulmonary disease 33721361 J41.8 advair discus 250/50 bid combivent 20/100 mcg/act qid claritin 10 mg qd pro air 2 puffs q 4 hrs prn follow up with PCP Asthma 338971806 J45.21 follow up with PCP Diabetes mellitus 802810 09 E11.9 carbohydra te controlled diet glimepirid e 2 mg qd januvia 100 mg qd follow up with PCP Essential hypertension 43775229 I10 ASA 81 mg qd flecainide 50 mg qd metoprolol tartrate 200 mg q am and 100 mg q pm follow up with PCP Lymphedema 331895665 I89 .0 metolazone 5 mg qd torsemide 100 mg q am and 50 mg q pm follow up with vascular in the community Mixed hyperlipidemia 267 128312 E78.2 atorvastat in 80 mg qd follow up with PCP Recurrent falls 48439850 2 R29.6 utilize rolling walker follow up with PCP Gastroesop hageal reflux disease without esophagitis 240969220 K21.9 omeprazole 20 mg qd follow up with PCP Hyponatremia 16820725 E8 7.1 1800 fluid restrictio n follow up with PCP [id number] KIEL ZHENG [address] [place] [address] 07/12/2021 13:23:39 07/14/2021 14:37:17 Fracture of femur 89392108 S72.92XA monitor acitivity and cms to legPT OT eval and treatperco cet 5/325 q4 hr prnlovenox 40 mg sc to 4.9 Wound of skin 568334843 T14.8XXA monitor for any signs of infectionc hange dressing per protocol Chronic ob structive pulmonary disease 06194524 J41.8 combivent respimat 20/100 qidwixela 250/50 bidalbuter ol/atroven t neb q6 hr prnmonitor resp status Asthma 109999419 J45.21 combivent respimat 20/100 qidwixela 250/50 bidalbuter ol/atroven t neb q6 hr prnmonitor resp status Congestive heart failure 42993490 I50.89 torsemide 100 mg dailylosar ellis 50 mg daily Diabetes mellitus 754502 09 E11.9 ozempic 0.25 mg x4 weeks then 0.5 weeklyglim iperide 1 mg am, 2 mg hs Essential hypertension 71992393 I10 metoprolol 200 mg am, 100 mg hslosartan 50 mg dailymonit or bp Gastroesop hageal reflux disease without esophagitis 740711980 K21.9 monitor for symptoms Lymphedema 238705892 I89 .0 torsemide 100 mg daily Recurrent falls 10414417 2 R29.6 PT OT eval and treatfall precaution sfrequent safety checks Mixed hyperlipidemia 267 304208 E78.2 rosuvastat in 40 mg daily Osteoporosis 64647908 M8 1.0 alendronat e 70 mg weekly on sat [id number] Sarah Lugo MD [address] [place] [address] 07/15/2021 14:54:47 07/23/2021 15:26:06 Fracture of femur 40780248 S72.22XD Recovering well.Fadi nue percocet 5/325 q 4 hrs prn for pain.Fadi nue lovenox 40 mg sq qd and ASA 81 mg qd for DVT prophylaxi s until 08/23.Needs PT/OT for strengthen ing, balance, gait training, safety and function.C ontinue fall precaution s.Monitor for safety.F/U with ortho as planned.Mo nitor incisions. Chronic ob structive pulmonary disease 89217502 J41.8 At baseline.C ontinue combivent respimat 20/100 QID, Advair 250/50 BID and duonebs q 6 hrs prn.Monito r resp status Asthma 163891210 J45.21 As above. Congestive heart failure 06416928 I50.89 Appears euvolemic. Continue torsemide 100 mg qd, losartan 50 mg qd and metoprolol 200 mg qAM and 100 mg qPM.Monito r resp. status, fluid status, wts and labs. Diabetes mellitus 766900 09 E11.9 Sugars in adequate control since here.Fadi nue ozempic 0.25 mg x 4 weeks then 0.5 mg weekly, glimepirid e 1 mg qam and 2 mg qhs, SSI.Monito r sugars TID and HgA1C q 3 months. Essential hypertension 31537669 I10 Good control on meds as above.Jennifer tor BP and labs. Gastroesop hageal reflux disease without esophagitis 264922660 K21.9 No current sxs, on no meds.Monit or Lymphedema 907119567 I89 .0 Continue torsemide 100 mg qd.Monitor . Recurrent falls 14543427 2 R29.6 Very deconditio audrey.Needs PT/OT for strengthen ing, balance, gait training, safety and function.C ontinue fall precaution s.Monitor for safety. Mixed hyperlipidemia 267 902517 E78.2 Continue rosuvastat in 40 mg qd.Monitor labs as outpt. Osteoporosis 14219842 M8 0.052D Continue alendronat e 70 mg weekly,Mon itor as outpt. Vitamin B1 2 deficiency (non anemic) 76289974 E53.8 Hasn't had B12 shot in several months, will check level in AM. [id number] JOSE WHITEHEAD NP [address] [address] 07/17/2021 10:08:03 07/23/2021 15:33:24 Chronic obstructive pulmonary disease 10078594 J41.8 combivent respimat 20/100 qidwixela 250/50 bidalbuter ol/atroven t neb q6 hr prnmonitor resp status Fracture of femur 912387 00 S72.92XA monitor acitivity and cms to legPT OT eval and treatperco cet 5/325 q4 hr prnlovenox 40 mg sc to 4/9 Wound of skin 311075327 T14.8XXA monitor for any signs of infectionc hange dressing per protocol [id number] JOSE WHITEHEAD NP [address] [address] 07/21/2021 14:40:07 07/29/2021 12:30:20 Pulmonary embolism 43348589 I26.99 eiliquis 10 mg bid for 5 dayseliqui s 5 mg bidlovenox 40 mg sc daily Fracture of femur 173471 00 S72.22XD monitor acitivity and cms to legPT OT eval and treatperco cet 5/325 q4 hr prnlovenox 40 mg sc to 4/9 Wound of skin 306753224 T14.8XXA monitor for any signs of infectionc hange dressing per protocol Chronic ob structive pulmonary disease 70133656 J41.8 combivent respimat 20/100 qidwixela 250/50 bidalbuter ol/atroven t neb q6 hr prnmonitor resp status Asthma 439331969 J45.21 combivent respimat 20/100 qidwixela 250/50 bidalbuter ol/atroven t neb q6 hr prnmonitor resp status Congestive heart failure 00280501 I50.89 torsemide 100 mg daily Diabetes mellitus 743781 09 E11.9 ozempic 0.25 mg x4 weeks then 0.5 weeklyglim iperide 1 mg am, 2 mg hslispro sliding scale Essential hypertension 11925061 I10 metoprolol 100 mg hsmonitor bp Gastroesop hageal reflux disease without esophagitis 018089783 K21.9 monitor for symptoms Lymphedema 956575255 I89 .0 torsemide 100 mg daily Recurrent falls 49840963 2 R29.6 PT OT eval and treatfall precaution sfrequent safety checks Mixed hyperlipidemia 267 182846 E78.2 rosuvastat in 40 mg daily Osteoporosis 23108481 M8 1.0 alendronat e 70 mg weekly on sat [id number] KIEL ZHENG [address] [address] 07/24/2021 10:50:27 07/28/2021 14:35:14 Fracture of femur 93811536 S72.22XD monitor acitivity and cms to legPT OT eval and treatperco cet 5/325 q4 hr prnlovenox 40 mg sc to 4/9 Wound of skin 015105758 T14.8XXA monitor for any signs of infectionc hange dressing per protocol Osteoporosis 21415082 M8 1.0 alendronat e 70 mg weekly on sat [id number] JOSE WHITEHEAD NP [facility] [address] [place] [address] 07/30/2021 09:02:59 08/06/2021 10:33:44 Fracture of femur 82761131 S72.22XD monitor acitivity and cms to legPT OT eval and treatperco cet 5/325 q4 hr prnlovenox 40 mg sc to 4/9 Wound of skin 660107964 T14.8XXA monitor for any signs of infectionc hange dressing per protocol Osteoporosis 10130329 M8 1.0 alendronat e 70 mg weekly on sat [id number] KIEL ZHENG GEOVANNA [address] [place] [address] rd PABLOANDREWMARIA LUISA [address] 08/04/2021 10:37:36 08/06/2021 11:39:05 Pulmonary embolism 66616732 I26.99 eliquis 5 mg bidlovenox 40 mg sc daily Fracture of femur 792203 00 S72.22XD monitor acitivity and cms to legPT OT eval and treatperco cet 5/325 q4 hr prnlovenox 40 mg sc to 4/9 Wound of skin 385782302 T14.8XXA monitor for any signs of infectionc hange dressing per protocol Chronic ob structive pulmonary disease 56688771 J41.8 combivent respimat 20/100 qidwixela 250/50 bidalbuter ol/atroven t neb q6 hr prnmonitor resp status Asthma 796439533 J45.21 combivent respimat 20/100 qidwixela 250/50 bidalbuter ol/atroven t neb q6 hr prnmonitor resp status Congestive heart failure 83699069 I50.89 torsemide 100 mg daily Diabetes mellitus 485413 09 E11.9 ozempic 0.25 mg x4 weeks then 0.5 weeklyglim iperide 1 mg am, 2 mg hslispro sliding scale Essential hypertension 09750162 I10 metoprolol 100 mg hsmonitor bp Gastroesop hageal reflux disease without esophagitis 804499057 K21.9 monitor for symptomsom eprazole 20 mg daily Lymphedema 063267968 I89 .0 torsemide 100 mg daily Recurrent falls 07422642 2 R29.6 PT OT eval and treatfall precaution sfrequent safety checks Mixed hyperlipidemia 267 529408 E78.2 rosuvastat in 40 mg daily Osteoporosis 43601636 M8 1.0 alendronat e 70 mg weekly on sat Health Concerns Section Related Observation LastModified by Organization Detai ls LastModified Time None Recorded Concern Status LastModified by Organization Details LastModified Time None Recorded Advance Directives Directive Y: Payers Insurance Date Sequence Insurance Name Policy Number Policy [place] Covered Member ID [place] Member ID Guarantor Name 07/30/2021 1 [facility] - DOS PRIOR TO 2022 - DUAL ELIGIBLE (MEDICARE REPLACEMENT/ADV ANTAGE - HMO) Miracle Crockett [id number] Miracle Crockett Notes Date Note Type Note Provider Name and Address Organization Details Recorded Time 07/17/2021 text/html ROS as noted in the HPI seen today for acute rounding visit, CAOx3 sitting up in bed, left dressings dry intact, good cms to left leg, lungs clear, she has been participating with PT and doing well JOSE WHITEHEAD NP [address] [facility], [address], [place], [address], [employer] 07/17/2021 11:55:40 07/21/2021 text/html ROS as noted [...] distress or discomfort JOSE WHITEHEAD NP [address] [facility], [address], [place], [address], [employer] [facility] 07/29/2021 11:55:28 07/24/2021 text/html ROS as noted in the HPI seen today for acute rounding visit, sitting up in bed, left leg dressing dry intact, good cms, lungs clear,trace edema, tolerating PT therapy JOSE WHITEHEAD NP [address] [facility], [address], [place], [address], [employer] 07/24/2021 11:48:24 07/30/2021 text/html ROS as noted [...] a new appt JOSE WHITEHEAD NP [address] [facility], [address], [place], [address], [employer] 07/30/2021 12:25:33 08/04/2021 text/html ROS as noted [...] walker and supervision JOSE WHITEHEAD NP [address] [facility], [address], [place], [address], [employer] 08/04/2021 12:36:29 OBGyn Episode No OBEpisode recorded.
== END 2025-03-19 11:23 | disposition home or self-care (01) ==
LOC: HO.HOS 10:23
PROVIDERS: PCP Physician Assistant; Visit Provider Physician Assistant
DX: S81.812A Laceration without foreign body, left lower leg, initial encounter (principal)
CPT/HCPCS: 99213; G2211

== ENCOUNTER → 2025-03-19 10:22 | Outpatient (BNVA) | payer OTHER, SELFPAY | PROVIDERS: PCP Physician Assistant; Visit Provider Physician Assistant | DX: M25.562 Pain in left knee (principal); S81.812A Laceration without foreign body, left lower leg, initial encounter | CPT/HCPCS: 99212 ==